=== PATIENT | male | born 1945 | race Caucasian/White ===

== ENCOUNTER → 2017-07-04 11:48 | Outpatient (CLI) | payer MEDICARE, BC, SELFPAY ==
[2017-07-04 13:06] LABS: Prostate Specific Ag Screen 4.4 ng/mL (0.0-4.0)
== END ==
PROVIDERS: Visit Provider Urology
DX: Z12.5 Encounter for screening for malignant neoplasm of prostate (principal); R97.20 Elevated prostate specific antigen [PSA]
CPT/HCPCS: 36415; G0103

== ENCOUNTER → 2017-10-17 09:55 | Outpatient (CLI) | payer MEDICARE, BC, SELFPAY | PROVIDERS: Family Provider Internal Medicine Adolescent Medicine; PCP Internal Medicine Adolescent Medicine; Visit Provider Physician Assistant | DX: Z01.818 Encounter for other preprocedural examination (principal); E11.9 Type 2 diabetes mellitus without complications; E03.9 Hypothyroidism, unspecified | CPT/HCPCS: 36415; 80048; 80061; 80076; 83036; 85025 ==

== ENCOUNTER → 2017-10-17 10:11 | Outpatient (CLI) | payer MEDICARE, BC, SELFPAY ==
--- NOTE | 2017-10-17 10:13 | NM_ITS ---
History and Indications: Diabetes, hyperlipidemia, tobacco use, shortness of breath and fatigue. Procedure: Patient received a 0.4 mg of Lexiscan, resting heart rate was 74 bpm resting blood pressure 142/54, with Lexiscan maximum heart rate achieved was 93 beats per which is less than 85% of the maximum predicted heart rate and a blood pressure was 101/42. With Lexiscan patient complained of shortness of breath and lightheadedness Electrocardiogram: Resting electrocardiogram sinus rhythm, nonspecific ST-T changes, with Lexiscan there is less than 1.[address] segment depression from the baseline EKG. The EKG portion of the Lexiscan Myoview is nondiagnostic. Cardiac stress and resting SPECT images: Cardiac stress and rest SPECT images were obtained using technetium 99 Myoview 31.3 mCi at stress and 10.9 mCi at rest. Gated SPECT further analysis of segmental wall motion and calculation of the ejection fraction also done. Cardiac stress and rest SPECT images show uniform myocardial without any segmental perfusion abnormality, computer derived ejection fraction is 57% with no obvious regional wall motion abnormality, right ventricle is normal size and contractility. Conclusion: 1. The EKG portion of the Lexiscan Myoview is nondiagnostic. 2. No obvious scintigraphic evidence of reversible ischemia seen. Computer derived ejection fraction is 57% with no obvious regional wall motion abnormality, right ventricle is normal size and contractility. 3. Normal Lexiscan Myoview study.
[2017-10-17 10:33] LABS: Basophils # 0.1 K/mm3 (0-0.2); Eosinophils # 0.3 K/mm3 (0.0-0.4); Eosinophils % 3.4 % (0.1-12.0); Lymphocytes # 2.1 K/mm3 (0.7-4.5); Lymphocytes % 27.4 K/mm3 (10-50); Mean Corpuscular HGB Conc 29.4 g/dL (31.8-35.4); Mean Corpuscular Hemoglobin 22.8 pg (27.0-31.2); Mean Corpuscular Volume 77.7 fl (80-94); Mean Platelet Volume 8.4 fl (7.4-10.4); Monocytes # 0.4 K/mm3 (0.1-1.0); Monocytes % 4.8 % (1.7-9.3); Neutrophils # 4.8 K/mm3 (1.8-7.8); Neutrophils % 63.4 % (37.0-80.0); Platelet Count 362 K/mm3 (142-424); Red Cell Distribution Width 17.3 % (11.5-17.5); White Blood Count 7.6 K/mm3 (4.8-10.8)
[2017-10-17 11:02] LABS: Hematocrit 32.8 % (42.0-52.0); Hemoglobin 9.7 g/dL (14.1-18.0); Red Blood Count 4.22 M/mm3 (4.60-6.20)
[2017-10-17 11:09] LABS: Alanine Aminotransferase 85 U/L (12-78); Albumin Level 3.5 gm/dL (3.4-5.0); Alkaline Phosphatase 66 U/L (46-116); Anion Gap 15.8 mEq/L (5-15); Aspartate Amino Transferase 54 U/L (15-37); Bilirubin,Direct 0.1 mg/dL (0.0-0.2); Bilirubin,Indirect 0.2 mg/dL (0.0-0.9); Bilirubin,Total 0.3 mg/dL (0.2-1.0); Blood Urea Nitrogen 36 mg/dL (7-18); Calcium 9.6 mg/dL (8.5-10.1); Carbon Dioxide 29 mmol/L (21.0-32.0); Chloride 101 mmol/L (98-107); Chol/HDL Ratio 3.5 (1-3.5); Cholesterol 153 mg/dL (140-200); Creatinine,Serum 2.18 mg/dL (0.70-1.30); Estimated Glomerular Filt Rate 30 ml/min (>60); GFR (African American) 36 ML/MIN (>60); Glucose 166 mg/dL (74-106); HDL Cholesterol 44 mg/dL (27-67); LDL Cholesterol 59 mg/dL (0-130); Potassium 3.8 mmoL/L (3.5-5.1); Sodium 142 mmol/L (136-145); Total Protein,Serum 7.2 gm/dL (6.4-8.2); Triglycerides 250 mg/dL (30-200); VLDL Cholesterol 50 mg/dL (0-40)
[2017-10-17 12:13] LABS: Hemoglobin A1C 8.2 % (0.0-7.0)
--- NOTE | 2017-10-17 13:15 | HMH.ITSHM ---
simvastatin telmisart furosemide metformin levothyroxin advair asa
== END ==
PROVIDERS: Physician Assistant; Family Provider Internal Medicine Adolescent Medicine; PCP Internal Medicine Adolescent Medicine; Visit Provider Internal Medicine
DX: Z01.818 Encounter for other preprocedural examination (principal); Z95.5 Presence of coronary angioplasty implant and graft; E11.9 Type 2 diabetes mellitus without complications; E03.9 Hypothyroidism, unspecified; E78.5 Hyperlipidemia, unspecified; I25.10 Atherosclerotic heart disease of native coronary artery without angina pectoris; I11.9 Hypertensive heart disease without heart failure
CPT/HCPCS: 36415; 78452; 80048; 80061; 80076; 83036; 85025; 93017; A9502; J2785

== ENCOUNTER → 2017-10-18 08:39 | Outpatient (CLI) | payer MEDICARE, BC, SELFPAY ==
[2017-10-18 10:03] LABS: Occult Blood,Stool Negative (Negative)
== END ==
PROVIDERS: Physician Assistant; Visit Provider Internal Medicine
DX: I25.10 Atherosclerotic heart disease of native coronary artery without angina pectoris (principal); Z95.5 Presence of coronary angioplasty implant and graft
CPT/HCPCS: 82272; G0328

== ENCOUNTER → 2017-10-21 11:22 | Outpatient (CLI) | payer MEDICARE, BC, SELFPAY ==
[2017-10-21 11:52] LABS: Basophils # 0.1 K/mm3 (0-0.2); Basophils % 0.9 % (0.1-2.0); Eosinophils # 0.3 K/mm3 (0.0-0.4); Eosinophils % 3.1 % (0.1-12.0); Hematocrit 31.5 % (42.0-52.0); Hemoglobin 9.3 g/dL (14.1-18.0); Lymphocytes # 2.1 K/mm3 (0.7-4.5); Lymphocytes % 25.9 K/mm3 (10-50); Mean Corpuscular HGB Conc 29.6 g/dL (31.8-35.4); Mean Corpuscular Hemoglobin 23.1 pg (27.0-31.2); Mean Platelet Volume 8.6 fl (7.4-10.4); Monocytes # 0.3 K/mm3 (0.1-1.0); Monocytes % 3.7 % (1.7-9.3); Neutrophils # 5.3 K/mm3 (1.8-7.8); Neutrophils % 66.3 % (37.0-80.0); Platelet Count 338 K/mm3 (142-424); Red Blood Count 4.04 M/mm3 (4.60-6.20); Red Cell Distribution Width 17.4 % (11.5-17.5); White Blood Count 7.9 K/mm3 (4.8-10.8)
[2017-10-21 12:06] LABS: Alanine Aminotransferase 68 U/L (12-78); Albumin Level 3.3 gm/dL (3.4-5.0); Alkaline Phosphatase 64 U/L (46-116); Anion Gap 12.7 mEq/L (5-15); Aspartate Amino Transferase 41 U/L (15-37); Bilirubin,Total 0.2 mg/dL (0.2-1.0); Blood Urea Nitrogen 26 mg/dL (7-18); Calcium 9.6 mg/dL (8.5-10.1); Carbon Dioxide 30 mmol/L (21.0-32.0); Chloride 103 mmol/L (98-107); Creatinine,Serum 1.74 mg/dL (0.70-1.30); Estimated Glomerular Filt Rate 39 ml/min (>60); GFR (African American) 47 ML/MIN (>60); Glucose 223 mg/dL (74-106); Potassium 3.7 mmoL/L (3.5-5.1); Sodium 142 mmol/L (136-145); Total Protein,Serum 7.3 gm/dL (6.4-8.2)
[2017-10-21 12:23] LABS: Bilirubin,Direct < 0.1 mg/dL (0.0-0.2); Bilirubin,Indirect 0.1 mg/dL (0.0-0.9)
== END ==
PROVIDERS: Family Provider Internal Medicine Adolescent Medicine; PCP Internal Medicine Adolescent Medicine; Visit Provider Physician Assistant
DX: D64.9 Anemia, unspecified (principal); N18.9 Chronic kidney disease, unspecified; R94.5 Abnormal results of liver function studies; I25.10 Atherosclerotic heart disease of native coronary artery without angina pectoris
CPT/HCPCS: 36415; 80048; 80076; 85025

== ENCOUNTER → 2017-12-21 09:02 | Outpatient (CLI) | payer MEDICARE, BC, SELFPAY ==
[2017-12-21 09:57] LABS: Basophils # 0.1 K/mm3 (0-0.2); Basophils % 0.8 % (0.1-2.0); Eosinophils # 0.1 K/mm3 (0.0-0.4); Eosinophils % 1.7 % (0.1-12.0); Hematocrit 31.8 % (42.0-52.0); Hemoglobin 9.8 g/dL (14.1-18.0); Lymphocytes % 24.5 K/mm3 (10-50); Mean Corpuscular HGB Conc 30.9 g/dL (31.8-35.4); Mean Corpuscular Hemoglobin 24.1 pg (27.0-31.2); Mean Corpuscular Volume 77.8 fl (80-94); Mean Platelet Volume 7.8 fl (7.4-10.4); Monocytes # 0.4 K/mm3 (0.1-1.0); Monocytes % 4.3 % (1.7-9.3); Neutrophils # 5.7 K/mm3 (1.8-7.8); Neutrophils % 68.6 % (37.0-80.0); Platelet Count 354 K/mm3 (142-424); Red Blood Count 4.09 M/mm3 (4.60-6.20); Red Cell Distribution Width 17.8 % (11.5-17.5); White Blood Count 8.3 K/mm3 (4.8-10.8)
[2017-12-21 09:58] LABS: Hemoglobin A1C 7.7 % (0.0-7.0)
[2017-12-21 10:33] LABS: Alanine Aminotransferase 66 U/L (12-78); Albumin Level 3.5 gm/dL (3.4-5.0); Albumin/Globulin Ratio 0.9 (1.1-1.8); Alkaline Phosphatase 73 U/L (46-116); Anion Gap 12.9 mEq/L (5-15); Aspartate Amino Transferase 30 U/L (15-37); Bilirubin,Total 0.2 mg/dL (0.2-1.0); Blood Urea Nitrogen 20 mg/dL (7-18); Calcium 9.5 mg/dL (8.5-10.1); Carbon Dioxide 31 mmol/L (21.0-32.0); Chloride 103 mmol/L (98-107); Cholesterol 173 mg/dL (140-200); Creatinine,Serum 1.56 mg/dL (0.70-1.30); Estimated Glomerular Filt Rate 44 ml/min (>60); GFR (African American) 54 ML/MIN (>60); Globulin 3.7 gm/dl (1.3-3.2); Glucose 133 mg/dL (74-106); HDL Cholesterol 57 mg/dL (27-67); LDL Cholesterol 77 mg/dL (0-130); Potassium 3.9 mmoL/L (3.5-5.1); Sodium 143 mmol/L (136-145); Thyroid Stimulating Hormone 2.37 uIU/ml (0.358-3.740); Total Protein,Serum 7.2 gm/dL (6.4-8.2); Triglycerides 195 mg/dL (30-200); VLDL Cholesterol 39 mg/dL (0-40)
[2017-12-24 08:28] LABS: Vitamin B12 470 pg/mL (232-1245)
== END ==
PROVIDERS: Visit Provider Internal Medicine Adolescent Medicine
DX: E11.9 Type 2 diabetes mellitus without complications (principal); E78.5 Hyperlipidemia, unspecified; E11.42 Type 2 diabetes mellitus with diabetic polyneuropathy; I25.10 Atherosclerotic heart disease of native coronary artery without angina pectoris
CPT/HCPCS: 36415; 80053; 80061; 82607; 83036; 84443; 85025

== ENCOUNTER → 2018-02-21 07:00 | Outpatient (CLI) | payer MEDICARE, BC, SELFPAY ==
[2018-02-24 16:02] LABS: Occult Blood,Stool Negative (Negative)
== END ==
PROVIDERS: PCP Internal Medicine Adolescent Medicine; Visit Provider Internal Medicine Gastroenterology
DX: D50.0 Iron deficiency anemia secondary to blood loss (chronic) (principal)
CPT/HCPCS: 82272; G0328

== ENCOUNTER → 2018-02-23 07:00 | Outpatient (CLI) | payer MEDICARE, BC, SELFPAY ==
[2018-02-24 16:01] LABS: Occult Blood,Stool Negative (Negative)
== END ==
PROVIDERS: PCP Internal Medicine Adolescent Medicine; Visit Provider Internal Medicine Gastroenterology
DX: D50.0 Iron deficiency anemia secondary to blood loss (chronic) (principal)
CPT/HCPCS: 82272; G0328

== ENCOUNTER → 2018-02-24 15:25 | Outpatient (CLI) | payer MEDICARE, BC, SELFPAY ==
[2018-02-24 16:01] LABS: Occult Blood,Stool Negative (Negative)
== END ==
PROVIDERS: PCP Internal Medicine Adolescent Medicine; Visit Provider Internal Medicine Gastroenterology
DX: D50.0 Iron deficiency anemia secondary to blood loss (chronic) (principal)
CPT/HCPCS: 82272; G0328

== ENCOUNTER → 2018-02-27 14:08 | Outpatient (CLI) | payer MEDICARE, BC, SELFPAY ==
[2018-02-27 15:18] LABS: Basophils # 0.1 K/mm3 (0-0.2); Basophils % 0.6 % (0.1-2.0); Eosinophils # 0.3 K/mm3 (0.0-0.4); Hematocrit 30.1 % (42.0-52.0); Hemoglobin 9.3 g/dL (14.1-18.0); Lymphocytes % 19.7 K/mm3 (10-50); Mean Corpuscular HGB Conc 30.8 g/dL (31.8-35.4); Mean Corpuscular Hemoglobin 24.4 pg (27.0-31.2); Mean Corpuscular Volume 79.3 fl (80-94); Mean Platelet Volume 7.9 fl (7.4-10.4); Monocytes # 0.4 K/mm3 (0.1-1.0); Monocytes % 3.9 % (1.7-9.3); Neutrophils # 7.3 K/mm3 (1.8-7.8); Platelet Count 339 K/mm3 (142-424); Red Cell Distribution Width 19.7 % (11.5-17.5)
[2018-02-27 16:36] LABS: Ferritin 17 ng/mL (8-388)
[2018-03-01 07:23] LABS: Iron 58 ug/dL (38-169); UIBC 333 ug/dL (111-343)
[2018-03-02 09:27] LABS: Iron Saturation 15 % (15-55)
== END ==
PROVIDERS: PCP Internal Medicine Adolescent Medicine; Visit Provider Internal Medicine Medical Oncology
DX: D64.9 Anemia, unspecified (principal); Z79.899 Other long term (current) drug therapy
CPT/HCPCS: 36415; 82728; 83540; 83550; 85025

== ENCOUNTER → 2018-03-24 06:43 | Outpatient (CLI) | payer MEDICARE, BC, SELFPAY ==
--- NOTE | 2018-03-24 07:02 | CT_ITS ---
CT lung screening EXAM: CT LUNG LOW DOSE WO CONTRAST HISTORY: 55 pack-year smoking history asymptomatic for lung cancer ITS.REASON: SMOKER ORDERING PHYSICIAN: Huong Royal MD PATIENT AGE: 73 years COMPARISON: 10/07/2015 TECHNIQUE: The exam was performed on a GE Light Speed [address] scanner using 2.90 mGy CTDI. A low dose helical CT CHEST was performed on a multi-detector scanner. All CT scans at the facility use one or more dose reduction, viz: automated exposure control, ma/kV adjustment per patient size (including targeted exams where dose is matched to indication, i.e. head), or iterative reconstruction technique. The LDCT was performed in a facility that meets the criteria for the screening program. Data regarding this exam was submitted to ACR which is an approved registry. The order for this exam indicates that it came as a result of a lung cancer screening counseling shard decision-making visit that included all the elements required of such a visit including smoking cessation. The radiologist interpreting this exam meets the [facility] criteria for the LDCT lung cancer screening program. The exam is reported using the Lung-RADS classification scale and reported to the ACR registry. NOTE: This study was performed for the specific purposes of lung cancer screening and is not an alternative to diagnostic chest CT. RADIATION DOSE: CTDI vol(CT dose Index-volume) = 2.90mG DLP (Dose Length Product) = 113.33 mGcm FINDINGS: Centrilobular emphysema. COPD with hyperinflation and attenuation of the peripheral pulmonary vessels. Osteal thickening. Old granulomatous disease. Fibrotic changes are present in the left lung base. No suspicious pulmonary nodule. No effusions or infiltrates. No central obstructing lesion. Coronary artery calcifications are present and there is mild pericardial thickening. IMPRESSION: 1. Lung RADS Category: 2, benign 2. Other findings: Centrilobular emphysema, COPD, coronary artery disease RECOMMENDATIONS: Twelve-month LDCT follow-up
== END ==
PROVIDERS: PCP Internal Medicine Adolescent Medicine; Visit Provider Internal Medicine Medical Oncology
DX: Z12.2 Encounter for screening for malignant neoplasm of respiratory organs (principal); Z87.891 Personal history of nicotine dependence

== ENCOUNTER → 2018-04-24 13:12 | Outpatient (CLI) | payer MEDICARE, BC, SELFPAY ==
[2018-04-24 13:46] LABS: Basophils # 0.1 K/mm3 (0-0.2); Eosinophils # 0.4 K/mm3 (0.0-0.4); Eosinophils % 3.9 % (0.1-12.0); Hematocrit 41.8 % (42.0-52.0); Hemoglobin 13.3 g/dL (14.1-18.0); Lymphocytes # 2.1 K/mm3 (0.7-4.5); Lymphocytes % 22.6 % (10-50); Mean Corpuscular HGB Conc 31.9 g/dL (31.8-35.4); Mean Corpuscular Hemoglobin 28.9 pg (27.0-31.2); Mean Corpuscular Volume 90.6 fl (80-94); Mean Platelet Volume 8.1 fl (7.4-10.4); Monocytes # 0.5 K/mm3 (0.1-1.0); Monocytes % 4.8 % (1.7-9.3); Neutrophils # 6.3 K/mm3 (1.8-7.8); Neutrophils % 67.7 % (37.0-80.0); Platelet Count 270 K/mm3 (142-424); Red Blood Count 4.61 M/mm3 (4.60-6.20); Red Cell Distribution Width 20.4 % (11.5-17.5); White Blood Count 9.3 K/mm3 (4.8-10.8)
[2018-04-24 15:06] LABS: Ferritin 22 ng/mL (8-388)
[2018-04-25 07:18] LABS: Iron 45 ug/dL (38-169); UIBC 335 ug/dL (111-343)
[2018-04-25 16:16] LABS: Iron Saturation 12 % (15-55)
== END ==
PROVIDERS: PCP Internal Medicine Adolescent Medicine; Visit Provider Internal Medicine Medical Oncology
DX: D64.9 Anemia, unspecified (principal)
CPT/HCPCS: 36415; 82728; 83540; 83550; 85025

== ENCOUNTER → 2018-05-07 09:03 | Outpatient (CLI) | payer MEDICARE, BC, SELFPAY ==
[2018-05-07 09:52] LABS: Hemoglobin A1C 6.7 % (0.0-7.0)
[2018-05-07 10:51] LABS: Alanine Aminotransferase 69 U/L (12-78); Albumin Level 3.3 gm/dL (3.4-5.0); Albumin/Globulin Ratio 0.9 (1.1-1.8); Alkaline Phosphatase 68 U/L (46-116); Anion Gap 13.5 mEq/L (5-15); Aspartate Amino Transferase 40 U/L (15-37); Bilirubin,Total 0.3 mg/dL (0.2-1.0); Blood Urea Nitrogen 16 mg/dL (7-18); Calcium 9.2 mg/dL (8.5-10.1); Carbon Dioxide 31 mmol/L (21.0-32.0); Chloride 101 mmol/L (98-107); Chol/HDL Ratio 3.7 (1-3.5); Cholesterol 180 mg/dL (140-200); Creatinine,Serum 1.55 mg/dL (0.70-1.30); Estimated Glomerular Filt Rate 44 ml/min (>60); GFR (African American) 54 ML/MIN (>60); Globulin 3.7 gm/dl (1.3-3.2); Glucose 128 mg/dL (74-106); HDL Cholesterol 49 mg/dL (27-67); LDL Cholesterol 85 mg/dL (0-130); Potassium 3.5 mmoL/L (3.5-5.1); Sodium 142 mmol/L (136-145); Triglycerides 232 mg/dL (30-200); VLDL Cholesterol 46 mg/dL (0-40)
--- NOTE | 2018-05-07 11:01 | XR_ITS ---
XR chest 2V HISTORY: Right anterior chest pain, shortness of air, smoker, heart disease ITS.REASON: chest pain ORDERING PHYSICIAN: Denae Velarde PATIENT AGE: 73 years COMPARISON: 02/10/2016 FINDINGS: The cardiomediastinal silhouette and pulmonary vascularity are within normal limits. The lungs are clear without infiltrates, suspicious nodules, or pleural effusions. Chronic changes left lower lobe. Degenerative changes thoracic spine. COPD No acute bony abnormalities. IMPRESSION: COPD with chronic change, no change with no acute finding
== END ==
PROVIDERS: PCP Internal Medicine Adolescent Medicine; Visit Provider Urology
DX: I25.10 Atherosclerotic heart disease of native coronary artery without angina pectoris (principal); R06.02 Shortness of breath; R07.9 Chest pain, unspecified; E11.9 Type 2 diabetes mellitus without complications; E78.5 Hyperlipidemia, unspecified
CPT/HCPCS: 36415; 71046; 80053; 80061; 83036

== ENCOUNTER → 2018-05-13 09:51 | Outpatient (POV) | payer MEDICARE, BC, SELFPAY ==
[2018-05-13 10:07] VITALS: BP 137/58; PULSE 82; RESP 18; O2SAT 98
--- NOTE | 2018-05-13 10:25 | HMH.PMCON ---
Assessment and Plan (1) Degenerative disc disease Current visit: Yes Status: Chronic Category: Medical (2) Facet arthropathy Current visit: Yes Status: Chronic Category: Medical Code(s): M47.819 - Spondylosis without myelopathy or radiculopathy, site unspecified - Assessment and plan all Dx Assessment and Plan for all problems:: We will set the patient up for an MRI we will also set him up for an L3-L4 L4-L5 L5-S1 bilateral lumbar facet joint injections/medial branch block. If this is successful I do believe he would benefit from a RFA in the future. This note was dictated using voice recognition software and may contain errors or omissions HPI - Data of Consult Consult date: 05/13/18 Requesting Physician: Cristine Wallace APRN Primary Care Provider: Akil Borges MD Family Provider: Akil Borges MD - Consult Narrative Reason for consult: Back pain History of present illness: Mr. Plascencia is a 73 year old male who presents today for consultation in regards to his low back pain. He rates his pain today a 5 out of 10. He states is in his lower back. Patient states rotational movement makes it worse. Patient was seen by Dr. Hill and had an RFA but a year ago he states he had very good relief almost a year. Patient states that he had care transferred to Dr. Sarmiento however he received epidural injections with not much relief. Patient's tried and failed physical therapy. He is continuing a home stretching program. He is on Plavix however he does have permission to come off her injections. He had significant relief with them. Patient does have an MRI from 2004 showing facet disease. Patient has taken anti-inflammatories along with gabapentin. CC: Cristine Wallace APRN [facility] History I have reviewed the patient's past medical history: Yes Medical History: Reports:: Atrial Fibrillation, Chronic Obstructive Pulmonary Disease (COPD), Coronary Artery Disease, Diabetes Mellitus Type 2, Hyperlipidemia, Hypertension, Lung Disease Denies:: Cancer, Diabetes Mellitus Type 1, Internal Pacemaker, MRSA, Seizures Have you ever received a pneumonia vaccine?: Yes Other Medical History: Reports: Hypothyroidism Other Surgeries: Yes: Cardiac Catheterization, Coronary Stent (2014), Hernia Repair, Other. No: Pacemaker Amputation: No Fractures: No - *Social History Smoking Status: Current every day smoker Tobacco Type: cigarettes # Packs/Day (cigarettes): 1 #Yrs smoked (if former smoker): 50 Alcohol Intake: never Alcohol Intake Frequency:: other Substance Use Type: denies use Occupational Status: retired Housing: house Travel in the last 8 weeks: None - Psychiatric History Expresses thoughts of harming self/others: None Suicide Plan Description: No Plan *Family Hx:: No significant family history Review of Systems - Review of Systems ROS General: no recent weight change, no fever, no sleep disturbances Respiratory: no cough, no shortness of air, no recurring pulmonary infections Cardiovascular/Peripheral Vascular: No chest pain, No palpitations, no edema, no shortness of breath. Gastrointestinal: no incontinence, normal bowel movements reported Genitourinary: no incontinence Musculoskeletal: Back pain Psychiatric: normal mood/ affect Neurological: [denies weakness in extremities], [denies balance issues] Meds Home Medications Medication Instructions Recorded Confirmed Type aspirin 81 mg tablet,delayed 81 mg PO ONCE 07/09/17 05/07/18 History release clopidogrel 75 mg tablet 75 mg PO DAILY tab 07/09/17 05/07/18 History metformin 1,000 mg tablet 1,000 mg PO BID 07/09/17 05/07/18 History douprexaiukl-Jn-dljz-minerals 18 1 tab PO DAILY tab 07/09/17 05/07/18 History mg-0.4 mg tablet simvastatin 80 mg tablet 80 mg PO DAILY tab 07/09/17 05/07/18 History telmisartan 80 1 tab PO DAILY tab 07/09/17 05/07/18 History mg-hydrochlorothiazide 25 mg tablet levothyroxine 50 mcg table
--- NOTE | 2018-05-13 10:29 | P.CONS_ITS ---
Assessment and Plan (1) Degenerative disc disease Current visit: Yes Status: Chronic Category: Medical (2) Facet arthropathy Current visit: Yes Status: Chronic Category: Medical Code(s): M47.819 - Spondylosis without myelopathy or radiculopathy, site unspecified - Assessment and plan all Dx Assessment and Plan for all problems:: We will set the patient up for an MRI we will also set him up for an L3-L4 L4-L5 L5-S1 bilateral lumbar facet joint injections/medial branch block. If this is successful I do believe he would benefit from a RFA in the future. This note was dictated using voice recognition software and may contain errors or omissions HPI - Data of Consult Consult date: 05/13/18 Requesting Physician: Cristine Wallace APRN Primary Care Provider: Akil Borges MD Family Provider: Akil Borges MD - Consult Narrative Reason for consult: Back pain History of present illness: Mr. Plascencia is a 73 year old male who presents today for consultation in regards to his low back pain. He rates his pain today a 5 out of 10. He states is in his lower back. Patient states rotational movement makes it worse. Patient was seen by Dr. Hill and had an RFA but a year ago he states he had very good relief almost a year. Patient states that he had care transferred to Dr. Sarmiento however he received epidural injections with not much relief. Patient's tried and failed physical therapy. He is continuing a home stretching program. He is on Plavix however he does have permission to come off her injections. He had significant relief with them. Patient does have an MRI from 2004 showing facet disease. Patient has taken anti-inflammatories along with gabapentin. CC: Cristine Wallace APRN [facility] History I have reviewed the patient's past medical history: Yes Medical History: Reports:: Atrial Fibrillation, Chronic Obstructive Pulmonary Disease (COPD), Coronary Artery Disease, Diabetes Mellitus Type 2, Hyperlipidemia, Hypertension, Lung Disease Denies:: Cancer, Diabetes Mellitus Type 1, Internal Pacemaker, MRSA, Seizures Have you ever received a pneumonia vaccine?: Yes Other Medical History: Reports: Hypothyroidism Other Surgeries: Yes: Cardiac Catheterization, Coronary Stent (2014), Hernia Repair, Other. No: Pacemaker Amputation: No Fractures: No - *Social History Smoking Status: Current every day smoker Tobacco Type: cigarettes # Packs/Day (cigarettes): 1 #Yrs smoked (if former smoker): 50 Alcohol Intake: never Alcohol Intake Frequency:: other Substance Use Type: denies use Occupational Status: retired Housing: house Travel in the last 8 weeks: None - Psychiatric History Expresses thoughts of harming self/others: None Suicide Plan Description: No Plan *Family Hx:: No significant family history Review of Systems - Review of Systems ROS General: no recent weight change, no fever, no sleep disturbances Respiratory: no cough, no shortness of air, no recurring pulmonary infections Cardiovascular/Peripheral Vascular: No chest pain, No palpitations, no edema, no shortness of breath. Gastrointestinal: no incontinence, normal bowel movements reported Genitourinary: no incontinence Musculoskeletal: Back pain Psychiatric: normal mood/ affect Neurological: [denies weakness in extremities], [denies balance issues] Meds Home Medications Medication Instructions Recorded Confirmed Type aspirin 81 mg tablet,delayed 81 mg PO ONCE 07/09
== END ==
PROVIDERS: PCP Internal Medicine Adolescent Medicine; Visit Provider Clinical Nurse Specialist Family Health
DX: M47.819 Spondylosis without myelopathy or radiculopathy, site unspecified (principal)
CPT/HCPCS: 99202

== ENCOUNTER → 2018-05-15 09:12 | Outpatient (CLI) | payer MEDICARE, BC, SELFPAY ==
--- NOTE | 2018-05-15 09:15 | MR_ITS ---
MR lumbar spine wo con, MR 3-d myelogram/MRCP HISTORY: LBP worse on RT side. States he's had a tumor in back xyrs. Pain in groin when walking. ITS.REASON: WORSENING BACK PAIN ORDERING PHYSICIAN: Cristine Wallace PATIENT AGE: 73 years Comparison: None TECHNIQUE: Standard multiplanar multiecho sequences are performed without contrast. 3-D MIP and myelographic images are also rendered and reviewed FINDINGS: There is normal alignment. The spinal cord ends at the L1 level. L1-L2 and L2-L3 have an unremarkable appearance. L3-L4: Mild facet and ligamentum hypertrophic change with mild bilateral Ramal narrowing slightly greater on the left. L4-L5: Mild facet ligamentum hypertrophy. There is moderate bilateral foraminal narrowing from the facet hypertrophic change and mild bilateral lateral recess narrowing. There is an oval central intradural lesion at the L5 region of the thecal sac. This measures 14 mm longitudinal 11 mm AP and 12 mm transverse. 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 This lesion has mixed-signal intensity is isointense on T1 with central hyperintensity on T2 and hypointensity peripherally. This lesion splays the nerve roots laterally. L5-S1: Bulging disc with facet and ligamentum hypertrophy with moderate bilateral foraminal narrowing. No extruded herniated disc. IMPRESSION: 1. Mild multilevel lumbar spondylosis. Please see above for detailed description at each level. There are bulging disc along with facet and ligamentum hypertrophy with bilateral foraminal narrowing. 2. 14 x 12 x 11 mm intradural lesion within the spinal canal at L5 area as detailed above. Could represent an ependymoma/myxopapillary ependymoma. Suggest pre- and post enhanced imaging to further evaluate if clinically warranted. Spinal schwannoma or paraganglioma, is included in the differential diagnosis. If old films are available then recommend submitting for comparison
== END ==
PROVIDERS: PCP Internal Medicine Adolescent Medicine; Visit Provider Clinical Nurse Specialist Family Health
DX: M54.5 Low back pain (principal)
CPT/HCPCS: 72148; 76376

== ENCOUNTER → 2018-06-30 14:15 | Outpatient (CLI) | payer MEDICARE, BC, SELFPAY ==
[2018-06-30 15:37] LABS: Prostate Specific Ag, Diagnost 4.83 ng/mL (0.0-4.0)
== END ==
PROVIDERS: Visit Provider Urology
DX: Z12.5 Encounter for screening for malignant neoplasm of prostate (principal); R97.20 Elevated prostate specific antigen [PSA]
CPT/HCPCS: 36415; 84153

== ENCOUNTER → 2018-07-18 14:19 | Outpatient (CLI) | payer MEDICARE, BC, SELFPAY ==
--- NOTE | 2018-07-18 14:22 | US_ITS ---
US kidney retroperitoneal comp HISTORY: ITS.REASON: renal insuffciency ORDERING PHYSICIAN: Anthony Travis MD PATIENT AGE: 73 years Comparison: 02/13/2013 FINDINGS: The right kidney is 11 x 5 x 7 cm. No hydronephrosis. There is mild lobular contour of the kidney. The left kidney is 12 x 5 x 6 cm. The cortex has a somewhat lobular contour suggesting some underlying scarring. No hydronephrosis aspirate or other significant anomalies. Unremarkable echogenicity IMPRESSION: Cortical lobularity of both kidneys suggesting underlying scarring. No hydronephrosis or other significant anomalies
== END ==
PROVIDERS: PCP Internal Medicine Adolescent Medicine; Visit Provider Urology
DX: N28.9 Disorder of kidney and ureter, unspecified (principal)
CPT/HCPCS: 76770

== ENCOUNTER → 2018-08-05 08:00 | Outpatient (CLI) | payer MEDICARE, BC, SELFPAY ==
[2018-08-05 09:11] LABS: Basophils # 0.1 K/mm3 (0-0.2); Basophils % 0.8 % (0.1-2.0); Eosinophils # 0.4 K/mm3 (0.0-0.4); Eosinophils % 4.4 % (0.1-12.0); Hematocrit 39.8 % (42.0-52.0); Hemoglobin 13.3 g/dL (14.1-18.0); Lymphocytes # 2.8 K/mm3 (0.7-4.5); Mean Corpuscular HGB Conc 33.5 g/dL (31.8-35.4); Mean Corpuscular Hemoglobin 31.1 pg (27.0-31.2); Mean Corpuscular Volume 92.9 fl (80-94); Mean Platelet Volume 8.6 fl (7.4-10.4); Monocytes # 0.4 K/mm3 (0.1-1.0); Monocytes % 4.2 % (1.7-9.3); Neutrophils # 5.1 K/mm3 (1.8-7.8); Neutrophils % 58.6 % (37.0-80.0); Platelet Count 292 K/mm3 (142-424); Red Blood Count 4.28 M/mm3 (4.60-6.20); Red Cell Distribution Width 16.1 % (11.5-17.5); White Blood Count 8.8 K/mm3 (4.8-10.8)
[2018-08-05 10:16] LABS: Hemoglobin A1C 6.8 % (0.0-7.0)
[2018-08-05 10:23] LABS: Alanine Aminotransferase 71 U/L (12-78); Albumin Level 3.4 gm/dL (3.4-5.0); Albumin/Globulin Ratio 0.9 (1.1-1.8); Alkaline Phosphatase 64 U/L (46-116); Anion Gap 17.4 mEq/L (5-15); Aspartate Amino Transferase 36 U/L (15-37); Bilirubin,Total 0.3 mg/dL (0.2-1.0); Blood Urea Nitrogen 20 mg/dL (7-18); Calcium 9.8 mg/dL (8.5-10.1); Carbon Dioxide 28 mmol/L (21.0-32.0); Chloride 101 mmol/L (98-107); Cholesterol 170 mg/dL (140-200); Creatinine,Serum 1.58 mg/dL (0.70-1.30); Estimated Glomerular Filt Rate 43 ml/min (>60); GFR (African American) 53 ML/MIN (>60); Globulin 3.6 gm/dl (1.3-3.2); Glucose 140 mg/dL (74-106); HDL Cholesterol 43 mg/dL (27-67); LDL Cholesterol 69 mg/dL (0-130); Potassium 3.4 mmoL/L (3.5-5.1); Sodium 143 mmol/L (136-145); Triglycerides 292 mg/dL (30-200); VLDL Cholesterol 58 mg/dL (0-40)
== END ==
PROVIDERS: Visit Provider Internal Medicine Adolescent Medicine
DX: E11.9 Type 2 diabetes mellitus without complications (principal); Z79.4 Long term (current) use of insulin; E78.5 Hyperlipidemia, unspecified; I25.10 Atherosclerotic heart disease of native coronary artery without angina pectoris; M54.5 Low back pain; F17.210 Nicotine dependence, cigarettes, uncomplicated
CPT/HCPCS: 36415; 80053; 80061; 83036; 85025

== ENCOUNTER → 2018-08-11 18:22 | Outpatient (CLI) | payer MEDICARE, BC, SELFPAY ==
[2018-08-11 18:41] LABS: Basophils # 0.1 K/mm3 (0-0.2); Basophils % 0.9 % (0.1-2.0); Eosinophils # 0.4 K/mm3 (0.0-0.4); Eosinophils % 3.7 % (0.1-12.0); Hematocrit 40.3 % (42.0-52.0); Hemoglobin 14.2 g/dL (14.1-18.0); Lymphocytes # 2.4 K/mm3 (0.7-4.5); Lymphocytes % 25.5 % (10-50); Mean Corpuscular HGB Conc 35.3 g/dL (31.8-35.4); Mean Corpuscular Volume 90.5 fl (80-94); Mean Platelet Volume 8.1 fl (7.4-10.4); Monocytes # 0.4 K/mm3 (0.1-1.0); Monocytes % 3.8 % (1.7-9.3); Neutrophils # 6.2 K/mm3 (1.8-7.8); Platelet Count 303 K/mm3 (142-424); Red Blood Count 4.45 M/mm3 (4.60-6.20); White Blood Count 9.4 K/mm3 (4.8-10.8)
[2018-08-11 20:28] LABS: Alanine Aminotransferase 70 U/L (12-78); Albumin Level 3.7 gm/dL (3.4-5.0); Alkaline Phosphatase 60 U/L (46-116); Anion Gap 13.3 mEq/L (5-15); Aspartate Amino Transferase 34 U/L (15-37); Bilirubin,Total 0.3 mg/dL (0.2-1.0); Blood Urea Nitrogen 21 mg/dL (7-18); Calcium 9.5 mg/dL (8.5-10.1); Carbon Dioxide 32 mmol/L (21.0-32.0); Chloride 101 mmol/L (98-107); Creatinine,Serum 1.57 mg/dL (0.70-1.30); Estimated Glomerular Filt Rate 44 ml/min (>60); Ferritin 26 ng/mL (8-388); GFR (African American) 53 ML/MIN (>60); Globulin 3.7 gm/dl (1.3-3.2); Glucose 183 mg/dL (74-106); Potassium 3.3 mmoL/L (3.5-5.1); Sodium 143 mmol/L (136-145); Total Protein,Serum 7.4 gm/dL (6.4-8.2)
[2018-08-13 08:32] LABS: Iron 69 ug/dL (38-169); UIBC 288 ug/dL (111-343)
[2018-08-13 14:28] LABS: Iron Saturation 19 % (15-55)
== END ==
PROVIDERS: Visit Provider Internal Medicine Medical Oncology
DX: D64.9 Anemia, unspecified (principal)
CPT/HCPCS: 36415; 80053; 82728; 83540; 83550; 85025

== ENCOUNTER → 2018-09-12 09:56 | Outpatient (CLI) | payer MEDICARE, BC, SELFPAY ==
--- NOTE | 2018-09-12 09:59 | CA_ITS ---
PROCEDURE: 2-D M-mode and color Doppler study INDICATIONS FOR THE TEST: Chest pain COPDX Heart Murmur Tobacco SmokingX Palpitations Fatigue Syncope Edema HypertensionXDiabetes MellitusX Rheumatic Fever SOBXDOE Obesity HyperlipidemiaX Family History HD Additional History CAD,AF TDS OBESITY PATIENT INFORMATION HEIGHT: 68 WEIGHT:235 GENDER: Male B/P:130/58 2-D/M-MODE INTERPRETATION: 2-D MEASUREMENTS OBSERVED VALUES IN CMS Right Ventricular Dimension (RVDd) 1.6 Interventricular Septum (Thickness)(IVsd) 1.2 Left Ventricular Internal Dimensions(LVIDd) 4.3 Left Ventricular Posterior Wall (Thickness)(LVPWd) 1.1 Aortic Root 3.0 Aortic Cusp Separation 1.8 Left Atrial Dimensions (LAD) 3.3 2D 1. Left atrium is mildly enlarged, left ventricle is normal size, mild concentric left ventricular hypertrophy, visually estimated ejection fraction 55% with no regional wall motion abnormality. 2. The right atrium and right ventricle are normal size and contractility. 3. The aortic valve is minimally thickened and fibrosed. 4. The mitral and tricuspid valvular grossly normal. 5. The pulmonic valve is poorly visualized. 6. No significant pericardial effusion noted. DOPPLER INTERROGATION: Doppler interrogation of the aortic, mitral and tricuspid valvular presence of mild mitral and tricuspid regurgitation, tricuspid regurgitation jet velocity is inadequate for calculation of the right ventricular systolic pressure, grade 1 diastolic dysfunction seen with tissue Doppler evidence of raised left atrial pressure. CONCLUSION: 1. Mildly enlarged left atrium, normal left ventricular size, mild concentric left ventricular hypertrophy, visually estimated ejection fraction 55% with no regional wall motion abnormality, grade 1 diastolic dysfunction seen with tissue Doppler evidence of raised left atrial pressure. 2. Mild mitral and tricuspid regurgitation 3. No significant pericardial effusion noted.
== END ==
PROVIDERS: PCP Internal Medicine Adolescent Medicine; Visit Provider Nurse Practitioner Family
DX: I25.10 Atherosclerotic heart disease of native coronary artery without angina pectoris (principal); R06.02 Shortness of breath
CPT/HCPCS: 93306

== ENCOUNTER → 2018-12-09 12:23 | Outpatient (CLI) | payer MEDICARE, BC, SELFPAY ==
--- NOTE | 2018-12-09 12:27 | XR_ITS ---
XR shoulder RT min 2V HISTORY: Right shoulder pain ITS.REASON: right shoulder pain ORDERING PHYSICIAN: Alberto Eddy MD PATIENT AGE: 73 years Comparison: None FINDINGS: There are mild osteoarthritic changes of the glenohumeral joint and acromioclavicular joint. No fracture or dislocation. No significant bony subacromial stenosis. No lytic or blastic change. IMPRESSION: Mild osteoarthritis
== END ==
PROVIDERS: PCP Internal Medicine Adolescent Medicine; Visit Provider Orthopaedic Surgery
DX: M25.511 Pain in right shoulder (principal)
CPT/HCPCS: 73030

== ENCOUNTER → 2018-12-11 14:01 | Outpatient (CLI) | payer MEDICARE, BC, SELFPAY ==
--- NOTE | 2018-12-11 14:02 | MR_ITS ---
MR shoulder RT wo con COMPARISON: 12/09/2018 HISTORY: Right shoulder pain with limited range of motion ORDERING PHYSICIAN: Alberto Eddy MD PATIENT AGE: 73 years TECHNIQUE: Multiplanar multiecho sequences are performed without contrast. FINDINGS: There are osteoarthritic changes of the acromioclavicular joint with bony hypertrophy. There is mild downsloping of the acromion. There is thickening with increased T2 signal within the supraspinatus tendon consistent with tendinopathy/tendinosis. There is some minimal irregularity of the undersurface of the supraspinatus tendon posteriorly and distally which could be related to minimal fraying of the tendon. A full-thickness tear is not identified. There is mild tendinopathy/tendinosis of the infraspinatus tendon. The subscapularis also shows some thickening distally. Teres minor tendon has an unremarkable appearance. No obvious labral tear. There are mild osteoarthritic changes of the glenohumeral joint. The bicipital tendon is in place. No fracture or dislocation. IMPRESSION: 1. Tendinopathy/tendinosis of the supraspinatus, infraspinatus, and subscapularis tendons. 2. Minimal irregularity along the undersurface of the supraspinatus tendon posteriorly suggesting minimal fraying of the tendon. A full thickness or complete tear however is not apparent. 3. Mild osteoarthritic changes of the acromioclavicular joint and glenohumeral joint with mild subacromial stenosis
== END ==
PROVIDERS: PCP Internal Medicine Adolescent Medicine; Visit Provider Orthopaedic Surgery
DX: M25.511 Pain in right shoulder (principal)
CPT/HCPCS: 73221

== ENCOUNTER → 2019-02-02 06:59 | Outpatient (CLI) | payer MEDICARE, BC, SELFPAY ==
[2019-02-02 07:24] LABS: Basophils # 0.1 K/mm3 (0-0.2); Basophils % 1.2 % (0.1-2.0); Eosinophils # 0.5 K/mm3 (0.0-0.4); Eosinophils % 5.7 % (0.1-12.0); Hematocrit 42.3 % (42.0-52.0); Hemoglobin 13.1 g/dL (14.1-18.0); Lymphocytes # 2.6 K/mm3 (0.7-4.5); Lymphocytes % 32.3 % (10-50); Mean Corpuscular HGB Conc 31.1 g/dL (31.8-35.4); Mean Corpuscular Hemoglobin 29.7 pg (27.0-31.2); Mean Corpuscular Volume 95.5 fl (80-94); Mean Platelet Volume 8.2 fl (7.4-10.4); Monocytes # 0.5 K/mm3 (0.1-1.0); Monocytes % 5.8 % (1.7-9.3); Neutrophils # 4.4 K/mm3 (1.8-7.8); Platelet Count 311 K/mm3 (142-424); Red Blood Count 4.43 M/mm3 (4.60-6.20); Red Cell Distribution Width 15.9 % (11.5-17.5)
[2019-02-02 09:04] LABS: Alanine Aminotransferase 51 U/L (12-78); Albumin Level 3.5 gm/dL (3.4-5.0); Albumin/Globulin Ratio 0.9 (1.1-1.8); Alkaline Phosphatase 68 U/L (46-116); Anion Gap 9.5 mEq/L (5-15); Aspartate Amino Transferase 30 U/L (15-37); Bilirubin,Total 0.3 mg/dL (0.2-1.0); Blood Urea Nitrogen 18 mg/dL (7-18); Calcium 9.2 mg/dL (8.5-10.1); Carbon Dioxide 32 mmol/L (21.0-32.0); Chloride 101 mmol/L (98-107); Chol/HDL Ratio 3.8 (1-3.5); Cholesterol 157 mg/dL (140-200); Creatinine,Serum 1.53 mg/dL (0.70-1.30); Estimated Glomerular Filt Rate 45 ml/min (>60); GFR (African American) 55 ML/MIN (>60); Globulin 3.7 gm/dl (1.3-3.2); Glucose 130 mg/dL (74-106); HDL Cholesterol 41 mg/dL (27-67); LDL Cholesterol 64 mg/dL (0-130); Potassium 3.5 mmoL/L (3.5-5.1); Sodium 139 mmol/L (136-145); Total Protein,Serum 7.2 gm/dL (6.4-8.2); Triglycerides 260 mg/dL (30-200); VLDL Cholesterol 52 mg/dL (0-40)
[2019-02-02 09:50] LABS: Hemoglobin A1C 6.8 % (0.0-7.0)
== END ==
PROVIDERS: Visit Provider Internal Medicine Adolescent Medicine
DX: I25.10 Atherosclerotic heart disease of native coronary artery without angina pectoris (principal); E11.9 Type 2 diabetes mellitus without complications; Z79.4 Long term (current) use of insulin
CPT/HCPCS: 36415; 80053; 80061; 83036; 85025

== ENCOUNTER → 2019-02-05 06:56 | Outpatient (CLI) | payer MEDICARE, BC, SELFPAY ==
--- NOTE | 2019-02-05 | CA_ITS ---
APPROVED REPORT Exam: Pharmacologic Technologist: fady bal, Ht: 5 ft 7 in Wt: 233 lbs BSA: 2.16 m2 HR: 64 bpm BP: 151/64 mmHg Rhythm: NSR CANNOT R/O OLD SEPTAL AL NS ST-T ABNORMALITIES INFERIORLY Indications: SOB Medical History Medical History: Hyperlipidemia, HTN, Diabetic ??? Insulin, SOB Medications: Levothyroxine,,,,, Asa,,,,, Metformin,,,,, Gabapentin,,,,, HCTZ,,,,, Lasix,,,,, ADVAIR,,,,, Plavix,,,,, Micardis,,,,, HumLIN,,,,, Simvasatin,,,,, Misoprolol,,,,, Allergies: NKA Cardiac Risk Factors: HTN, Hyperlipidemia, Diabetes (insulin), SOB Stress Test Details Test: LEXISCAN HR Resting HR: 74 bpm Max Heart Rate (APMHR): 149 bpm Max HR Achieved: 91 bpm Target HR (85% APMHR): 126 bpm % of APMHR: 61 Recovery HR: 84 bpm BP Resting BP: 151.0/64.0 mmHg Max BP: 165.0/48.0 mmHg Recovery BP: 155.0/57.0 mmHg ECG Resting ECG: NSR CANNOT R/O OLD SEPTAL AL, NS ST-T ABNORMALITIES INFERIORLY Medications Administered Aminophylline (100.0 mg at ) Clinical Exercise duration: 04:01 min Highest Stage Achieved: Stress ECG Conclusion DURING INFUSION OF LEXISCAN PATIEN HAD SOA,NAUSEA,MALAISE,DIZZY AND WAS LIGHTHEADED. NO CHEST PAIN. NO ARRHYTHMIAS/ECTOPY. NS ST-T CHANGES LATERALLY. EXAGGERATION OF BASELINE ST-T ABNORMALITIES INFERIORLY. UNREMARKABLE LEXISCAN STRESS. MYOVIEW IMAGES REPORTED SEPARATELY. Electronically signed by : Flavio Lubin, 02/05/2019 12:15:58
--- NOTE | 2019-02-05 06:57 | NM_ITS ---
APPROVED REPORT Exam: Nuclear Stress Test Indication: SHORT OF BREATH Patient Location: Outpatient Stress Tech: Linda SimmonsAllie OR Tech:WENDY Carlos RT(R)(N) Ht: 5 ft 7 in Wt: 233 lbs HR: 64 bpm BP: 151/64 mmHg BSA: 2.16 m2 BMI: 36.4 History: SHORT OF BREATH Procedure: Patient received a 0.4 mg of intravenous Lexiscan, resting heart rate 64 bpm, resting blood pressure 151/64 mmHg, with Lexiscan maximum heart rate achived was 91 bpm which is Less than 85 % of the maximum predicted heart rate and blood pressure was 142/51 mmHg. With Lexiscan, patient denied any complaint of chest pain. Electrocardiogram Resting electro cardiogram showed sinus rhythm, nonspecific ST-T changes, with Lexiscan there is less than 1.[address] segment depression noted from the baseline EKG. The EKG portion of the Lexiscan Myoview is nondiagnostic. Cardiac Stress and Resting SPECT Images: Cardiac Stress and Resting SPECT images were obtained using technetium 99m Myoview 31.8 mCi stress and 10.17 mCi at rest. Gated SPECT with analysis of segmental wall motion and calculation of the ejection fraction also done. Cardiac stress and resting SPECT images show decreased tracer activity in the anterolateral wall which improves on the resting images suggestive of reversible ischemia, computer derived ejection fraction is over 65% with no regional wall motion abnormality, right ventricle is normal size and contractility. Conclusion: 1. The EKG portion of the Lexiscan Myoview is nondiagnostic. 2. Scintigraphic evidence of mild reversible ischemia involving the anterolateral wall, computer derived ejection fraction is over 65% with no regional wall motion abnormality, right ventricle is normal size and contractility. 3. Abnormal Lexiscan Myoview study. Electronically signed by : Flavio Lubin, 02/05/2019 15:24:11
--- NOTE | 2019-02-05 10:29 | HMH.ITSHM ---
Current Home Medications as stated by this patient Farhan Plascencia or care support representative. [] simvastatin micardis fursemide metformin plavix asa
[2019-02-05 10:34] LABS: Basophils # 0.1 K/mm3 (0-0.2); Eosinophils # 0.4 K/mm3 (0.0-0.4); Eosinophils % 4.1 % (0.1-12.0); Hematocrit 43.5 % (42.0-52.0); Hemoglobin 14.3 g/dL (14.1-18.0); Lymphocytes # 2.5 K/mm3 (0.7-4.5); Lymphocytes % 27.9 % (10-50); Mean Corpuscular HGB Conc 32.8 g/dL (31.8-35.4); Mean Corpuscular Hemoglobin 31.5 pg (27.0-31.2); Mean Corpuscular Volume 96.2 fl (80-94); Mean Platelet Volume 8.2 fl (7.4-10.4); Monocytes # 0.3 K/mm3 (0.1-1.0); Monocytes % 3.6 % (1.7-9.3); Neutrophils # 5.6 K/mm3 (1.8-7.8); Neutrophils % 63.4 % (37.0-80.0); Platelet Count 286 K/mm3 (142-424); Red Blood Count 4.53 M/mm3 (4.60-6.20); White Blood Count 8.9 K/mm3 (4.8-10.8)
[2019-02-05 12:20] LABS: Free T4 (Free Thyroxine) 0.91 ng/dl (0.76-1.46); Thyroid Stimulating Hormone 3.03 uIU/ml (0.358-3.740)
[2019-02-05 12:23] LABS: Alanine Aminotransferase 57 U/L (12-78); Albumin Level 3.5 gm/dL (3.4-5.0); Albumin/Globulin Ratio 0.9 (1.1-1.8); Alkaline Phosphatase 69 U/L (46-116); Anion Gap 14.7 mEq/L (5-15); Aspartate Amino Transferase 32 U/L (15-37); Bilirubin,Total 0.3 mg/dL (0.2-1.0); Blood Urea Nitrogen 20 mg/dL (7-18); Calcium 9.5 mg/dL (8.5-10.1); Carbon Dioxide 30 mmol/L (21.0-32.0); Chloride 100 mmol/L (98-107); Creatinine,Serum 1.41 mg/dL (0.70-1.30); Estimated Glomerular Filt Rate 50 ml/min (>60); Ferritin 38 ng/mL (8-388); GFR (African American) 60 ML/MIN (>60); Glucose 171 mg/dL (74-106); Potassium 3.7 mmoL/L (3.5-5.1); Sodium 141 mmol/L (136-145); Total Protein,Serum 7.5 gm/dL (6.4-8.2)
[2019-02-06 09:15] LABS: Iron 61 ug/dL (38-169); UIBC 318 ug/dL (111-343)
[2019-02-06 17:16] LABS: Iron Saturation 16 % (15-55)
== END ==
PROVIDERS: Internal Medicine Medical Oncology; PCP Internal Medicine Adolescent Medicine; Visit Provider Urology
DX: R06.02 Shortness of breath; E78.5 Hyperlipidemia, unspecified; I11.9 Hypertensive heart disease without heart failure; I20.8 Other forms of angina pectoris; R61 Generalized hyperhidrosis; Z95.5 Presence of coronary angioplasty implant and graft
CPT/HCPCS: 36415; 78452; 80053; 82728; 83540; 83550; 84439; 84443; 85025; 93017; A9502; J2785

== ENCOUNTER → 2019-03-09 09:49 | Outpatient (CLI) | payer MEDICARE, BC, SELFPAY ==
[2019-03-09 10:27] LABS: Basophils # 0.1 K/mm3 (0-0.2); Basophils % 1.3 % (0.1-2.0); Eosinophils # 0.4 K/mm3 (0.0-0.4); Eosinophils % 4.6 % (0.1-12.0); Hematocrit 45.8 % (42.0-52.0); Hemoglobin 14.5 g/dL (14.1-18.0); Lymphocytes # 2.1 K/mm3 (0.7-4.5); Lymphocytes % 25.8 % (10-50); Mean Corpuscular HGB Conc 31.8 g/dL (31.8-35.4); Mean Corpuscular Volume 97.6 fl (80-94); Mean Platelet Volume 9.6 fl (7.4-10.4); Monocytes # 0.3 K/mm3 (0.1-1.0); Monocytes % 3.7 % (1.7-9.3); Neutrophils # 5.4 K/mm3 (1.8-7.8); Neutrophils % 64.7 % (37.0-80.0); Platelet Count 282 K/mm3 (142-424); Red Blood Count 4.69 M/mm3 (4.60-6.20); Red Cell Distribution Width 14.8 % (11.5-17.5); White Blood Count 8.3 K/mm3 (4.8-10.8)
[2019-03-09 11:33] LABS: Anion Gap 14.5 mEq/L (5-15); Blood Urea Nitrogen 22 mg/dL (7-18); Calcium 9.4 mg/dL (8.5-10.1); Carbon Dioxide 28 mmol/L (21.0-32.0); Chloride 104 mmol/L (98-107); Estimated Glomerular Filt Rate 40 ml/min (>60); GFR (African American) 48 ML/MIN (>60); Glucose 158 mg/dL (74-106); Potassium 3.5 mmoL/L (3.5-5.1); Sodium 143 mmol/L (136-145)
== END ==
PROVIDERS: Visit Provider Internal Medicine
DX: I11.9 Hypertensive heart disease without heart failure (principal); N18.9 Chronic kidney disease, unspecified; R06.02 Shortness of breath
CPT/HCPCS: 36415; 80048; 85025

== ENCOUNTER → 2019-05-30 10:45 | Outpatient (CLI) | payer MEDICARE, BC, SELFPAY ==
[2019-05-30 11:29] LABS: Basophils # 0.1 K/mm3 (0-0.2); Basophils % 0.9 % (0.1-2.0); Eosinophils # 0.3 K/mm3 (0.0-0.4); Eosinophils % 3.7 % (0.1-12.0); Hematocrit 41.6 % (42.0-52.0); Hemoglobin 13.7 g/dL (14.1-18.0); Lymphocytes # 2.3 K/mm3 (0.7-4.5); Lymphocytes % 27.1 % (10-50); Mean Corpuscular Hemoglobin 30.8 pg (27.0-31.2); Mean Corpuscular Volume 93.4 fl (80-94); Mean Platelet Volume 8.2 fl (7.4-10.4); Monocytes # 0.3 K/mm3 (0.1-1.0); Monocytes % 4.1 % (1.7-9.3); Neutrophils # 5.4 K/mm3 (1.8-7.8); Neutrophils % 64.2 % (37.0-80.0); Platelet Count 272 K/mm3 (142-424); Red Blood Count 4.45 M/mm3 (4.60-6.20); Red Cell Distribution Width 14.7 % (11.5-17.5); White Blood Count 8.3 K/mm3 (4.8-10.8)
[2019-05-30 13:28] LABS: Alanine Aminotransferase 42 U/L (12-78); Albumin Level 3.4 gm/dL (3.4-5.0); Albumin/Globulin Ratio 1.1 (1.1-1.8); Alkaline Phosphatase 56 U/L (46-116); Anion Gap 13.4 mEq/L (5-15); Aspartate Amino Transferase 24 U/L (15-37); Bilirubin,Total 0.4 mg/dL (0.2-1.0); Blood Urea Nitrogen 23 mg/dL (7-18); Calcium 9.2 mg/dL (8.5-10.1); Carbon Dioxide 29 mmol/L (21.0-32.0); Chloride 105 mmol/L (98-107); Chol/HDL Ratio 3.9 (1-3.5); Cholesterol 169 mg/dL (140-200); Creatinine,Serum 1.49 mg/dL (0.70-1.30); Estimated Glomerular Filt Rate 46 ml/min (>60); GFR (African American) 56 ML/MIN (>60); Globulin 3.1 gm/dl (1.3-3.2); Glucose 100 mg/dL (74-106); HDL Cholesterol 43 mg/dL (27-67); LDL Cholesterol 83 mg/dL (0-130); Potassium 3.4 mmoL/L (3.5-5.1); Sodium 144 mmol/L (136-145); Total Protein,Serum 6.5 gm/dL (6.4-8.2); Triglycerides 213 mg/dL (30-200); VLDL Cholesterol 43 mg/dL (0-40)
[2019-05-30 14:23] LABS: Hemoglobin A1C 6.4 % (0.0-7.0)
== END ==
PROVIDERS: Visit Provider Internal Medicine Adolescent Medicine
DX: E11.9 Type 2 diabetes mellitus without complications (principal); I25.10 Atherosclerotic heart disease of native coronary artery without angina pectoris; Z79.4 Long term (current) use of insulin; Z79.84 Long term (current) use of oral hypoglycemic drugs
CPT/HCPCS: 36415; 80053; 80061; 83036; 85025

== ENCOUNTER → 2019-07-13 06:33 | Outpatient (CLI) | payer MEDICARE, BC, SELFPAY ==
--- NOTE | 2019-07-13 06:34 | NM_ITS ---
APPROVED REPORT Exam: Nuclear Stress Test Indication: Chest pain, SOB, CAD, DM, High cholesterol, Tobacco use Patient Location: Outpatient Stress Tech: Angelita Rucker [place] Tech:Rose Mary Valencia, ARRT, RT (R)(N) Ht: 5 ft 7 in Wt: 236 lbs HR: 60 bpm BP: 119/87 mmHg BSA: 2.17 m2 BMI: 36.9 History: Chest pain, SOB, CAD, DM, High cholesterol, Tobacco use Procedure: Patient received a 0.4 mg of intravenous Lexiscan, resting heart rate 60 bpm, resting blood pressure 119/87 mmHg, with Lexiscan maximum heart rate achived was 82 bpm which is % of the maximum predicted heart rate and blood pressure was 145/53 mmHg. With Lexiscan, patient denied any complaint of chest pain. Cardiac Stress and Resting SPECT Images: Cardiac Stress and Resting SPECT images were obtained using technetium 99m Myoview 31.5 mCi stress and 10.48 mCi at rest. EF 63 % No fixed or reversible defects Conclusion: Normal EF with no evidence of ischemia or infarction Electronically signed by : Lance Sanchez MD 07/13/2019 17:30:43
--- NOTE | 2019-07-13 06:34 | CA_ITS ---
APPROVED REPORT Exam: Pharmacologic Technologist: Angelita Rucker, Ht: 5 ft 8 in Wt: 236 lbs BSA: 2.19 m2 Indications: Chest Pain Medical History Medical History: HTN, Hyperlipidemia, Diabetes Cardiac Risk Factors: Smoking, Diabetes (insulin), HTN, Hyperlipidemia Stress Test Details Test: LEXISCAN Reason for pharmacologic stress test: physical limitation. HR Resting HR: 63 bpm Max Heart Rate (APMHR): 148 bpm Max HR Achieved: 87 bpm Target HR (85% APMHR): 125 bpm % of APMHR: 58 Recovery HR: 78 bpm BP Max BP: 145/53 mmHg ECG Clinical Reason for Termination: Completed Protocol Exercise duration: 04:02 min Highest Stage Achieved: Stress ECG Conclusion No symptoms or arrhythmias noted / some Pac's , Pvc's in recovery 4.5mm ST Segment changes / non diagnostic Test Summary REST 09:32 . . 63 . . . . Stage 1 01:00 . . 77 . . . . Stage 2 01:00 . . 83 . 143/ 47 . . Stage 3 01:00 . . 83 . 145/ 53 . . Stage 4 01:00 . . 80 . 139/ 52 . . Stage 4 01:02 . . 81 . 139/ 52 . Stop exercise at 04:02 RECOVERY 01:00 . . 79 . . . . RECOVERY 02:00 . . 79 . . . . RECOVERY 03:00 . . 76 . 141/ 51 . . RECOVERY 04:00 . . 76 . 141/ 51 . . RECOVERY 04:06 . . 75 . 141/ 51 . . Electronically signed by : Alex Adams, 07/16/2019 12:05:52
--- NOTE | 2019-07-13 07:25 | HMH.ITSHM ---
Current Home Medications as stated by this patient Farhan Plascencia or quality assurance representative. []VITAMIN B TELMISARTAN SIMVASTATIN MULTIVITAMIN METFORMIN LEVOTHYROXINE ISOSORBIDE INSULIN GABAPENTIN FUROSEMIDE FLUTICASONE CLOPIDOGREL BISOPROLOL ASA AMLODIPINE
== END ==
PROVIDERS: PCP Internal Medicine Adolescent Medicine; Visit Provider Nurse Practitioner Family
DX: R06.02 Shortness of breath; I20.9 Angina pectoris, unspecified
CPT/HCPCS: 78452; 93017; A9502; J2785

== ENCOUNTER → 2019-07-21 12:11 | Outpatient (CLI) | payer MEDICARE, BC, SELFPAY ==
[2019-07-21 13:48] LABS: Prostate Specific Ag, Diagnost 3.88 ng/ml (0.0-4.0)
== END ==
PROVIDERS: Visit Provider Urology
DX: R97.20 Elevated prostate specific antigen [PSA] (principal)
CPT/HCPCS: 36415; 84153

== ENCOUNTER → 2019-08-03 14:12 | Outpatient (CLI) | payer MEDICARE, BC, SELFPAY ==
[2019-08-03 14:37] LABS: Basophils # 0.1 K/mm3 (0-0.2); Basophils % 0.6 % (0.1-2.0); Eosinophils # 0.3 K/mm3 (0.0-0.4); Eosinophils % 3.5 % (0.1-12.0); Hematocrit 43.7 % (42.0-52.0); Hemoglobin 14.3 g/dL (14.1-18.0); Lymphocytes # 2.2 K/mm3 (0.7-4.5); Lymphocytes % 22.6 % (10-50); Mean Corpuscular HGB Conc 32.6 g/dL (31.8-35.4); Mean Corpuscular Hemoglobin 30.9 pg (27.0-31.2); Mean Corpuscular Volume 94.7 fl (80-94); Mean Platelet Volume 8.3 fl (7.4-10.4); Monocytes # 0.4 K/mm3 (0.1-1.0); Monocytes % 3.9 % (1.7-9.3); Neutrophils # 6.8 K/mm3 (1.8-7.8); Neutrophils % 69.3 % (37.0-80.0); Platelet Count 283 K/mm3 (142-424); Red Blood Count 4.62 M/mm3 (4.60-6.20); Red Cell Distribution Width 14.7 % (11.5-17.5); White Blood Count 9.8 K/mm3 (4.8-10.8)
[2019-08-03 19:47] LABS: Chloride 98 mmol/L (98-107)
[2019-08-03 19:48] LABS: Sodium 137 mmol/L (136-145)
[2019-08-03 19:50] LABS: Blood Urea Nitrogen 18 mg/dl (9-20); Estimated Glomerular Filt Rate 54 ml/min (>60); GFR (African American) 66 ML/MIN (>60)
[2019-08-03 19:51] LABS: Calcium 9.8 mg/dl (8.4-10.2); Carbon Dioxide 30 mmol/L (22.0-30.0); Glucose 121 mg/dl (74-100)
== END ==
PROVIDERS: Visit Provider Urology
DX: E03.9 Hypothyroidism, unspecified (principal); E11.8 Type 2 diabetes mellitus with unspecified complications; E78.2 Mixed hyperlipidemia; G47.33 Obstructive sleep apnea (adult) (pediatric); I11.9 Hypertensive heart disease without heart failure; I25.10 Atherosclerotic heart disease of native coronary artery without angina pectoris; J44.9 Chronic obstructive pulmonary disease, unspecified; N18.9 Chronic kidney disease, unspecified; R06.02 Shortness of breath; Z95.5 Presence of coronary angioplasty implant and graft; E78.5 Hyperlipidemia, unspecified; Z79.4 Long term (current) use of insulin
CPT/HCPCS: 36415; 80048; 85025

== ENCOUNTER → 2019-09-03 09:39 | Outpatient (CLI) | payer MEDICARE, BC, SELFPAY ==
[2019-09-03 10:02] LABS: Basophils # 0.1 K/mm3 (0-0.2); Basophils % 1.8 % (0.1-2.0); Eosinophils # 0.3 K/mm3 (0.0-0.4); Eosinophils % 4.2 % (0.1-12.0); Hematocrit 43.1 % (42.0-52.0); Hemoglobin 14.3 g/dL (14.1-18.0); Lymphocytes # 2.4 K/mm3 (0.7-4.5); Lymphocytes % 30.7 % (10-50); Mean Corpuscular HGB Conc 33.2 g/dL (31.8-35.4); Mean Corpuscular Hemoglobin 31.3 pg (27.0-31.2); Mean Corpuscular Volume 94.2 fl (80-94); Monocytes # 0.4 K/mm3 (0.1-1.0); Monocytes % 4.6 % (1.7-9.3); Neutrophils # 4.5 K/mm3 (1.8-7.8); Neutrophils % 58.7 % (37.0-80.0); Platelet Count 253 K/mm3 (142-424); Red Blood Count 4.58 M/mm3 (4.60-6.20); Red Cell Distribution Width 14.8 % (11.5-17.5); White Blood Count 7.7 K/mm3 (4.8-10.8)
[2019-09-03 11:08] LABS: Alanine Aminotransferase 87 U/L (12-78); Albumin Level 3.9 g/dl (3.5-5.0); Albumin/Globulin Ratio 1.3 (1.1-1.8); Alkaline Phosphatase 59 U/L (38-126); Anion Gap 10.6 mEq/L (5-15); Aspartate Amino Transferase 61 U/L (17-59); Bilirubin,Total 0.3 mg/dl (0.2-1.3); Blood Urea Nitrogen 18 mg/dl (9-20); Calcium 9.9 mg/dl (8.4-10.2); Carbon Dioxide 29 mmol/L (22.0-30.0); Chloride 101 mmol/L (98-107); Chol/HDL Ratio 4.8 (1-3.5); Cholesterol 235 mg/dl (140-200); Estimated Glomerular Filt Rate 60 ml/min (>60); GFR (African American) 72 ML/MIN (>60); Globulin 2.9 g/dL (1.3-3.2); Glucose 117 mg/dl (74-100); HDL Cholesterol 49 mg/dl (40-60); Potassium 3.6 mmoL/L (3.5-5.1); Sodium 137 mmol/L (136-145); Total Protein,Serum 6.8 g/dl (6.3-8.2); Triglycerides 324 mg/dl (30-150); VLDL Cholesterol 65 mg/dL (0-40)
[2019-09-03 11:19] LABS: Direct LDL Cholesterol 148.45 mg/dL (100-129)
[2019-09-03 12:23] LABS: Hemoglobin A1C 6.7 % (4.0-6.0)
== END ==
PROVIDERS: Visit Provider Internal Medicine Adolescent Medicine
DX: I25.10 Atherosclerotic heart disease of native coronary artery without angina pectoris (principal); E11.9 Type 2 diabetes mellitus without complications; Z79.4 Long term (current) use of insulin
CPT/HCPCS: 36415; 80053; 80061; 83036; 85025

== ENCOUNTER → 2020-05-25 15:46 | Outpatient (CLI) | payer MEDICARE, BC, SELFPAY ==
[2020-05-25 16:54] LABS: Hemoglobin A1C 6.4 % (4.0-6.0)
[2020-05-25 17:07] LABS: Chloride 102 mmol/L (98-107); Potassium 3.8 mmoL/L (3.5-5.1); Sodium 139 mmol/L (136-145)
[2020-05-25 17:10] LABS: Alanine Aminotransferase 29 U/L (12-78); Albumin Level 4.2 g/dl (3.5-5.0); Albumin/Globulin Ratio 1.3 (1.1-1.8); Alkaline Phosphatase 68 U/L (38-126); Anion Gap 7.8 mEq/L (5-15); Aspartate Amino Transferase 33 U/L (17-59); Bilirubin,Total 0.5 mg/dl (0.2-1.3); Blood Urea Nitrogen 19 mg/dl (9-20); Calcium 10.5 mg/dl (8.4-10.2); Carbon Dioxide 33 mmol/L (22.0-30.0); Estimated Glomerular Filt Rate 54 ml/min (>60); GFR (African American) 65 ML/MIN (>60); Globulin 3.2 g/dL (1.3-3.2); Glucose 60 mg/dl (74-100); Total Protein,Serum 7.4 g/dl (6.3-8.2)
== END ==
PROVIDERS: Visit Provider Internal Medicine Adolescent Medicine
DX: E11.9 Type 2 diabetes mellitus without complications (principal); Z79.4 Long term (current) use of insulin
CPT/HCPCS: 36415; 80053; 83036

== ENCOUNTER 2020-06-05 15:24 | Emergency (ER) | payer MEDICARE, BC, SELFPAY ==
[2020-06-05 15:26] VITALS: BP 130/46; PULSE 72; RESP 18; TEMP 37; O2SAT 98; BMI 36.0
--- NOTE | 2020-06-05 15:40 | ECG_ITS ---
APPROVED REPORT Exam: Resting ECG HR:71 bpm ECG Measurements Heart Rate 71 AXES LA 150 P 78 QRSd 74 QRS 45 QT 390 T 69 QTc 423 Conclusion Normal sinus rhythm Normal ECG Electronically signed by : Akil Borges, 06/06/2020 05:54:52
[2020-06-05 15:43] LABS: Microscopic, Urine URINE MICROSCOPIC (MICROSCOPIC)
[2020-06-05 15:45] LABS: Appearance,Urine CLEAR (Clear); Blood, Urine Negative (Negative); Color,Urine YELLOW (Yellow); Glucose,Urine (UA) Negative (Negative); Ketones,Urine TRACE (Negative); Leukocyte Esterase,Urine Negative (Negative); Nitrate,Urine Negative (Negative); Protein,Urine 2+ (Negative); Specific Gravity, Urine >= 1.030 (1.005-1.030)
[2020-06-05 15:48] LABS: Bilirubin,Urine Negative (Negative)
--- NOTE | 2020-06-05 15:54 | HMH.EDGENADL ---
ED Disposition Clinical Impression: Left upper quadrant pain Disposition: Home, Self-Care Condition on Discharge: Good Instructions: DI for Acute Abdominal Pain Additional Instructions: Eat small frequent meals. Reglan as needed. Additional instructions for ABDOMINAL PAIN: See your physician as soon as possible for further evaluation. Return immediately if worsening abdominal pain, vomiting, shortness of breath, fever, vomiting of blood or abdominal distention. Prescriptions: Metoclopramide HCl [Reglan 5mg Tablet] 5 mg PO TIDP PRN #10 tab PRN Reason: Abdominal Distention Transmission Status: Pending to [id number] Referrals: Akil Borges MD [Primary Care Provider] - - Critical Care Critical Care Time: No Attestation: On 06/05/20, the high probability of a clinically significant, sudden or life threatening deterioration of the following system(s) required my full and direct attention, intervention and personal management. The time I documented below is in addition to time spent performing reported procedures but includes the following listed in this critical care notation. Medical Decision Making - [place] Inquiry Pt receiving controlled substance: No Vital Signs: 06/05/20 15:26 06/05/20 16:24 06/05/20 16:30 Temperature 98.6 F Temperature Source Oral Pulse Rate [Radial] 72 70 68 Respiratory Rate 18 18 18 Blood Pressure [Right Arm] 130/46 L 107/42 L 116/33 L Blood Pressure Mean [Right Arm] 74 63 60 Blood Pressure Source [Right Arm] Automatic Cuff Blood Pressure Position [Right Arm] Sitting Supine 02 Sat by Pulse Oximetry 98 100 94 L Oxygen Delivery Method Room Air Room Air 06/05/20 18:30 Temperature Temperature Source Pulse Rate [Radial] 77 Respiratory Rate 20 Blood Pressure [Right Arm] 125/53 L Blood Pressure Mean [Right Arm] 77 Blood Pressure Source [Right Arm] Automatic Cuff Blood Pressure Position [Right Arm] Sitting 02 Sat by Pulse Oximetry 92 L Oxygen Delivery Method Room Air - Lab Data Lab Results 06/05/20 15:30: Urine Color Yellow, Urine Appearance Clear, Urine pH 6.0, Ur Specific [place] >= 1.030, Urine Protein 2+, Urine Glucose (UA) Negative, Urine Ketones Trace, Urine Blood Negative, Urine Nitrate Negative, Urine Bilirubin Negative, Urine Urobilinogen 1.0, Ur Leukocyte Esterase Negative, Urine RBC None, Urine WBC 3-5, Ur Squamous Epith Cells 10-20, Amorphous Sediment 2+, Urine Bacteria None, Coarse Granular Casts 3-5 06/05/20 15:50: WBC 11.7 H, RBC 4.84, Hgb 15.5, Hct 45.8, MCV 94.7 H, MCH 31.9 H, MCHC 33.7, RDW 15.2, Plt Count 247, MPV 8.8, Neut % (Auto) 77.4, Lymph % (Auto) 16.5, [place] % (Auto) 4.0, Eos % (Auto) 1.5, Baso % (Auto) 0.6, Neut # (Auto) 9.1 H, Lymph # (Auto) 1.9, [place] # (Auto) 0.5, Eos # (Auto) 0.2, Baso # (Auto) 0.1 06/05/20 15:50: Sodium 141, Potassium 4.1, Chloride 98, Carbon Dioxide 35 H, Anion Gap 12.1, BUN 26 H, Creatinine 1.70 H, Estimated Creat Clear 57, Estimated GFR 40 L, Est GFR ( Amer) 48 L, Glucose 140 H, Calcium 10.0, Total Bilirubin 0.4, AST 32, ALT 30, Alkaline Phosphatase 64, Troponin I < 0.01, Total Protein 7.6, Albumin 4.2, Globulin 3.4 H, Albumin/Globulin Ratio 1.2, Amylase 77, Lipase 220 Result diagrams: 06/05/20 15:50 06/05/20 15:50 Orders (Tests/Meds): ORDERS Category Date Time Status Troponin I Q3H Lab 06/05/20 18:45 Ordered Troponin I Q3H Lab 06/05/20 21:45 Ordered - ECG Data Tracing #1 EKG interpreted by Neeraj Ross MD: Rhythm: sinus Rate: 71 Rosenberg: normal Ectopy: none Conduction: normal ST Segment Changes: none T Wave Changes: none Q Waves: none No evidence of acute ischemia or injury Normal electrocardiogram - Reevaluation(s) Time: 18:41 Reevaluation #1: Pain-free. Discussed results. Discussed possible gastroparesis. Advised to eat small frequent meals. I will prescribe Reglan to be used as needed. General Adult HPI - General Stated complaint: abdo
[2020-06-05 15:57] LABS: Amorphous Sediment,Urine 2+ /lpf
[2020-06-05 16:11] LABS: Basophils # 0.1 K/mm3 (0-0.2); Basophils % 0.6 % (0.1-2.0); Eosinophils # 0.2 K/mm3 (0.0-0.4); Eosinophils % 1.5 % (0.1-12.0); Hematocrit 45.8 % (42.0-52.0); Hemoglobin 15.5 g/dL (14.1-18.0); Lymphocytes # 1.9 K/mm3 (0.7-4.5); Lymphocytes % 16.5 % (10-50); Mean Corpuscular HGB Conc 33.7 g/dL (31.8-35.4); Mean Corpuscular Hemoglobin 31.9 pg (27.0-31.2); Mean Corpuscular Volume 94.7 fl (80-94); Mean Platelet Volume 8.8 fl (7.4-10.4); Monocytes # 0.5 K/mm3 (0.1-1.0); Neutrophils # 9.1 K/mm3 (1.8-7.8); Neutrophils % 77.4 % (37.0-80.0); Platelet Count 247 K/mm3 (142-424); Red Blood Count 4.84 M/mm3 (4.60-6.20); Red Cell Distribution Width 15.2 % (11.5-17.5); White Blood Count 11.7 K/mm3 (4.8-10.8)
[2020-06-05 16:16] LABS: Chloride 98 mmol/L (98-107); Potassium 4.1 mmoL/L (3.5-5.1); Sodium 141 mmol/L (136-145)
[2020-06-05 16:18] LABS: Amylase 77 U/L (30-110)
[2020-06-05 16:19] LABS: Alanine Aminotransferase 30 U/L (12-78); Albumin Level 4.2 g/dl (3.5-5.0); Albumin/Globulin Ratio 1.2 (1.1-1.8); Alkaline Phosphatase 64 U/L (38-126); Anion Gap 12.1 mEq/L (5-15); Aspartate Amino Transferase 32 U/L (17-59); Bilirubin,Total 0.4 mg/dl (0.2-1.3); Blood Urea Nitrogen 26 mg/dl (9-20); Carbon Dioxide 35 mmol/L (22.0-30.0); Creatinine Clearance Estimated 57 mL/min (50-200); Estimated Glomerular Filt Rate 40 ml/min (>60); GFR (African American) 48 ML/MIN (>60); Globulin 3.4 g/dL (1.3-3.2); Glucose 140 mg/dl (74-100); Lipase 220 U/L (23-300); Total Protein,Serum 7.6 g/dl (6.3-8.2)
[2020-06-05 16:24] VITALS: BP 107/42; PULSE 70; RESP 18; O2SAT 100
[2020-06-05 16:30] VITALS: BP 116/33; PULSE 68; RESP 18; O2SAT 94
[2020-06-05 16:32] LABS: Troponin I < 0.01 ng/ml (0.00-0.034)
--- NOTE | 2020-06-05 16:46 | CT_ITS ---
Procedure: CT ABDOMEN PELVIS WO CON Referring Doctor: Nereaj Ross Patient Age:75Y CLINICAL INDICATION: PAIN Mild hyperexpansion mild chronic changes at lung bases but no active disease.. Heart of upper normal size. Scant pericardial effusion. COMPARISON: CT ABDPELW/O CT ABD PELVIS W/O CONTRAST from 08/25/[address] CHEST W/O CONTRAST from 10/07/2015 TECHNIQUE: Axial images obtained with sagittal and coronal reformats. All CT scans at the facility use one or more dose reduction, viz: automated exposure control, ma/kV adjustment per patient size (including targeted exams where dose is matched to indication, i.e. head), or iterative reconstruction technique. FINDINGS: Lower thorax: No acute finding ABDOMEN: Liver: No masses or biliary ductal dilatation evident on this noncontrast study. Mild fatty changes liver. Gallbladder: Very small contracted gallbladder but no radiopaque stones. May reflect recent meal the. Common duct appears normal.. I would note that there is a tiny mm calcification in the duodenum just adjacent to the region of the ampulla. However there is no biliary nor pancreatic ductal dilatation and thus I believe this is a insignificant observation LSO should be findings a pancreatitis of by laboratory/clinically Pancreas: Unremarkable. Stable but no masses or peripancreatic inflammatory changes. Spleen: unremarkable Adrenal. Right adrenal no significant findings but there may be slight fatty changes of the lateral limb of right adrenal but this is unchanged barely appreciable Left adrenal mass measures similar size up to 3.4 cm length x 2 cm transverse.. It measures fat density and compatible with a benign nonfunctioning adenoma. No significant change since 2015 and scant if any a a a increased since 2013 2013 the; no significant change and can be followed ----- tract ---- Kidneys/ureters: unremarkable mild stranding about the kidneys seen previously and only slightly more today. Likely reflecting a chronic with renal disease associated features. PELVIS: The prostate is enlarged measuring up to 5.8 cm with some stippled calcifications. This enlarged prostate indents the base the bladder. Borderline mild bladder wall thickening wall thickening may reflect some mild hypertrophy versus lack of distension. Also noted small 7.5 mm focal small fat density along the anterior right aspect the bladder. Curious feature. Axial image 98. This was not seen previously. Appears reflect some type tiny lipoma or possibly, or small fat containing cyst of some etiology Above observations warrant correlation with urinalysis and possibly urology follow-up . ------GI tract -------- Stomach-fairly distended food filled stomach questionably reflect gastroparesis with history of diabetes. Correlation required. But also the may have patient may have just eating a large meal noting the the contracted gallbladder. Correlation required. Small bowel. The a small the proximal small bowel upper normal caliber upper normal wall thickness left upper quadrant. However I see no inflammatory changes. The mid and distal small bowel unremarkable. Large bowel. Diffuse colonic diverticulosis with most extensive diverticulosis is sigmoid colon. No evidence of acute or active diverticulitis. Particular attention is directed to the left colon splenic flexure transverse colon. These areas show no inflammatory changes or colonic wall thickening. Other is actually minimal stool throughout the colon . Appendix-is well visualized and normal slightly retrocecal position Peritoneum: No abnormal fluid collections. No obvious inflammatory changes. No free air. . Tiny fat containing umbilic
[2020-06-05 18:30] VITALS: BP 125/53; PULSE 77; RESP 20; O2SAT 92
[2020-06-05 19:01] VITALS: BP 135/74; PULSE 74; RESP 16; TEMP 36.6; O2SAT 98
== END 2020-06-05 19:03 | disposition home or self-care (01) ==
PROVIDERS: Emergency Provider Emergency Medicine; PCP Internal Medicine Adolescent Medicine
DX: R10.12 Left upper quadrant pain (principal); I48.20 Chronic atrial fibrillation, unspecified; J44.9 Chronic obstructive pulmonary disease, unspecified; I25.10 Atherosclerotic heart disease of native coronary artery without angina pectoris; E11.65 Type 2 diabetes mellitus with hyperglycemia; I10 Essential (primary) hypertension; E78.5 Hyperlipidemia, unspecified; E03.9 Hypothyroidism, unspecified; Z87.891 Personal history of nicotine dependence; Z79.899 Other long term (current) drug therapy
CPT/HCPCS: 74176; 80053; 81001; 82150; 83690; 84484; 85025; 93005; 99283

== ENCOUNTER → 2020-09-30 06:03 | Outpatient (CLI) | payer MEDICARE, BC, SELFPAY ==
--- NOTE | 2020-09-30 06:13 | NM_ITS ---
APPROVED REPORT Exam: Nuclear Stress Test Indication: CAD, HTN, DM, HYPERLIPIDEMIA, TOB USE, SOB, FATIGUE Patient Location: Outpatient Stress Tech: Linda Kelley [place] Tech:WENDY Carlos RT(R)(N) Ht: 5 ft 7 in Wt: 230 lbs HR: 58 bpm BP: 118/46 mmHg BSA: 2.15 m2 BMI: 36.0 History: CAD, HTN, DM, HYPERLIPIDEMIA, TOB USE, SOB, FATIGUE Procedure: Patient received a 0.4 mg of intravenous Lexiscan, resting heart rate 58 bpm, resting blood pressure 118/46 mmHg, with Lexiscan maximum heart rate achived was 85 bpm which is Less than 85 % of the maximum predicted heart rate and blood pressure was 130/53 mmHg. With Lexiscan, patient denied any complaint of chest pain. Electrocardiogram Resting electrocardiogram showed sinus rhythm, with Lexiscan there is less than 1.[address] segment depression noted from the baseline EKG. The EKG portion of the Lexiscan is nondiagnostic. Cardiac Stress and Resting SPECT Images: Cardiac Stress and Resting SPECT images were obtained using technetium 99m Myoview 29.3 mCi stress and 10.52 mCi at rest. Gated SPECT for analysis of segmental wall motion and calculation of the ejection fraction also done. Prone images were also obtained. Cardiac stress and resting SPECT images show uniform myocardial activity without segmental perfusion abnormality, computer derived ejection fraction is 49% with no regional wall motion abnormality, there is marked transient ischemic dilatation of the left ventricle seen, raising the concerns for presence of balanced ischemia and multivessel coronary artery disease. Right ventricle is mildly enlarged with normal contractility. Conclusion: 1. The EKG portion of the Lexiscan is nondiagnostic. 2. No scintigraphic evidence of reversible ischemia seen, however there is marked transient ischemic dilatation of the left ventricle seen, raising the concerns for presence of balanced ischemia and multivessel coronary artery disease. Computer derived ejection fraction is 49% with no regional wall motion abnormality. 3. Abnormal Lexiscan Myoview study. Electronically signed by : Flavio Lubin, 09/30/2020 13:27:25
--- NOTE | 2020-09-30 06:19 | CA_ITS ---
APPROVED REPORT Exam: Pharmacologic Technologist: fady bal, Ht: 5 ft 7 in Wt: 230 lbs BSA: 2.15 m2 HR: 56 bpm BP: 118/46 mmHg Indications: SOA Medical History Medications: Asa,,,,, Gabapentin,,,,, HCTZ,,,,, Lasix,,,,, SyMBICORT,,,,, INSULIN,,,,, Plavix,,,,, Bisprolol,,,,, Telmisartan,,,,, Vitamin B,,,,, Umeclidinium,,,,, AmlodiNPINE,,,,, Allergies: NKA Cardiac Risk Factors: HTN,, Hyperlipidemia, Diabetes (insulin), Smoking Stress Test Details Test: LEXISCAN HR Resting HR: 58 bpm Max Heart Rate (APMHR): 147.926676 bpm Max HR Achieved: 85 bpm Target HR (85% APMHR): 124.415694 bpm % of APMHR: 57.82 Recovery HR: 79 bpm BP Resting BP: 118/46 mmHg Max BP: 130/53 mmHg Recovery BP: 126.0/48.0 mmHg ECG Resting ECG: NSR Medications Administered Albuterol ( mg at ) Clinical Reason for Termination: Completed Protocol Exercise duration: 04:00 min Highest Stage Achieved: Exercise capacity: 1.0 METs Stress ECG Conclusion Mild SS chest pain/ abdominal pain. No arrhythmia or ectopy. Less than 1.5mm ST Segment changes. Non-diagnostic. Test Summary REST 13:57 . . 58 . 118/ 46 . . Stage 1 01:00 . . 69 . . . . Stage 2 01:00 . . 80 . 110/ 57 . . Stage 3 01:00 . . 78 . . . . Stage 4 01:00 . . 81 . 113/ 47 . Stop exercise at 04:00 RECOVERY 01:00 . . 78 . 126/ 48 . . RECOVERY 02:00 . . 79 . 126/ 48 . . RECOVERY 03:00 . . 75 . 128/ 51 . . RECOVERY 04:00 . . 77 . 128/ 51 . . RECOVERY 04:24 . . 75 . 130/ 53 . . Electronically signed by : Flavio Lubin, 09/30/2020 13:14:12
--- NOTE | 2020-09-30 07:52 | CA_ITS ---
APPROVED REPORT EXAM: Comprehensive 2D, Doppler, and color-flow Echocardiogram Color Drum Worker: Tonya Nevarez RVT Ht: 5 ft 7 in Wt: 227lbs BSA: 2.13 BP: 123/53 mmHg Indications: soa,cad,a-fib,obesity,smoker,dm.htn tds-body habitus 2D Dimensions LVOT 2.01 cm (M/F) 1.5-2.5 LA Volume 75.20 mL LA Volume Index 35.30 mL/m2 (M/F) 16-34 M-Mode Dimensions RVDd 2.50 cm (0.9-2.6) LA Diam 4.63 cm (1.9-4.0) LVDd 3.99 cm (3.5-5.7) Ao Diam 2.66 cm (2.0-3.7) LVDs 2.33 cm (3.5-5.7) IVSd 1.40 cm (0.6-1.1) PWd 0.98 cm (0.6-1.1) EF (Teich) 73.10% FS 41.60% EDV (Teich) 69.60 mL TAPSE 1.72 (<1.7) ESV (Teich) 18.70 mL LV Diastology E Decel Time 203.00 (160-240 msec) E/A Ratio 1.3 MED E' 5.50 (< 7 cm/sec) E'/MED E' Ratio 19.31 (>14) LAT E' 5.80 (<10 cm/sec) E/LAT E' Ratio 18.31 (>14) Aortic Valve AO Peak GR. 5.60 mmHg Mitral Valve MV E Max Leonard. 106.00 (40-130 cm/s) MV A Velocity 84.00 (40-130 cm/s) E/A Ratio 1.26 MV Decel. Time 203.00 (160-240 ms) MV PHT 60.00 ms Pulmonary Valve PV Peak Velocity 82.00 (50-150 cm/s) Tricuspid Valve TR P. Velocity 97.00 cm/s RAP Estimate 10.00 mmHg RVSP 13.80 mmHg Left Ventricle Left atrium is mildly enlarged, left ventricle is normal size, mild concentric left ventricular hypertrophy, visually estimated ejection fraction 55% with no regional wall motion abnormality, grade 2 diastolic dysfunction seen with tissue Doppler evidence of raise left atrial pressure. Right Ventricle Right atrium and right ventricle are qualitatively mildly enlarged with normal contractility. Aortic Valve Aortic valve is minimally thickened and fibrosed, there is no aortic stenosis or aortic insufficiency. Mitral Valve Mitral valve is grossly normal, there is trace mitral regurgitation. Tricuspid Valve Tricuspid grossly normal, there is trace tricuspid regurgitation, tricuspid regurgitation jet velocity is inadequate for calculation of the right ventricular systolic pressure. Pulmonic Valve Pulmonic valve is poorly visualized. Great Vessels Aortic root is normal size. Pericardium No significant pericardial effusion noted. Conclusion 1. Biatrial enlargement, normal left ventricular size, mild concentric left ventricular hypertrophy, visually estimated ejection fraction 55% with no regional wall motion abnormality, grade 2 diastolic dysfunction seen with tissue Doppler evidence of raise left atrial pressure. 2. Mildly enlarged right ventricle with normal contractility. 3. Trace mitral and tricuspid regurgitation. 4. No significant pericardial effusion noted. Electronically signed by : Flavio Lubin, 09/30/2020 14:30:29
== END ==
PROVIDERS: PCP Internal Medicine Adolescent Medicine; Visit Provider Physician Assistant
DX: E11.9 Type 2 diabetes mellitus without complications (principal); E78.5 Hyperlipidemia, unspecified; G47.33 Obstructive sleep apnea (adult) (pediatric); I11.9 Hypertensive heart disease without heart failure; I25.10 Atherosclerotic heart disease of native coronary artery without angina pectoris; N18.9 Chronic kidney disease, unspecified; R06.02 Shortness of breath; R53.83 Other fatigue; Z95.5 Presence of coronary angioplasty implant and graft
CPT/HCPCS: 78452; 93017; 93306; A9502; J2785

== ENCOUNTER → 2020-09-30 09:58 | Outpatient (CLI) | payer MEDICARE, BC, SELFPAY ==
[2020-09-30 10:35] LABS: Basophils # 0.1 K/mm3 (0-0.2); Basophils % 0.9 % (0.1-2.0); Eosinophils # 0.2 K/mm3 (0.0-0.4); Eosinophils % 2.1 % (0.1-12.0); Hematocrit 44.8 % (42.0-52.0); Hemoglobin 14.9 g/dL (14.1-18.0); Lymphocytes # 2.5 K/mm3 (0.7-4.5); Mean Corpuscular HGB Conc 33.3 g/dL (31.8-35.4); Mean Corpuscular Hemoglobin 31.4 pg (27.0-31.2); Mean Corpuscular Volume 94.2 fl (80-94); Mean Platelet Volume 8.5 fl (7.4-10.4); Monocytes # 0.4 K/mm3 (0.1-1.0); Monocytes % 4.5 % (1.7-9.3); Neutrophils # 6.1 K/mm3 (1.8-7.8); Neutrophils % 65.4 % (37.0-80.0); Platelet Count 238 K/mm3 (142-424); Red Blood Count 4.76 M/mm3 (4.60-6.20); Red Cell Distribution Width 14.9 % (11.5-17.5); White Blood Count 9.3 K/mm3 (4.8-10.8)
[2020-09-30 11:09] LABS: Alanine Aminotransferase 26 U/L (12-78); Albumin Level 4.5 g/dl (3.5-5.0); Alkaline Phosphatase 68 U/L (38-126); Anion Gap 12.2 mEq/L (5-15); Aspartate Amino Transferase 32 U/L (17-59); Bilirubin,Direct 0.4 mg/dl (0.0-0.4); Bilirubin,Indirect 0.3 mg/dL (0.0-0.9); Bilirubin,Total 0.7 mg/dl (0.2-1.3); Bilirubin,Unconjugated 0.3 mg/dL (0.0-1.1); Blood Urea Nitrogen 33 mg/dl (9-20); Carbon Dioxide 30 mmol/L (22.0-30.0); Chloride 101 mmol/L (98-107); Chol/HDL Ratio 3.5 (1-3.5); Cholesterol 148 mg/dl (140-200); Estimated Glomerular Filt Rate 40 ml/min (>60); GFR (African American) 48 ML/MIN (>60); Glucose 119 mg/dl (74-100); HDL Cholesterol 42 mg/dl (40-60); Potassium 4.2 mmoL/L (3.5-5.1); Sodium 139 mmol/L (136-145); Total Protein,Serum 7.4 g/dl (6.3-8.2); Triglycerides 313 mg/dl (30-150); VLDL Cholesterol 63 mg/dL (0-40)
[2020-09-30 11:20] LABS: Direct LDL Cholesterol 54.98 mg/dL (100-129)
== END ==
PROVIDERS: Visit Provider Physician Assistant
DX: R06.02 Shortness of breath; I11.9 Hypertensive heart disease without heart failure; R10.12 Left upper quadrant pain; E11.9 Type 2 diabetes mellitus without complications; E78.5 Hyperlipidemia, unspecified; G47.33 Obstructive sleep apnea (adult) (pediatric); R53.83 Other fatigue; Z95.5 Presence of coronary angioplasty implant and graft; Z79.4 Long term (current) use of insulin
CPT/HCPCS: 36415; 78452; 80048; 80061; 80076; 85025; 93017; 93306; A9502; J2785

== ENCOUNTER → 2020-10-07 15:46 | Outpatient (CLI) | payer MEDICARE, BC, SELFPAY ==
[2020-10-07 16:41] LABS: Basophils # 0.1 K/mm3 (0-0.2); Basophils % 0.8 % (0.1-2.0); Eosinophils # 0.3 K/mm3 (0.0-0.4); Eosinophils % 2.5 % (0.1-12.0); Hematocrit 40.6 % (42.0-52.0); Hemoglobin 13.7 g/dL (14.1-18.0); Lymphocytes # 3.2 K/mm3 (0.7-4.5); Lymphocytes % 31.4 % (10-50); Mean Corpuscular HGB Conc 33.8 g/dL (31.8-35.4); Mean Corpuscular Hemoglobin 31.5 pg (27.0-31.2); Mean Corpuscular Volume 93.2 fl (80-94); Mean Platelet Volume 8.7 fl (7.4-10.4); Monocytes # 0.4 K/mm3 (0.1-1.0); Monocytes % 4.2 % (1.7-9.3); Neutrophils # 6.2 K/mm3 (1.8-7.8); Neutrophils % 61.1 % (37.0-80.0); Platelet Count 254 K/mm3 (142-424); Red Blood Count 4.36 M/mm3 (4.60-6.20); Red Cell Distribution Width 14.7 % (11.5-17.5); White Blood Count 10.1 K/mm3 (4.8-10.8)
[2020-10-07 17:25] LABS: Chloride 101 mmol/L (98-107); Sodium 140 mmol/L (136-145)
[2020-10-07 17:28] LABS: Blood Urea Nitrogen 33 mg/dl (9-20); Estimated Glomerular Filt Rate 46 ml/min (>60); GFR (African American) 56 ML/MIN (>60)
[2020-10-07 17:29] LABS: Calcium 9.5 mg/dl (8.4-10.2); Carbon Dioxide 27 mmol/L (22.0-30.0); Glucose 75 mg/dl (74-100)
== END ==
PROVIDERS: Visit Provider Physician Assistant
DX: Z01.812 Encounter for preprocedural laboratory examination (principal); Z11.52 Encounter for screening for COVID-19; I20.8 Other forms of angina pectoris
CPT/HCPCS: 36415; 80048; 85025; U0003

== ENCOUNTER 2020-10-10 09:00 | Day surgery (SDC) | payer MEDICARE, BC, SELFPAY ==
[2020-10-10] VITALS (12 sets, daily range): BP systolic 95–129; BP diastolic 35–64; PULSE 54–66; RESP 16; TEMP 36.9; O2SAT 88–96; BMI 35.4
--- NOTE | 2020-10-10 07:14 | IR_ITS ---
APPROVED REPORT Patient Location: Outpatient PROCEDURES Left heart catheterization Left ventriculogram Selective coronary angiogram Drug-eluting stent deployment to the distal dominant right coronary/posterior descending artery INDICATION Coronary disease, Angina pectoris, Informed consent was obtained prior to the procedure. COMPLICATIONS NONE Estimated Blood Loss: LESS THAN 10 ML TECHNIQUE One percent lidocaine used to anesthetize the right anterior aspect of the wrist. The right radial artery was accessed via the Seldinger technique. A 6 Hungarian sheath was placed in the right radial artery. 2.5 mg of verapamil, 800 mcg of nitroglycerin, 1mg Lidocaine and 5000 U Heparin were given through the arterial sheath. The trap catheter was also used to perform left heart catheterization, left ventriculogram and selective coronary angiogram. At the end the diagnostic angiogram therapeutic heparin was administered giving a therapeutic ACT. And I Yesica right guide catheter was placed in the right coronary artery and a choice PT extra-support wire was placed distally. A 2.5 x 12 mm resolute Norris stent was deployed at 16 aniya reducing the severe stenosis to 0%. At the end of the procedure the apparatus was removed the sheath was removed good hemostasis which using TR banding patient was transferred to the postop already in stable addition ANGIOGRAPHIC RESULTS The left main artery Normal The left anterior descending artery Has a stent in the ostial proximal segment which is widely patent free of in-stent restenosis with excellent distal transitioning. Distal to the stent there is a separate 30% eccentric stenosis with a mid vessel 40 to 50% stenosis at the junction of a small to moderate-sized second diagonal artery The circumflex artery Nondominant and gives rise into large first obtuse marginal arteries. First obtuse marginal artery has an ostial proximal 30 to 40% stenosis. The second obtuse marginal artery has mid vessel 10% stenosis The right coronary artery Large dominant vessel has proximal 30% followed by additional 30 to 40% proximal and mid vessel stenoses. The posterior descending artery has a proximal 10 to 20% stenosis followed by an eccentric 70% stenosis. The FRANCOIS ventriculogram reveals Normal 65% The left ventricular end-diastolic pressure 10 mmHg IMPRESSION Coronary disease as described above Severe disease in large posterior descending artery Successful stenting of large posterior descending artery severe disease reduced to 0% with 1 drug-eluting stent Normal ejection fraction Normal left ventricular end-diastolic pressure PLAN 1. Dual antiplatelet therapy 2. Cardiac rehabilitation 3. Avoidance of tobacco products 4. LDL less than 55 5. Aggressive risk factor modification Electronically signed by : Alex Adams, 10/10/2020 13:15:00
[2020-10-10 15:13] LABS: CATHL Activated Clotting Time 297 SEC (74-125)
--- NOTE | 2020-10-10 15:45 | HMH.PHACLD ---
Farhan Plascencia has received discharge medication counseling on the following medications: PATIENT IS CURRENTLY TAKING BISOPROLOL 5 MG DAILY, ASPIRIN DR 81 MG DAILY, CLOPIDOGREL 75 MG DAILY, TELMISARTAN-HCTZ 80 MG/25 MG DAILY, AND ROSUVASTATIN 20 MG HS.
== END 2020-10-10 15:35 | disposition home or self-care (01) ==
LOC: CATHLAB 09:03
PROVIDERS: PCP Internal Medicine Adolescent Medicine; Visit Provider Internal Medicine
DX: E11.22 Type 2 diabetes mellitus with diabetic chronic kidney disease (principal); E78.5 Hyperlipidemia, unspecified; G47.30 Sleep apnea, unspecified; G47.34 Idiopathic sleep related nonobstructive alveolar hypoventilation; I13.0 Hypertensive heart and chronic kidney disease with heart failure and stage 1 through stage 4 chronic kidney disease, or unspecified chronic kidney disease; I25.118 Atherosclerotic heart disease of native coronary artery with other forms of angina pectoris; J44.9 Chronic obstructive pulmonary disease, unspecified; N18.9 Chronic kidney disease, unspecified; R94.39 Abnormal result of other cardiovascular function study; Z68.35 Body mass index [BMI] 35.0-35.9, adult; Z95.5 Presence of coronary angioplasty implant and graft; Z79.4 Long term (current) use of insulin; Z79.899 Other long term (current) drug therapy; E03.9 Hypothyroidism, unspecified; I48.91 Unspecified atrial fibrillation
CPT/HCPCS: 85347; 92928; 93458; 99152; C1725; C1769; C1876; C9600; J1644; Q9967

== ENCOUNTER 2020-10-17 13:46 | Outpatient (RCR) | payer MEDICARE, BC, SELFPAY | END 2020-11-11 13:09 | disposition home or self-care (01) | LOC: PT 13:46 | PROVIDERS: Visit Provider Internal Medicine | DX: Z95.5 Presence of coronary angioplasty implant and graft (principal); I25.10 Atherosclerotic heart disease of native coronary artery without angina pectoris | CPT/HCPCS: 93798 ==

== ENCOUNTER → 2020-10-17 14:54 | Outpatient (CLI) | payer MEDICARE, BC, SELFPAY ==
[2020-10-17 15:25] LABS: Basophils # 0.1 K/mm3 (0-0.2); Basophils % 0.8 % (0.1-2.0); Eosinophils # 0.2 K/mm3 (0.0-0.4); Eosinophils % 2.3 % (0.1-12.0); Hematocrit 40.6 % (42.0-52.0); Hemoglobin 14.2 g/dL (14.1-18.0); Lymphocytes # 2.1 K/mm3 (0.7-4.5); Lymphocytes % 23.6 % (10-50); Mean Corpuscular Volume 91.4 fl (80-94); Mean Platelet Volume 8.5 fl (7.4-10.4); Monocytes # 0.4 K/mm3 (0.1-1.0); Monocytes % 4.7 % (1.7-9.3); Neutrophils % 68.5 % (37.0-80.0); Platelet Count 264 K/mm3 (142-424); Red Blood Count 4.45 M/mm3 (4.60-6.20); Red Cell Distribution Width 14.8 % (11.5-17.5); White Blood Count 8.7 K/mm3 (4.8-10.8)
[2020-10-17 16:02] LABS: Chloride 100 mmol/L (98-107); Potassium 3.8 mmoL/L (3.5-5.1); Sodium 136 mmol/L (136-145)
[2020-10-17 16:05] LABS: Blood Urea Nitrogen 24 mg/dl (9-20); Estimated Glomerular Filt Rate 46 ml/min (>60); GFR (African American) 56 ML/MIN (>60)
[2020-10-17 16:06] LABS: Anion Gap 11.8 mEq/L (5-15); Calcium 9.4 mg/dl (8.4-10.2); Carbon Dioxide 28 mmol/L (22.0-30.0); Glucose 203 mg/dl (74-100)
== END ==
PROVIDERS: Visit Provider Internal Medicine
DX: Z01.812 Encounter for preprocedural laboratory examination (principal); I25.10 Atherosclerotic heart disease of native coronary artery without angina pectoris
CPT/HCPCS: 36415; 80048; 85025

== ENCOUNTER → 2020-11-08 14:20 | Outpatient (CLI) | payer MEDICARE, BC, SELFPAY ==
--- NOTE | 2020-11-08 14:20 | CA_ITS ---
APPROVED REPORT Pipeline Welder: JULIANN Laterality: Bilateral Study Quality: Good Indications: dizziness Risk Factors Hypertension: Hyperlipidemia Diabetes Smoking Doppler Spectral Velocity Analysis ECA (R) 211.60/12.00 cm/s ECA (L) 271.60/21.20 cm/s dICA (R) 80.80/18.70 cm/s dICA (L) 92.00/23.90 cm/s Rosario (R) 111.70/19.30 cm/s Rosario (L) 135.80/21.80 cm/s pICA (R) 108.80/18.80 cm/s pICA (L) 186.60/22.30 cm/s dCCA (R) 70.00/10.90 cm/s dCCA (L) 111.40/24.80 cm/s pCCA (R) 76.30/12.00 cm/s pCCA (L) 122.50/25.70 cm/s Vert (R) 60.40/10.30 cm/s Vert (L) 59.90/12.70 cm/s ICA/CCA 1.60 ICA/CCA 1.68 Findings Study suggests 20-49% stenosis of the right internal carotid artery. Study suggests 50-69% stenosis of the left internal carotid artery. Study demonstrates antegrade flow of the bilateral vertebral arteries. Conclusion Study suggests 20-49% stenosis of the right internal carotid artery. Study suggests 50-69% stenosis of the left internal carotid artery. Study demonstrates antegrade flow of the bilateral vertebral arteries. Electronically signed by : Lance Sanchez MD 11/08/2020 15:54:00
--- NOTE | 2020-11-08 15:02 | CT_ITS ---
PROCEDURE: CT HEAD/BRAIN WO CON CLINICAL INDICATION: dizziness/headache COMPARISON: No exams were available for comparison TECHNIQUE: Axial images obtained. All CT scans at the facility use one or more dose reduction, viz: automated exposure control, ma/kV adjustment per patient size (including targeted exams where dose is matched to indication, i.e. head), or iterative reconstruction technique. FINDINGS: No midline shift, mass effect, intracranial hemorrhage, hydrocephalus, or extra-axial fluid collection is evident. Mild atrophy with mild prominence of the subdural space in the frontal region on both sides the calvarium has an unremarkable appearance. No mastoid effusion. Small retention cyst in the left sphenoid sinus with mild mucosal thickening of the ethmoid sinuses. IMPRESSION: No acute intracranial finding Dictated by: Lance Sanchez MD 11/08/2020 16:16 Lance Sanchez MD in [place] 11/08/2020 16:16
== END ==
PROVIDERS: PCP Internal Medicine Adolescent Medicine; Visit Provider Urology
DX: E78.2 Mixed hyperlipidemia (principal); I11.9 Hypertensive heart disease without heart failure; I25.10 Atherosclerotic heart disease of native coronary artery without angina pectoris; R42 Dizziness and giddiness; R51.9 Headache, unspecified; Z95.5 Presence of coronary angioplasty implant and graft
CPT/HCPCS: 70450; 93880

== ENCOUNTER → 2020-11-21 14:28 | Outpatient (CLI) | payer MEDICARE, BC, SELFPAY ==
[2020-11-21 16:03] LABS: Anion Gap 16.6 mEq/L (5-15); Blood Urea Nitrogen 23 mg/dl (9-20); Calcium 9.5 mg/dl (8.4-10.2); Carbon Dioxide 28 mmol/L (22.0-30.0); Chloride 99 mmol/L (98-107); Estimated Glomerular Filt Rate 43 ml/min (>60); GFR (African American) 52 ML/MIN (>60); Glucose 75 mg/dl (74-100); Potassium 3.6 mmoL/L (3.5-5.1); Sodium 140 mmol/L (136-145)
== END ==
PROVIDERS: Physician Assistant; Visit Provider Urology
DX: E11.8 Type 2 diabetes mellitus with unspecified complications (principal); E78.2 Mixed hyperlipidemia; I11.9 Hypertensive heart disease without heart failure; I25.10 Atherosclerotic heart disease of native coronary artery without angina pectoris; Z79.899 Other long term (current) drug therapy; Z79.4 Long term (current) use of insulin
CPT/HCPCS: 36415; 80048

== ENCOUNTER → 2020-11-22 10:33 | Outpatient (CLI) | payer MEDICARE, BC, SELFPAY ==
--- NOTE | 2020-11-22 10:33 | CT_ITS ---
PROCEDURE: CT ANGIO NECK CLINICAL INDICATION: aura/dizziness COMPARISON: No exams were available for comparison TECHNIQUE: CT angiography of the neck with multiplanar and 3D MIP reformations. Dose modulation, automated exposure control, and/or iterative reconstruction were used for dose reduction. All measurements of carotid stenosis are performed according to NASCET criteria. Contrast: 100ml Isouve 370. FINDINGS: AORTIC ARCH: Arch Anatomy: There is a normal branching anatomy of the aortic arch. Carotid Arteries: Carotid: There is scattered atherosclerotic plaque and calcification at the bilateral carotid bifurcations, worse on the left. There is approximately 70-80 percent stenosis noted in the proximal left internal carotid artery there is approximately 50-69 percent stenosis of the right carotid bifurcation. Vertebral Arteries: Both vertebral arteries are patent and unremarkable throughout their cervical portions, without any significant stenosis or other abnormality Lungs: Centrilobular emphysematous changes are noted bilaterally in the visualized lung apices. Thyroid: The visualized thyroid gland is unremarkable. Bones: Mild multilevel degenerative changes are present in the cervical spine. IMPRESSION: Approximately 70-80 percent stenosis in the proximal left internal carotid artery and 50-69 percent stenosis at the right carotid bifurcation. Dictated by: Paty Eddy 11/22/2020 12:16 Paty Eddy in [place] 11/22/2020 12:16
== END ==
PROVIDERS: PCP Internal Medicine Adolescent Medicine; Visit Provider Urology
DX: E78.2 Mixed hyperlipidemia (principal); I11.9 Hypertensive heart disease without heart failure; I25.10 Atherosclerotic heart disease of native coronary artery without angina pectoris; N18.9 Chronic kidney disease, unspecified; R06.02 Shortness of breath; R42 Dizziness and giddiness; Z95.5 Presence of coronary angioplasty implant and graft; I65.23 Occlusion and stenosis of bilateral carotid arteries
CPT/HCPCS: 70498; Q9967

== ENCOUNTER → 2020-11-23 20:02 | Outpatient (CLI) | payer MEDICARE, BC, SELFPAY | PROVIDERS: PCP Internal Medicine Adolescent Medicine; Visit Provider Specialist | DX: G47.33 Obstructive sleep apnea (adult) (pediatric) (principal); G47.61 Periodic limb movement disorder | CPT/HCPCS: 95811 ==

== ENCOUNTER → 2020-12-12 10:11 | Outpatient (CLI) | payer MEDICARE, BC, SELFPAY ==
--- NOTE | 2020-12-12 | US_ITS ---
PROCEDURE: US SOFT TISSUE HEAD AND NECK CLINICAL INDICATION: Left neck mass COMPARISON: CT CT ANGIO NECK from 11/22/2020 US US FNA OTHER from 12/12/2020 FINDINGS: Limited evaluation of the left aspect of the neck performed. Enlarged nodes are present in the left lateral neck region inferior to the parotid gland and external to the sternocleidomastoid muscle.. The rigo cluster measures 4 x 1.5 cm. IMPRESSION: Left neck adenopathy. Dictated by: Lance Sanchez MD 12/12/2020 12:21 Lance Sanchez MD in [place] 12/12/2020 12:21
--- NOTE | 2020-12-12 10:16 | US_ITS ---
PROCEDURE: US FNA OTHER CLINICAL INDICATION: LT NECK MASS COMPARISON: CT CT ANGIO NECK from 11/22/2020 TECHNIQUE: Following obtaining informed consent, using aseptic technique and local anesthesia with buffered lidocaine, fine-needle aspiration was performed of the largest of the left neck nodules/lymph nodes. Four passes were made 2 of which were put in RPMI and 2 in CytoLyt.. Specimen was given to cytology. The patient tolerated the procedure well without evidence of immediate complications and left the ultrasound suite in stable condition. FINDINGS: CYTOLOGY: Nonviable degenerating debris. Findings are atypical. Biopsy is suggested by the pathologist. Core biopsy could be performed with sonographic guidance if clinically warranted with pathologist present to confirm tissue. IMPRESSION: Uneventful ultrasound-guided FNA of the left neck showing nonviable degenerating debris/atypical. Biopsy suggested by the pathologist. Core biopsy could be performed with sonographic guidance with pathologist present to confirm tissue if clinically warranted. Open surgical biopsy would also be a consideration. Dictated by: Lance Sanchez MD 12/20/2020 12:10 Lance Sanchez MD in [place] 12/20/2020 12:10
== END ==
PROVIDERS: PCP Internal Medicine Adolescent Medicine; Visit Provider Internal Medicine Adolescent Medicine
DX: R22.1 Localized swelling, mass and lump, neck (principal)
CPT/HCPCS: 10005; 76536; 88173

== ENCOUNTER → 2020-12-14 09:45 | Outpatient (CLI) | payer MEDICARE, BC, SELFPAY | PROVIDERS: Visit Provider Obstetrics & Gynecology Gynecology | DX: Z01.812 Encounter for preprocedural laboratory examination (principal); Z11.52 Encounter for screening for COVID-19 | CPT/HCPCS: U0003 ==

== ENCOUNTER → 2021-01-10 09:59 | Outpatient (CLI) | payer MEDICARE, BC, SELFPAY ==
--- NOTE | 2021-01-10 10:07 | US_ITS ---
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 Pathologist was present for the exam to confirm tissue. Following obtaining informed consent, using aseptic technique and local anesthesia with buffered lidocaine, 18 gauge core biopsy performed with pathologist present which confirmed tissue. Three passes were made and given to histology and 1 pass made for RPMI. . Specimen was given to pathologist. The patient tolerated the procedure well without evidence of immediate complications and left the ultrasound suite in stable condition. FINDINGS: Pathology: Minute fragment of benign lympho epithelial tissue. No evidence of malignancy. Please see the pathologist report for recommendations. IMPRESSION: Uneventful ultrasound-guided core biopsy of the left neck mass. Negative for malignancy. Please see pathologist report for recommendations. Dictated by: Lance Sanchez MD 01/19/2021 07:45 Lance Sanchez MD in [place] 01/19/2021 07:45
== END ==
PROVIDERS: PCP Internal Medicine Adolescent Medicine; Visit Provider Otolaryngology
DX: D37.030 Neoplasm of uncertain behavior of the parotid salivary glands (principal)
CPT/HCPCS: 10005

== ENCOUNTER → 2021-03-09 13:59 | Outpatient (CLI) | payer MEDICARE, BC, SELFPAY | PROVIDERS: PCP Internal Medicine Adolescent Medicine; Visit Provider Nurse Practitioner | DX: Z20.822 Contact with and (suspected) exposure to COVID-19 (principal) | CPT/HCPCS: C9803; U0003; U0005 ==

== ENCOUNTER → 2021-04-30 11:27 | Outpatient (CLI) | payer MEDICARE, BC, SELFPAY | PROVIDERS: PCP Internal Medicine Adolescent Medicine; Visit Provider Nurse Practitioner Family | DX: U07.1 COVID-19 (principal) | CPT/HCPCS: C9803; U0003; U0005 ==

== ENCOUNTER 2021-05-07 22:36 | Inpatient (IN) | payer MEDICARE, BC, SELFPAY ==
[2021-05-07 22:37] VITALS: BP 112/48; PULSE 73; RESP 18; TEMP 36.6; O2SAT 95; BMI 35.2
[2021-05-08] VITALS (7 sets, daily range): BP systolic 107–188; BP diastolic 56–86; PULSE 71–83; RESP 15–20; TEMP 36.7–37; O2SAT 90–98
--- NOTE | 2021-05-08 00:23 | PC.NURSE ---
Pt moved to room 4 at this time
--- NOTE | 2021-05-08 01:01 | XR_ITS ---
PROCEDURE INFORMATION: Exam: XR Chest Exam date and time: 05/08/2021 1:01 AM Age: 76 years old Clinical indication: Cough and shortness of breath and other: Covid; Additional info: Covid + TECHNIQUE: Imaging protocol: XR of the chest. Views: 1 view. Total images: 1 COMPARISON: CR CXR2V XR chest 2V 05/07/2018 11:14 AM FINDINGS: Lungs: Low lung volumes. Pulmonary vasculature grossly normal. Multifocal bilateral alveolar opacities in the basilar distributions and right mid lung consistent with multifocal pneumonia. Pleural spaces: No pleural effusion. No pneumothorax. Heart/Mediastinum: Heart size normal. No tracheal/mediastinal shift. Bones/joints: No acute osseous abnormalities are identified. Osteopenia. IMPRESSION: Multifocal bilateral alveolar opacities consistent with multifocal pneumonia.
[2021-05-08 01:06] LABS: Basophils # 0.2 K/mm3 (0-0.2); Basophils % 2.3 % (0.1-2.0); Eosinophils # 0.2 K/mm3 (0.0-0.4); Eosinophils % 2.2 % (0.1-12.0); Hematocrit 42.4 % (42.0-52.0); Lymphocytes # 1.2 K/mm3 (0.7-4.5); Lymphocytes % 15.8 % (10-50); Mean Corpuscular HGB Conc 32.9 g/dL (31.8-35.4); Mean Corpuscular Hemoglobin 30.8 pg (27.0-31.2); Mean Corpuscular Volume 93.6 fl (80-94); Mean Platelet Volume 8.8 fl (7.4-10.4); Monocytes # 0.4 K/mm3 (0.1-1.0); Monocytes % 4.5 % (1.7-9.3); Neutrophils # 5.8 K/mm3 (1.8-7.8); Neutrophils % 75.2 % (37.0-80.0); Platelet Count 328 K/mm3 (142-424); Red Blood Count 4.53 M/mm3 (4.60-6.20); Red Cell Distribution Width 15.7 % (11.5-17.5); White Blood Count 7.8 K/mm3 (4.8-10.8)
[2021-05-08 01:10] LABS: Chloride 101 mmol/L (98-107); Sodium 141 mmol/L (136-145)
[2021-05-08 01:11] LABS: Potassium 3.7 mmoL/L (3.5-5.1)
[2021-05-08 01:13] LABS: Alanine Aminotransferase 26 U/L (12-78); Albumin Level 3.9 g/dl (3.5-5.0); Alkaline Phosphatase 89 U/L (38-126); Anion Gap 14.7 mEq/L (5-15); Aspartate Amino Transferase 50 U/L (17-59); Bilirubin,Total 0.6 mg/dl (0.2-1.3); Blood Urea Nitrogen 58 mg/dl (9-20); Carbon Dioxide 29 mmol/L (22.0-30.0); Creatinine Clearance Estimated 39 mL/min (50-200); Estimated Glomerular Filt Rate 27 ml/min (>60); GFR (African American) 32 ML/MIN (>60); Globulin 3.8 g/dL (1.3-3.2); Total Protein,Serum 7.7 g/dl (6.3-8.2)
[2021-05-08 01:14] LABS: Calcium 9.6 mg/dl (8.4-10.2); Glucose 89 mg/dl (74-100)
--- NOTE | 2021-05-08 01:40 | HMH.EDGENADL ---
ED Disposition Clinical Impression: Acute kidney injury superimposed on CKD Disposition: Admitted As Inpatient Condition on Discharge: Fair Referrals: Akil Borges MD [Primary Care Provider] - - Critical Care Critical Care Time: No Attestation: On 05/07/21, the high probability of a clinically significant, sudden or life threatening deterioration of the following system(s) required my full and direct attention, intervention and personal management. The time I documented below is in addition to time spent performing reported procedures but includes the following listed in this critical care notation. Medical Decision Making - Shaw Inquiry Pt receiving controlled substance: No Vital Signs: 05/07/21 22:37 Temperature 97.8 F Temperature Source Oral Pulse Rate [Right Radial] 73 Respiratory Rate 18 Blood Pressure [Right Arm] 112/48 L Blood Pressure Mean [Right Arm] 69 Blood Pressure Source [Right Arm] Automatic Cuff Blood Pressure Position [Right Arm] Supine 02 Sat by Pulse Oximetry 95 Oxygen Delivery Method Room Air - Lab Data Lab Results 05/08/21 01:00: WBC 7.8, RBC 4.53 L, Hgb 14.0 L, Hct 42.4, MCV 93.6, MCH 30.8, MCHC 32.9, RDW 15.7, Plt Count 328, MPV 8.8, Neut % (Auto) 75.2, Lymph % (Auto) 15.8, [place] % (Auto) 4.5, Eos % (Auto) 2.2, Baso % (Auto) 2.3 H, Neut # (Auto) 5.8, Lymph # (Auto) 1.2, [place] # (Auto) 0.4, Eos # (Auto) 0.2, Baso # (Auto) 0.2 05/08/21 01:00: Sodium 141, Potassium 3.7, Chloride 101, Carbon Dioxide 29, Anion Gap 14.7, BUN 58 H, Creatinine 2.40 H, Estimated Creat Clear 39, Estimated GFR 27 L, Est GFR ( Amer) 32 L, Glucose 89, Calcium 9.6, Total Bilirubin 0.6, AST 50, ALT 26, Alkaline Phosphatase 89, Total Protein 7.7, Albumin 3.9, Globulin 3.8 H, Albumin/Globulin Ratio 1.0 L Result diagrams: 05/08/21 01:00 05/08/21 01:00 Orders (Tests/Meds): ED MEDICATIONS Generic Name Dose Route Start Last Admin Trade Name Troyq PRN Reason Stop Dose Admin Lactated Ringer's 1,000 mls @ 999 mls/hr 05/08/21 01:15 05/08/21 01:02 Lactated Ringer's 1000 Ml Bag IV 05/08/21 02:15 999 mls/hr .Q1H1M BETHANIE Administration Ceftriaxone Sodium 2 gm/ 100 mls @ 200 mls/hr 05/08/21 02:45 Sodium Chloride IV 05/22/21 02:44 Q24H BETHANIE Azithromycin 500 mg/ Sodium 250 mls @ 250 mls/hr 05/08/21 02:45 Chloride IV 05/22/21 02:44 Q24H BETHANIE Medical Decision Narrative: DDx includes but not limited to viral vs bacterial pneumonia, uri, copd exacerbation. hds, on room air, nad. gcs 15 with nonfocal neuro exam. afebrile. labs reveal juan carlos on ckd. cxr shows evidence of multifocal pneumonia. will treat for cap with rocephin and azithromycin. remains hds, on room air, nad on reassessment. plan for admission to hospital for continued abx and monitoring of juan carlos. General Adult HPI - General Chief complaint: Upper Respiratory Infection Stated complaint: Covid+ congestion,cough Time Seen by Provider: 05/08/21 01:20 Mode of Arrival: Ambulatory Limitations: No Limitations Description of Symptoms (Recalled from ER Triage Doc. by RN): Pt COVID + 04/30 arrives POV with for COVID symptoms. He reports weakness, non-productive cough, diarrhea, and fatigue. Pt denies SOA or chest pain. - History of Present Illness HPI narrative: 76-year-old male with history of CAD post PCI, CKD, hypertension, hyperlipidemia, COPD, [place], obesity, presents for evaluation of weakness. Patient states he has had generalized weakness that has been progressive since testing positive for COVID-19 Kierra eve. His symptoms total started 2 days prior to that which include diarrhea, intermittent shortness of breath, generalized weakness, malaise, anorexia, nausea without vomiting, cough. States his has a positive for COVID-19 on the same day as has similar symptoms. - Related Data Home Medications Medication Instructions Recorded Confirmed aspirin 81 mg tablet,delayed 81 mg PO ONCE 07/09/17 05/08/21 rel
[2021-05-08 03:47] LABS: Influenza A, PCR Not Detected (NotDetected); Influenza B, PCR Not Detected (NotDetected)
[2021-05-08 03:48] LABS: Coronavirus 19, PCR Detected (NotDetected)
--- NOTE | 2021-05-08 04:00 | PC.NURSE ---
2LNC applied at this time.
--- NOTE | 2021-05-08 05:53 | PC.NURSE ---
blood collected and sent to lab
[2021-05-08 06:18] LABS: Basophils # 0.1 K/mm3 (0-0.2); Basophils % 0.8 % (0.1-2.0); Eosinophils # 0.2 K/mm3 (0.0-0.4); Eosinophils % 2.4 % (0.1-12.0); Hematocrit 35.5 % (42.0-52.0); Lymphocytes # 1.5 K/mm3 (0.7-4.5); Lymphocytes % 22.8 % (10-50); Mean Corpuscular HGB Conc 33.2 g/dL (31.8-35.4); Mean Corpuscular Volume 93.5 fl (80-94); Mean Platelet Volume 8.6 fl (7.4-10.4); Monocytes # 0.3 K/mm3 (0.1-1.0); Monocytes % 4.3 % (1.7-9.3); Neutrophils # 4.6 K/mm3 (1.8-7.8); Neutrophils % 69.7 % (37.0-80.0); Platelet Count 328 K/mm3 (142-424); Red Cell Distribution Width 15.7 % (11.5-17.5); White Blood Count 6.7 K/mm3 (4.8-10.8)
[2021-05-08 06:39] LABS: Anion Gap 10.4 mEq/L (5-15); Blood Urea Nitrogen 55 mg/dl (9-20); Calcium 9.1 mg/dl (8.4-10.2); Carbon Dioxide 31 mmol/L (22.0-30.0); Chloride 101 mmol/L (98-107); Creatinine Clearance Estimated 45 mL/min (50-200); Estimated Glomerular Filt Rate 31 ml/min (>60); GFR (African American) 38 ML/MIN (>60); Glucose 106 mg/dl (74-100); Potassium 3.4 mmoL/L (3.5-5.1); Sodium 139 mmol/L (136-145)
[2021-05-08 06:58] LABS: Hemoglobin 11.8 g/dL (14.1-18.0)
--- NOTE | 2021-05-08 07:15 | PC.NURSE ---
Patient laying in bed. Repositioned patient in bed. Also placed patient's nasal cannula back on.
[2021-05-08 10:47] LABS: POC Glucose,Bedside 114 (70-110)
--- NOTE | 2021-05-08 12:47 | HMH.HP ---
*Admission Date: 05/08/21 *Chief complaint: COVID-19/community-acquired pneumonia *History of present illness: 76-year-old white male with multiple comorbidities including obesity, diabetes, coronary disease and who is an ongoing smoker, who was diagnosed with COVID-19 with a positive test on Kierra peterson of last week. He has been feeling fair, but over the past couple of days began to have increasing problems with shortness of air, nausea/vomiting, inability to keep fluids down and came to the emergency department. In the emergency department had a viral appearing infiltrates on chest x-ray as well as a lobar infiltrate, slightly elevated white count, significant acute on chronic kidney injury, and is admitted for further evaluation. His O2 requirement in the emergency department is new at 2 L. [facility] History I have reviewed the patient's past medical history: Yes Medical History: Reports:: Atrial Fibrillation, Congestive Heart Failure, Chronic Obstructive Pulmonary Disease (COPD), Coronary Artery Disease, Diabetes Mellitus Type 2, Hyperlipidemia, Hypertension, Lung Disease, Renal Disease Denies:: Cancer, Diabetes Mellitus Type 1, Internal Pacemaker, MRSA, Seizures *Have you ever received a pneumonia vaccine?: Yes *Have you received a flu vaccine this season?: No Other Medical History: Reports: Anemia, Hypothyroidism, Thyroid Disease Other Surgeries: Yes: Cardiac Catheterization, Colonoscopy, Coronary Stent, Hernia Repair, Other. No: Pacemaker Amputation: No Fractures: No - *Social History Last grade of school completed: High school graduate Smoking Status: Current every day smoker Tobacco Type: cigarettes # Packs/Day (cigarettes): 50 #Yrs smoked (if former smoker): 50 Alcohol Intake: never Alcohol Intake Frequency:: other Substance Use Type: denies use *Occupational Status:: retired Housing: house Household Members: spouse *Travel in the last 8 weeks: None Family Hx:: No significant family history Review of Systems - Review of Systems Review of systems:: pertinent systems reviewed and negative unless documented below Meds Home Medications Medication Instructions Recorded Confirmed Type aspirin 81 mg tablet,delayed 81 mg PO ONCE 07/09/17 05/08/21 History release clopidogrel 75 mg tablet 75 mg PO DAILY tab 07/09/17 05/08/21 History metformin 1,000 mg tablet 1,000 mg PO BID 07/09/17 05/08/21 History yomlswfldxdx-Qx-ajkn-minerals 18 1 tab PO DAILY tab 07/09/17 05/08/21 History mg-0.4 mg tablet levothyroxine 50 mcg tablet 50 mcg PO DAILY tab 10/14/17 05/08/21 History vitamin B complex 1 tab PO DAILY tab 10/14/17 05/08/21 History Insulin Degludec [Tresiba 40 units SQ HS 01/29/18 05/08/21 History Flextouch U-100] fluticasone 250 mcg-salmeterol 50 1 inh INHALATION Q12H 02/27/18 05/08/21 History mcg/dose blistr powdr for inhalation umeclidinium 62.5 mcg/actuation 1 inh INHALATION DAILY 02/27/18 05/08/21 History blister powder for inhalation insulin NPH-regular 70-30 U-100 20 unit SQ BID ml 04/14/18 05/08/21 History insulin 100 unit/mL subcutaneous pen ferrous gluconate 324 mg (36 mg 324 mg PO DAILY tab 09/08/18 05/08/21 History iron) tablet gabapentin 100 mg capsule 100 mg PO BID cap 09/26/20 05/08/21 History telmisartan 80 0.5 tab PO DAILY tab 10/26/20 05/08/21 History mg-hydrochlorothiazide 25 mg tablet rosuvastatin 10 mg tablet 10 mg PO HS tab 11/15/20 05/08/21 History furosemide 20 mg tablet 20 mg PO DAILY tab 12/13/20 05/08/21 History Bisoprolol Fumarate [Bisoprolol 0.5 tab PO DAILY 05/08/21 05/08/21 History 5mg Tablet] Allergies Allergy/AdvReac Type Severity Reaction Status Date / Time No Known Allergies Allergy Verified 12/14/20 08:40 Exam Vital signs and Labs for Last 24 Hours: Temp Pulse Resp BP Pulse Ox 98.3 F 77 18 188/86 H 93 L 05/08/21 10:42 05/08/21 10:42 05/08/21 10:42 05/08/21 10:42 05/08/21 10:57 Laboratory Results - last 24 hr
[2021-05-08 17:54] LABS: POC Glucose,Bedside 252 (70-110)
[2021-05-08 22:26] LABS: POC Glucose,Bedside 153 (70-110)
[2021-05-09] VITALS: BP 149/74; PULSE 73; RESP 16; TEMP 36.9; O2SAT 95
[2021-05-09 04:00] VITALS: BP 155/75; PULSE 72; RESP 16; TEMP 36.7; O2SAT 98
[2021-05-09 05:33] LABS: POC Glucose,Bedside 148 (70-110)
[2021-05-09 05:58] VITALS: BMI 35.2
[2021-05-09 06:29] LABS: Basophils % 0.3 % (0.1-2.0); Eosinophils % 0.1 % (0.1-12.0); Hematocrit 34.9 % (42.0-52.0); Hemoglobin 11.5 g/dL (14.1-18.0); Lymphocytes # 0.7 K/mm3 (0.7-4.5); Lymphocytes % 11.3 % (10-50); Mean Corpuscular Hemoglobin 30.7 pg (27.0-31.2); Mean Corpuscular Volume 93.1 fl (80-94); Mean Platelet Volume 8.8 fl (7.4-10.4); Monocytes # 0.2 K/mm3 (0.1-1.0); Monocytes % 3.6 % (1.7-9.3); Neutrophils # 5.4 K/mm3 (1.8-7.8); Neutrophils % 84.7 % (37.0-80.0); Platelet Count 344 K/mm3 (142-424); Red Blood Count 3.75 M/mm3 (4.60-6.20); Red Cell Distribution Width 15.6 % (11.5-17.5); White Blood Count 6.4 K/mm3 (4.8-10.8)
--- NOTE | 2021-05-09 06:43 | HMH.ACPN2 ---
Internal Medicine - PN: Subj *Date: 05/09/21 *Time: 06:43 Exam Vital signs and Labs for Last 24 Hours: Temp Pulse Resp BP Pulse Ox 98.1 F 72 16 155/75 H 98 05/09/21 04:00 05/09/21 04:00 05/09/21 04:00 05/09/21 04:00 05/09/21 04:00 Laboratory Results - last 24 hr 05/08/21 05:31: WBC 6.7, RBC 3.80 L, Hgb 11.8 L D, Hct 35.5 L, MCV 93.5, MCH 31.0, MCHC 33.2, RDW 15.7, Plt Count 328, MPV 8.6, Neut % (Auto) 69.7, Lymph % (Auto) 22.8, [place] % (Auto) 4.3, Eos % (Auto) 2.4, Baso % (Auto) 0.8, Neut # (Auto) 4.6, Lymph # (Auto) 1.5, [place] # (Auto) 0.3, Eos # (Auto) 0.2, Baso # (Auto) 0.1 05/08/21 05:31: Sodium 139, Potassium 3.4 L, Chloride 101, Carbon Dioxide 31 H, Anion Gap 10.4, BUN 55 H, Creatinine 2.10 H, Estimated Creat Clear 45, Estimated GFR 31 L, Est GFR ( Amer) 38 L, Glucose 106 H, Calcium 9.1 05/08/21 10:37: POC Glucose 114 H 05/08/21 17:10: POC Glucose 252 H 05/08/21 22:05: POC Glucose 153 H 05/09/21 05:23: POC Glucose 148 H I & O for Last 24 hours: Intake & Output 05/06/21 05/07/21 05/08/21 05/09/21 23:59 23:59 23:59 23:59 Intake Total 240 / 540 300 / 300 Output Total 200 / 200 Balance 40 / 340 300 / 300 Weight 102.058 kg 102 kg Assessment and Plan (1) Pneumonia due to COVID-19 virus Status: Acute Category: Medical Code(s): U07.1 - COVID-19; J12.82 - Pneumonia due to coronavirus disease 2019 (2) Community acquired pneumonia Status: Acute Category: Medical Code(s): J18.9 - Pneumonia, unspecified organism (3) Acute kidney injury superimposed on CKD Status: Acute Category: Medical Code(s): N17.9 - Acute kidney failure, unspecified; N18.9 - Chronic kidney disease, unspecified (4) Coronary arteriosclerosis Status: Chronic Category: Medical Code(s): I25.10 - Atherosclerotic heart disease of [place] coronary artery without angina pectoris (5) Diabetes mellitus Status: Chronic Category: Medical Code(s): E11.9 - Type 2 diabetes mellitus without complications
[2021-05-09 07:05] LABS: Alanine Aminotransferase 21 U/L (12-78); Albumin Level 3.4 g/dl (3.5-5.0); Alkaline Phosphatase 72 U/L (38-126); Anion Gap 11.4 mEq/L (5-15); Aspartate Amino Transferase 35 U/L (17-59); Bilirubin,Total 0.3 mg/dl (0.2-1.3); Blood Urea Nitrogen 36 mg/dl (9-20); Calcium 9.1 mg/dl (8.4-10.2); Carbon Dioxide 27 mmol/L (22.0-30.0); Chloride 106 mmol/L (98-107); Creatinine Clearance Estimated 72 mL/min (50-200); Estimated Glomerular Filt Rate 54 ml/min (>60); GFR (African American) 65 ML/MIN (>60); Globulin 3.5 g/dL (1.3-3.2); Glucose 137 mg/dl (74-100); Potassium 3.4 mmoL/L (3.5-5.1); Sodium 141 mmol/L (136-145); Total Protein,Serum 6.9 g/dl (6.3-8.2)
[2021-05-09 08:00] VITALS: BP 137/56; PULSE 67; RESP 18; TEMP 36.7; O2SAT 97
--- NOTE | 2021-05-09 10:04 | HMH.DCSUM ---
General - General Admission date:: 05/08/21 Discharge date: 05/09/21 HPI HPI: 76-year-old white male with multiple comorbidities including obesity, diabetes, coronary disease and who is an ongoing smoker, who was diagnosed with COVID-19 with a positive test on Kierra peterson of last week. He has been feeling fair, but over the past couple of days began to have increasing problems with shortness of air, nausea/vomiting, inability to keep fluids down and came to the emergency department. In the emergency department had a viral appearing infiltrates on chest x-ray as well as a lobar infiltrate, slightly elevated white count, significant acute on chronic kidney injury, and is admitted for further evaluation. His O2 requirement in the emergency department is new at 2 L. Hospital Course Hospital Course: 76-year-old male with multiple comorbidities on oxygen at home overnight with his CPAP. Positive for Covid along with his . Admitted for worsening hypoxemic respiratory failure, GUI, breakthrough Covid infection. Initiated on antibiotics for community-acquired pneumonia, steroids, supplemental oxygen. Will complete antibiotic course with transition oral antibiotics including Omnicef and oral steroids for a few days. Continue supplemental oxygen at home, already has this at home. Continue inhalers and chronic medications. On day of discharge, patient's GUI has resolved with fluid resuscitation. Stable on 1 to 2 L of oxygen without any distress. Tolerating p.o. intake and able to ambulate independently around the room though fatigues easily. We will be discharging home with his today so they can look after each other. Medically stable for discharge home, examined on day of discharge. Objective Vital signs: Temp Pulse Resp BP Pulse Ox 98.0 F 67 18 137/56 L 97 05/09/21 08:00 05/09/21 08:00 05/09/21 08:00 05/09/21 08:00 05/09/21 08:00 Narrative: Patient is alert, comfortable on 1-2 L nasal cannula. No respiratory distress noted - Constitutional no acute distress - *Routine HEENT Exam Head: Present: normocephalic Eye: Present: EOMI, PERRL ENT: Present: mucous membranes moist - *Routine Neck Exam Present: supple. Absent: lymphadenopathy - *Routine Respiratory Exam Present: rhonchi, distant breath sounds, faint RLL crackles. - *Routine Cardiovascular Exam Present: RRR - *Routine Abdominal Exam Present: soft, normoactive bowel sounds. Absent: tenderness - *Routine Extremities Exam Absent: cyanosis, clubbing, edema - *Routine Skin Exam Present: warm. Absent: rash - *Routine Neurological Exam Present: alert, oriented X3 Results Labs on day of discharge: Labs from last 24 hours 05/09/21 05/09/21 05/09/21 05:47 05:47 05:23 WBC 6.4 RBC 3.75 L Hgb 11.5 L Hct 34.9 L MCV 93.1 MCH 30.7 MCHC 33.0 RDW 15.6 Plt Count 344 MPV 8.8 Neut % (Auto) 84.7 H Lymph % (Auto) 11.3 [place] % (Auto) 3.6 Eos % (Auto) 0.1 Baso % (Auto) 0.3 Neut # (Auto) 5.4 Lymph # (Auto) 0.7 [place] # (Auto) 0.2 Eos # (Auto) 0.0 Baso # (Auto) 0.0 Sodium 141 Potassium 3.4 L Chloride 106 Carbon Dioxide 27 Anion Gap 11.4 BUN 36 H D Creatinine 1.30 H D Estimated Creat Clear 72 Estimated GFR 54 L Est GFR ( Amer) 65 D Glucose 137 H POC Glucose 148 H Calcium 9.1 Total Bilirubin 0.3 AST 35 D ALT 21 Alkaline Phosphatase 72 Total Protein 6.9 Albumin 3.4 L D Globulin 3.5 H Albumin/Globulin Ratio 1.0 L 05/08/21 05/08/21 05/08/21 22:05 17:10 10:37 WBC RBC Hgb Hct MCV MCH MCHC RDW Plt Count MPV Neut % (Auto) Lymph % (Auto) [place] % (Auto) Eos % (Auto) Baso % (Auto) Neut # (Auto) Lymph # (Auto) [place] # (Auto) Eos # (Auto) Baso # (Auto) Sodium Potassium Chloride Carbon Dioxide
[2021-05-09 11:52] VITALS: BP 152/64; PULSE 60; RESP 23; TEMP 36.5; O2SAT 100
[2021-05-09 12:28] LABS: POC Glucose,Bedside 106 (70-110)
== END 2021-05-09 15:13 | disposition home or self-care (01) | DRG 177 ==
LOC: ER 05-08 03:17 → 2ND 05-08 14:51
PROVIDERS: Admitting Provider Family Medicine; Emergency Provider Student in an Organized Health Care Education/Training Program; PCP Internal Medicine Adolescent Medicine; Visit Provider Internal Medicine Adolescent Medicine
DX: J12.82 Pneumonia due to coronavirus disease 2019; U07.1 COVID-19; J96.91 Respiratory failure, unspecified with hypoxia; N17.9 Acute kidney failure, unspecified; J44.0 Chronic obstructive pulmonary disease with (acute) lower respiratory infection; I13.0 Hypertensive heart and chronic kidney disease with heart failure and stage 1 through stage 4 chronic kidney disease, or unspecified chronic kidney disease; I48.91 Unspecified atrial fibrillation; I25.10 Atherosclerotic heart disease of native coronary artery without angina pectoris; E11.22 Type 2 diabetes mellitus with diabetic chronic kidney disease; N18.9 Chronic kidney disease, unspecified; G47.33 Obstructive sleep apnea (adult) (pediatric); E66.9 Obesity, unspecified; Z68.35 Body mass index [BMI] 35.0-35.9, adult; F17.210 Nicotine dependence, cigarettes, uncomplicated; E03.9 Hypothyroidism, unspecified; Z95.5 Presence of coronary angioplasty implant and graft; Z99.81 Dependence on supplemental oxygen; Z79.4 Long term (current) use of insulin; I50.9 Heart failure, unspecified
CPT/HCPCS: 36415; 71045; 80048; 80053; 82962; 85025; 96365; 96367; 96375; 99284; C9803; J0456; J0696; U0003; U0005

== ENCOUNTER → 2021-06-22 07:39 | Outpatient (CLI) | payer MEDICARE, BC, SELFPAY ==
--- NOTE | 2021-06-22 07:42 | CT_ITS ---
FINAL REPORT TECHNIQUE: Axial images were obtained from the lung apex to the mid abdomen by computed tomography. Low-dose protocol was utilized. CLINICAL HISTORY: H/O NICOTINE DEPENDENCE smoker now 1/2 ppd x 50 years copd COMPARISON: 03/24/2018 FINDINGS: CHEST CT LOW DOSE CTDI vol (mGy): 2.90 DLP (mGy-cm): 103.94 There is no axillary adenopathy. There are several borderline sized mediastinal nodes which are stable, favor reactive. The heart is normal in size. There is no pericardial or pleural effusion. Note is made of mild emphysema. There is moderate, new predominantly peripheral interstitial fibrosis/scarring. There is a 5 mm nodule in the left lower lobe which is new. This is well-seen on image #44. There is a calcified granuloma in the lingula. Limited images of the upper abdomen are unremarkable. IMPRESSION: New, predominantly peripheral interstitial fibrosis/scarring. New left lower lobe nodule measures 5 mm. Lung RADS category 3S. Recommend 6 month follow-up low-dose chest CT. Reviewed, Interpreted and Dictated by Donal Fine III, MD Transcribed by Aracelis Mras Authenticated by Donal Fine III, MD on 06/22/2021 09:18:38 AM [facility]
--- NOTE | 2021-06-22 07:43 | US_ITS ---
FINAL REPORT CLINICAL HISTORY: H/O NICOTINE DEPENDENCE FINDINGS: Limited sonographic images of the abdominal aorta were obtained. The abdominal aorta measures up to 2 cm which is within normal limits. The iliacs measure 0.9 and 0.7 cm, within normal limits. No aneurysm is identified. IMPRESSION: No evidence of aneurysm. Reviewed, Interpreted and Dictated by Donal Fine III, MD Transcribed by Aracelis Mars Authenticated by Donal Fine III, MD on 06/22/2021 09:44:25 AM [facility]
== END ==
PROVIDERS: PCP Internal Medicine Adolescent Medicine; Visit Provider Internal Medicine Adolescent Medicine
DX: Z87.891 Personal history of nicotine dependence (principal); Z12.2 Encounter for screening for malignant neoplasm of respiratory organs; Z13.6 Encounter for screening for cardiovascular disorders
CPT/HCPCS: 71271; 76705

== ENCOUNTER 2021-08-06 14:30 | Emergency (ER) | payer MEDICARE, BC, SELFPAY ==
[2021-08-06 14:35] VITALS: BP 147/58; PULSE 74; RESP 22; TEMP 36.9; O2SAT 94; BMI 35.2
[2021-08-06 14:39] VITALS: BP 147/58; PULSE 74; RESP 22; TEMP 36.9; O2SAT 94
--- NOTE | 2021-08-06 14:43 | HMH.EDUTC ---
[facility] [place] Disposition Clinical Impression: Maxillary sinusitis, acute Qualifiers: Recurrence: non-recurrent Qualified Code(s): J01.00 - Acute maxillary sinusitis, unspecified Disposition: Home, Self-Care Condition on Discharge: Good Instructions: DI for Sinusitis Additional Instructions: Start antibiotic patient to take as ordered for a full length of time even if you feel better. Sinus infections do not get better overnight. It may take 2-3 days to notice much improvement so be sure to use conservative measures as discussed for symptoms. Flonase 1 spray each nostril daily to help with nasal congestion, sinus and ear pressure/information Increase fluids Humidifier/vaporizer as needed Tylenol and ibuprofen as needed for fever or pain. If symptoms do not improve or get worse return or be seen in the ER Follow-up with primary care this week watch glucose close while on steroids Prescriptions: cephALEXin [Cephalexin 500mg Tab] 500 mg PO BID 7 Days #14 tab Transmission Status: Pending to [id number] Fluticasone Propionate [Flonase 50mcg nasal spray 16gm] 1 spr NS DAILY 14 Days #9.9 ml Transmission Status: Pending to [id number] predniSONE [Prednisone 20mg Tab] 20 mg PO BID #10 tab Transmission Status: Pending to [id number] Referrals: Akil Borges MD [Primary Care Provider] - Time of Disposition: 14:47 Medical Decision Making - Shaw Inquiry Pt receiving controlled substance: No Vital Signs: 08/06/21 14:35 08/06/21 14:39 Temperature 98.4 F 98.4 F Temperature Source Oral Pulse Rate 74 Pulse Rate [Right Brachial] 74 Respiratory Rate 22 22 Blood Pressure 147/58 H Blood Pressure [Right Arm] 147/58 H Blood Pressure Mean [Right Arm] 87 Blood Pressure Source [Right Arm] Automatic Cuff Blood Pressure Position [Right Arm] Sitting 02 Sat by Pulse Oximetry 94 L Oxygen Delivery Method Room Air [facility] HPI - General Chief complaint: Urgent Treatment Center Stated complaint: cough, runny nose, congestion Time Seen by Provider: 08/06/21 14:43 Mode of Arrival: Ambulatory Source of Information: Patient Limitations: No Limitations Description of Symptoms (Recalled from Triage Doc. by RN): PATIENT C/O CHEST CONGESTION, WEAKNESS, COUGH, AND SINUS PRESSURE SINCE LAST SATURDAY HEENT Symptoms (Recalled from RN notes): Yes Resp Symptoms (Recalled from RN notes): Yes Skin Symptoms (Recalled from RN notes): No MS Symptoms (Recalled from RN notes): No Functional Status (Recalled from RN notes): WNL - History of Present Illness Provider Complaint: 76 yr old male presents for sinus pressure,sinus pain, dark brown nasal congestion,cough and weakness for over one week - Related Data Home Medications Medication Instructions Recorded Confirmed aspirin 81 mg tablet,delayed 81 mg PO ONCE 07/09/17 05/08/21 release clopidogrel 75 mg tablet 75 mg PO DAILY tab 07/09/17 05/08/21 metformin 1,000 mg tablet 1,000 mg PO BID 07/09/17 05/08/21 lhjqhulzarlu-Kl-vpby-minerals 18 1 tab PO DAILY tab 07/09/17 05/08/21 mg-0.4 mg tablet levothyroxine 50 mcg tablet 50 mcg PO DAILY tab 10/14/17 05/08/21 vitamin B complex 1 tab PO DAILY tab 10/14/17 05/08/21 Insulin Degludec [Tresiba 40 units SQ HS 01/29/18 05/08/21 Flextouch U-100] fluticasone 250 mcg-salmeterol 50 1 inh INHALATION Q12H 02/27/18 05/08/21 mcg/dose blistr powdr for inhalation umeclidinium 62.5 mcg/actuation 1 inh INHALATION DAILY 02/27/18 05/08/21 blister powder for inhalation insulin NPH-regular 70-30 U-100 20 unit SQ BID ml 04/14/18 05/08/21 insulin 100 unit/mL subcutaneous pen ferrous gluconate 324 mg (36 mg 324 mg PO DAILY tab 09/08/18 05/08/21 iron) tablet gabapentin 100 mg capsule 100 mg PO BID cap 09/26/20 05/08/21 telmisartan 80 0.5 tab PO DAILY tab 10/26/20 05/08/21 mg-hydrochlorothiazide 25 mg tablet rosuvastatin 10 mg tablet 10 mg PO HS tab 11/15/20 05/08/21 furosemide 20 mg tablet 20 mg PO
== END 2021-08-06 14:52 | disposition home or self-care (01) ==
PROVIDERS: Emergency Provider Nurse Practitioner Family; PCP Internal Medicine Adolescent Medicine
DX: J01.00 Acute maxillary sinusitis, unspecified (principal); D64.9 Anemia, unspecified; I11.0 Hypertensive heart disease with heart failure; I50.9 Heart failure, unspecified; N28.9 Disorder of kidney and ureter, unspecified; I48.91 Unspecified atrial fibrillation; I25.10 Atherosclerotic heart disease of native coronary artery without angina pectoris; E78.5 Hyperlipidemia, unspecified; E03.9 Hypothyroidism, unspecified; E11.9 Type 2 diabetes mellitus without complications; J98.4 Other disorders of lung; J44.9 Chronic obstructive pulmonary disease, unspecified; F17.210 Nicotine dependence, cigarettes, uncomplicated; Z79.02 Long term (current) use of antithrombotics/antiplatelets; Z79.51 Long term (current) use of inhaled steroids; Z79.52 Long term (current) use of systemic steroids; Z79.4 Long term (current) use of insulin; Z79.82 Long term (current) use of aspirin; Z79.84 Long term (current) use of oral hypoglycemic drugs; Z79.899 Other long term (current) drug therapy
CPT/HCPCS: 99213; G0463

== ENCOUNTER → 2022-02-15 06:44 | Outpatient (CLI) | payer MEDICARE, BC, SELFPAY ==
--- NOTE | 2022-02-15 06:52 | CT_ITS ---
FINAL REPORT TECHNIQUE: Axial images through the abdomen and pelvis were performed without contrast. This study was performed with techniques to keep radiation doses as low as reasonably achievable, (ALARA). Individualized dose reduction techniques using automated exposure control or adjustment of mA and/or kV according to the patient's size were employed. CLINICAL HISTORY: HEMATURIA COMPARISON: 06/05/2020 FINDINGS: Abdomen: The lung bases are clear. The liver parenchyma is mildly fatty infiltrated. The gallbladder is present. The spleen, pancreas, right adrenal and kidneys are unremarkable. There is asymmetric enlargement of the left adrenal gland. Left adrenal nodule measuring 3.6 x 2.0 cm with a mean attenuation value of 7 and field units favors an adenoma and is stable. There is perinephric stranding of the kidneys bilaterally. Pelvis: There is a stable, small fat attenuation nodule in the anterior right aspect of the urinary bladder. The appendix is normal. The prostate is lobular and contains calcifications. IMPRESSION: Stable asymmetric enlargement of the left adrenal gland favoring an adenoma. Lobular prostate containing calcification. Correlation with PSA and physical exam is recommended. Stable small fat attenuation nodule in the right anterior urinary bladder of uncertain significance. Cystoscopy may be of value. Reviewed, Interpreted and Dictated by Donavan Christie MD Transcribed by Pavel Salazar Authenticated and [facility]
== END ==
PROVIDERS: PCP Internal Medicine Adolescent Medicine; Visit Provider Internal Medicine Adolescent Medicine
DX: R31.0 Gross hematuria (principal)
CPT/HCPCS: 74176

== ENCOUNTER 2022-04-14 15:17 | Emergency (ER) | payer MEDICARE, BC, SELFPAY ==
[2022-04-14 15:18] VITALS: BP 115/50; PULSE 96; RESP 18; TEMP 36.9; O2SAT 95; BMI 34.4
[2022-04-14 15:30] VITALS: BP 120/53; PULSE 91; RESP 20; O2SAT 95
[2022-04-14 15:46] LABS: Coronavirus 19, PCR Not Detected (NotDetected); Influenza B, PCR Not Detected (NotDetected)
--- NOTE | 2022-04-14 15:49 | HMH.EDGENADL ---
Discharge Plan Disposition Patient Disposition: Home, Self-Care Condition: Good Prescriptions Prescriptions: New oseltamivir [Tamiflu] 75 mg capsule 75 mg PO BID Qty: 10 0RF No Action levothyroxine [Synthroid] 50 mcg tablet 50 mcg PO DAILY vitamin B complex [B Complex-Vitamin B12] tablet 1 tab PO DAILY furosemide 20 mg tablet 20 mg PO DAILY [id number]-Yi-mpho-minerals [Maximum Daily Multivitamin] 18-0.4 mg tablet 1 tab PO DAILY aspirin [Adult Low Dose Aspirin] 81 mg tablet,delayed release (DR/EC) 81 mg PO ONCE metformin 1,000 mg tablet 1,000 mg PO BID clopidogrel 75 mg tablet 75 mg PO DAILY insulin NPH and regular human 100 unit/mL (70-30) insulin pen 20 unit SQ BID telmisartan-hydrochlorothiazid 80-25 mg tablet 0.5 tab PO DAILY gabapentin 100 mg capsule 100 mg PO BID Rx Instructions: AM Advair Diskus 250-50 mcg/dose blister with device 1 inh INHALATION Q12H Incruse Ellipta 62.5 mcg/actuation blister with device 1 inh INHALATION DAILY ferrous gluconate 324 mg (36 mg iron) tablet 324 mg (36 mg iron) tablet 324 mg PO DAILY rosuvastatin 10 mg tablet 10 mg PO HS bisoprolol fumarate 5 MG tablet 2.5 mg PO DAILY ascorbic acid (vitamin C) 500 MG tablet 500 mg PO QID 0RF ergocalciferol (vitamin D2) 50,000 UNIT capsule 50,000 unit PO WEEKLY 28 Days Qty: 4 0RF zinc sulfate 220 MG capsule 220 mg PO DAILY 0RF cefdinir 300 MG capsule 300 mg PO BID 6 Days Qty: 12 0RF dexamethasone 6 MG tablet 6 mg PO DAILY 3 Days Qty: 3 0RF insulin degludec 100 insulin pen 40 units SQ HS prednisone 20 MG tablet 20 mg PO BID Qty: 10 0RF cephalexin 500 MG tablet 500 mg PO BID 7 Days Qty: 14 0RF fluticasone propionate 120 SPR/BOT bottle 1 spr NS DAILY 14 Days Qty: 9.9 0RF Referrals Follow up/Referrals: Akil Borges MD [Primary Care Provider] - See instructions Activity Restrictions/Add. Instructions Additional Instructions/Restrictions: Tamiflu as prescribed. ADDITIONAL INSTRUCTIONS FOR INFLUENZA (FLU): Rest, drink plenty of fluids. Tylenol or Ibuprofen for fever and/or aches and pains. Monitor your symptoms. IF YOU HAVE AN EMERGENCY WARNING SIGN (INCLUDING TROUBLE BREATHING), SEEK EMERGENCY MEDICAL CARE IMMEDIATELY. Influenza Isolation: People with influenza should isolate for 5 days starting at the onset of symptoms. Then if they are asymptomatic (no symptoms) or their symptoms are resolving (without fever for 24 hours), you may end isolation. What to do: Stay in a separate room from other household members, if possible. Use a separate bathroom, if possible. Avoid contact with other members of the household and pets. Don?t share personal household items, like cups, towels, and utensils. Wear a mask when around other people if able. Clinical Impressions Clinical Impression: Influenza A Instructions Patient Instructions: DI for Influenza -- Adult Discharge ED Provider: Neeraj Ross General Adult HPI General Chief complaint: Fever Stated complaint: Fever, cough Time Seen by Provider: 04/14/22 15:40 Mode of Arrival: Ambulatory Source of Information: Patient and Spouse Limitations: No Limitations Description of Symptoms (Recalled from ER Triage Doc. by RN): c/o fever, aching, cough and weakness for 2 days. Pt states he thinks he has the flu History of Present Illness HPI narrative: Patient states that he has been sick since , 2 days ago. He has a scratchy throat, productive cough, fever of 101 degrees, generalized achiness and weakness. Feels like he has to hold onto things when he gets up and walks around because he is so weak. He thinks he might have the flu. No definite known exposures, but says he went to a . He has not had a flu vaccine this year, but has been vaccinated against COVID and has also had COVID. Related D
--- NOTE | 2022-04-14 15:51 | XR_ITS ---
PROCEDURE INFORMATION: Exam: XR Chest Exam date and time: 04/14/2022 3:51 PM Age: 77 years old Clinical indication: Cough; Additional info: Cough, fever TECHNIQUE: Imaging protocol: Radiologic exam of the chest. Views: 2 views. COMPARISON: CR XR CHEST PORTABLE 05/08/2021 1:14 AM FINDINGS: Lungs: No evidence of pneumonia or interstitial edema. Hazy airspace opacity in left lower lobe favored to represent atelectasis Pleural spaces: Unremarkable. No pleural effusion. No pneumothorax. Heart/Mediastinum: Unremarkable. No cardiomegaly. Bones/joints: Unremarkable. IMPRESSION: 1. No evidence of pneumonia or interstitial edema. 2. Hazy airspace opacity in left lower lobe favored to represent atelectasis
--- NOTE | 2022-04-14 17:12 | PC.NURSE ---
u/s IV attempted with no success. notified
[2022-04-14 17:19] LABS: Influenza A, PCR Detected (NotDetected)
[2022-04-14 18:12] VITALS: BP 127/46; PULSE 94; O2SAT 93
[2022-04-14 18:29] VITALS: BP 127/50; PULSE 93; RESP 18; TEMP 36.9; O2SAT 95
== END 2022-04-14 18:31 | disposition home or self-care (01) ==
PROVIDERS: Emergency Provider Emergency Medicine; PCP Internal Medicine Adolescent Medicine
DX: J10.1 Influenza due to other identified influenza virus with other respiratory manifestations (principal)
CPT/HCPCS: 71046; 99283; C9803; U0003; U0005

== ENCOUNTER 2022-05-03 16:42 | Emergency (ER) | payer MEDICARE, BC, SELFPAY ==
[2022-05-03 16:55] VITALS: BP 141/74; PULSE 86; RESP 21; TEMP 36.6; O2SAT 96; BMI 32.4
--- NOTE | 2022-05-03 16:59 | XR_ITS ---
PROCEDURE INFORMATION: Exam: XR Chest Exam date and time: 05/03/2022 5:07 PM Age: 77 years old Clinical indication: Cough; Additional info: Chest congestion, cough TECHNIQUE: Imaging protocol: Radiologic exam of the chest. Views: 2 views. COMPARISON: CR XR CHEST 2V 04/14/2022 3:51 PM FINDINGS: Lungs: Unremarkable. No consolidation. Pleural spaces: Unremarkable. No pleural effusion. No pneumothorax. Heart/Mediastinum: Unremarkable. No cardiomegaly. Bones/joints: Unremarkable. IMPRESSION: No acute findings.
[2022-05-03 17:12] LABS: UTC Influenza A Antigen Negative (Negative); UTC Influenza B Antigen Negative (Negative)
--- NOTE | 2022-05-03 17:14 | EXP.UTC ---
Discharge Plan Disposition Patient Disposition: Home, Self-Care Condition: Good Prescriptions Prescriptions: New doxycycline hyclate 100 mg tablet 100 mg PO BID Qty: 20 0RF benzonatate 100 mg capsule 100 mg PO TID PRN (Reason: cough) Qty: 15 0RF No Action levothyroxine [Synthroid] 50 mcg tablet 50 mcg PO DAILY vitamin B complex [B Complex-Vitamin B12] tablet 1 tab PO DAILY furosemide 20 mg tablet 20 mg PO DAILY ubtkoymtnaco-Gh-szee-minerals [Maximum Daily Multivitamin] 18-0.4 mg tablet 1 tab PO DAILY aspirin [Adult Low Dose Aspirin] 81 mg tablet,delayed release (DR/EC) 81 mg PO ONCE metformin 1,000 mg tablet 1,000 mg PO BID clopidogrel 75 mg tablet 75 mg PO DAILY insulin NPH and regular human 100 unit/mL (70-30) insulin pen 20 unit SQ BID telmisartan-hydrochlorothiazid 80-25 mg tablet 0.5 tab PO DAILY gabapentin 100 mg capsule 100 mg PO BID Rx Instructions: AM Advair Diskus 250-50 mcg/dose blister with device 1 inh INHALATION Q12H Incruse Ellipta 62.5 mcg/actuation blister with device 1 inh INHALATION DAILY ferrous gluconate 324 mg (36 mg iron) tablet 324 mg (36 mg iron) tablet 324 mg PO DAILY rosuvastatin 10 mg tablet 10 mg PO HS bisoprolol fumarate 5 MG tablet 2.5 mg PO DAILY ascorbic acid (vitamin C) 500 MG tablet 500 mg PO QID 0RF ergocalciferol (vitamin D2) 50,000 UNIT capsule 50,000 unit PO WEEKLY 28 Days Qty: 4 0RF zinc sulfate 220 MG capsule 220 mg PO DAILY 0RF cefdinir 300 MG capsule 300 mg PO BID 6 Days Qty: 12 0RF dexamethasone 6 MG tablet 6 mg PO DAILY 3 Days Qty: 3 0RF insulin degludec 100 insulin pen 40 units SQ HS prednisone 20 MG tablet 20 mg PO BID Qty: 10 0RF cephalexin 500 MG tablet 500 mg PO BID 7 Days Qty: 14 0RF fluticasone propionate 120 SPR/BOT bottle 1 spr NS DAILY 14 Days Qty: 9.9 0RF oseltamivir [Tamiflu] 75 mg capsule 75 mg PO BID Qty: 10 0RF Referrals Follow up/Referrals: Akil Borges MD [Primary Care Provider] - See instructions Activity Restrictions/Add. Instructions Additional Instructions/Restrictions: Take your oral iron preparations at least 2 hours before, or 4 hours after, the dose of the oral Doxycycline Start antibiotic today. Be sure to complete entire prescription even if feeling better Monitor temp. Tylenol every 4 hours as needed and / or ibuprofen every 6 hours as needed ( As long as your primary care physician has told you that it ok to take both. For fever/aches/pains ER if no less than 101 despite Tylenol or Motrin Humidifier/vaporizer or hot steamy shower *Tessalon Perles will not cause drowsiness but use at bedtime to help stop cough so that you may get some rest. Follow up IMMEDIATELY for new or worsening of symptoms OR no noticeable improvement over the next 48-72 hours. 911 immediately for any life threatening symptoms such as chest pain or difficulty breathing Clinical Impressions Clinical Impression: Sinusitis, Bronchitis Instructions Patient Instructions: DI for Sinusitis, Sinusitis, Acute Bronchitis Discharge ED Provider: Angelita Cottrell [facility] General Stated complaint: HEAD AND CHEST CONGESTION Mode of Arrival: Ambulatory Source of Information: Patient Limitations: No Limitations Time Seen by Provider: 05/03/22 17:14 Description of Symptoms (Recalled from Triage Doc. by RN): PATIENT C/O FATIGUE, COUGH, CHEST CONGESTION AND FEVER X 2 DAYS HEENT Symptoms (Recalled from RN notes): No Resp Symptoms (Recalled from RN notes): Yes Skin Symptoms (Recalled from RN notes): No MS Symptoms (Recalled from RN notes): No Functional Status (Recalled from RN notes): WNL History of Present Illness Provider Complaint: Patient states that he has been having sinus pain and pressure with drainage in the back of his throat with co
[2022-05-03 18:06] VITALS: BP 141/74; PULSE 86; RESP 21; TEMP 36.6; O2SAT 96
[2022-05-03 18:44] LABS: Adenovirus,PCR Not Detected (NotDetected); Bordetella Pertussis Not Detected (NotDetected); Chlamydophila Pneumoniae, PCR Not Detected (NotDetected); Coronavirus 19, PCR Not Detected (NotDetected); Coronavirus 229E Not Detected (NotDetected); Coronavirus OC43 Not Detected (NotDetected); Coronovirus HKU1,PCR Not Detected (NotDetected); Human Metapneumovirus Not Detected (NotDetected); Influenza A, PCR Not Detected (NotDetected); Influenza AH1, 2009 Not Detected (NotDetected); Influenza AH1, PCR Not Detected (NotDetected); Influenza AH3,PCR Not Detected (NotDetected); Influenza B, PCR Not Detected (NotDetected); Mycoplasma Pneumoniae, PCR Not Detected (NotDetected); Parainfluenza 1, PCR Not Detected (NotDetected); Parainfluenza 2, PCR Not Detected (NotDetected); Parainfluenza 3, PCR Not Detected (NotDetected); Parainfluenza 4, PCR Not Detected (NotDetected); Respiratory Syncytial Virus Not Detected (NotDetected); Rhinovirus/Enterovirus Not Detected (NotDetected)
[2022-05-04 00:17] LABS: Coronavirus NL63 Detected (NotDetected)
== END 2022-05-03 18:29 | disposition home or self-care (01) ==
PROVIDERS: Emergency Provider Nurse Practitioner; PCP Internal Medicine Adolescent Medicine
DX: J40 Bronchitis, not specified as acute or chronic (principal); J32.9 Chronic sinusitis, unspecified
CPT/HCPCS: 71046; 87581; 87632; 87798; 87804; 99212; C9803; G0463; U0003; U0005

== ENCOUNTER → 2022-06-15 15:04 | Outpatient (CLI) | payer MEDICARE, BC, SELFPAY ==
[2022-06-15 17:07] LABS: Blood Urea Nitrogen 18 mg/dl (9-20); Estimated Glomerular Filt Rate 59 ml/min (>60); GFR (African American) 71 ML/MIN (>60)
== END ==
PROVIDERS: PCP Internal Medicine Adolescent Medicine; Visit Provider Internal Medicine Adolescent Medicine
DX: Z01.812 Encounter for preprocedural laboratory examination (principal)
CPT/HCPCS: 36415; 82565; 84520

== ENCOUNTER → 2022-06-18 13:52 | Outpatient (CLI) | payer MEDICARE, BC, SELFPAY ==
--- NOTE | 2022-06-18 13:56 | CT_ITS ---
FINAL REPORT TECHNIQUE: Thin section axial CT images with coronal and sagittal reformats were performed through neck after the administration of IV contrast. This study was performed with techniques to keep radiation doses as low as reasonably achievable, (ALARA). CLINICAL HISTORY: MASS OF R SIDE OF NECK, PAINFUL TO TOUCH COMPARISON: 11/22/2020 FINDINGS: The nasopharynx, oropharynx and epiglottis appear normal. There is abnormal soft tissue in the pre epiglottic space, slightly eccentric to the right, but unchanged from prior exam. Larynx is unremarkable. Thyroid is without acute abnormality. There is an enhancing mass in the right deep portion of the right parotid gland measuring 2 cm. This was seen on prior exam but has increased in size. 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 There is no lymphadenopathy. There is mucoperiosteal thickening of the maxillary sinuses and left sphenoid sinus. Multilevel degenerative disease is seen of the cervical spine. IMPRESSION: Soft tissue nodule in the preepiglottic space, unchanged from prior exam. Consider direct visualization. Increase in size of hyperenhancing right parotid mass which could represent neoplasm. Reviewed, Interpreted and Dictated by Candy Cabrera MD Transcribed by Kathy Davila Authenticated and [facility]
== END ==
PROVIDERS: PCP Internal Medicine Adolescent Medicine; Visit Provider Internal Medicine Adolescent Medicine
DX: R22.1 Localized swelling, mass and lump, neck (principal)
CPT/HCPCS: 70491; Q9967

== ENCOUNTER 2022-09-17 12:36 | Emergency (ER) | payer MEDICARE, BC, SELFPAY ==
[2022-09-17] VITALS (7 sets, daily range): BP systolic 137–154; BP diastolic 53–76; PULSE 67–74; RESP 12–19; TEMP 36.8–36.9; O2SAT 94–97; BMI 34.2
--- NOTE | 2022-09-17 12:38 | ECG_ITS ---
APPROVED REPORT Exam: Resting ECG HR:73 bpm ECG Measurements Heart Rate 73 AXES OH 140 P 70 QRSd 108 QRS 16 QT 409 T 67 QTc 436 Conclusion SINUS RHYTHM NONSPECIFIC T-WAVE ABNORMALITY BORDERLINE ECG UNCONFIRMED REPORT Electronically signed by : Akil Borges MD 09/17/2022 21:13:18
--- NOTE | 2022-09-17 12:48 | XR_ITS ---
FINAL REPORT CLINICAL HISTORY: chest pain COMPARISON: 05/03/2022 FINDINGS: 2 views of the chest were obtained . The heart is normal in size. The mediastinum is within normal limits. There is mild bibasilar atelectasis or scarring. Lungs are otherwise clear. There is no pneumothorax. Osseous structures demonstrate moderate degenerative changes of the thoracic spine. IMPRESSION: Mild bibasilar atelectasis or scarring. Reviewed, Interpreted and Dictated by Donal Fine III, MD Transcribed by Kathy Davila Authenticated and [facility]
--- NOTE | 2022-09-17 12:49 | HMH.EDGENADL ---
Discharge Plan Disposition Patient Disposition: Home, Self-Care Prescriptions Prescriptions: No Action fluticasone propion-salmeterol [Advair Diskus] 250-50 mcg/dose blister with device 1 inh INHALATION BID Label Comments: INHALE 1 PUFF BY MOUTH TWICE DAILY clopidogrel 75 mg tablet 75 mg PO DAILY Label Comments: TAKE 1 TABLET BY MOUTH ONCE DAILY allopurinol 100 mg tablet 100 mg PO DAILY Label Comments: TAKE DIRECTED ONCE DAILY levothyroxine 50 mcg tablet 50 mcg PO AM Label Comments: TAKE 1 TABLET BY MOUTH ONCE DAILY metformin 1,000 mg tablet 1,000 mg PO BID Label Comments: TAKE 1 TABLET BY MOUTH TWICE DAILY aspirin 81 mg Tablet 81 mg PO DAILY furosemide 20 mg tablet 20 mg PO DAILY Label Comments: TAKE 1 TABLET BY MOUTH ONCE DAILY finasteride 5 mg tablet 5 mg PO DAILY Label Comments: TAKE 1 TABLET BY MOUTH ONCE DAILY rosuvastatin 10 mg tablet 10 mg PO DAILY Label Comments: TAKE 1 TABLET BY MOUTH ONCE DAILY pregabalin 100 mg capsule 100 mg PO BID Label Comments: TAKE 1 CAPSULE BY MOUTH TWICE DAILY ferrous gluconate 324 mg (37.5 mg iron) tablet 324 mg PO DAILY Label Comments: TAKE 1 TABLET BY MOUTH ONCE DAILY insulin degludec [Tresiba FlexTouch U-100] 100 unit/mL (3 mL) insulin pen 40 unit SQ DAILY Label Comments: INJECT 40 UNITS SUBCUTANEOUSLY ONCE DAILY Incruse Ellipta 62.5 mcg/actuation blister with device 1 inh INHALATION DAILY Label Comments: INHALE 1 PUFF BY MOUTH ONCE DAILY Referrals Follow up/Referrals: Alex Adams MD [Staff Physician] - See instructions (next available appointment, follow up ED chest pain visit ) Akil Borges MD [Primary Care Provider] - See instructions Activity Restrictions/Add. Instructions Additional Instructions/Restrictions: Your chronic abnormalities in your LFTs and your creatinine are at baseline or better. Please make sure you follow-up with your primary care doctor regarding those 2 things. There is no evidence of acute coronary syndrome or acute myocardial injury today in the emergency department. Please follow-up at the next available appointment with Dr. Adams return to the emergency department with any recurrence or worsening of her symptoms. Clinical Impressions Clinical Impression: Chest pain, CKD (chronic kidney disease), Abnormal LFTs Discharge ED Provider: Jung Allan General Adult [facility] General Chief complaint: Chest Pain Stated complaint: chest pain Time Seen by Provider: 09/17/22 12:49 Mode of Arrival: Ambulatory Source of Information: Patient and Spouse Limitations: No Limitations Description of Symptoms (Recalled from ER Triage Doc. by RN): 77 M presents with spouse at bedside who provides most of the history for today. States that her has been dragging for a few weeks now. He has complained of mid-sternal and epigastric pain. Patient describes this has pressure and sharp at times. Patient has history of stents in the past by Dr. Adams. History of Present Illness HPI narrative: Patient is a 77-year-old male with a history of coronary disease with multiple stents followed by Dr. Adams presenting today with chest pain has been intermittent for the last 2 days. States the episodes only lasted a matter of moments nonexertional in nature not associate with dyspnea diaphoresis or radiation. Of note his states that he has been dragging and lethargic over the last few weeks. Patient currently denies any chest pain shortness of breath or any symptoms at the moment. He did take an 81 mg aspirin this morning. Related Data Home Medications Medication Instructions Recorded Confirmed allopurinol 100 mg tablet 100 mg PO DAILY Gout 09/17/22 09/17/22 aspirin 81 mg tablet 81 mg PO DAILY Heart health 09/17/22 09/17/22 clopidogrel 75 mg tablet 75 mg PO DAILY Blood thinner 09/03
[2022-09-17 13:04] LABS: Alanine Aminotransferase 86 U/L (12-78); Albumin Level 3.9 g/dl (3.5-5.0); Albumin/Globulin Ratio 1.3 (1.1-1.8); Alkaline Phosphatase 80 U/L (38-126); Anion Gap 13.8 mEq/L (5-15); Aspartate Amino Transferase 77 U/L (17-59); Bilirubin,Total 0.4 mg/dl (0.2-1.3); Blood Urea Nitrogen 18 mg/dl (9-20); Calcium 9.4 mg/dl (8.4-10.2); Carbon Dioxide 32 mmol/L (22.0-30.0); Chloride 97 mmol/L (98-107); Creatinine Clearance Estimated 66 mL/min (50-200); Estimated Glomerular Filt Rate 49 ml/min (>60); GFR (African American) 60 ML/MIN (>60); Globulin 3.1 g/dL (1.3-3.2); Glucose 183 mg/dl (74-100); Potassium 3.8 mmoL/L (3.5-5.1); Sodium 139 mmol/L (136-145)
[2022-09-17 13:10] LABS: Basophils # 0.1 K/mm3 (0-0.2); Basophils % 0.9 % (0.1-2.0); Eosinophils # 0.3 K/mm3 (0.0-0.4); Hematocrit 43.5 % (42.0-52.0); Lymphocytes # 2.1 K/mm3 (0.7-4.5); Lymphocytes % 27.4 % (10-50); Mean Corpuscular HGB Conc 32.2 g/dL (31.8-35.4); Mean Corpuscular Hemoglobin 30.9 pg (27.0-31.2); Mean Platelet Volume 9.1 fl (7.4-10.4); Monocytes # 0.4 K/mm3 (0.1-1.0); Monocytes % 5.3 % (1.7-9.3); Neutrophils # 4.8 K/mm3 (1.8-7.8); Neutrophils % 62.4 % (37.0-80.0); Platelet Count 218 K/mm3 (142-424); Red Blood Count 4.53 M/mm3 (4.60-6.20); Red Cell Distribution Width 15.1 % (11.5-17.5); White Blood Count 7.7 K/mm3 (4.8-10.8)
[2022-09-17 13:19] LABS: D-Dimer 0.82 ug/mL (0.0-0.5)
[2022-09-17 13:25] LABS: NT Pro Brain Natriuretic Pep. 66.3 pg/mL (0-450)
[2022-09-17 13:29] LABS: Troponin I < 0.01 ng/ml (0.00-0.034)
--- NOTE | 2022-09-17 15:45 | PC.NURSE ---
green top sent to lab for 2nd troponin
[2022-09-17 16:20] LABS: Troponin I < 0.01 ng/ml (0.00-0.034)
== END 2022-09-17 16:47 | disposition home or self-care (01) ==
PROVIDERS: Emergency Provider Student in an Organized Health Care Education/Training Program; PCP Internal Medicine Adolescent Medicine
DX: R07.9 Chest pain, unspecified (principal); N18.9 Chronic kidney disease, unspecified; I25.10 Atherosclerotic heart disease of native coronary artery without angina pectoris; F17.210 Nicotine dependence, cigarettes, uncomplicated
CPT/HCPCS: 71046; 80053; 83880; 84484; 85025; 85378; 93005; 99285

== ENCOUNTER → 2022-10-08 13:59 | Outpatient (CLI) | payer MEDICARE, BC, SELFPAY ==
--- NOTE | 2022-10-08 | CA_ITS ---
FINAL REPORT TECHNIQUE: Akins scale, color and spectral doppler images of the bilateral carotid arteries were obtained. CLINICAL HISTORY: .[place] HTN FINDINGS: Peak systolic velocity in the right internal carotid artery is 175 cm/sec. The internal carotid to common carotid artery ratio is 2.4. These findings are compatible with a 50-69% stenosis of the right carotid artery. The right vertebral artery is normal in direction. Peak systolic velocity in the left internal carotid artery is 139 cm/sec. The internal carotid to common carotid artery ratio is 1.9. These findings are compatible with a 50-69% stenosis of the left carotid artery. The left vertebral artery is normal in direction. IMPRESSION: Findings compatible with 50-69% stenosis of the carotid arteries bilaterally. Antegrade flow in the vertebral arteries bilaterally. Reviewed, Interpreted and Dictated by Candy Cabrera MD Transcribed by Mariza Jaimes Authenticated and [facility]
--- NOTE | 2022-10-08 14:03 | MR_ITS ---
FINAL REPORT TECHNIQUE: Multiplanar and multisequence imaging of the brain was obtained without contrast. CLINICAL HISTORY: DIZZINESS AND VISION CHANGES. lightheadedness COMPARISON: 11/08/2020 FINDINGS: There is no mass effect or midline shift. There are a few, nonspecific foci of periventricular and subcortical white matter changes. The ventricles are symmetric without hydrocephalus. The cerebellum and brainstem have an unremarkable appearance. There are no areas of restricted diffusion on diffusion weighted images to suggest acute infarct. There is a mucous retention cyst or polyp in the left sphenoid sinus. Mild mucoperiosteal thickening is seen of the remaining paranasal sinuses. Small amount of fluid is seen in the left mastoid air cells. IMPRESSION: No acute intracranial abnormality. Nonspecific T2 abnormality within the periventricular and subcortical white matter favored to represent chronic small vessel ischemic change. Sinus disease as above. Reviewed, Interpreted and Dictated by Candy Cabrera MD Transcribed by Kathy Davila Authenticated and [facility]
== END ==
PROVIDERS: PCP Internal Medicine Adolescent Medicine; Visit Provider Internal Medicine Adolescent Medicine
DX: R42 Dizziness and giddiness (principal); H53.9 Unspecified visual disturbance
CPT/HCPCS: 70551; 93880

== ENCOUNTER → 2022-10-22 06:26 | Outpatient (CLI) | payer MEDICARE, BC, SELFPAY ==
--- NOTE | 2022-10-22 07:35 | NM_ITS ---
APPROVED REPORT Exam: Nuclear Stress Test Indication: CAD, 3 STENTS, OBESITY, HTN, D.M., HYPERLIPIDEMIA, TOB USE, C.P., SOB, SYNCOPE, FATIGUE Patient Location: Outpatient Stress Tech: [facility] Tech:Rekha Cueva, ARRT RT (R)(N)(M) Ht: 5 ft 7 in Wt: 225 lbs HR: 63 bpm BP: 153/58 mmHg BSA: 2.13 m2 TID: 1.36 BMI: 35.2 History: CAD, 3 STENTS, OBESITY, HTN, D.M., HYPERLIPIDEMIA, TOB USE, C.P., SOB, SYNCOPE, FATIGUE Procedure: Patient received 0.4 mg of intravenous Lexiscan, resting heart rate 63 bpm, resting blood pressure 153/58 mmHg, with Lexiscan maximum heart rate achieved was 91 bpm which is % of the maximum predicted heart rate and blood pressure was 161/78 mmHg. PT DID C/O C.P. WITH LEXISCAN Cardiac Stress and Resting SPECT Images: Cardiac Stress and Resting SPECT images were obtained using technetium 99m Myoview 31.4 mCi stress and 10.11 mCi at rest. Resting and stress imaging in supine position demonstrate a medium-sized, mild, tapered fixed perfusion defect in the basal to mid inferior LV wall. This is no longer visualized with prone stress imaging. Findings are suggestive of diaphragmatic attenuation. There is increased transient ischemic dilatation ratio (TID 1.36) suggestive of possible balanced ischemia or multivessel disease. Gated imaging demonstrated normal global and regional LV systolic function. LVEF is calculated at 53%. Conclusion: Diaphragmatic attenuation is present. No definite evidence of prior infarct or reversible ischemia. There is increased transient ischemic dilatation ratio (TID 1.36) suggestive of possible balanced ischemia or multivessel disease. Gated imaging demonstrated normal global and regional LV systolic function. LVEF is calculated at 53%. Electronically signed by : Gretchen Li, 10/22/2022 19:45:38
--- NOTE | 2022-10-22 09:22 | CA_ITS ---
APPROVED REPORT Exam: Pharmacologic Technologist: Anai Montano, Ht: 5 ft 7 in Wt: 226 lbs BSA: 2.13 m2 HR: 63 bpm BP: 153/58 mmHg Rhythm: NSR Medical History Medications: Levothyroxine,,,,, Aspirin,,,,, Metformin,,,,, Vitamin B12,,,,, Allopurinol,,,,, ADVAIR,,,,, CloPIdogrel,,,,, Finasteride,,,,, Pregabalin,,,,, RoSUVASTATIN,,,,, INCrUSE Ellipta,,,,, Furosemide,,,,, Stress Test Details Test: LEXISCAN Reason for pharmacologic stress test: physical limitation. HR Resting HR: 72 bpm Max Heart Rate (APMHR): 145 bpm Max HR Achieved: 113 bpm Target HR (85% APMHR): 123 bpm % of APMHR: 78 Recovery HR: 79 bpm BP Resting BP: 153/58 mmHg Max BP: 178/56 mmHg Recovery BP: 167.0/61.0 mmHg ECG Resting ECG: NSR, PACs, non-specific T-wave changes in inferolateral leads, < 1mm ST depression in lateral leads Stress ECG: No change Arrhythmia: PVCs Recovery ECG: No change Recovery Arrhythmia: PVCs Clinical Exercise duration: 04:00 min Highest Stage Achieved: Exercise capacity: 1.0 METs Stress ECG Conclusion Symptoms: Dyspnes, Chest pain, nausea Arrhythmias/Ectopy: PAC and PVC ST-T Changes: less than 1mm ST depression Conclusion: non-diagnostic due to baseline ST abnormalities. Test Summary REST . . . . . . . Resting REST 03:10 . . 72 . 153/ 58 . . Stage 1 . . . . . . . Myoview Injected Stage 1 01:00 . . 81 . . . . Stage 2 01:00 . . 83 . . . . Stage 3 01:00 . . 90 . 137/ 52 . . Stage 4 01:00 . . 89 . . . Stop exercise at 04:00 RECOVERY 01:00 . . 109 . 161/ 78 . . RECOVERY 02:00 . . 92 . 161/ 78 . . RECOVERY 03:00 . . 85 . 147/ 76 . . RECOVERY 04:00 . . 82 . 171/ 66 . . RECOVERY 05:00 . . 79 . 171/ 66 . . RECOVERY 06:00 . . 75 . 178/ 56 . . RECOVERY 07:00 . . 77 . 167/ 61 . . RECOVERY 07:17 . . 78 . 167/ 61 . . Electronically signed by : Gretchen Li, 10/22/2022 19:41:24
== END ==
PROVIDERS: PCP Internal Medicine Adolescent Medicine; Visit Provider Nurse Practitioner
DX: E78.2 Mixed hyperlipidemia (principal); I11.9 Hypertensive heart disease without heart failure; I25.10 Atherosclerotic heart disease of native coronary artery without angina pectoris; N18.9 Chronic kidney disease, unspecified; R06.02 Shortness of breath; R07.9 Chest pain, unspecified; R42 Dizziness and giddiness; R94.39 Abnormal result of other cardiovascular function study; Z95.5 Presence of coronary angioplasty implant and graft
CPT/HCPCS: 78452; 93017; 93306; A9502; J2785

== ENCOUNTER 2022-11-19 07:51 | Day surgery (SDC) | payer MEDICARE, BC, SELFPAY ==
[2022-11-19] VITALS (12 sets, daily range): BP systolic 91–172; BP diastolic 52–77; PULSE 58–80; RESP 18–20; TEMP 36.1; O2SAT 92–96; BMI 35.5
--- NOTE | 2022-11-19 07:09 | IR_ITS ---
APPROVED REPORT Patient Location: Outpatient PROCEDURES Left heart catheterization Left ventriculogram Selective coronary angiogram INDICATION Abnormal Myoview, Angina pectoris, Known multivessel coronary disease Informed consent was obtained prior to the procedure. COMPLICATIONS None Estimated Blood Loss: Less than 10 mls TECHNIQUE One percent lidocaine used to anesthetize the right anterior aspect of the wrist. The right radial artery was accessed via the Seldinger technique. A 6 [place] sheath was placed in the right radial artery. 150 mg magnesium sulfate, 800 mcg of nitroglycerin, 1mg Lidocaine and 5000 U Heparin were given through the arterial sheath. The papa catheter was also used to perform left heart catheterization, left ventriculogram and selective coronary angiogram. At the end of the procedure the sheath was removed good hemostasis was achieved using Traclet band, patient was transferred to the postop holding area in stable condition. ANGIOGRAPHIC RESULTS The left main artery Normal The left anterior descending artery Has a proximal 10% stenosis immediately proximal to the a proximal stent which is widely patent with minimal in-stent restenosis. Distal to the stent is a 30 to 40% mid LAD stenosis followed by an additional mid vessel 50% LAD stenosis which involves a moderate-sized second diagonal artery. The stenoses remain unchanged from previous angiography The circumflex artery Nondominant yet still large and has proximal 20 to 30% stenoses in the first obtuse marginal artery and a 20% stenosis in the second obtuse marginal The right coronary artery Is a dominant vessel and has proximal 30% stenoses distal 30% stenoses. A large posterior descending artery has a stent in the proximal segment which is widely patent with a 30 to 40% stenosis distal to the stent at the transition site The FRANCOIS ventriculogram reveals Preserved at 55 to 60% The left ventricular end-diastolic pressure 15 mmHg IMPRESSION Adequate coronary artery revascularization as described above Moderate coronary artery disease in the LAD which is unchanged from previous angiography Preserved ejection fraction Borderline LVEDP PLAN 1. Continue medical management 2. Risk factor modification Electronically signed by : Alex Adams MD 11/19/2022 10:19:59
[2022-11-19 08:25] LABS: Basophils # 0.1 K/mm3 (0-0.2); Basophils % 0.8 % (0.1-2.0); Eosinophils # 0.4 K/mm3 (0.0-0.4); Eosinophils % 4.2 % (0.1-12.0); Hematocrit 43.3 % (42.0-52.0); Hemoglobin 14.4 g/dL (14.1-18.0); Lymphocytes # 2.3 K/mm3 (0.7-4.5); Lymphocytes % 27.1 % (10-50); Mean Corpuscular HGB Conc 33.2 g/dL (31.8-35.4); Mean Corpuscular Volume 93.4 fl (80-94); Mean Platelet Volume 9.5 fl (7.4-10.4); Monocytes # 0.4 K/mm3 (0.1-1.0); Neutrophils # 5.4 K/mm3 (1.8-7.8); Platelet Count 223 K/mm3 (142-424); Red Blood Count 4.63 M/mm3 (4.60-6.20); Red Cell Distribution Width 14.7 % (11.5-17.5); White Blood Count 8.6 K/mm3 (4.8-10.8)
[2022-11-19 08:31] LABS: Anion Gap 9.6 mEq/L (5-15); Blood Urea Nitrogen 23 mg/dl (9-20); Calcium 9.6 mg/dl (8.4-10.2); Carbon Dioxide 33 mmol/L (22.0-30.0); Chloride 102 mmol/L (98-107); Creatinine Clearance Estimated 58 mL/min (50-200); Estimated Glomerular Filt Rate 42 ml/min (>60); GFR (African American) 51 ML/MIN (>60); Glucose 184 mg/dl (74-100); Potassium 3.6 mmoL/L (3.5-5.1); Sodium 141 mmol/L (136-145)
[2022-11-19 08:36] LABS: INR 0.94 (0.9-1.1); Prothrombin Time 10.2 seconds (10.1-12.5)
--- NOTE | 2022-11-19 11:22 | SUR.PHASEII ---
sitting up in bed eating meal tray.
== END 2022-11-19 13:21 | disposition home or self-care (01) ==
PROVIDERS: PCP Internal Medicine Adolescent Medicine; Visit Provider Internal Medicine
DX: E11.22 Type 2 diabetes mellitus with diabetic chronic kidney disease (principal); E78.5 Hyperlipidemia, unspecified; G47.33 Obstructive sleep apnea (adult) (pediatric); I12.9 Hypertensive chronic kidney disease with stage 1 through stage 4 chronic kidney disease, or unspecified chronic kidney disease; I25.118 Atherosclerotic heart disease of native coronary artery with other forms of angina pectoris; I65.23 Occlusion and stenosis of bilateral carotid arteries; N18.9 Chronic kidney disease, unspecified; R06.02 Shortness of breath; R07.9 Chest pain, unspecified; R42 Dizziness and giddiness; R94.30 Abnormal result of cardiovascular function study, unspecified; Z95.5 Presence of coronary angioplasty implant and graft; F17.210 Nicotine dependence, cigarettes, uncomplicated; Z79.4 Long term (current) use of insulin; Z79.01 Long term (current) use of anticoagulants
CPT/HCPCS: 80048; 85025; 85610; 93458; 99152; C1725; C1769; J1644; Q9967

== ENCOUNTER → 2022-12-10 11:10 | Outpatient (CLI) | payer MEDICARE, BC, SELFPAY ==
[2022-12-10 12:23] LABS: Anion Gap 11.8 mEq/L (5-15); Blood Urea Nitrogen 20 mg/dl (9-20); Calcium 9.2 mg/dl (8.4-10.2); Carbon Dioxide 28 mmol/L (22.0-30.0); Chloride 105 mmol/L (98-107); Estimated Glomerular Filt Rate 54 ml/min (>60); GFR (African American) 65 ML/MIN (>60); Glucose 225 mg/dl (74-100); Potassium 3.8 mmoL/L (3.5-5.1); Sodium 141 mmol/L (136-145)
== END ==
PROVIDERS: PCP Internal Medicine Adolescent Medicine; Visit Provider Nurse Practitioner Family
DX: E11.9 Type 2 diabetes mellitus without complications (principal); E78.5 Hyperlipidemia, unspecified; G47.33 Obstructive sleep apnea (adult) (pediatric); I11.9 Hypertensive heart disease without heart failure; I25.10 Atherosclerotic heart disease of native coronary artery without angina pectoris; N18.9 Chronic kidney disease, unspecified; R06.02 Shortness of breath; Z95.5 Presence of coronary angioplasty implant and graft
CPT/HCPCS: 36415; 80048

== ENCOUNTER 2023-04-19 14:38 | Emergency (ER) | payer MEDICARE, BC, SELFPAY ==
[2023-04-19 15:45] VITALS: BP 138/76; PULSE 81; RESP 18; TEMP 36.7; O2SAT 96; BMI 34.3
--- NOTE | 2023-04-19 15:58 | EXP.UTC ---
Discharge Plan Disposition Patient Disposition: Home, Self-Care Condition: Good Prescriptions Prescriptions: New doxycycline hyclate 100 mg capsule 100 mg PO BID 7 Days Qty: 14 0RF benzonatate 100 mg capsule 100 mg PO TID PRN (Reason: cough) Qty: 15 0RF No Action cyanocobalamin (vitamin B-12) 1,000 mcg tablet 1,000 mcg PO DAILY insulin asp prt-insulin aspart 100 unit/mL (70-30) solution 1 sliding scale dose SQ USEASDIRECTD telmisartan 80 mg tablet 80 mg PO DAILY Qty: 30 3RF furosemide [Lasix] 40 mg tablet 40 mg PO DAILY Qty: 30 11RF fluticasone propion-salmeterol [Advair Diskus] 250-50 mcg/dose blister with device 1 inh INHALATION BID Patient Comments: INHALE 1 PUFF BY MOUTH TWICE DAILY clopidogrel 75 mg tablet 75 mg PO DAILY Patient Comments: TAKE 1 TABLET BY MOUTH ONCE DAILY allopurinol 100 mg tablet 100 mg PO DAILY Patient Comments: TAKE DIRECTED ONCE DAILY levothyroxine 50 mcg tablet 50 mcg PO AM Patient Comments: TAKE 1 TABLET BY MOUTH ONCE DAILY metformin 1,000 mg tablet 1,000 mg PO BID Hold Instructions: Resume on 11/22/22. Patient Comments: TAKE 1 TABLET BY MOUTH TWICE DAILY aspirin 81 mg Tablet 81 mg PO DAILY finasteride 5 mg tablet 5 mg PO DAILY Patient Comments: TAKE 1 TABLET BY MOUTH ONCE DAILY rosuvastatin 10 mg tablet 10 mg PO DAILY Patient Comments: TAKE 1 TABLET BY MOUTH ONCE DAILY pregabalin 100 mg capsule 100 mg PO BID Patient Comments: TAKE 1 CAPSULE BY MOUTH TWICE DAILY ferrous gluconate 324 mg (37.5 mg iron) tablet 324 mg PO DAILY Patient Comments: TAKE 1 TABLET BY MOUTH ONCE DAILY insulin degludec [Tresiba FlexTouch U-100] 100 unit/mL (3 mL) insulin pen 40 unit SQ DAILY Patient Comments: INJECT 40 UNITS SUBCUTANEOUSLY ONCE DAILY Incruse Ellipta 62.5 mcg/actuation blister with device 1 inh INHALATION DAILY Patient Comments: INHALE 1 PUFF BY MOUTH ONCE DAILY metoprolol succinate [Toprol XL] 25 mg tablet extended release 24 hr 25 mg PO DAILY Referrals Follow up/Referrals: Akil Borges MD [Primary Care Provider] - See instructions Activity Restrictions/Add. Instructions Additional Instructions/Restrictions: *Monitor Temp, Over the counter Motrin or Tylenol as directed/as needed Tylenol every 4 hours and Motrin every 6 hours (as long as your family doctor has told you that you can take it) for fever or pain. and straight to ER if unable to lower temp less than 101.0 after medication given *Warm salt water gargles may help to soothe the throat *Throat Lozenges? *Warm fluids like tea with honey may help to soothe the throat? *Sleep elevated *Humidifier/Vaporizer Take medication as prescribed Follow up IMMEDIATELY for new or worsening symptoms or no Noticeable improvement over the next 48-72 hours. 911 for difficulty breathing or swallowing Clinical Impressions Clinical Impression: Sinusitis Qualifiers: Sinusitis location: unspecified location Chronicity: unspecified Qualified Code(s): J32.9 - Chronic sinusitis, unspecified Instructions Patient Instructions: Sinusitis, DI for Sinusitis Discharge ED Provider: Angelita Cottrell [facility] [place] General Stated complaint: RUNNY NOSE, SORE THROAT, COUGH Mode of Arrival: Ambulatory Source of Information: Patient Limitations: No Limitations Time Seen by Provider: 04/19/23 16:00 Description of Symptoms (Recalled from Triage Doc. by RN): sinus pressure, cough, and fatigue HEENT Symptoms (Recalled from RN notes): Yes Resp Symptoms (Recalled from RN notes): No Skin Symptoms (Recalled from RN notes): No MS Symptoms (Recalled from RN notes): No Functional Status (Recalled from RN notes): n/a History of Present Illness Provider Complaint: Patient states that he has been having sinus pain and pressure behind his
[2023-04-19 16:31] VITALS: BP 138/76; PULSE 81; RESP 18; TEMP 36.7; O2SAT 96
== END 2023-04-19 16:31 | disposition home or self-care (01) ==
PROVIDERS: Emergency Provider Nurse Practitioner; PCP Internal Medicine Adolescent Medicine
DX: J01.90 Acute sinusitis, unspecified (principal); R05.9 Cough, unspecified; R07.0 Pain in throat; R09.81 Nasal congestion; R09.82 Postnasal drip; R53.83 Other fatigue; F17.210 Nicotine dependence, cigarettes, uncomplicated; J44.9 Chronic obstructive pulmonary disease, unspecified; E11.9 Type 2 diabetes mellitus without complications; Z79.4 Long term (current) use of insulin; Z79.84 Long term (current) use of oral hypoglycemic drugs
CPT/HCPCS: 99212; 99214; G0463

== ENCOUNTER → 2023-04-23 08:07 | Outpatient (CLI) | payer MEDICARE, BC, SELFPAY ==
[2023-04-23 09:06] LABS: Total Protein,Serum 6.9 g/dl (6.3-8.2)
[2023-04-24 13:09] LABS: Albumin 3.5 g/dL (2.9-4.4); Alpha-1-Globulin 0.2 g/dL (0.0-0.4); Alpha-2-Globulin 0.9 g/dL (0.4-1.0); Gamma Globulin 1.2 g/dL (0.4-1.8)
[2023-04-24 17:08] LABS: Albumin, U 52.1 % (.); Alpha-1-Globulin, U 4.3 % (.); Alpha-2-Globulin, U 7.4 % (.); Beta Globulin, U 25.6 % (.); Gamma Globulin, U 10.6 % (.); M-Spike, % Comment: % (Not Observed); Protein,Total,Urine 31.6 mg/dL (Not Estab.)
[2023-04-25 07:20] LABS: Immunoglobulin A, Qn 307 mg/dL (61-437); Immunoglobulin G, Qn 1126 mg/dL (603-1613); Immunoglobulin M, Qn 58 mg/dL (15-143)
[2023-04-30 09:20] LABS: Free Lambda Lt Chains 31.2; PDF SCANNED IMAGE
[2023-04-30 15:30] LABS: PDF: SCANNED IMAGE
== END ==
LOC: LAB 08:08
PROVIDERS: PCP Internal Medicine Adolescent Medicine; Visit Provider Physician Assistant
DX: E11.9 Type 2 diabetes mellitus without complications (principal); E78.5 Hyperlipidemia, unspecified; I11.9 Hypertensive heart disease without heart failure; N18.9 Chronic kidney disease, unspecified; R06.02 Shortness of breath; R07.9 Chest pain, unspecified; Z79.4 Long term (current) use of insulin; Z79.84 Long term (current) use of oral hypoglycemic drugs; Z72.0 Tobacco use
CPT/HCPCS: 36415; 82784; 83883; 84155; 84156; 84165; 84166; 86334; 86335

== ENCOUNTER → 2023-04-25 13:36 | Outpatient (CLI) | payer MEDICARE, BC, SELFPAY ==
[2023-05-01 13:09] LABS: Albumin, U 59.8 % (.); Alpha-1-Globulin, U 3.1 % (.); Alpha-2-Globulin, U 6.7 % (.); Beta Globulin, U 15.7 % (.); Gamma Globulin, U 14.7 % (.); M-Spike, % Not Observed % (Not Observed); Prot,24hr calculated 650 mg/24 hr (30-150); Protein,Total,Urine 28.9 mg/dL (Not Estab.)
[2023-05-05 08:25] LABS: PDF: SCANNED IMAGE
== END ==
PROVIDERS: PCP Internal Medicine Adolescent Medicine; Visit Provider Physician Assistant
DX: E11.9 Type 2 diabetes mellitus without complications (principal); E78.5 Hyperlipidemia, unspecified; I11.9 Hypertensive heart disease without heart failure; N18.9 Chronic kidney disease, unspecified; R06.02 Shortness of breath; R07.9 Chest pain, unspecified; Z79.4 Long term (current) use of insulin; Z79.84 Long term (current) use of oral hypoglycemic drugs; Z72.0 Tobacco use; I12.9 Hypertensive chronic kidney disease with stage 1 through stage 4 chronic kidney disease, or unspecified chronic kidney disease
CPT/HCPCS: 84156; 84166

== ENCOUNTER 2023-05-21 12:09 | Outpatient (CLI) | payer MEDICARE, BC, SELFPAY ==
[2023-05-21 12:37] LABS: Blood Urea Nitrogen 19 mg/dl (9-20); Estimated Glomerular Filt Rate 46 ml/min (>60); GFR (African American) 55 ML/MIN (>60)
--- NOTE | 2023-05-21 13:06 | MR_ITS ---
APPROVED REPORT Grey Goods Examiner: CLINICAL INDICATION Diastolic dysfunction, CHF symptoms. Evaluate for infiltrative disease. TECHNIQUE Image Acquisition: Cardiac magnetic resonance (CMR) was performed on Siemens Espree MRI 1.5T scanner. Software platform sequences were performed using the Siemens [employer] MR B19 platform. A set of three-plane, low-resolution, large [id number] localizers were initially acquired. Then axial, coronal, sagittal TrueFISP, as well as axial HASTE images, were obtained. These were followed by gated TrueFISP breathold cinematic sequences obtained in the short axis with 8 mm slices and 2 mm gaps, 2-chamber (vertical long axis), 3-chamber, 4-chamber (horizontal long axis). Functional parameters were calculated by offline analysis on an independent workstation ([employer], sarvaMAIL). Contrast: The patient declined administration of gadolinium. FINDINGS MORPHOLOGY AND FUNCTION Left ventricle: The left ventricle cavity is small. The indexed left ventricular end-diastolic volume (LVEDVi) is 40 ml/m2 (reference range 57-105 ml/m2 in males, 56-96 ml/m2 in females). Normal left ventricular systolic function is present. There is concentric increase in left ventricular wall thickness, up to 14.5 mm. There are no regional wall motion abnormalities noted. LVEF is calculated at 55.6% (reference range 57-77%). Right ventricle: The right ventricle is normal in size. The indexed right ventricular end-diastolic volume (RVEDVi) is 61 ml/m2 (reference range 61-121 ml/m2 in males, 48-112 ml/m2 in females). Normal right ventricular systolic function is present. RVEF is calculated at 63.1% (reference range 52-72% in males, 51-71% in females). Atria: The left atrium is normal in size. The maximum indexed left atrial volume is 31 ml/m2 (reference range 26-52 ml/m2 in males, 27-53 ml/m2 in females). The right atrium cavity is small. The maximum indexed right atrial volume is 12 ml/m2 (reference range 18-90 ml/m2). Aorta: The diameter of the aortic annulus is normal, measuring 26 mm (coronal view reference range 21-30 mm in males, 19-27 mm in females). The diameter of the aortic sinus is normal, measuring 30 mm (coronal view reference range 25-42 mm in males, 24-36 mm in females). The diameter of the sinotubular junction is normal, measuring 27 mm (coronal view reference range 18-32 mm in males, 18-28 mm in females). The diameters of the ascending and descending thoracic aorta are normal. Main pulmonary artery: The main pulmonary artery diameter is normal. Pericardium: The pericardial thickness is normal. The pericardial thickness measures 1.3 cm (normal < 4.0 cm). There is no pericardial effusion. VALVES The valvular morphologies in the visualized sequences appear normal. There is no significant valvular stenosis or regurgitation of the mitral, aortic, tricuspid, or pulmonic valve noted visually. Systolic anterior motion of the mitral valve is not visualized. 2D phase contrast evaluation is not performed in this study. Ratio of pulmonary to systemic flow, Qp:Qs ratio cannot be calculated. TISSUE CHARACTERIZATION Resting Perfusion: Normal myocardial blood flow at rest. No evidence of resting hypoperfusion. Myocardial Fibrosis and/or edema: Gadolinium is not administered in this study. Data on late gadolinium enhancement (LGE) is not available. OTHER No other significant findings are noted. However, this exam is focused on the cardiac structure and function. IMPRESSION Small LV cavity size with normal LV systolic function. LVEDVi= 40 ml/m2 and LVEF= 55.6%. Concentric increase in left ventricular wall thickness, up to 14.5 mm. Normal RV size with normal RV systolic function. RVEDVi= 61 ml/m2 and RVEF= 63.1%. No atrial enlargement. Gadolinium is not administered in this study. Data on late gadolinium enhancement (LGE) is not available. Perfusion analysis demonstrates normal blood flow at rest with no evidence of resting hypoperfusion. Overall, this is an incomplete CMR analysis due to absence of gadolinium enhancement and absence of 2D phase contrast. There is normal biventricular systolic function. Concentric increase in LV wall thickness is also noted, up to 14.5 mm. Findings do not rule out infiltrative disease, but further evaluation is alternative modalities is recommended. COMPARISON None CRITICAL RESULT None COMMUNICATION Per this written report The findings of this cardiac MR were reviewed, reported, and signed by German Li MD (Die Cutting Machine Operator). Conclusion Electronically signed by : Gretchen Li MD 06/04/2023 10:31:59
[2023-05-21] MEDS: SODIUM CHLORIDE 0.9% 10ML SYR (RAD ONLY) 10 ML IV (14:20)
[2023-05-21] MEDS: SODIUM CHLORIDE 0.9% 50ML BAG 25 ML IV (14:20)
[2023-05-21] MEDS: GADOTERIDOL INJ 17ML SYRINGE 22 ML IV (14:20)
== END 2023-05-21 23:59 ==
PROVIDERS: PCP Internal Medicine Adolescent Medicine; Visit Provider Physician Assistant
DX: R06.02 Shortness of breath; R07.9 Chest pain, unspecified; I11.9 Hypertensive heart disease without heart failure; N18.9 Chronic kidney disease, unspecified; E78.5 Hyperlipidemia, unspecified; E11.9 Type 2 diabetes mellitus without complications; Z79.4 Long term (current) use of insulin
CPT/HCPCS: 36415; 75561; 82565; 84520; A9576

== ENCOUNTER 2023-06-07 08:06 | Outpatient (CLI) | payer MEDICARE, BC, SELFPAY ==
--- NOTE | 2023-06-07 08:07 | NM_ITS ---
APPROVED REPORT Physiology Teacher: Procedure: 99mTc-PYP Cardiac Amyloidosis Imaging Clinical Indication: Heart failure, increased LV wall thickness Protocol: The patient received 24.0 mCi 99mTc-PYP intravenously. Planar and SPECT imaging was performed approximately 3 hours post injection. Planar images included anterior, left lateral and DENNISE-45 projections. Findings: Visual interpretation: Planar and SPECT images were reviewed The overall quality of the study was good. Semi quantitative SPECT findings showed a grade 0. Impression: 1. Overall, the quality of the study was good. 2. Semi quantitative SPECT findings showed grade 0. 3. Overall interpretation of the findings is not suggestive of ATTR amyloidosis. This study and report were reviewed and signed by German Li MD (hand nailer). Conclusion Electronically signed by : Gretchen Li MD 06/16/2023 00:19:39
[2023-06-07] MEDS: PYROPHOSPHATE CARDIAC (PYP);1 DOSE VIAL IV (11:12)
[2023-06-07] MEDS: SODIUM CHLORIDE 0.9% 10ML SYR (RAD ONLY) 10 ML IV (11:12)
== END 2023-06-07 23:59 ==
LOC: RAD 08:07
PROVIDERS: PCP Internal Medicine Adolescent Medicine; Visit Provider Physician Assistant
DX: R06.02 Shortness of breath; R07.9 Chest pain, unspecified; E11.9 Type 2 diabetes mellitus without complications; E78.5 Hyperlipidemia, unspecified; I11.9 Hypertensive heart disease without heart failure; N18.9 Chronic kidney disease, unspecified; Z79.84 Long term (current) use of oral hypoglycemic drugs; Z79.899 Other long term (current) drug therapy
CPT/HCPCS: 78803

== ENCOUNTER 2024-03-09 13:56 | Outpatient (CLI) | payer MEDICARE, BC, SELFPAY ==
--- NOTE | 2024-03-09 13:56 | CT_ITS ---
FINAL REPORT TECHNIQUE: Thin section axial images were obtained from the lung apices to the upper abdomen by computed tomography. Reformatted images were obtained and reviewed. This study was performed with techniques to keep radiation doses al low as reasonably achievable (ALARA). Individualized dose reduction techniques using automated exposure control or adjustment of mA and/or kV according to the patient's size were employed. CLINICAL HISTORY: 1 ppd x 30 years COMPARISON: 06/22/2021 FINDINGS: CHEST CT LOW DOSE CTDI vol (mGy): 2.90 DLP (mGy-cm): 113.85 There is no axillary adenopathy. Small mediastinal nodes are present. The heart is normal in size. There is no pericardial or pleural effusion. There is mild emphysema and mild pulmonary scarring. Lung window images demonstrate the previously seen left lower lobe nodule has improved. There is a calcified granuloma in the lingula. Previously seeing scarring/atelectasis has partially improved. Limited images of the upper abdomen demonstrate a left adrenal nodule consistent with an adenoma. IMPRESSION: Lung-RADS category 1. Recommend 12 month follow up low dose chest CT. Reviewed, Interpreted and Dictated by Donal Fine III, MD Transcribed by Jacinda Maravilla Authenticated and [facility]
[2024-03-09 15:20] VITALS: PULSE 79; PULSE 83
[2024-03-09] MEDS: ALBUTEROL 0.083% 2.5 MG/3 ML NEB IH (15:20)
== END 2024-03-09 23:59 | disposition home or self-care (01) ==
LOC: RAD 13:56
PROVIDERS: PCP Internal Medicine Adolescent Medicine; Visit Provider Internal Medicine Pulmonary Disease
DX: F17.210 Nicotine dependence, cigarettes, uncomplicated (principal); R06.09 Other forms of dyspnea
CPT/HCPCS: 71271; 94060; 94618; 94640; 94726; 94729; J7613

== ENCOUNTER 2024-07-24 09:20 | Outpatient (CLI) | payer MEDICARE, BC, SELFPAY ==
--- NOTE | 2024-07-24 09:26 | CT_ITS ---
FINAL REPORT CLINICAL HISTORY: SCREENING CURRENT SMOKER 1/2 PACK PER DAY X 60 YEARS COPD DLP:105.51 COMPARISON: 03/09/2024 FINDINGS: CT CHEST LOW DOSE SCREENING HISTORY: Screening exam for lung cancer. 79-year-old male, current smoker, 81-oigh-vqnm history. DOSE: CTDI vol: 2.90 mGy, DLP: 105.51 mGy*cm TECHNIQUE: Axial CT without IV contrast administration using low dose protocol. This study was performed with techniques to keep radiation doses as low as reasonably achievable, (ALARA). Individualized dose reduction techniques using automated exposure control or adjustment of mA and/or kV according to the patient's size were employed. No acute lung disease is present. No pulmonary lesions are seen suspicious for neoplasm. Underlying changes of emphysema are present. No pleural or pericardial effusion is seen. No adenopathy or mass lesion is present. IMPRESSION: No evidence of lung cancer LUNG RADS CATEGORY 1 RECOMMENDATION: 12 month LDCT follow up Reviewed, Interpreted and Dictated by Jami Dean MD Transcribed by Mariza Jaimes Authenticated and [facility]
== END 2024-07-24 23:59 | disposition home or self-care (01) ==
PROVIDERS: PCP Internal Medicine Adolescent Medicine; Referring Provider Internal Medicine Pulmonary Disease; Visit Provider Internal Medicine Adolescent Medicine
DX: Z87.891 Personal history of nicotine dependence (principal)
CPT/HCPCS: 71271

== ENCOUNTER 2025-04-02 14:49 | Outpatient (CLI) | payer MEDICARE, BC, SELFPAY ==
--- OUTSIDE RECORDS SUMMARY | 2024-06-17 07:15 | XMS_ITS ---
Author Organization [facility] Address [address] [place] [address] Care Team Providers Care Full Stack Java Developer Name Role Phone Akil Borges Primary Care Provider REASON FOR VISIT 3 Month F/U Encounters Encounter Location Date Provider Diagnosis [facility] [address] [place], [place] [address] 06/17/2024 Akil Borges Plan Of Treatment Next Appt Details Provider Name:Akil Borges, 04/05/2025 02:30:00 PM, [address], [place], [place], [address], Progress Notes * Farhan PLASCENCIADOB: 7 (80 yo M)Acc No.[id number]:06/17/2024 Progress Notes Patient: Arnulfo WONG Farhan Feng Provider: Albino Borges MD :1945 A ge:79 Y S ex:Male Date:06/17/2024 Address:[id number] Subjective: * Chief Complaints: * 1 . 3 Month F/U. * Medical History: Objective: * Vitals: Assessment: Plan: * Treatment: * * Electronic signature of Cornell Borges MD FAAP on 04/02/2025 at 02:51 PM EST Sign off status: Pending * Provider: Albino Borges MD Date: 0 06/17/2024 Generated for Ovidio douglas/Jhon/Asha on: 1 06/02/2024 02:51 PM EST
--- OUTSIDE RECORDS SUMMARY | 2024-08-08 16:30 | XMS_ITS ---
Author Organization [facility] Address [address] [place] [address] Care Team Providers Care Mass Communications Professor Name Role Phone JonyAkil Primary Care Provider [phone] Migration, Provider Unavailable [facility] Conversion Encounter Medications Medication SIG (Take, Route, Frequency, Duration) Notes Start Date End Date Status Losartan Potassium 25 MG 1 tab(s) orally once a day; Duration: 90 days Active Breo Ellipta 50 MCG-25 MCG/INH. 1 INH INHALED ONCE A DAY; Duration: 30 DAYS *Please review and pick correct strength-formulat ion from [facility] options. If intended option is not shown, [...] review and pick correct strength-formulat ion from [employer] options. If intended option is not shown, [...] Active Encounters Encounter Location Date Provider Diagnosis [facility] [address] [place] [address] 08/08/2024 Provider Migration Plan Of Treatment Medication Medication Name Sig Start Date Stop Date Notes Tresiba FlexTouch 100 UNIT/ML INJECT 45 UNITS SUBCUTANEOUSLY ONCE DAILY FOR 30 DAYS; Duration: 90 days Clopidogrel Bisulfate 75 MG 1 tab(s) ora lly once a day; Duration: 90 days Next Appt Details Provider Name:Akil Borges, 04/05/2025 02:30:00 PM, [address], [address], [place], [address], Progress Notes * Farhan PLASCENCIA JungDOB: [birth year] (80 yo M)Acc No.[id number]:08/08/2024 Patient: Farhan FONTAINE Provider: Rafat katz Migration :1945 A ge:79 Y S ex:Male Date:08/08/2024 Address:[address] [place], [place], [id number] Pcp:Akil Borges Subjective: * Chief Complaints: * [...] *Please review and pick correct strength-formulation from [employer] options. If intended option is not shown, [...] *Please review and pick correct strength-formulation from [employer] options. If intended option is not shown, [...] Electronic signature of Antonette carlin Migration on 04/02/2025 at 02:51 PM EST Sign off status: Pending * Provider: Rafat katz Migration Date: 0 08/08/2024 Generated for Ovidio douglas/Jhon/Asha on: 06/02/2024 02:51 PM EST
--- OUTSIDE RECORDS SUMMARY | 2025-03-08 09:00 | XMS_ITS ---
Author Organization [facility] Address [address] [place] [address] Care Team Providers Care Material Mover Name Role Phone Akil Borges Primary Care Provider Allergies No Known Allergies REASON FOR VISIT Bad congestion, sinuses, cough, no fever. Symptoms started Saturday Medications Medication SIG (Take, Route, Frequency, Duration) Notes Start Date End Date Status Levothyroxine Sodium 50 MCG 1 tab(s) orally once a day; Duration: 90 days Active Pregabalin 100 MG Take 1 capsule by mouth twice daily; Duration: 90 01/05/2025 Active ACCU-CHECK GUIDE TEST STRIPS USE TO CHECK BLOOD SUGAR DX:E11.9 TWICE DAILY; Duration: 100 days DX: E11.9 Active DULoxetine HCl 30 MG Take 1 capsule by mouth twice daily; Duration: 90 Active Allopurinol 100 MG Take 1 tablet by mouth once daily; Duration: 90 Active metFORMIN HCl 1000 MG 1 tab(s) orally 2 times a day; Duration: 90 days Active Rosuvastatin Calcium 10 MG Take 1 tablet by mouth once daily; Duration: 90 Active Incruse Ellipta 62.5 MCG/ACT INHALE 1 PUFF BY MOUTH ONCE DAILY; Duration: 90 days Active Furosemide 20 MG 1 tab(s) orally once daily as needed for swelling; Duration: 30 days Active Clopidogrel Bisulfate 75 MG 1 tab(s) orally once a day; Duration: 90 days Active OXYGEN 2.3 LITERS 2 L at night *Please review for potential replacement for e-prescription and drug interaction check* Active Multivitamin - 1 tab(s) orally once a day Active NOVOFINE PLUS PEN NEEDLE 32G 4MM USE ONCE DAILY WITH TRESIBA; Duration: 90 DAYS *Please review for potential replacement for e-prescription and drug interaction check* 08/14/2017 Active Losartan Potassium 25 MG 1 tab(s) orally once a day; Duration: 90 days Active ONE TOUCH VEREO TEST STRIPS N/A 1 TEST STRIP FINGERSTICK TWICE A DAY DX: E11.9 *Please review for potential replacement for e-prescription and drug interaction check* 10/02/2023 Active Zithromax Z-Raj 250 MG 2 tablets on the first day, then 1 tablet daily for 4 days orally once a day; Duration: 5 days 03/08/2025 Active CPAP MACHINE WITH ADULT SETUP *Please review for potential replacement for e-prescription and drug interaction check* Active ASPIR-LOW 81 MG 1 TAB(S) ORALLY ONCE A DAY *Please review for potential replacement for e-prescription and drug interaction check* Active Breztri Aerosphere 160-9-4.8 MCG/ACT 2 puffs Inhalation Twice a day 03/08/2025 Active Promethazine-DM 6.25-15 MG/5ML 5 mL orally every 6 hours; Duration: 10 days 03/08/2025 Active B-12 1000 MCG 1 tab(s) orally once a day Active Finasteride 5 MG 1 tab(s) orally once a day Active Tadalafil 10 MG 1 tab(s) orally once a day Active Farxiga 10 MG 1 tablet Orally Once a day Active Tresiba 100 UNIT/ML as directed Subcutaneous Active Advair Diskus 250-50 MCG/ACT 1 puff Inhalation Twice a day Active Problems Problem Type SNOMED Code ICD Code Onset Dates Problem Status W/U Status Risk Notes Problem Acute exacerbation of chronic obstructive airways disease (657001365) COPD exacerbation (J44.1) Active confirmed Vital Signs Temperature 97.5 degrees Fahrenheit 03/08/20 25 Blood pressure systolic 178 mm Hg 03/08/20 25 Blood pressure diastolic 60 mm Hg 025 Heart Rate 96 /min 03/08/2025 Height 67.5 in 03/08/2025 Weight 231.4 lbs 03/08/2025 BMI 35.7 kg/m2 03/08/2025 Encounters Encounter Location Date Provider Diagnosis [facility] [address] [facility] [address] [place] [address] 03/08/2025 Akil Borges COPD exacerbation J44.1 ; Chronic bronchitis with COPD (chronic obstructive pulmonary disease) J44.9 and Peripheral edema R60.0 Assessments Encounter Date Diagnosis (ICD Code) Assessment Notes Treatment Notes Treatment Clinical Notes Section Notes 03/08/2025 COPD exacerbation (ICD-10 - J44.1) Discussed the etiology and expected course of COPD exacerbation. Discussed the rationale for antibiotic and . Discussed supportive care for URI. Discussed the signs and symptoms of worsening infection that may indicate need for evaluation in clinic vs ED. Patient voices understanding and is agreeable to the plan of care above. 03/08/2025 Chronic bronchitis with COPD (chronic obstructive pulmonary disease) (ICD-10 - J44.9) Patient reports Trelegy is very expensive, will trial Breztri and follow-up in 1 month to see if this is better 03/08/2025 Peripheral edema (ICD-10 - R60.0) Patient not compliant with compressive garments, poor positioning, lots of salt and smoking. Discussed positions, using compression stockings in the morning. Follow-up in 1 month Plan Of Treatment Medication Medication Name Sig Start Date Stop Date Notes Zithromax Z-Raj 250 MG 2 tablets on the first day, then 1 tablet daily for 4 days orally once a day; Duration: 5 days 03/08/2025 Breztri Aerosphere 160-9-4.8 MCG/ACT 2 puffs Inhalation Twice a day 03/08/2025 Promethazine-DM 6.25-15 MG/5ML 5 mL orally every 6 hours; Duration: 10 days 03/08/2025 Treatment Notes Assessment Notes COPD exacerbation Discussed the etiolo gy and expected course of COPD exacerbation. Discussed the rationale for antibiotic and . Discussed supportive care for URI. Discussed the signs and symptoms of worsening infection that may indicate need for evaluation in clinic vs ED. Patient voices understanding and is agreeable to the plan of care above. Chronic bronchitis with COPD (chronic obstructive pulmonary disease) Patient reports Trelegy is very expensiv e, will trial Breztri and follow-up in 1 month to see if this is better Peripheral edema Patient not compliant with compressive garments, poor positioning, lots of salt and smoking. Discussed positions, using compression stockings in the morning. Follow-up in 1 month Next Appt Details Follow Up: 4 Weeks, Reason: Provider Name:Akilisabel Borges, 04/05/2025 02:30:00 PM, [address], [address], [place], [address], Progress Notes * Farhan PLASCENCIADOB: [birth year] (80 yo M)Acc No.[id number]:03/08/2025 Progress Notes Patient: Farhan FONTAINE Provider: Albino Borges MD :1945 A ge:80 Y S ex:Male Date:03/08/2025 Address:[id number] Subjective: * Chief Complaints: * 1 . Bad congestion, sinuses, cough, no fever. Symptoms started Saturday. * HPI: g en: Patient presents to clinic for sick visit He reports a 3 day history o f persistent productive cough and post-nasal drainage. He denies any fever, rhinorrhea, SOB, chest pain or ear pain. He has not taken any medications for this, and cannot recall anything that worsens symptoms. He also reports his maintenance inhaler not being covered by insurance but does have another 30 day supply left. He endorses being adherent to regimen, only requiring one puff a day. Mr. Plascencia also mentioned continued high readings on his at home glucose test, with readings often above 200 when he checks at 9pm. He continues with his 70/30 insulin regimen once a day and still does not utilize prandial insulin. * Medical History: H ypertension, Diabetes, COPD, Prostate infections, Hypercholestrolemia, Diverticulitis, [facility], cardiac stent x1 in 2014 - LAD stent 02/21, Skin cancer lesions- removed, colonoscopy 2012 with hyperplastic polyp - repeated February 2018 with grade 1 hemorrhoids and no source of bleeding, EGD February 2018 with chronic duodenitis, normal low-dose CT scan in 07/28, Covid 24 May 2021, recovered uneventfully, Negative AAA screening June 2021. * Medications: T aking Advair Diskus 250-50 MCG/ACT Aerosol Powder Breath Activated 1 puff Inhalation Twice a day , Taking Tresiba 100 UNIT/ML Solution as directed Subcutaneous , Taking Farxiga 10 MG Tablet 1 tablet Orally Once a day , Taking Tadalafil 10 MG Tablet 1 tab(s) orally once a day , Taking Finasteride 5 MG Tablet 1 tab(s) orally once a day , Taking B-12 1000 MCG Tablet 1 tab(s) orally once a day , Taking ASPIR-LOW 81 MG ENTERIC COATED TABLET 1 TAB(S) ORALLY ONCE A DAY , Notes to Pharmacist: *Please review for potential replacement for e-prescription and drug interaction check*, Taking CPAP MACHINE [...] for e-prescription and drug interaction check*, Taking ONE TOUCH VEREO TEST STRIPS N/A N/A 1 TEST STRIP FINGERSTICK TWICE A DAY , Notes to Pharmacist: DX: E11.9 *Please review for potential replacement for e-prescription and drug interaction check*, Taking Losartan Potassium 25 MG Tablet 1 tab(s) orally once a day , Taking Clopidogrel Bisulfate 75 MG Tablet 1 tab(s) orally once a day , Taking Furosemide 20 MG Tablet 1 tab(s) orally once daily as needed for swelling , Taking Incruse Ellipta 62.5 MCG/ACT Aerosol Powder Breath Activated INHALE 1 PUFF BY MOUTH ONCE DAILY , Taking Rosuvastatin Calcium 10 MG Tablet Take 1 tablet by mouth once daily , Taking metFORMIN HCl 1000 MG Tablet 1 tab(s) orally 2 times a day , Taking DULoxetine HCl 30 MG Capsule Delayed Release Particles Take 1 capsule by mouth twice daily , Taking ACCU-CHECK GUIDE TEST STRIPS USE TO CHECK BLOOD SUGAR DX:E11.9 TWICE DAILY , Notes to Pharmacist: DX: E11.9, Taking Pregabalin 100 MG Capsule Take 1 capsule by mouth twice daily , Taking Levothyroxine Sodium 50 MCG Tablet 1 tab(s) orally once a day , Taking Allopurinol 100 MG Tablet Take 1 tablet by mouth once daily , Medication List reviewed and reconciled with the patient * Allergies: N .K.D.A. Objective: * Vitals: N urse: KJ, Pain: 0, Temp: 97.5, RR: 20, HR: 96, BP: 178/60, Ht: 67.5, Wt: 231.4, BMI:35.7. * Examination: G eneral Examination: General P leasant and Cooperative, NAD on RA,. Heart: R egular Rate and Rhythm, no murmur, rubs or gallops. Lungs: P ositive for fine crackles on right-side and end-expiratory wheezing.. Assessment: * Assessment: 1. C OPD exacerbation - J44.1 (Primary) 2 . C hronic bronchitis with COPD (chronic obstructive pulmonary disease) - J44.9 3 . P eripheral edema - R60.0? Plan: * Treatment: 2. C hronic bronchitis with COPD (chronic obstructive pulmonary disease) Start Breztri Aerosphere Aerosol, 160-9-4.8 MCG/ACT, 2 puffs, Inhalation, Twice a day. Notes: Patient reports Trelegy is very expensive, will trial Breztri and follow-up in 1 month to see if this is better 3. P eripheral edema Notes: Patient not compliant with compressive garments, poor positioning, lots of salt and smoking. Discussed positions, using compression stockings in the morning. Follow-up in 1 month * Procedure Codes: G 2211 Complex e/m visit add on * Follow Up: 4 Weeks * * Sign off status: Completed true * Provider: Albino Borges MD Date: 05/08/2024 Generated for Ovidio douglas/Jhon/eTransmitting on: 06/02/2024 02:52 PM EST History and Physical Notes * HPI (History of Present Illness) Category Sub-Category Detail Notes Category Not es gen Patient presents to clinic for sick visit He reports a 3 day history of persistent productive cough and post-nasal drainage. He denies any fever, rhinorrhea, SOB, chest pain or ear pain. He has not taken any medications for this, and cannot recall anything that worsens symptoms. He also reports his maintenance inhaler not being covered by insurance but does have another 30 day supply left. He endorses being adherent to regimen, only requiring one puff a day. Mr. Plascencia also mentioned continued high readings on his at home glucose test, with readings often above 200 when he checks at 9pm. He continues with his 70/30 insulin regimen once a day and still does not utilize prandial insulin. Examination Category Sub-Category Detail Notes Category Not es General Examination Heart: Regular Rate and Rhythm, no murmur, rubs or gallops Lungs: Positive for fine cr ackles on right-side and end-expiratory wheezing. General Pleasant and Coopera tive, NAD on RA,
--- OUTSIDE RECORDS SUMMARY | 2025-04-02 14:52 | XMS_ITS | Encounter Summary ---
Author Organization Healthcare Address [address] [place] [address] Care Team Providers Care Gutter Mouth Cutter Name Role Phone Akil Borges MD Primary Care Provider + [phone] Alex Adams MD Unavailable [phone] Phan Avitia MD Unavailable Encounter Details Date Type Department Care Team (Late st Contact Info) Description 11/08/2020 Orders Only External Location [address] [place] [address] Provider, External Social History Tobacco Use Types Packs/Day Years Used Date Smoking Tobacco: Every Day Sex and Gender Information Value Date Recorded Sex Assigned at Male 03/15/2021 3:14 PM EST Legal Sex Male 8:43 PM EDT Gender Identity Male 03/15/2021 3:14 PM EST Sexual Orientation Not on file documented as of this encounter Plan of Treatment Not on file documented as of this encounter Procedures Procedure Name Priority Date/Time Associated Diagnosis Comments CT HEAD WO IV CONTRAST 11/08/2020 3:20 PM EDT documented in this encounter Results * CT Head wo IV Contrast (11/08/2020 3:20 PM EDT) Anatomical Region Laterality Modality Head Computed Tomogra phy 11/08/2020 3:20 PM EDT us External Provider IMG CT PROCEDURES Final Result documented in this encounter Visit Diagnoses Not on filedocumented in this encounter Care Teams Gutter Mouth Cutter Relationship Specialty Start Date End Date Akil Borges MD [address] [place] [address] PCP - General 09/16/20 Alex Adams MD [address] [place], [place] [id number] Referring Physician 12/05/20 Phan Avitia MD [address] [facility] [address] [place] [address] Surgeon Otolaryngology 06/22/22 documented as of this encounter
--- OUTSIDE RECORDS SUMMARY | 2025-04-02 14:52 | XMS_ITS | Encounter Summary ---
Author Organization [facility] Address [address] [place] [address] Care Team Providers Care Commercial Loan Assistant Name Role Phone Akil Borges MD Primary Care Provider + [phone] Alex Adams MD Unavailable [phone] Phan Avitia MD Unavailable Encounter Details Date Type Department Care Team (Late st Contact Info) Description 06/05/2020 Orders Only External Location [address] [place] [address] Neeraj Ross MD [address] [place] [address] Social History Tobacco Use Types Packs/Day Years Used Date Smoking Tobacco: Never Assessed Sex and Gender Information Value Date Recorded Sex Assigned at Male 03/15/2021 3:14 PM EST Legal Sex Male 8:43 PM EDT Gender Identity Male 03/15/2021 3:14 PM EST Sexual Orientation Not on file documented as of this encounter Plan of Treatment Not on file documented as of this encounter Procedures Procedure Name Priority Date/Time Associated Diagnosis Comments CT ABDOMEN PELVIS WO IV CONTRAST 06/05/2020 5:06 PM EST documented in this encounter Results * CT Abdomen Pelvis wo IV Contrast (06/05/2020 5:06 PM EST) Anatomical Region Laterality Modality Abdomen, Pelvis Computed Tomogra phy 06/05/2020 5:06 PM EST us Neeraj Ross MD IMG CT PROCEDURES Final Resu lt documented in this encounter Visit Diagnoses Not on filedocumented in this encounter Care Teams Commercial Loan Assistant Relationship Specialty Start Date End Date Akil Borges MD [address] [facility] [address] [facility] [address] [place] [address] PCP - General 09/16/20 Alex Adams MD [address] [place] [address] Referring Physician 12/05/20 Phan Avitia MD [address] [facility] [address] [place] [address] Surgeon Otolaryngology 06/22/22 documented as of this encounter
--- OUTSIDE RECORDS SUMMARY | 2025-04-02 14:52 | XMS_ITS | Patient Health Record ---
Author Organization [facility] Address [address] [place] [address] Care Team Providers Care Qc Lab Technician Name Role Phone Akil Borges Primary Care Provider Carlene Mccarthy Unavailable [phone] Migration, Provider Unavailable Unavailable Allergies No Known Allergies Results Component Value Reference Range Notes LIPID PANEL, STANDARD (7600) Reviewed date:07/09/2024 01:49:22 PM Interpretation: Performing Lab:[facility], [facility] [address] [facility], [facility] HospitalFthmXA[address] Abimael Golden Notes/Report: NON-FASTING; NON-FASTING; NON-FASTING; NON-FASTING CHOLESTEROL, TOTAL 167 <200 mg/dL HDL CHOLESTEROL 51 > OR = 40 mg/dL TRIGLYCERIDES 325 <150 mg/dL If a non-fasting specimen was collected, consider repeat triglyceride testing on a fasting specimen if clinically indicated. Jose C et al. J. of Clin. Lipidol. 2015;9:129-169. LDL-CHOLESTEROL 77 Reference range: <100 Desirable range <100 mg/dL for primary prevention; <70 mg/dL for patients with CHD or diabetic patients with > or = 2 CHD risk factors. LDL-C is now calculated using the Charbel-Annie calculation, which is a validated novel method providing better accuracy than the Friedewald equation in the estimation of LDL-C. Charbel DORANTES et al. HERBER. 2013;310(19): 4057-4717 (http://education.AGILE customer insight.ERPLY/faq/WNM523) CHOL/HDLC RATIO 3.3 <5.0 (calc) NON HDL CHOLESTEROL 116 <130 mg/dL (calc) For patients with diabetes plus 1 major ASCVD risk factor, treating to a non-HDL-C goal of <100 mg/dL (LDL-C of <70 mg/dL) is considered a therapeutic option. BASIC METABOLIC PANEL (96901 ) Reviewed date:07/09/2024 01:49:22 PM Interpretation: Performing Lab:MAO [address] [employer]te[employer]eli, MadmagzLepnWR[address] Abimael Golden Notes/Report: NON-FASTING; NON-FASTING; NON-FASTING; NON-FASTING GLUCOSE 128 65-99 mg/dL Fasting reference interval For someone without known diabetes, a glucose value >125 mg/dL indicates that they may have diabetes and this should be confirmed with a follow-up test. UREA NITROGEN (BUN) 13 7-25 mg/dL CREATININE 1.21 0.70-1.28 mg/dL EGFR 62 > OR = 60 mL/min/1.73m2 BUN/CREATININE RATIO SEE NOTE: 6-22 (calc) Not Reported: BUN and Creatinine are within reference range. SODIUM 139 135-146 mmol/L POTASSIUM 4.0 3.5-5.3 mmol/L CHLORIDE 103 98-110 mmol/L CARBON DIOXIDE 26 20-32 mmol/L CALCIUM 9.2 8.6-10.3 mg/dL CREATINE KINASE, TOTAL (374) Reviewed date:07/09/2024 01:49:22 PM Interpretation: Performing Lab:[facility]O [address] [employer], MadmagzSmkeBD[address] Abimael Golden Notes/Report: NON-FASTING; NON-FASTING; NON-FASTING; NON-FASTING CREATINE KINASE, TOTAL 135 19-278 U/L HEMOGLOBIN A1c (496) Reviewed date:07/09/2024 01:49:22 PM Interpretation: Performing Lab:MAO [address] [employer] [employer] [facility] [facility], MadmagzOxseAF[address] Abimael Golden Notes/Report: NON-FASTING; NON-FASTING; NON-FASTING; NON-FASTING HEMOGLOBIN A1c 8.3 <5.7 % of total Hgb For someone without known diabetes, a hemoglobin A1c value of 6.5% or greater indicates that they may have diabetes and this should be confirmed with a follow-up test. For someone with known diabetes, a value <7% indicates that their diabetes is well controlled and a value greater than or equal to 7% indicates suboptimal control. A1c targets should be individualized based on duration of diabetes, age, comorbid conditions, and other considerations. Currently, no consensus exists regarding use of hemoglobin A1c for diagnosis of diabetes for children. CT Scan : Chest, Lung Cancer Screening Reviewed date:07/30/2024 09:30:38 PM Interpretation: Performing Lab: Notes/Report: Medications Medication SIG (Take, Route, Frequency, Duration) Notes Start Date End Date Status Levothyroxine Sodium 50 MCG 1 tab(s) orally once a day; Duration: 90 days Active Zithromax Z-Raj 250 MG 2 tablets [...] for e-prescription and drug interaction check* Active B-12 1000 MCG 1 tab(s) orally once a day Active Finasteride 5 MG 1 tab(s) orally once a day Active Tadalafil 10 MG 1 tab(s) orally once a day Active Farxiga 10 MG 1 tablet Orally Once a day Active Tresiba 100 UNIT/ML as directed Subcutaneous Active Allopurinol 100 MG Take 1 tablet by mouth once daily; Duration: 90 Active Advair Diskus 250-50 MCG/ACT 1 puff Inhalation Twice a day Active Pregabalin 100 MG Take 1 capsule by mouth twice daily; Duration: 90 01/05/2025 Active ACCU-CHECK GUIDE TEST STRIPS USE TO CHECK BLOOD SUGAR DX:E11.9 TWICE DAILY; Duration: 100 days DX: E11.9 Active Breztri Aerosphere 160-9-4.8 MCG/ACT 2 puffs Inhalation Twice a day 03/08/2025 Active Promethazine-DM 6.25-15 MG/5ML 5 mL orally every 6 hours; Duration: 10 days 03/08/2025 Active DULoxetine HCl 30 MG Take 1 capsule by mouth twice daily; Duration: 90 Active metFORMIN HCl 1000 [...] once a day; Duration: 90 days Active Losartan Potassium 25 MG 1 tab(s) orally once a day; Duration: 90 days Active ONE TOUCH VEREO TEST STRIPS N/A 1 TEST STRIP FINGERSTICK TWICE A DAY DX: E11.9 *Please review for potential replacement for e-prescription and drug interaction check* 10/02/2023 Active OXYGEN 2.3 LITERS 2 L at night *Please review for potential replacement for e-prescription and drug interaction check* Active Multivitamin - 1 tab(s) orally once a day Active NOVOFINE PLUS PEN NEEDLE 32G 4MM USE ONCE DAILY WITH TRESIBA; Duration: 90 DAYS *Please review for potential replacement for e-prescription and drug interaction check* 08/14/2017 Active Immunizations Vaccine Route Administration Date Status Comme nts Fluvirin--Influenza vaccine 3+ year IM Intramuscular 02/17/2010 Administered Fluzone High Dose IM Intramuscular 02/28/2018 Administered Fluzone High Dose IM Intramuscular 01/30/2019 Administered Fluzone High Dose IM Intramuscular 04/05/2020 Administered Fluzone High Dose IM Intramuscular 06/05/2021 Administered Fluzone High Dose IM Intramuscular 03/13/2023 Administered Fluzone High Dose IM Intramuscular 02/17/2024 Administered Hep A Adult 2 Dose IM Intramuscular 05/26/2018 Administere d Influenza (Fluzone)--Medicare only IM Intramuscular 01/20/2016 Administered Influenza (Fluzone)--Medicare only IM Intramuscular 01/11/2017 Administered Pneumovax 23 IM Intramuscular 11/02/2015 Administered Prevnar PCV-13 (Pneumococcal conjugate 13) Unknown 10/29/2015 Administered Prevnar PCV-13 (Pneumococcal conjugate 13) Unknown 01/20/2016 Administered [employer] Social History Tobacco Use: Social History Observation Description Date Details (start date - stop date) Current Smoker NA - NA Smoking: Question Answer Notes Are you a: current smoker How often do you smoke cigarettes? every day How many cigarettes a day do you smoke? 11-20 Problems Problem Type SNOMED Code ICD Code Onset Dates Problem Status W/U Status Risk Notes Problem Peripheral circulato ry disorder associated with diabetes mellitus (062606509) Type 2 diabetes mellitus with other circulatory complications (E11.59) Active confirmed Problem Obstructive sleep apnea syndrome (disorder) (92736623) Obstructive sleep apnea (adult) (pediatric) (G47.33) Active confirmed Problem Atherosclerotic hear t disease of [place] coronary artery without angina pectoris (664255425355889) Atherosclerotic heart disease of [place] coronary artery without angina pectoris (I25.10) Active confirmed Problem Chronic kidney disea se (536969201) Chronic kidney disease, unspecified (N18.9) Active confirmed Problem Nicotine dependence (51866052) Personal history of nicotine dependence (Z87.891) Active confirmed Problem Obesity (241021912) Obesity (E66.9) Active conf irmed Problem Hyperlipidemia (88119081) Hyperlipidemia (E78.5) Active confirmed Problem Morbid obesity (678556389) Morbid obesity (E66.01) Active confirmed Problem Essential hypertensi on (42081807) Hypertension, essential (I10) Active confirmed Problem Acute exacerbation o f chronic obstructive airways disease (692938181) COPD exacerbation (J44.1) Active confirmed Problem Obesity (763314159) Obesity, unspecified (E66.9) Active confirmed Problem Dizziness (048119168) Dizziness (R42) Active co nfirmed Problem Obesity (208553802) Obesity (BMI 30-39.9) (E66.9) Active confirmed Problem Requires vaccination (282927466) Immunization(s) administered (Z23) Active confirmed Problem Memory loss (72007565) Memory loss (R41.3) Activ e confirmed Problem COPD - Chronic obstructive pulmonary disease (63633379) Chronic obstructive pulmonary disease, unspecified COPD type (J44.9) Active confirmed Problem Polyneuropathy due t o type 2 diabetes mellitus (274577372) Diabetic polyneuropathy associated with type 2 diabetes mellitus (E11.42) Active confirmed Problem Ataxia (89479932) Ataxia (R27.0) Active confirm ed Problem Atrial fibrillation (81013874) Atrial fibrillation, unspecified (I48.91) Active confirmed Problem Obstructive sleep apnea syndrome (33708907) ADELAIDA (obstructive sleep apnea) (G47.33) Active confirmed Problem Anemia (972787707) Anemia, unspe cified type (D64.9) Active confirmed Problem Atherosclerosis of both carotid arteries (557776279347477) Atherosclerosis of both carotid arteries (I65.23) Active confirmed Problem Type II diabetes mellitus without complication (518613319) Type 2 diabetes mellitus without complication, without long-term current use of insulin (E11.9) Active confirmed Problem Visual disturbance (29524839) Vision changes (H53.9) Active confirmed Problem Polyneuropathy due t o type 2 diabetes mellitus (293901590) Type 2 diabetes mellitus with peripheral neuropathy (E11.42) Active confirmed Problem Chronic obstructive pulmonary disease (79543304) 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) Active confirmed Problem hypercholesterolemia (disorder) (83751588) Hypercholesteremia (E78.00) Active confirmed Problem Chronic renal failur e syndrome (33148456) Chronic kidney disease, unspecified CKD stage (N18.9) Active confirmed Problem Neurologic disorder associated with type II diabetes mellitus (249366269) Other diabetic neurological complication associated with type 2 diabetes mellitus (E11.49) Active confirmed Problem Localized, primary osteoarthritis of the ankle and/or foot (659006577) Arthritis of foot (M19.079) Active confirmed Problem Chronic obstructive pulmonary disease with acute lower respiratory infection (552001103) Chronic obstructive pulmonary disease with (acute) lower respiratory infection (J44.0) Active confirmed Vital Signs Heart Rate 96 /min 03/08/2025 Temperature 97.5 degrees Fahrenheit 03/08/2025 Blood pressure diastolic 60 mm Hg 03/08/2025 Height 67.5 in 03/08/2025 Blood pressure systolic 178 mm Hg 03/08/2025 Weight 231.4 lbs 03/08/2025 BMI 35.7 kg/m2 03/08/2025 Encounters Encounter Location Date Provider Diagnosis [facility] [address] [place], [place] [address] 08/08/2024 Provider Migration [facility] [address] [facility] [address] [place], [place] [address] 04/13/2024 Akli Borges Acute bronchitis, unspecified organism J20.9 [facility] [address] [facility] [address] [place], [place] [address] 07/08/2024 Akil Borges Muscle pain M79.10 ; Hyperlipidemia E78.5 ; Type 2 diabetes mellitus with peripheral neuropathy E11.42 ; Anemia, unspecified type D64.9 ; Benign paroxysmal positional vertigo of left ear H81.12 ; Personal history of nicotine dependence Z87.891 and Healthcare maintenance Z00.00 [facility] [address] [facility] [address] [place] [address] 09/04/2024 Carlene Mccarthy Lower extremity roxana a R60.0 and Type 2 diabetes mellitus with peripheral neuropathy E11.42 [facility] [address] [facility] [address] [place], [place] [address] 10/07/2024 Akilisabel Borges Type 2 diabetes mellitus with peripheral neuropathy E11.42 ; Peripheral edema R60.9 and Benign paroxysmal positional vertigo of left ear H81.12 [facility] [address] [place] [address] 03/08/2025 Akil Kaltee COPD exacerbation J44.1 ; Chronic bronchitis with COPD (chronic obstructive pulmonary disease) J44.9 and Peripheral edema R60.0 [facility] [address] [facility] [address] [place], [place] [address] 04/13/2024 Akil Kalson [facility] [address] [facility] [address] [place], [place] [address] 07/08/2024 Akilisabel Borges Personal history of nicotine dependence Z87.891 and Benign paroxysmal positional vertigo of left ear H81.12 [facility] [address] [facility] [address] [place] [address] 07/08/2024 Akil Besson [facility] [address] [address] 10/20/2024 Akil Besson [facility] [address] [facility] [address] [place], [place] [address] 12/08/2024 Akil Besson [facility] [address] [address] 03/05/2025 Akilisabel Borges Assessments Encounter Date Diagnosis (ICD Code) Assessment Notes Treatment Notes Treatment Clinical Notes Section Notes 07/08/2024 Hyperlipidemia (ICD-10 - E78.5) Will check lipids today. Continue rosuvastatin 10 mg. 04/13/2024 Acute bronchitis, unspecified organism (ICD-10 - J20.9) Patient presents with 8 days of cough, congestion, sinus pressure and sore throat. He has been taking OTC cold medicine and cough syrup with minimal relief. On exam, noted to have bilateral wheezing and smoker's rhonchi. Started him on doxycycline to help with his symptoms. Told him to call back if he does not feel better by the middle/end of the week. 09/04/2024 Lower extremity edema (ICD-10 - R60.0) Encouraged him to take Lasix every day for 5 days and also to start wearing a compression sock on the left lower extremity every day from the time he gets up at least until lunchtime. Return precautions reviewed. He will keep his follow-up in [address] Borges. 09/04/2024 Type 2 diabetes mellitus with peripheral neuropathy (ICD-10 - E11.42) His eating and insulin administration are very inconsistent. Discussed that 70/30 insulin was designed to be taken with a meal and I encouraged him to do that every day with the same meal at least once a day. Follow-up in 4 weeks for his regular follow-up and review at that time. 10/07/2024 Peripheral edema (ICD-10 - R60.9) Swelling decreases overnight with elevation Recommended compression stockings 10/07/2024 Type 2 diabetes mellitus with peripheral neuropathy (ICD-10 - E11.42) Insulin dosing with meals 03/08/2025 COPD exacerbation (ICD-10 - J44.1) Discussed [...] month to see if this is better 07/08/2024 Muscle pain (ICD-10 - M79.10) several day history of calf pain bilaterally, is on a statin but has been stable on it for years. No erythema or palpable cord. Will send CPK. 07/08/2024 Personal history of nicotine dependence (ICD-10 - Z87.891) 07/08/2024 Benign paroxysmal positional vertigo of left ear (ICD-10 - H81.12) 03/08/2025 Peripheral edema (ICD-10 - R60.0) Patient not compliant with compressive garments, poor positioning, lots of salt and smoking. Discussed positions, using compression stockings in the morning. Follow-up in 1 month 10/07/2024 Benign paroxysmal positional vertigo of left ear (ICD-10 - H81.12) Recommend follow-up with PT for Pierre maneuver 07/08/2024 Type 2 diabetes mellitus with peripheral neuropathy (ICD-10 - E11.42) Continue current regimen. Counseled on diet and exercise. Ordered lipids, BMP, A1c. 07/08/2024 Anemia, unspecified type (ICD-10 - D64.9) Will check labs today. 07/08/2024 Benign paroxysmal positional vertigo of left ear (ICD-10 - H81.12) Positive juan hallpike in clinic. Will send to PT for Pierre maneuver. 07/08/2024 Personal history of nicotine dependence (ICD-10 - Z87.891) Patient has a greater than 65-tmod-vubj history of smoking, discussed smoking cessation once again, patient in precontemplative stage, spent greater than 5 minutes discussing smoking cessation along with his need for low-dose CT 07/08/2024 Healthcare maintenance (ICD-10 - Z00.00) UTD on vaccines. Will send CT lung cancer screen today. [employer] forms completed in office. Living will in place. Still smoking. See notes above. No alcohol use, depression screening negative, 3/ word recall Plan Of Treatment Pending Test Test Name Order Date X-Lipid Profile 07/31/2007 Ultrasound : Carotids 09/26/2022 N-CMP 07/31/2007 MRI : Head, Without Contrast 09/26/2022 CT Scan : Chest, With & Without Contrast 07/10/2011 C-CBC 05/25/2009 C-CMP 05/25/2009 C-LIPID PANEL 05/25/2009 C-PSA 05/25/2009 Pulmonary Function Test- Complete 2013 GFR 06/12/2022 M-Complete Blood Count Auto Diff 019 M-Comprehensive Metabolic Panel 07/31/19 19 M-Hemoglobin A1C 07/30/2018 M-Lipid Panel 07/30/2018 CT Scan : Chest, Lung Cancer Screening 0 05/29/2019 BUN 06/12/2022 Creatinine 06/12/2022 Ultrasound: cyst aspiration 12/09/2020 Physical Therapy : Vertigo 07/08/2024 COMPREHENSIVE METABOLIC PANEL (09163) CBC (INCLUDES DIFF/PLT) (6399) Future Test Test Name Order Date H-BUN 06/29/2013 H-CREATININE SERUM 06/29/2013 H-LIPID PANEL 04/16/2014 Next Appt Details Provider Name:Akil Borges, 04/05/2025 02:30:00 PM, [address], [place], [address], Insurance Providers Payer Name Payer Address Payer Phone Subscriber Number Group Number Insured Name Patient Relationship to Insured Coverage Start Date Coverage End Date [place] [address] [place] [phone] [id number] Farhan Plascencia Self - patient is the insured [facility] [address] [place] [address] [phone] [id number] Farhan Plascencia Self - patient is the insured [address] [facility] [address] [place] [address] [phone] ACL Farhan Plascencia Self - patient is the insured Medications Administered Medication Instructions Date of Administration Dosage Notes Ceftriaxone 500 11/12/2012 500 mg Kenalog 11/12/2012 1 Kenalog 05/21/2013 1 Medical (General) History Medical History History ICD Code hypertension diabetes COPD prostate infections hypercholestrolemia diverticulitis [facility] x1 in 2014 - LAD stent skin cancer lesions- removed colonoscopy 2012 with hyperp lastic polyp - repeated February 2018 with grade 1 hemorrhoids and no source of bleeding EGD February 2018 with chronic duodenitis normal low-dose CT scan in 07/28 Covid 24 May 2021, recovered unevent fully Negative AAA screening June 2021 Surgical History Surgery Date(Month/Year) hernia repair x2 heart stent x1 skin cancers removed 2016 Cardiac stent x 1 02/2019 Lymph node biopsy 11/2020 Hospitalization History Reason Date(Month/Year) Covid 05/2021 heart 08/2014
--- OUTSIDE RECORDS SUMMARY | 2025-04-02 14:52 | XMS_ITS | Encounter Summary ---
Author Organization Healthcare Address [address] [place] [address] Care Team Providers Care Business Development Consultant Name Role Phone Akil Borges MD Primary Care Provider + [phone] Alex Adams MD Unavailable [phone] Phan Avitia MD Unavailable Encounter Details Date Type Department Care Team (Late st Contact Info) Description 06/22/2021 Orders Only External Location [address] [place] [address] Akil Borges MD [address] [place] [address] Social History Tobacco Use Types Packs/Day Years Used Date Smoking Tobacco: Every Day Cigarettes 1 50 Smokeless Tobacco: Never Alcohol Use Standard Drinks/Week Comments Not Currently 0 (1 standard drink = 0.6 oz pur e alcohol) Sex and Gender Information Value Date Recorded Sex Assigned at Male 03/15/2021 3:14 PM EST Legal Sex Male 8:43 PM EDT Gender Identity Male 03/15/2021 3:14 PM EST Sexual Orientation Not on file Occupation Industry Job Start Date Job End Date retired Not on file Not on file Not on file documented as of this encounter Plan of Treatment Not on file documented as of this encounter Procedures Procedure Name Priority Date/Time Associated Diagnosis Comments CT THORACIC OUTSIDE IMAGES 06/22/2021 8:14 AM EST documented in this encounter Results * CT THORACIC OUTSIDE IMAGES (06/22/2021 8:14 AM EST) Anatomical Region Laterality Modality Computed Tomogra phy 06/22/2021 8:14 AM EST Akil Borges MD IMG CT PROCEDURES Final Resu lt documented in this encounter Visit Diagnoses Not on filedocumented in this encounter Additional Health Concerns Assessment Noted Time A fall risk assessment has been complete d for the patient 02/20/2021 4:43 PM EDT documented as of this encounter Care Teams Business Development Consultant Relationship Specialty Start Date End Date Akil Borges MD [address] [facility] [address] [place] [address] PCP - General 09/16/20 Alex Adams MD [address] [place] [address] Referring Physician 12/05/20 Phan Avitia MD [address] [facility] [address] [place] [address] Surgeon Otolaryngology 06/22/22 documented as of this encounter
--- OUTSIDE RECORDS SUMMARY | 2025-04-02 14:52 | XMS_ITS | Encounter Summary ---
Author Organization [facility] Address [address] [place] [address] Care Team Providers Care Beater Out Leveling Machine Name Role Phone Akil Borges MD Primary Care Provider + [phone] Alex Adams MD Unavailable [phone] Phan Avitia MD Unavailable Encounter Details Date Type Department Care Team (Late st Contact Info) Description 05/07/2018 Orders Only External Location [address] [place] [address] Provider, External Social History Tobacco Use Types [...] Procedure Name Priority Date/Time Associated Diagnosis Comments XR THORACIC OUTSIDE IMAGES 05/07/2018 11:14 AM EST documented in this encounter Results * XR THORACIC OUTSIDE IMAGES (05/07/2018 11:14 AM EST) Anatomical Region Laterality Modality Radiographic Joellen ging 05/07/2018 11:1 4 AM EST us External Provider IMG XR PROCEDURES Final Result documented in this encounter Visit Diagnoses Not on filedocumented in this encounter Care Teams Beater Out Leveling Machine Relationship Specialty Start Date End Date Akil Borges MD [address] [place] [address] PCP - General 09/16/20 Alex Adams MD [facility] [address] [id number] Referring Physician 12/05/20 Phan Avitia MD [id number] [place] [address] Surgeon Otolaryngology 06/22/22 documented as of this encounter
--- OUTSIDE RECORDS SUMMARY | 2025-04-02 14:52 | XMS_ITS | Encounter Summary ---
Author Organization Healthcare Address [address] [place] [address] Care Team Providers Care Golf Coach Name Role Phone Akil Borges MD Primary Care Provider + [phone] Alex Adams MD Unavailable [phone] Phan Avitia MD Unavailable Encounter Details Date Type Department Care Team (Late st Contact Info) Description 05/08/2021 Orders Only External Location [address] [place] [address] Provider, External Social History Tobacco Use Types [...] Associated Diagnosis Comments XR THORACIC OUTSIDE IMAGES 05/08/2021 1:14 AM EST documented in this encounter Results * XR THORACIC OUTSIDE IMAGES (05/08/2021 1:14 AM EST) Anatomical Region Laterality Modality Radiographic Joellen ging 05/08/2021 1:14 AM EST us External Provider IMG XR PROCEDURES Final Result documented in this encounter Visit Diagnoses Not on filedocumented in this encounter Additional Health Concerns Assessment Noted Time A fall risk assessment has been complete d for the patient 02/20/2021 4:43 PM EDT documented as of this encounter Care Teams Golf Coach Relationship Specialty Start Date End Date Akil Borges MD [address] [place] [address] PCP - General 09/16/20 Alex Adams MD [address] [place] [address] Referring Physician 12/05/20 Phan Avitia MD [address] [facility] [address] [place] [address] Surgeon Otolaryngology 06/22/22 documented as of this encounter
--- OUTSIDE RECORDS SUMMARY | 2025-04-02 14:52 | XMS_ITS | Encounter Summary ---
Author Organization Healthcare Address [address] [place] [address] Care Team Providers Care Shower Doors And Panels Fabricator Name Role Phone Akil Borges MD Primary Care Provider + [phone] Alex Adams MD Unavailable [phone] Phan Avitia MD Unavailable Encounter Details Date Type Department Care Team (Late st Contact Info) Description 12/12/2020 Orders Only External Location [address] [place] [address] Akil Borges MD [address] [place] [address] Social History Tobacco Use Types [...] file Not on file Not on file COVID-19 Exposure Response Date Recorded In the last month, have you been in contact with someone who was confirmed or suspected to have Coronavirus / COVID-19? No / Unsure 12/01/2020 1:13 PM EDT documented as of this encounter Plan of Treatment Not on file documented as of this encounter Procedures Procedure Name Priority Date/Time Associated Diagnosis Comments US OUTSIDE IMAGES 12/12/2020 10:25 AM EDT documented in this encounter Results * US OUTSIDE IMAGES (12/12/2020 10:25 AM EDT) Anatomical Region Laterality Modality Ultrasound 12/12/2020 10:2 5 AM EDT us Akil Borges MD IMG US PROCEDURES Final Resu lt documented in this encounter Visit Diagnoses Not on filedocumented in this encounter Care Teams Shower Doors And Panels Fabricator Relationship Specialty Start Date End Date Akil Borges MD [address] [place] [address] PCP - General 09/16/20 Alex Adams MD [address] [place] [address] Referring Physician 12/05/20 Phan Avitia MD [address] [place] [address] Surgeon Otolaryngology 06/22/22 documented as of this encounter
--- OUTSIDE RECORDS SUMMARY | 2025-04-02 14:52 | XMS_ITS | Clinical Summary ---
Author Organization [facility] Address [address] [place] [address] Care Team Providers Care Mortgage Loan Processing Clerk Name Role Phone Akil Borges MD Primary Care Provider + [phone] Alex Adams MD Unavailable [phone] Phan Avitia MD Unavailable Allergies No known active allergies Medications Multiple Vitamin (MULTIVITAMINS PO) 1 tablet 1 (one) time each day. 4 Active clopidogrel (Plavix) 75 MG tablet TAKE 1 TABLET BY MOUTH ONCE DAILY FOR 90 DAYS 1 Active ferrous gluconate (Fergon) 324 (37.5 Fe) MG tablet TAKE 1 TABLET BY MOUTH ONCE DAILY FOR 90 DAYS 1 Active Advair Diskus 250-50 MCG/DOSE diskus inhaler INHALE 1 PUFF BY MOUTH ONCE DAILY FOR 90 DAYS 1 Active furosemide (Lasix) 20 MG tablet 1 tablet 1 (one) time each day. 1 Active gabapentin (Neurontin) 100 MG capsule Take 100 mg by mouth 2 (two) times a day. 1 Active Tresiba FlexTouch 100 UNIT/ML injection 40 Units every night. 1 Active metFORMIN (Glucophage) 1000 MG tablet 1 tablet 2 (two) times a day. 1 Active rosuvastatin (Crestor) 10 MG tablet Take 10 mg by mouth 1 (one) time each day. 1 Active telmisartan-hyd roCHLOROthiazid e (MIcarDIS HCT) 80-25 MG tablet Take 0.5 tablets by mouth 1 (one) time each day. 1 Active Incruse Ellipta 62.5 MCG/INH inhalation INHALE 1 PUFF BY MOUTH EVERY 24 HOURS 1 Active aspirin 81 MG chewable tablet Chew 81 mg 1 (one) time each day. Active cyanocobalamin (Vitamin B-12) 1000 MCG tablet Take 1,000 mcg by mouth 1 (one) time each day. Active insulin NPH-insulin regular (NovoLIN) (70-30) 100 UNIT/ML injection Inject under the skin 2 (two) times a day before meals. Sliding scale only if FSBS > 100, per pt. Active levothyroxine (Synthroid, Levoxyl) 50 MCG tablet Take 50 mcg by mouth 1 (one) time each day before breakfast. Active amLODIPine (Norvasc) 10 MG tablet Take 1 tablet (10 mg total) by mouth 1 (one) time each day. 90 tablet 3 1 Active Additional Information Patient not taking.Reported on 07/12/2022 HYDROcodone-roxana taminophen ([place]) 5-325 MG tablet Take 1 tablet by mouth every 4 (four) hours if needed for severe pain. 15 tablet 1 Active Additional Information Patient not taking.Reported on 07/12/2022 ibuprofen 600 MG tablet Take 1 tablet (600 mg total) by mouth every 6 (six) hours if needed for mild pain. 30 tablet 1 Active Additional Information Patient not taking.Reported on 07/12/2022 allopurinol (Zyloprim) 100 MG tablet TAKE DIRECTED ONCE DAILY 3 Active Ferrous Fumarate 324 (106 Fe) MG tablet ferrous fumarate 324 mg (106 mg iron) tablet Take by oral route. Active finasteride (Proscar) 5 MG tablet Take 5 mg by mouth 1 (one) time each day. 3 Active pregabalin (Lyrica) 100 MG capsule Take 100 mg by mouth 1 (one) time each day. 3 Active cephalexin (Keflex) 500 MG capsule Take 1 capsule (500 mg total) by mouth 3 (three) times a day. 21 capsule 3 Active Active Problems Problem Noted Date Diagnosed Date Tobacco use disorder 07/12/2022 Warthin's tumor 03/20/2021 Diabetes mellitus, type 2 03/10/2021 Chronic obstructive pulmonary disease 03/10/2021 Antiplatelet or antithrombotic long-term use 09/2020 Good tolerance for activity 03/10/2021 Parotid mass 01/30/2021 Stenosis of left carotid artery 12/06/2020 Overview (12/06/2020): Added automatically from request for surgery [id number] Mass of left side of neck 12/01/2020 On home oxygen therapy 12/01/2020 Obesity (BMI 30-39.9) 12/01/2020 Bilateral carotid artery disease 11/29/2020 Hypothyroidism 11/29/2020 Hypertension 11/29/2020 High cholesterol 11/29/2020 Coronary artery disease 11/29/2020 Chronic renal insufficiency 11/29/2020 Diastolic dysfunction 08/16/2013 Sleep apnea, obstructive 08/16/2013 Type 2 diabetes mellitus, uncontrolled 4 GERD (gastroesophageal reflux disease) 4 Polycythemia vera 08/14/2013 Immunizations Immunization Administration Dates Next Due Hep A, Adult 05/26/2018 Influenza, high-dose, quadrivalent 04/05/2020,,02/28/2018 Influenza, injectable, quadrivalent 01/11/2017 Influenza, seasonal, injectable 03/18/2013 Moderna COVID-19 Vaccine (Re d Cap) 12+ years 07/13/2020,06/15/2020 Pneumococcal Conjugate PCV 13 10/29/2015 Pneumococcal Polysaccharide PPV23 03/18/2013 TD (adult), 2 Lf tetanus tox oid, preservative free, adsorbed 07/08/1996 Family History Medical History Relation Name Comments Colon cancer Father No Known Problems Mother Anesthesia problems Neg Hx Malig Hyperthermia Neg Hx Relation Name Status Comments Father Mother Social History Tobacco Use Types Packs/Day Years Used Date Smoking Tobacco: Every Day Cigarettes 1 50 Passive Smoke Exposure: Never Smokeless Tobacco: Never Tobacco Cessation:Ready to Q uit: No; Counseling Given: No Alcohol Use Standard Drinks/Week Comments Not Currently 0 (1 standard drink = 0.6 oz pur e alcohol) PHQ-2 Answer Date Recorded Patient Health Questionnaire-2 Score 0 07/12/2022 PHQ-2A Answer Date Recorded Patient Health Questionnaire-2 Score 0 07/12/2022 Sex and Gender Information Value Date Recorded Sex Assigned at Male 03/15/2021 3:14 PM EST Legal Sex Male 8:43 PM EDT Gender Identity Male 03/15/2021 3:14 PM EST Sexual Orientation Not on file Occupation Industry Job Start Date Job End Date retired Not on file Not on file Not on file Last Filed Vital Signs Vital Sign Reading Time Taken Comments Blood Pressure 126/73 08/14/2022 9:58 AM EDT Pulse 83 08/14/2022 9:58 AM EDT Temperature 36.7 C (98.1 F) 08/14/2022 9:58 AM EDT Respiratory Rate 18 08/14/2022 9:58 AM EDT Oxygen Saturation 95% 08/14/2022 9:58 AM EDT Inhaled Oxygen Concentration - - Weight 104 kg (228 lb 2.8 oz) 08/14/2022 9:58 AM EDT Height 172.7 cm (5' 8 ) 08/06/2022 1:39 PM EDT Body Mass Index 34.69 08/06/2022 1:39 PM EDT Plan of Treatment Health Maintenance Due Date Last Done Comments [facility]-Diabetes: Hemoglobin A1C 1945 [facility]-Hepatitis C Screening 1945 [facility]Medicare Annual Wellness (AWV) 1945 [facility]-Infant/Child/Adol SDOH Screenings 1947 [facility]-Obesity Intervention 1953 Diabetes: Dental Exam 1957 [facility]- SDOH Screenings 1965 [facility]-Adult SDOH Screenings 1965 [facility]-Zoster Vaccines (1 of 2) 1966 [facility]-DTaP,Tdap,and Td Vaccines (1 - Tdap) 07/09/1996 07/08/1996 [id number] Vaccine (3 - Moderna risk series) 08/10/2020 07/13/2020, 06/15/2020 [facility]-RSV Vaccine: 60+ Years or (1 - 1-dose 75+ series) 2022 [facility]-Depression Screening 07/13/2023 07/12/2022, 02/03 [facility]-Influenza Vaccine (#1) 01/04/202504/05, 01/30/2019, 02/28/2018, Additional history exists [facility]-Pneumococcal Vaccine: 50+ Years Completed 10/29/2015, 03/18/2013 [facility]-Lung Cancer Screening Discontinued 03/24/2018 [facility]-Hepatitis A Vaccines Aged Out 05/26/2018 No longer eligible based on patient's age to complete this topic HPV Vaccines Aged Out No longer eligi ble based on patient's age to complete this topic [facility]-HIB Vaccines Aged Out No longer e ligible based on patient's age to complete this topic [facility]-IPV Vaccines Aged Out No longer e ligible based on patient's age to complete this topic [facility]-Rotavirus Vaccines Aged Out No lo nger eligible based on patient's age to complete this topic Procedures Procedure Name Priority Date/Time Associated Diagnosis Comments CT CHEST WO IV CONTRAST Routine 03/24/2018 12:00 AM EST Examination from Last 3 Months or Most Recently Relevant to Health Maintenance Results * CT Chest wo IV Contrast (03/24/2018 12:00 AM EST) Narrative IMAGING - 06/28/2022 6:14 AM EST This study was performed at an outside facility and has been loaded into the PACS system for reference only. This order has been auto-finalized and does not contain a result. us Imaging Upload Radiant IMG CT PROCEDURES Final R esult IMAGING from Last 3 Months or Most Recently Relevant to Health Maintenance Insurance MEDICARE ANTHEM Care Teams Mortgage Loan Processing Clerk Relationship Specialty Start Date End Date Akil Borges MD [address] [facility] [address] [facility] [address] [place] [id number] PCP - General 09/16/20 Alex Adams MD [address] [facility] [address] [place] [address] Referring Physician 12/05/20 Phan Avitia MD [address] [place] [address] Surgeon Otolaryngology 06/22/22
--- OUTSIDE RECORDS SUMMARY | 2025-04-02 14:52 | XMS_ITS | Encounter Summary ---
Author Organization Healthcare Address [address] [place] [address] Care Team Providers Care Counterintelligence/Humint Specialist Name Role Phone Akil Borges MD Primary Care Provider + [phone] Alex Adams MD Unavailable [phone] Phan Avitia MD Unavailable Encounter Details Date Type Department Care Team (Late st Contact Info) Description 02/15/2022 Orders Only External Location [address] [place] [address] Akil Borges MD [address] [place] [address] Social History Tobacco Use Types [...] Comments CT ABDOMEN PELVIS WO IV CONTRAST 02/15/2022 7:01 AM EDT documented in this encounter Results * CT Abdomen Pelvis wo IV Contrast (02/15/2022 7:01 AM EDT) Anatomical Region Laterality Modality Abdomen, Pelvis Computed Tomogra phy 02/15/2022 7:01 AM EDT Akil Borges MD IMG CT PROCEDURES Final Resu lt documented in this encounter Visit Diagnoses Not on filedocumented in this encounter Additional Health Concerns Assessment Noted Time A fall risk assessment has been complete d for the patient 02/20/2021 4:43 PM EDT documented as of this encounter Care Teams Counterintelligence/Humint Specialist Relationship Specialty Start Date End Date Akil Borges MD [address] [place] [address] PCP - General 09/16/20 Alex Adams MD [address] [place] [address] Referring Physician 12/05/20 Phan Avitia MD [address] [place] [address] Surgeon Otolaryngology 06/22/22 documented as of this encounter
--- OUTSIDE RECORDS SUMMARY | 2025-04-02 14:52 | XMS_ITS | Encounter Summary ---
Author Organization Healthcare Address [address] [place] [address] Care Team Providers Care Oil Program Compliance Specialist Name Role Phone Akil Borges MD Primary Care Provider + [phone] Alex Adams MD Unavailable [phone] Phan Avitia MD Unavailable Encounter Details Date Type Department Care Team (Late st Contact Info) Description 12/12/2020 Orders Only External Location [address] [place] [address] Akil Borges MD [address] [place] [address] Social History Tobacco Use Types [...] Associated Diagnosis Comments US OUTSIDE IMAGES 12/12/2020 10:36 AM EDT documented in this encounter Results * US OUTSIDE IMAGES (12/12/2020 10:36 AM EDT) Anatomical Region Laterality Modality Ultrasound 12/12/2020 10:3 6 AM EDT us Akil Borges MD IMG US PROCEDURES Final Resu lt documented in this encounter Visit Diagnoses Not on filedocumented in this encounter Care Teams Oil Program Compliance Specialist Relationship Specialty Start Date End Date Akil Borges MD [address] [place] [address] PCP - General 09/16/20 Alex Adams MD [address] [place] [address] Referring Physician 12/05/20 Phan Avitia MD [address] [place] [address] Surgeon Otolaryngology 06/22/22 documented as of this encounter
--- OUTSIDE RECORDS SUMMARY | 2025-04-02 14:52 | XMS_ITS | Encounter Summary ---
Author Organization Healthcare Address [address] [place] [address] Care Team Providers Care Civil Project Engineer Name Role Phone Akil Borges MD Primary Care Provider + [phone] Alex Adams MD Unavailable [phone] Phan Avitia MD Unavailable Encounter Details Date Type Department Care Team (Late st Contact Info) Description 11/22/2020 Orders Only External Location [address] [place] [address] Provider, External Social History Tobacco Use Types [...] Name Priority Date/Time Associated Diagnosis Comments CT ANGIO NECK 11/22/2020 11:03 AM EDT documented in this encounter Results * CT Angio Neck (11/22/2020 11:03 AM EDT) Anatomical Region Laterality Modality Carotid Artery Computed Tomogra phy 11/22/2020 11:0 3 AM EDT us External Provider IMG CT PROCEDURES Final Result documented in this encounter Visit Diagnoses Not on filedocumented in this encounter Care Teams Civil Project Engineer Relationship Specialty Start Date End Date Akil Borges MD [address] [place] [address] PCP - General 09/16/20 Alex Adams MD [address] [place], [place] [id number] Referring Physician 12/05/20 Phan Avitia MD [address] [facility] [address] [place] [address] Surgeon Otolaryngology 06/22/22 documented as of this encounter
--- OUTSIDE RECORDS SUMMARY | 2025-04-02 14:52 | XMS_ITS | Encounter Summary ---
Author Organization Healthcare Address [address] [place] [address] Care Team Providers Care Pet Care Worker Name Role Phone Akil Borges MD Primary Care Provider + [phone] Alex Adams MD Unavailable [phone] Phan Avitia MD Unavailable Encounter Details Date Type Department Care Team (Late st Contact Info) Description 04/14/2022 Orders Only External Location [address] [place] [address] Neeraj Ross MD [address] [place] [address] Social History Tobacco Use Types Packs/Day Years [...] Associated Diagnosis Comments XR THORACIC OUTSIDE IMAGES 04/14/2022 3:51 PM EST documented in this encounter Results * XR THORACIC OUTSIDE IMAGES (04/14/2022 3:51 PM EST) Anatomical Region Laterality Modality Radiographic Joellen ging 04/14/2022 3:51 PM EST us Neeraj Ross MD IMG XR PROCEDURES Final Resu lt documented in this encounter Visit Diagnoses Not on filedocumented in this encounter Additional Health Concerns Assessment Noted Time A fall risk assessment has been complete d for the patient 02/20/2021 4:43 PM EDT documented as of this encounter Care Teams Pet Care Worker Relationship Specialty Start Date End Date Akil Borges MD [address] [facility] [address] [facility] [address] [place] [address] PCP - General 09/16/20 Alex Adams MD [address] [facility] [address] [place] [address] Referring Physician 12/05/20 Phan Avitia MD [address] [facility] [address] [place] [address] Surgeon Otolaryngology 06/22/22 documented as of this encounter
--- OUTSIDE RECORDS SUMMARY | 2025-04-02 14:52 | XMS_ITS | Encounter Summary ---
Author Organization Healthcare Address [address] [place] [address] Care Team Providers Care Program Review Director Name Role Phone Akil Borges MD Primary Care Provider + [phone] Alex Adams MD Unavailable [phone] Phan Avitia MD Unavailable Encounter Details Date Type Department Care Team (Late st Contact Info) Description 03/24/2018 Orders Only External Location [address] [place] [address] Huong Royal MD [address] [place] [address] Social History Tobacco Use Types Packs/Day Years [...] Associated Diagnosis Comments CT THORACIC OUTSIDE IMAGES 03/24/2018 7:03 AM EST documented in this encounter Results * CT THORACIC OUTSIDE IMAGES (03/24/2018 7:03 AM EST) Anatomical Region Laterality Modality Computed Tomogra phy 03/24/2018 7:03 AM EST us Huong Royal MD IMG CT PROCEDURES Final Result documented in this encounter Visit Diagnoses Not on filedocumented in this encounter Care Teams Program Review Director Relationship Specialty Start Date End Date Akil Borges MD [address] [place] [address] PCP - General 09/16/20 Alex Adams MD [address] [place] [address] Referring Physician 12/05/20 Phan Avitia MD [address] [facility] [address] [place] [address] Surgeon Otolaryngology 06/22/22 documented as of this encounter
--- OUTSIDE RECORDS SUMMARY | 2025-04-02 14:52 | XMS_ITS | Data Portability ---
Author Organization [facility] VIRGIL Small KIMBERLY CLOSED Address [address] [place] [address] Care Team Providers Care Information Technology Project Manager Name Role Phone XAVIER JAMISON Primary Care Provider [phone] Assessment Encounter Date Assessment Date Assessment LastModified by Organization Details LastModified Time 03/21/2022 03/21/2022 PREOPERATIVE DIAGNOSIS: Hematuria. POSTOPERATIVE DIAGNOSIS: Hematuria likely secondary to BPH. PROCEDURE: Cystoscopy, biopsy of prostatic urethra with fulguration. SURGEON: Anthony Sue MD ANESTHESIA: General. DRAINS: None. SPECIMEN: Cold cup biopsy, prostatic urethra. INDICATIONS: Patient with long history of BPH and chronically elevated PSA. He has had biopsies in the past. Recently experienced gross painless hematuria on several occasions. He is on anticoagulation therapy for cardiac disease. He presents today for cystoscopy. He has had a CT scan that appears more which was unremarkable. OPERATIVE NOTE: After satisfactory sedation, he was carefully placed in the lithotomy position. Genitalia were prepped and draped in normal fashion. A 20-Botswanan cystoscopy sheath was introduced under direct vision. with 30-degree lens. His urethra was normal. Prostate showed some adenomatous growth with some edema and irritation on the right side. The bladder was mildly trabeculated throughout. There was no evidence of bladder tumors, but this area at the prostatic urethra was biopsied with cold cup biopsy forceps. This area was cauterized and hemostasis achieved. He also had a very prominent area of vasculature on the left side of the bladder neck and prostatic urethra. It is very likely the prostatic hypertrophy is the source of the bleeding due to its vascularity and anticoagulation therapy. Bladder was drained, cystoscope removed. Xylocaine jelly was instilled in the urethra. He will follow up with me in 3 weeks, and we will contact him with his pathology. He is placed on finasteride 5 mg daily. [email or web address] Not available 03/21/2022 12:55:46 Plan of Treatment Reminders Order Date Submit Date Provider Last Modified By Organization Details Last Modified Time Details Appointments None recorded. Lab urinalysis panel, auto [address] [facility], [address], [address], [place], [address], 5 15:57:41 urinalysis panel, auto 2024 025 [address] [facility], [address], [address], [address], 5 09:28:38 PSA, total, serum or plasma [address] [facility], [address] [place] [address], [address], 5 09:28:38 testosteron e, total, serum [address] [facility], [address] [place] [address], [address], 5 09:28:38 urinalysis panel, auto 2021 022 [address] [facility], [address], [address], [address], 09:52:01 BMP, serum or plasma [address] [facility], [address] [place] [address], [address], 10:02:53 CBC w/ auto diff 2021 022 [email or web address] [facility], [address] [place], [address], 10:02:53 PSA, serum or plasma 2021 022 [email or web address] [facility], [address] [place], [address], 10:02:53 urinalysis, dipstick, auto 2019 020 [facility], [address], [address], [place], [address], 0 16:21:41 Referral None recorded. Procedures None recorded. Surgeries None recorded. Imaging None recorded. Medication Orders clotrimazol e-betametha sone 1 %-0.05 % topical cream 2024 025 [facility], [address], [address], 5 15:57:45 tadalafil 5 mg tablet 2024 025 [facility], [address], [address], 5 17:13:42 Patient TargetsNo targets recorded. Patient Instructions Encounter Date Encounter Id Patient Instructions Last Modified By Organization Details Last Modified Time 07/24/2019 [id number] prostate biopsy: about this test [email or web address] Not available 07/24/2019 15:06:27 learning about healthy weight [email or web address] Not available 07/24/2019 15:06:27 [place] [employer] [email or web address] Not available 07/24/2019 15:06:27 Quitting Tobacco : Care Instructions [email or web address] Not available 07/24/2019 15:06:27 benign prostatic hyperplasia: care instructions [email or web address] Not available 07/24/2019 15:06:27 Reason for Referral None Reported. Results Created Date Observation Date Name Description Value Unit Range Abnormal Flag Note LastModifiedBy Organization Detail LastModifiedTime 07/24/19 20 07/24/2019 urina lysis , dipst ick, auto Unknown Analyte Yellow Not Available [facility] [address], [place], [address], 07/24/2019 14:21:44 07/24/19 20 07/24/2019 urina lysis , dipst ick, auto Unknown Analyte Clear Not Available [facility] [address], [place], [address], 07/24/2019 14:21:44 07/24/19 20 07/24/2019 urina lysis , dipst ick, auto Unknown Analyte 1.010 Not Available [facility] [address], [place], [address], 07/24/2019 14:21:44 07/24/19 20 07/24/2019 urina lysis , dipst ick, auto Unknown Analyte 1.003 - 1.035 Not Available [facility] [address], [place], [address], 07/24/2019 14:21:44 07/24/19 20 07/24/2019 urina lysis , dipst ick, auto Unknown Analyte 5.0 Not Available [facility] [address], [place], [address], 07/24/2019 14:21:44 07/24/19 20 07/24/2019 urina lysis , dipst ick, auto Unknown Analyte 5.0 - 8.0 Not Available [facility] [address], [place], [address], 07/24/2019 14:21:44 07/24/19 20 07/24/2019 urina lysis , dipst ick, auto Unknown Analyte Negati ve Not Available [facility] [address], [place], [address], 07/24/2019 14:21:44 07/24/19 20 07/24/2019 urina lysis , dipst ick, auto Unknown Analyte Negati ve Not Available [facility] [address], [place], [address], 07/24/2019 14:21:44 07/24/19 20 07/24/2019 urina lysis , dipst ick, auto Unknown Analyte Negati ve Not Available [facility] [address], [place], [address], 07/24/2019 14:21:44 07/24/19 20 07/24/2019 urina lysis , dipst ick, auto Unknown Analyte Negati ve Not Available [facility] [address], [place], [address], 07/24/2019 14:21:44 07/24/19 20 07/24/2019 urina lysis , dipst ick, auto Unknown Analyte Negtiv e Not Available [facility] [address], [place], [address], 07/24/2019 14:21:44 07/24/19 20 07/24/2019 urina lysis , dipst ick, auto Unknown Analyte Negati ve - Trace Not Available [facility] [address], [place], [address], 07/24/2019 14:21:44 07/24/19 20 07/24/2019 urina lysis , dipst ick, auto Unknown Analyte Normal Not Available [facility] [address], [place], [address], 07/24/2019 14:21:44 07/24/19 20 07/24/2019 urina lysis , dipst ick, auto Unknown Analyte Normal Not Available [facility] [address], [place], [address], 07/24/2019 14:21:44 07/24/19 20 07/24/2019 urina lysis , dipst ick, auto Unknown Analyte Negati ve Not Available [facility] [address], [place], [address], 07/24/2019 14:21:44 07/24/19 20 07/24/2019 urina lysis , dipst ick, auto Unknown Analyte Negati ve Not Available [facility] [address], [place], [address], 07/24/2019 14:21:44 07/24/19 20 07/24/2019 urina lysis , dipst ick, auto Unknown Analyte Normal Not Available [facility] [address], [place], [address], 07/24/2019 14:21:44 07/24/19 20 07/24/2019 urina lysis , dipst ick, auto Unknown Analyte Normal - 1mg/dl Not Available [facility] [address], [place], [address], 07/24/2019 14:21:44 07/24/19 20 07/24/2019 urina lysis , dipst ick, auto Unknown Analyte Negati ve Not Available [facility] [address], [place], [address], 07/24/2019 14:21:44 07/24/19 20 07/24/2019 urina lysis , dipst ick, auto Unknown Analyte Negati ve Not Available [facility] [address], [place], [address], 07/24/2019 14:21:44 07/24/19 20 07/24/2019 urina lysis , dipst ick, auto Unknown Analyte Negati ve Not Available [facility] [address], [place], [address], 07/24/2019 14:21:44 07/24/19 20 07/24/2019 urina lysis , dipst ick, auto Unknown Analyte Negati ve Not Available [facility] [address], [place], [address], 07/24/2019 14:21:44 07/24/19 20 07/24/2019 urina lysis , dipst ick, auto Unknown Analyte Clean Catch Not Available [facility] [address], [place], [address], 07/24/2019 14:21:44 07/24/19 20 07/24/2019 urina lysis , dipst ick, auto Unknown Analyte Automa wagner Not Available [facility] [address], [place], [address], 07/24/2019 14:21:44 02/27/20 22 02/26/2022 COMPL ETE BLOOD COUNT white blood cells 8.5 K/uL 3.8-10 .8 normal Not Available [facility] [address] [place] [address], [address], 02/26/2022 19:46:17 02/27/20 22 02/26/2022 COMPL ETE BLOOD COUNT red blood cells 4.32 M/uL 4.20-5 .80 normal Not Available [facility] [address] [place] [address], [address], 02/26/2022 19:46:17 02/27/20 22 02/26/2022 COMPL ETE BLOOD COUNT hemoglobin 13.9 g/dL 14.0-1 8.0 low Not Available [facility] [address] [place] [address], [address], 02/26/2022 19:46:17 02/27/20 22 02/26/2022 COMPL ETE BLOOD COUNT hematocrit 39.9 % 40.0-5 2.0 low Not Available [facility] [address] [place] [address], [address], 02/26/2022 19:46:17 02/27/20 22 02/26/2022 COMPL ETE BLOOD COUNT MCV 92 fL 80-100 normal Not Available [facility] [address] [place] [address], [address], 02/26/2022 19:46:17 02/27/20 22 02/26/2022 COMPL ETE BLOOD COUNT MCH 32 pg 26-35 normal Not Available [facility] [address] [place] [address], [address], 02/26/2022 19:46:17 02/27/20 22 02/26/2022 COMPL ETE BLOOD COUNT MCHC 35 g/dL 32-36 normal Not Available [facility] [address] [place] [address], [address], 02/26/2022 19:46:17 02/27/20 22 02/26/2022 COMPL ETE BLOOD COUNT RDW 14.3 % 11.0-1 5.0 normal Not Available [facility] [address] [place] [address], [address], 02/26/2022 19:46:17 02/27/20 22 02/26/2022 COMPL ETE BLOOD COUNT MPV 9.7 fL 6.2-10 .5 normal Not Available [facility] [address] [place] [address], [address], 02/26/2022 19:46:17 02/27/20 22 02/26/2022 COMPL ETE BLOOD COUNT platelet count 242 K/uL 130-40 0 normal Not Available [facility] [address] [place] [address], [address], 02/26/2022 19:46:17 02/27/20 22 02/26/2022 COMPL ETE BLOOD COUNT neutrophil,a bsolute 5.1 K/uL 1.6-8. 4 normal Not Available [facility] [address] [place] [address], [address], 02/26/2022 19:46:17 02/27/20 22 02/26/2022 COMPL ETE BLOOD COUNT lymphocyte,a bsolute 2.4 K/uL 0.4-5. 1 normal Not Available [facility] [address] [place] [address], [address], 02/26/2022 19:46:17 02/27/20 22 02/26/2022 COMPL ETE BLOOD COUNT monocyte,abs olute 0.6 K/uL 0.0-1. 2 normal Not Available [facility] [address] [place] [address], [address], 02/26/2022 19:46:17 02/27/20 22 02/26/2022 COMPL ETE BLOOD COUNT eosinophil,a bsolute 0.3 K/uL 0.0-0. 8 normal Not Available [facility] [address] [place] [address], [address], 02/26/2022 19:46:17 02/27/20 22 02/26/2022 COMPL ETE BLOOD COUNT basophil,abs olute 0.1 K/uL 0.0-0. 3 normal Not Available [facility] [address] [place] [address], [address], 02/26/2022 19:46:17 02/27/20 22 02/26/2022 COMPL ETE BLOOD COUNT % neutrophils 60.1 % 42.0-7 8.0 normal Not Available [facility] [address] [place] [address], [address], 02/26/2022 19:46:17 02/27/20 22 02/26/2022 COMPL ETE BLOOD COUNT % lymphocytes 28.1 % 11.0-4 7.0 normal Not Available [facility] [address] [place] [address], [address], 02/26/2022 19:46:17 02/27/20 22 02/26/2022 COMPL ETE BLOOD COUNT % monocytes 6.8 % 0.0-11 .0 normal Not Available [facility] [address] [place] [address], [address], 02/26/2022 19:46:17 02/27/20 22 02/26/2022 COMPL ETE BLOOD COUNT % eosinophils 4.1 % 0.0-7. 0 normal Not Available [facility] [address] [place] [address], [address], 02/26/2022 19:46:17 02/27/20 22 02/26/2022 COMPL ETE BLOOD COUNT % basophils 0.9 % 0.0-3. 0 normal Not Available [facility] [address] [place] [address], [address], 02/26/2022 19:46:17 02/27/20 22 02/26/2022 COMPL ETE BLOOD COUNT nucleated red cells 0.1 % 0.0-0. 9 normal Not Available [facility] [address] [place] [address], [address], 02/26/2022 19:46:17 02/27/20 22 02/26/2022 COMPL ETE BLOOD COUNT nucleated RBCs, absolute 0.01 K/uL not estab. normal Not Available [facility] [address] [place] [address], [address], 02/26/2022 19:46:17 02/27/20 22 02/26/2022 BASIC METAB OLIC PANEL glucose 129 mg/dL 74-100 high Not Available [facility] [address] [place] [address], [address], 02/26/2022 19:49:58 02/27/20 22 02/26/2022 BASIC METAB OLIC PANEL blood urea nitrogen 17 mg/dL 6-20 normal Not Available [facility] [address] [place] [address], [address], 02/26/2022 19:49:58 02/27/20 22 02/26/2022 BASIC METAB OLIC PANEL creatinine 1.23 mg/dL 0.70-1 .28 normal Not Available [facility] [address] [place] [address], [address], 02/26/2022 19:49:58 02/27/20 22 02/26/2022 BASIC METAB OLIC PANEL BUN/creatini ne ratio 14 (calc ) 10-20 normal Not Available [facility] [address] [place] [address], [address], 02/26/2022 19:49:58 02/27/20 22 02/26/2022 BASIC METAB OLIC PANEL sodium 140 mmol/ L 136-14 5 normal Not Available [facility] [address] [place] [address], [address], 02/26/2022 19:49:58 02/27/20 22 02/26/2022 BASIC METAB OLIC PANEL potassium 3.3 mmol/ L 3.4-5. 0 low Not Available [facility] [address] [place] [address], [address], 02/26/2022 19:49:58 02/27/20 22 02/26/2022 BASIC METAB OLIC PANEL chloride 100 mmol/ L 98-107 normal Not Available [facility] [address] [place] [address], [address], 02/26/2022 19:49:58 02/27/20 22 02/26/2022 BASIC METAB OLIC PANEL carbon dioxide 29 mmol/ L 22-31 normal Not Available [facility] [address] [place] [address], [address], 02/26/2022 19:49:58 02/27/20 22 02/26/2022 BASIC METAB OLIC PANEL anion gap 11 (calc ) 7-25 normal Not Available [facility] [address] [place] [address], [address], 02/26/2022 19:49:58 02/27/20 22 02/26/2022 BASIC METAB OLIC PANEL calcium 9.5 mg/dL 8.6-10 .2 normal Not Available [facility] [address] [place] [address], [address], 02/26/2022 19:49:58 02/27/20 22 02/26/2022 BASIC METAB OLIC PANEL GFR 61 >= 60 normal NOT E New calcu latio n for GFR (CKD- EPI 2020) is formu lated witho ut race adjus tment facto rs at the recom menda tion of the [employer] Nephr ology . This calcu latio n has not been valid ated in pregn ant women . For pedia tric patie nts refer to https ://grady lopez.erika marinelli/pr ofess ional s/KDO QI/gf r_cal culat orPed Not Available [facility] [address] [place], [address], 02/26/2022 19:49:58 02/27/20 22 02/26/2022 PROST ATE SPECI FIC AG prostate specific Ag 4.510 NG/mL 0.000- 4.400 high Test metho d is based on WHO-s tanda rdize d calib ratio n using the Hamida Mustapha E801 danilo zer. PSA resul ts by diffe rent test proce dures canno t be direc tly holli red with one anoth er. . Not Available [facility] [address] [place], [address], 02/26/2022 19:55:12 02/27/20 22 02/26/2022 urina lysis panel , auto Unknown Analyte Clean Catch Not Available [facility] [address] [place] [address], [address], 02/26/2022 16:59:19 02/27/20 22 02/26/2022 urina lysis panel , auto Unknown Analyte Yellow Not Available [facility] [address], [address], 02/26/2022 16:59:19 02/27/20 22 02/26/2022 urina lysis panel , auto Unknown Analyte Clear Not Available [facility] [address] [place] [address], [address], 02/26/2022 16:59:19 02/27/20 22 02/26/2022 urina lysis panel , auto Unknown Analyte 1.015 Not Available [facility] [address] [place] [address], [address], 02/26/2022 16:59:19 02/27/20 22 02/26/2022 urina lysis panel , auto Unknown Analyte 1.003- 1.035 Not Available [facility] [address] [place] [address] Rd [address], [place], [address], 02/26/2022 16:59:19 02/27/20 22 02/26/2022 urina lysis panel , auto Unknown Analyte 5.0 Not Available [facility] [address] [place] [address] Rd [address], [place], [address], 02/26/2022 16:59:19 02/27/2002/26/2022 urina lysis panel , auto Unknown Analyte 5.0-8. 0 Not Available [facility] [address], [place], [address], 02/26/2022 16:59:19 02/27/20 22 02/26/2022 urina lysis panel , auto Unknown Analyte Negati ve Not Available [facility] [address], [place], [address], 02/26/2022 16:59:19 02/27/20 22 02/26/2022 urina lysis panel , auto Unknown Analyte Negati ve Not Available [facility] [address] [place] [address] Rd [address], [place], [address], 02/26/2022 16:59:19 02/27/20 22 02/26/2022 urina lysis panel , auto Unknown Analyte Negati ve Not Available [facility] [address], [address], 02/26/2022 16:59:19 02/27/20 22 02/26/2022 urina lysis panel , auto Unknown Analyte Negati ve Not Available [facility] [address], [place], [address], 02/26/2022 16:59:19 02/27/20 22 02/26/2022 urina lysis panel , auto Unknown Analyte 30 mg/dl (+) Not Available [facility] [address], [place], [address], 02/26/2022 16:59:19 02/27/20 22 02/26/2022 urina lysis panel , auto Unknown Analyte Negati ve Not Available [facility] [address], [place], [address], 02/26/2022 16:59:19 02/27/20 22 02/26/2022 urina lysis panel , auto Unknown Analyte Normal Not Available [facility] [address], [place], [address], 02/26/2022 16:59:19 02/27/20 22 02/26/2022 urina lysis panel , auto Unknown Analyte Normal Not Available [facility] [address], [place], [address], 02/26/2022 16:59:19 02/27/20 22 02/26/2022 urina lysis panel , auto Unknown Analyte Negati ve Not Available [facility] [address], [place], [address], 02/26/2022 16:59:19 02/27/20 22 02/26/2022 urina lysis panel , auto Unknown Analyte Negati ve Not Available [facility] [address], [place], [address], 02/26/2022 16:59:19 02/27/20 22 02/26/2022 urina lysis panel , auto Unknown Analyte Normal Not Available [facility] [address], [place], [address], 02/26/2022 16:59:19 02/27/20 22 02/26/2022 urina lysis panel , auto Unknown Analyte Normal 1 mg/dl Not Available [facility] [address], [place], [address], 02/26/2022 16:59:19 02/27/20 22 02/26/2022 urina lysis panel , auto Unknown Analyte Negati ve Not Available [facility] [address], [place], [address], 02/26/2022 16:59:19 02/27/20 22 02/26/2022 urina lysis panel , auto Unknown Analyte Negati ve Not Available [facility] [address], [place], [address], 02/26/2022 16:59:19 02/27/20 22 02/26/2022 urina lysis panel , auto Unknown Analyte 250 Naheed/ul Not Available [facility] [address], [place], [address], 02/26/2022 16:59:19 02/27/20 22 02/26/2022 urina lysis panel , auto Unknown Analyte Negati ve Not Available [facility] [facility] [address], [place], [address], 02/26/2022 16:59:19 03/21/20 22 03/21/2022 SURGI ANASTASIA surgical SEE BELOW Depar tment of Patho logy Surgi anastasia Patho logy Repor t NAME: SONJA CHIU PATH. 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 Entir kofi submi tted in one casse tte. SWATHI 03/21 02:03 PM Micro scopi c Descr iptio n: Micro scopi c exami natio n perfo rmed on routi ne in deepe r secti ons. Intra depar tment al consu ltati on obtai raghu with agree ment. BRIANNA ALEXIS MD Danni d Out Date: 03/22 14:46 Page 1 of 1 Not Available [facility] [address] [place] [address], [address], 03/22/2022 14:47:32 07/01/19 25 07/01/2024 TESTO STERO NE, TOTAL testosterone , total 307 NG/dL 193-74 0 normal Refer ence range is for age 50 years and over. Not Available [facility] [address] [place] [address], [address], 07/01/2024 19:12:19 07/01/19 25 07/01/2024 PROST ATE SPECI FIC AG prostate specific Ag 4.130 NG/mL 0.000- 4.400 normal This test was perfo rmed using Hamida e801 Elect hamida milum inesc ent metho d. The test metho d is based on WHO-s tanda rdize d calib ratio n. Value s obtai raghu from diffe rent assay metho ds or manuf actur ers may not be holli rable . Not Available [facility] [address] [facility], [place], [address], 07/01/2024 19:12:21 07/01/19 25 07/01/2024 urina lysis panel , auto Unknown Analyte Clean Catch Not Available [facility] [address] [place] [address], [address], 07/01/2024 16:08:47 07/01/19 25 07/01/2024 urina lysis panel , auto Unknown Analyte Yellow Not Available [facility] [address], [address], 07/01/2024 16:08:47 07/01/19 25 07/01/2024 urina lysis panel , auto Unknown Analyte Clear Not Available [facility] [address], [address], 07/01/2024 16:08:47 07/01/19 25 07/01/2024 urina lysis panel , auto Unknown Analyte 1.015 Not Available [facility] [address], [address], 07/01/2024 16:08:47 07/01/19 25 07/01/2024 urina lysis panel , auto Unknown Analyte 1.003 - 1.030 Not Available [facility] [address], [place], [address], 07/01/2024 16:08:47 07/01/19 25 07/01/2024 urina lysis panel , auto Unknown Analyte 5.0 Not Available [facility] [address], [place], [address], 07/01/2024 16:08:47 07/01/1907/01/2024 urina lysis panel , auto Unknown Analyte 5.0 - 8.0 Not Available [facility] [address], [place], [address], 07/01/2024 16:08:47 07/01/19 25 07/01/2024 urina lysis panel , auto Unknown Analyte Negati ve Not Available [facility] [address], [place], [address], 07/01/2024 16:08:47 07/01/19 25 07/01/2024 urina lysis panel , auto Unknown Analyte Negati ve Not Available [facility] [address], [place], [address], 07/01/2024 16:08:47 07/01/19 25 07/01/2024 urina lysis panel , auto Unknown Analyte Negati ve Not Available [facility] [address], [place], [address], 07/01/2024 16:08:47 07/01/19 25 07/01/2024 urina lysis panel , auto Unknown Analyte Negati ve Not Available [facility] [address], [place], [address], 07/01/2024 16:08:47 07/01/19 25 07/01/2024 urina lysis panel , auto Unknown Analyte 500 mg/dL Not Available [facility] [address], [place], [address], 07/01/2024 16:08:47 07/01/1907/01/2024 urina lysis panel , auto Unknown Analyte Negati ve Not Available [facility] [address], [place], [address], 07/01/2024 16:08:47 07/01/19 25 07/01/2024 urina lysis panel , auto Unknown Analyte Normal Not Available [facility] [address], [place], [address], 07/01/2024 16:08:47 07/01/19 25 07/01/2024 urina lysis panel , auto Unknown Analyte Normal Not Available [facility] [address], [place], [address], 07/01/2024 16:08:47 07/01/19 25 07/01/2024 urina lysis panel , auto Unknown Analyte Negati ve Not Available [facility] [address], [address], 07/01/2024 16:08:47 07/01/19 25 07/01/2024 urina lysis panel , auto Unknown Analyte Negati ve Not Available [facility] [address], [place], [address], 07/01/2024 16:08:47 07/01/19 25 07/01/2024 urina lysis panel , auto Unknown Analyte Normal Not Available [facility] [address], [place], [address], 07/01/2024 16:08:47 07/01/19 25 07/01/2024 urina lysis panel , auto Unknown Analyte Normal Not Available [facility] [address], [place], [address], 07/01/2024 16:08:47 07/01/19 25 07/01/2024 urina lysis panel , auto Unknown Analyte Negati ve Not Available [facility] [address], [place], [address], 07/01/2024 16:08:47 07/01/19 25 07/01/2024 urina lysis panel , auto Unknown Analyte Negati ve Not Available [facility] [address], [place], [address], 07/01/2024 16:08:47 07/01/19 25 07/01/2024 urina lysis panel , auto Unknown Analyte Negati ve Not Available [facility] [address], [place], [address], 07/01/2024 16:08:47 07/01/19 25 07/01/2024 urina lysis panel , auto Unknown Analyte Negati ve Not Available [facility] [address], [place], [address], 07/01/2024 16:08:47 09/10/19 25 09/09/2024 urina lysis panel , auto Unknown Analyte Clean Catch Not Available [facility] [address], [place], [address], 09/09/2024 15:10:48 09/10/19 25 09/09/2024 urina lysis panel , auto Unknown Analyte Yellow Not Available [facility] [address], [place], [address], 09/09/2024 15:10:48 09/10/19 25 09/09/2024 urina lysis panel , auto Unknown Analyte Clear Not Available [facility] [address], [address], 09/09/2024 15:10:48 09/10/19 25 09/09/2024 urina lysis panel , auto Unknown Analyte 1.015 Not Available [facility] [address], [address], 09/09/2024 15:10:48 09/10/19 25 09/09/2024 urina lysis panel , auto Unknown Analyte 1.003 - 1.030 Not Available [facility] [address], [address], 09/09/2024 15:10:48 09/10/19 25 09/09/2024 urina lysis panel , auto Unknown Analyte 6.0 Not Available [facility] [address], [place], [address], 09/09/2024 15:10:48 09/10/19 25 09/09/2024 urina lysis panel , auto Unknown Analyte 5.0 - 8.0 Not Available [facility] [address], [place], [address], 09/09/2024 15:10:48 09/10/19 25 09/09/2024 urina lysis panel , auto Unknown Analyte Negati ve Not Available [facility] [address], [place], [address], 09/09/2024 15:10:48 09/10/19 25 09/09/2024 urina lysis panel , auto Unknown Analyte Negati ve Not Available [facility] [address], [place], [address], 09/09/2024 15:10:48 09/10/19 25 09/09/2024 urina lysis panel , auto Unknown Analyte Negati ve Not Available [facility] [address], [place], [address], 09/09/2024 15:10:48 09/10/19 25 09/09/2024 urina lysis panel , auto Unknown Analyte Negati ve Not Available [facility] [address], [place], [address], 09/09/2024 15:10:48 09/10/19 25 09/09/2024 urina lysis panel , auto Unknown Analyte 500 mg/dL Not Available [facility] [address], [place], [address], 09/09/2024 15:10:48 09/10/19 25 09/09/2024 urina lysis panel , auto Unknown Analyte Negati ve Not Available [facility] [address], [place], [address], 09/09/2024 15:10:48 09/10/19 25 09/09/2024 urina lysis panel , auto Unknown Analyte 100 mg/dL Not Available [facility] [address], [place], [address], 09/09/2024 15:10:48 09/10/19 25 09/09/2024 urina lysis panel , auto Unknown Analyte Normal Not Available [facility] [address], [place], [address], 09/09/2024 15:10:48 09/10/19 25 09/09/2024 urina lysis panel , auto Unknown Analyte Negati ve Not Available [facility] [address], [place], [address], 09/09/2024 15:10:48 09/10/19 25 09/09/2024 urina lysis panel , auto Unknown Analyte Negati ve Not Available [facility] [address], [place], [address], 09/09/2024 15:10:48 09/10/19 25 09/09/2024 urina lysis panel , auto Unknown Analyte Normal Not Available [facility] [address], [place], [address], 09/09/2024 15:10:48 09/10/19 25 09/09/2024 urina lysis panel , auto Unknown Analyte Normal Not Available [facility] [address] [place] [address] [address], [place], [address], 09/09/2024 15:10:48 09/10/19 25 09/09/2024 urina lysis panel , auto Unknown Analyte Negati ve Not Available [facility] [address] [place] [address], [address], 09/09/2024 15:10:48 09/10/19 25 09/09/2024 urina lysis panel , auto Unknown Analyte Negati ve Not Available [facility] [address] [place] [address], [address], 09/09/2024 15:10:48 09/10/19 25 09/09/2024 urina lysis panel , auto Unknown Analyte Negati ve Not Available [facility] [address], [address], 09/09/2024 15:10:48 09/10/19 25 09/09/2024 urina lysis panel , auto Unknown Analyte Negati ve Not Available [facility] [address] [place] [address], [address], 09/09/2024 15:10:48 Result Notes None recorded. Problems Name Problem SNOMED Code Status Onset Date Resolution Date Notes Provider Name and Address Organization Details Recorded Time Spinal meningioma 875021344 Active 019 MADELIN CROWLEY PA-C [address] [place], [address] 9 15:31:40 Problem Notes None recorded. Medical Equipment None Reported. Allergies Allergen ID Allergen Name Allergen Category Reaction Reaction Severity Criticality Documentation Date Start Date Code Code System Note Provider Name and Address Organization Details Recorded Time 588432 Brilinta medicatio n Not available Not available Not available 03/29/20162014 27486 36 RxNorm Comme nt: Creat ed By: Cece Carrillo any;C reate d Date: 2014 11:14 :09 AM; Not Available [facility] 11:[facility]15 Medications Name Sig Start Date Stop Date Status Note LastModified by Organization Details LastModified Time eq chlortabs 4mg tab TAKE 1 TABLET BY MOUTH EVERY 6 HOURS FOR 5 DAYS 02/26 completed Not Available Not Available Not Available furosemid e 40 mg tablet TAKE 1 TABLET BY MOUTH ONCE DAILY active Not Available Not Available No t Available doxycycli ne hyclate 100 mg capsule TAKE 1 CAPSULE BY MOUTH TWICE DAILY FOR 7 DAYS 07/01 completed Not Available Not Available Not Available clindamyc in HCl 300 mg capsule 02/26 completed Not Available Not Available Not Available azithromy emily 250 mg tablet 07/23 completed Not Available Not Available Not Available hydrocodo ne 5 mg-acetam inophen 325 mg tablet 02/26 completed Not Available Not Available Not Available prednison e 20 mg tablet TAKE 1 TABLET BY MOUTH TWICE DAILY 02/26 completed Not Available Not Available Not Available isosorbid e mononitra te ER 30 mg tablet,ex tended release 24 hr 07/01 completed Not Available Not Available Not Available dexametha sone 6 mg tablet TAKE 1 TABLET BY MOUTH ONCE DAILY FOR 3 DAYS 02/26 completed Not Available Not Available Not Available Humulin 70/30 Insulin Pen 100 unit/mL subcutane ous pen 02/26 completed Medicati on Descript ion: insulin isophane (NPH)-in sulin regular; refills: 0 Not Available Not Available Not Available Lantus U-100 Insulin 100 unit/mL subcutane ous solution 07/23 completed Medicati on Descript ion: insulin glargine ; refills: 0 Not Available Not Available Not Available clopidogr el 75 mg tablet TAKE 1 TABLET BY MOUTH ONCE DAILY active Not Available Not Available No t Available amlodipin e 5 mg tablet 07/01 completed Not Available Not Available Not Available simvastat in 80 mg tablet 07/01 completed Not Available Not Available Not Available allopurin ol 100 mg tablet TAKE 1 TABLET BY MOUTH ONCE DAILY active Not Available Not Available No t Available bisoprolo l fumarate 5 mg tablet 02/26 completed Not Available Not Available Not Available metoclopr amide 5 mg tablet 07/01 completed Not Available Not Available Not Available levothyro xine 50 mcg tablet TAKE 1 TABLET BY MOUTH ONCE DAILY active Not Available Not Available No t Available hydrocodo ne 7.5 mg-acetam inophen 325 mg tablet 02/26 completed Not Available Not Available Not Available cephalexi n 500 mg capsule TAKE 1 CAPSULE BY MOUTH TWICE DAILY FOR 7 DAYS 07/01 completed Not Available Not Available Not Available erythromy emily 5 mg/gram (0.5 %) eye ointment APPLY A THIN 1/4 INCH STRIP TWICE A DAY IN EYE 3 DAYS BEFORE BUT NOT DAY OF SURGERY active Not Available Not Available No t Available oseltamiv ir 75 mg capsule TAKE 1 CAPSULE BY MOUTH TWICE DAILY FOR 5 DAYS 07/01 completed Not Available Not Available Not Available metformin 1,000 mg tablet TAKE 1 TABLET BY MOUTH TWICE DAILY active Not Available Not Available No t Available triamcino lone acetonide 0.1 % topical ointment 07/23 completed Not Available Not Available Not Available clotrimaz ole-betam ethasone 1 %-0.05 % topical cream APPLY CREAM TOPICALL Y TWICE DAILY TO THE AFFECTED AND SURROUND ING AREAS IN THE MORNING AND IN THE EVENING FOR 14 DAYS 2024 active Not Available Not Available Not Avai lable misoprost ol 200 mcg tablet 07/01 completed Not Available Not Available Not Available losartan 25 mg tablet TAKE 1 TABLET BY MOUTH ONCE DAILY active Not Available Not Available No t Available ibuprofen 400 mg tablet 07/23 completed Not Available Not Available Not Available Advair Diskus 250 mcg-50 mcg/dose powder for inhalatio n Inhale 1 puff twice a day by inhalati on route. active Not Available Not Available No t Available oxybutyni n chloride ER 5 mg tablet,ex tended release 24 hr 07/23 completed Medicati on Descript ion: oxybutyn in; Route:or al; refills: 0 Not Available Not Available Not Available gabapenti n 300 mg capsule TAKE 1 CAPSULE BY MOUTH TWICE DAILY 02/26 completed Not Available Not Available Not Available aspirin 81 mg tablet active Medicati on Descript ion: aspirin; Route:or al; refills: 0 Not Available Not Available Not Available mupirocin 2 % topical ointment 07/23 completed Not Available Not Available Not Available furosemid e 20 mg tablet TAKE 1 TABLET BY MOUTH ONCE DAILY FOR 90 DAYS 07/01 completed Not Available Not Available Not Available gabapenti n 100 mg capsule TAKE 1 CAPSULE BY MOUTH TWICE DAILY 02/26 completed Not Available Not Available Not Available ergocalci ferol (vitamin D2) 1,250 mcg (50,000 unit) capsule TAKE 1 CAPSULE BY MOUTH ONCE A WEEK 02/26 completed Not Available Not Available Not Available ibuprofen 600 mg tablet 02/26 completed Not Available Not Available Not Available celecoxib 100 mg capsule 07/01 completed Not Available Not Available Not Available cefdinir 300 mg capsule TAKE 1 CAPSULE BY MOUTH TWICE DAILY FOR 6 DAYS 02/26 completed Not Available Not Available Not Available fluticaso ne propionat e 50 mcg/actua tion nasal spray,david pension USE 1 SPRAY(S) IN EACH NOSTRIL ONCE DAILY FOR 14 DAYS 02/26 completed Not Available Not Available Not Available finasteri de 5 mg tablet Take 1 tablet by mouth once daily 2024 active Not Available Not Available Not Avai lable rosuvasta tin 10 mg tablet TAKE 1 TABLET BY MOUTH ONCE DAILY active Not Available Not Available No t Available rosuvasta tin 40 mg tablet 07/01 completed Not Available Not Available Not Available tadalafil 5 mg tablet TAKE 1 TABLET BY MOUTH ONCE DAILY active Not Available Not Available No t Available ferrous fumarate 324 mg (106 mg iron) tablet Take by oral route. 07/01 completed Not Available Not Available Not Available telmisart an 80 mg-hydroc hlorothia zide 25 mg tablet TAKE 1/2 (ONE-JONA F) TABLET BY MOUTH ONCE DAILY 07/01 completed Not Available Not Available Not Available duloxetin e 30 mg capsule,d elayed release TAKE 1 CAPSULE BY MOUTH TWICE DAILY active Not Available Not Available No t Available pregabali n 100 mg capsule TAKE 1 CAPSULE BY MOUTH TWICE DAILY active Not Available Not Available No t Available etodolac 07/23 completed Medicati on Descript ion: etodolac ; Route:or al; refills: 0 Not Available Not Available Not Available metoclopr amide HCl 07/23 completed Medicati on Descript ion: metoclop ramide; refills: 0 Not Available Not Available Not Available furosemid e 07/23 completed Medicati on Descript ion: furosemi de; refills: 0 Not Available Not Available Not Available Plavix 07/23 completed Medicati on Descript ion: clopidog rel; Route:or al; refills: 0 Not Available Not Available Not Available simvastat in 07/23 completed Medicati on Descript ion: simvasta tin; Route:or al; refills: 0 Not Available Not Available Not Available spironola ctone 07/23 completed Medicati on Descript ion: spironol actone; refills: 0 Not Available Not Available Not Available Nitrostat 07/23 completed Medicati on Descript ion: nitrogly cerin; refills: 0 Not Available Not Available Not Available Glucophag e 07/23 completed Medicati on Descript ion: metformi n; Route:or al; refills: 0 Not Available Not Available Not Available Micardis 07/23 completed Medicati on Descript ion: telmisar mcfarlane; Route:or al; refills: 0 Not Available Not Available Not Available multivita min active Medicati on Descript ion: multivit darby; refills: 0 Not Available Not Available Not Available Advair Diskus 02/26 completed Medicati on Descript ion: fluticas one-salm eterol; Route:in halation ; refills: 0 Not Available Not Available Not Available Vaqta (PF) 50 unit/mL intramusc ular syringe 07/23 completed Not Available Not Available Not Available B12 active Not Available Not Availa ble Not Available Suprep Bowel Prep Kit 17.5 gram-3.13 gram-1.6 gram oral solution 07/23 completed Not Available Not Available Not Available ferrous gluconate 324 mg (37.5 mg iron) tablet TAKE 1 TABLET BY MOUTH ONCE DAILY 02/26 completed Not Available Not Available Not Available Tudorza Pressair 400 mcg/actua tion breath activated 07/23 completed Medicati on Descript ion: aclidini um; refills: 0 Not Available Not Available Not Available Farxiga 10 mg tablet TAKE 1 TABLET BY MOUTH ONCE DAILY active Not Available Not Available No t Available Incruse Ellipta 62.5 mcg/actua tion powder for inhalatio n INHALE 1 PUFF BY MOUTH ONCE DAILY active Not Available Not Available No t Available Tresiba FlexTouch U-100 insulin 100 unit/mL (3 mL) subcutane ous pen INJECT 45 UNITS SUBCUTAN EOUSLY ONCE DAILY active Not Available Not Available No t Available Accu-Chek Guide test strips USE 1 STRIP TWICE DAILY active Not Available Not Available No t Available Breo Ellipta 50 mcg-25 mcg/dose powder for inhalatio n INHALE 1 INHALATI ON ONCE DAILY BY MOUTH active Not Available Not Available No t Available Vitals Date Recorded Body height Body mass index (BMI) Body weight Provider Name and Address Organization Details Last Updated DateTime 07/01/2024 170.18 cm 34.5 kg/m2 20125.32 g Florina Theodore [facility] 07/01/2024 16:03:49 Date Recorded Body height Body mass index (BMI) Body weight Provider Name and Address Organization Details Last Updated DateTime 07/24/2019 170.18 cm 36.8 kg/m2 488788.21 g Maliha Weiss [facility] 07/24/2019 14:09:40 Date Recorded Body height Body mass index (BMI) Body weight Provider Name and Address Organization Details Last Updated DateTime 09/09/2024 170.18 cm 35.9 kg/m2 547212.65 g Elsa Raza [facility] 09/09/2024 15:21:29 Date Recorded Body weight Provider Name an d Address Organization Details Last Updated DateTime 02/26/2022 172551.51 g Dunia Cameron [facility] 02/26/2022 16:24:45 Social History Question Answer Notes LastModified by Organizat ion Details LastModified Time Tobacco Smoking Status Current Every Day Smoker Florina Yousif [facility] 06/06/2018 11:11:46 How Much Tobacco Do You Chew? None Information not available 07/24/2019 What Was The Date Of Your Most Recent Tobacco Screening? 09/09/2024 [email or web address] Information not available 09/09/2024 How Much Tobacco Do You Smoke? 1 PPD Information not available 06/06/2018 Has Tobacco Cessation Counseling Been Provided? No [email or web address] Information not available 02/26/2022 How Many Years Have You Smoked Tobacco? 55 Information not available 06/06/2018 Have You Recently Traveled Abroad? No [email or web address] Information not available 02/26/2022 Sex: Unknown Functional Status Question Answer Note LastModified by Organizat ion Details LastModified Time Do you use any illicit or recreational drugs? No [email or web address] Information not available 02/26/2022 Do you or have you ever used any other forms of tobacco or nicotine? No [email or web address] Information not available 02/26/2022 What is your level of alcohol consumption? None Information not available 07/24/2019 Mental Status None recorded. Family History Relationship Description Onset Age of this Age Resolved Age Notes LastModified by Organization Details LastModified Time Father No current problems or disability [email or web address] Not available 07/23 14:20:47 Mother No current problems or disability [email or web address] Not available 07/23 14:20:47 Medical History Condition Response COPD Y Stroke Y Diabetes Y Sleep Apnea Y Hypertension Y Past Encounters Encounter ID Performer Location Encounter Start Date Encounter Closed Date Diagnosis/Indication Diagnosis SNOMED-CT Code Diagnosis ICD10 Code Diagnosis IMO Codes Diagnosis Note [id number] MARICHUY DO JR, MD [facility] [address] [place] [address] 06/06/2018 10:23:53 06/09/2018 15:34:40 Lumbar mass 306296508 R22.2 [id number] MARICHUY DO JR, MD [facility] [address] [place] [address] 06/11/2018 15:13:56 06/13/2018 15:20:16 Lumbar mass 050183770 R22.2 [id number] [facility] [address] [place] [address] 08/20/2018 14:52:08 08/21/2018 14:49:45 Spinal meningioma 935612134 D32.1 [id number] YUSRA LEONE [facility]-C [facility] [address] [place] [address] 02/18/2019 14:27:16 02/20/2019 11:33:59 Spinal meningioma [id number] D32.1 73-year-ol d male with a known intradural lesion at L5. MRI today redemonstr ates this peripheral ly enhancing intradural lesion. Appears to be stable when compared to the previous MRI in August. Likely represents a meningioma . These images were reviewed with Dr. Do. We did not recommend surgery for this lesion. Recommend that the patient follow-up in another 6 months with another lumbar MRI. Should he be doing well at that point we may extend his follow-up appointmen t for a year. The patient is also interested in a referral for physical therapy for his right-side d low back pain. It is unlikely that the right-side d low back pain is related to his stable intradural lesion and is likely musculoske letal related. [id number] ANTHONY SUE MD [facility] [address] [place] [address] 07/24/2019 13:41:49 07/24/2019 14:37:36 Tobacco user 386217941 Z72.0 Benign pro static hyperplasia 488770655 N40.0 Prostate s pecific antigen above reference range 664848615 R97.20 follow-up 1 year with PSA. [id number] ANTHONY SUE MD [facility] [address] [place] [address] 02/26/2022 15:03:58 03/01/2022 10:16:28 Testicular hypofunction 901361437 E29.1 Benign pro static hyperplasia with outflow obstruction 601048088 N40.1 Julito hematuria 87853211 5 R31.0 We will arrange for cystoscopy with possible bladder biopsy. He is a smoker [id number] ANTHONY SUE MD SURGERY SCHEDULE [address] [place] [address] 03/21/2022 07:25:51 03/21/2022 07:26:13 [id number] MD [facility] [address] [place] [address] 07/01/2024 15:45:17 07/02/2024 05:23:14 Testicular hypofunction 641050833 E29.1 Benign pro static hyperplasia with outflow obstruction 602917857 N40.1 Primary er ectile dysfunction 746929727 N52.9 [id number] MD [facility] [address] [place] [address] 09/09/2024 14:06:57 09/09/2024 15:59:52 Tinea cruris 784502580 B35.6 [id number] Follow-up 6 weeks Erectile dysfunction 860 849313 N52.9 [id number] Health Concerns Section Related Observation LastModified by Organization Detai ls LastModified Time None Recorded Concern Status LastModified by Organization Details LastModified Time None Recorded Advance Directives Directive None Recorded Payers Insurance Date Sequence Insurance Name Policy Number Policy Castellano Covered Member ID Castellano Member ID Guarantor Name 10/16/2024 2 [place] [id number] Sonja Plascencia [id number] Sonja Plascencia 02/26/2022 2 [place] [id number] Sonja Plascencia [id number] Sonja Plascencia 10/16/2024 1 [place] Sonja Plascencia [id number] Sonja Plascencia Notes Date Note Type Note Provider Name and Address Organization Details Recorded Time 07/24/2019 text/html patient is here previously followed by me at [facility]. He had transurethral resection of the prostate in 2013. PSAs have been chronically elevated and fluctuating. 3 years ago his PSA was up to 7.8 but earlier this week 3.8. He typically has nocturia 0. He has no other urologic complaints other than occasional tinea cruris of the groin. He uses Lotrisone cream intermittently. ANTHONY SUE MD [facility] [place], [address], [facility] 07/24/2019 15:06:57 02/26/2022 text/html Patient last seen by me in 2019. He was previously followed for BPH and had transurethral resection prostatectomy in 2013. He also had some chronically elevated and fluctuating PSA his PSA last visit following a he's recently had several episodes of gross hematuria with passage of clots. He had a CT scan at [facility] which unremarkable other than prostate enlargement. It appeared that he might have a continuous nodule in the right anterior urinary bladder. He brought his previous for my review. [facility] [place], [address], [facility] 02/27/2022 09:52:42 07/01/2024 text/html Patient is here last seen in March 2022 for cystoscopy and biopsy of the prostatic urethra for hematuria. It was determined that he had hematuria secondary to BPH and I placed him on finasteride. He had no further bleeding. He was really having no issues with voiding at that time and remains on finasteride. His main visit today is for erectile dysfunction. He states had no significant erectile function for at least 3 years. That is frustrating but also he has had significant loss of length of penis making it difficult to void at times. He has also noticed some slowing of stream and interruption of stream but typically has nocturia x 0. He has not had a recent PSA. I suggest we arrange for a PSA and a testosterone level and we discussed starting him on daily dose tadalafil 5 mg and see if this improves his overall symptoms. [facility]UE [facility] [place], [address], [facility] 07/01/2024 17:14:11 09/09/2024 text/html Patient is here to follow-up regarding his voiding complaints and penile suspect from chronic erectile dysfunction. I placed him on tadalafil daily shows no significant improvement. He also mentioned that over the last 2 weeks has had a rash in his groin caused some small skin lesions. On exam he appears to have some yeast. I suggest we treat him with Lotrisone. His erectile function is no better. We discussed other options including a vacuum erection device and injection therapy. He will consider these options. ANTHONY SUE MD [address] [place], [address], [facility] 09/09/2024 15:58:46
--- OUTSIDE RECORDS SUMMARY | 2025-04-02 14:52 | XMS_ITS | Data Portability ---
Author Organization [facility] in [facility] Address [address] [place] [address] Assessment Encounter Date Assessment Date Assessment LastModified by Organization Details LastModified Time 11/14/2017 11/14/2017 The patient is status post ILESI L5/S1 on 11/08/17. The patient reports increased activity tolerance. He noted reduced symptoms while grocery shopping which usually causes increased pain. He notes decreased pain in left upper leg as well. He rates his pain reduced from 10/10 now down to 3-4/10. WE discussed repeating the epidural which he would like to do. WE will schedule this for him today. Patient reminded to hold Plavix 5 days prior to scheduled injection. He is diabetic and will need a morning appointment as well. 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 The patient reports previous RFA by (lumbar facet nerve block L2-L5) right. The patient reports having a tumor that causes painful motion; he states this pain was relieved 100% for 2 years following the RFA. This may need to be worked up in the future should it become more bothersome. We currently prescribe no medications for this patient. [email or web address] Not available 11/14/2017 14:03:58 02/20/2018 02/20/2018 Mr. Plascencia returns in follow up today of his chronic low back pain. He notices increased pain in the back and hips with walking upright. He is s/p #2ILESI and estimates 80% pain relief for two days. He has no pain at rest or with lying. At the present time he is taking gabapentin 100 mg at bedtime, we had a long discussion about increasing this today. We will trial increasing this to 100 mg BID. He reports he was told he had anemia and had a recent colonoscopy. He has an upcoming appointment with hematology. He reports decreased energy secondary to this. He is s/p lumbar RFA which he continues to be benefit from. He remains anticoagulated on Plavix. Follow up in 2 months. [email or web address] Not available 02/20/2018 15:15:43 04/21/2018 04/21/2018 Mr. Plascencia returns in follow up today of his chronic low back pain. He notices increased pain in the back and hips with walking upright. He remains anticoagulated on Plavix. The patient is status post #2 ILESI L5/S1 on 12/16/17. He reports this injection provided very little relief. He does admit the radicular pain has improved following the injection which would make the epidural successful. Today he complains of axial lumbar pain that occasionally refers to bilateral hips when ambulating. The patient has previously undergone RFA on 08/12/17. This provided good relief that lasted until recently. We will repeat the RFA. He is in agreement with this. He will not need to hold the plavix for the RFA. Today the patient complains of an old mass that has been bothering him lately. He reports previously seeing a surgeon (many years ago) who felt this is inoperable. Today the patient inquires into a second opinion about this. He is not comfortable with taking this to his PCP. Exam reveals a palpable firm nodule at approximately Right T12. The patient reports this is tender to palpation. He feels this has not really changed in size through the year. I recommend he really needs to see his PCP about this who may recommend diagnostic testing and/or excision biopsy. He agreed to notify his PCP. Medication fill for GAbapentin 100mg BID #60. RTO 90 days. [email or web address] Not available 04/23/2018 16:47:03 Plan of Treatment Reminders Order Date Submit Date Provider Last Modified By Organization Details Last Modified Time Details Appointments None recorded. Lab None recorded. Referral None recorded. Procedures epidural steroid injection, lumbar interlamin ar (PROC) - Morning apt due to +Diabetic 2017 018 Kumar Sarmiento MD, [address] [place], [address], 8 10:36:10 Surgeries radiofrequ ency ablation (SURG) 2017 019 [email or web address] Kumar Sarmiento MD, [address] [place], [address], 9 13:16:20 Imaging None recorded. Medication Orders gabapentin 100 mg capsule 2017 018 INTERFACE [facility], [address], [address], 8 13:46:36 gabapentin 100 mg capsule 2017 018 INTERFACE [facility], [address] [place], [address], 8 15:52:04 Patient TargetsNo targets recorded. Patient Instructions Encounter Date Encounter Id Patient Instructions Last Modified By Organization Details Last Modified Time 11/14/2017 [id number] [email or web address] Not available 22:44:11 02/20/2018 [id number] [email or web address] Not available 14:58:36 Reason for Referral None Reported. Problems Name Problem SNOMED Code Status Onset Date Resolution Date Notes Provider Name and Address Organization Details Recorded Time Chronic obstructiv e pulmonary disease 02339540 Completed 201702/20/2018 [place], [place] - [facility] 8 10:46:23 Pulmonary emphysema 77565916 Completed 201702/20/2018 [place], [place] - [facility] 8 10:47:05 Essential hypertensi on 72853369 Completed 201702/20/2018 [place], [place] - [facility] 8 10:46:17 Gastroesop hageal reflux disease 038357199 Completed 201702/20/2018 [place], [place] - [facility] 8 10:46:26 Type 1 diabetes mellitus 47056646 Completed 201702/20/2018 [place], [place] - [facility] 8 10:46:40 Arthritis 2900291 Completed 201702/20/2018 [facility] 8 10:46:50 Hyperlipid emia 23004141 Completed 201702/20/2018 [facility] 8 10:46:46 Lumbar spondylosi s 967772037 Active 2017 Kumar Sarmiento MD [address] [place] [address], [phone] , Formerly [facility] 8 10:39:21 Lumbar radiculopa thy 124378458 Active 2017 Kumar Sarmiento MD [address] [place] [address], [phone] , Formerly [facility] 8 15:37:36 Problem Notes None recorded. Procedures Surgical History Date Name Laterality Status Provider Name and Address Organization Details Recorded Time 12/17/19 18 Lumbar DEJUAN: Interlaminar completed Kumar Sarmiento MD [address] [place] [address], [phone], Formerly [facility] 12/17/2017 08:11:28 11/09/19 18 Lumbar DEJUAN: Interlaminar completed Kumar Sarmiento MD [address] [place] [address], [address], [facility]ly [facility] 11/08/2017 20:19:55 08/13/19 18 Lumbar RFA (3 Level Unilateral) completed Alisha Bella [facility] 08/12/2017 10:58:45 Imaging Results None recorded. Procedure Notes None recorded. Medical Equipment None Reported. Allergies Allergen ID Allergen Name Allergen Category Reaction Reaction Severity Criticality Documentation Date Start Date Code Code System Note Provider Name and Address Organization Details Recorded Time 64556 Brilinta medicatio n lighthead edness Not available Not available 07/28/2017 86565 36 RxNorm [facility]AD Boot[facility] 8 14:49:33 Medications Name Sig Start Date Stop Date Status Note LastModified by Organization Details LastModified Time Lantus U-100 Insulin 100 unit/mL subcutaneou s solution active Not Available Not Available N ot Available Advair Diskus 100 mcg-50 mcg/dose powder for inhalation Inhale 1 puff twice a day by inhalatio n route. 10/10 completed Not Available Not Available Not Available clopidogrel 75 mg tablet Take 1 tablet every day by oral route. active Not Available Not Available No t Available amlodipine 5 mg tablet active Not Available Not Available Not Available simvastatin 80 mg tablet active Not Available Not Available Not Available aspirin 81 mg tablet,socorro yed release Take 1 tablet every day by oral route. active Not Available Not Available No t Available Nitrostat 0.[address] 1 tablet by sublingua l route. active Not Available Not Available No t Available levothyroxi ne 50 mcg tablet active Not Available Not Available Not Available metformin 1,000 mg tablet active Not Available Not Available Not Available triamcinolo ne acetonide 0.1 % topical ointment active Not Available Not Available Not Available misoprostol 200 mcg tablet active Not Available Not Available Not Available ibuprofen 400 mg tablet active Not Available Not Available Not Available Advair Diskus 250 mcg-50 mcg/dose powder for inhalation active Not Available Not Available N ot Available Pepcid 40 mg tablet Take 1 tablet every day by oral route. active Not Available Not Available No t Available etodolac 400 mg tablet Take 1 tablet twice a day by oral route. active Not Available Not Available No t Available mupirocin 2 % topical ointment active Not Available Not Available Not Available furosemide 20 mg tablet active Not Available Not Available Not Available gabapentin 100 mg capsule Take 1 capsule twice a day by oral route as directed for 30 days. 2017 active Not Available Not Available Not Avai lable [place] 7.5 mg-325 mg tablet Take 1 tablet every 6 hours by oral route. 11/14 completed Not Available Not Available Not Available telmisartan 80 mg-hydrochl orothiazide 25 mg tablet Take 1 tablet every day by oral route. active Not Available Not Available No t Available Humulin 70/30 U-100 Insulin active Not Available Not Available Not Available Lantus Solostar U-100 Insulin active Not Available Not Available Not Available One Daily Energy tablet Take by oral route. active Not Available Not Available No t Available metoclopram essence 10 mg disintegrat ing tablet Take 1 tablet 4 times a day by oral route. active Not Available Not Available No t Available Suprep Bowel Prep Kit 17.5 gram-3.13 gram-1.6 gram oral solution active Not Available Not Available Not Available Tudorza Pressair 400 mcg/actuati on breath activated Inhale 1 puff every 12 hours by inhalatio n route. active Not Available Not Available No t Available vitamin B12 1,000 mcg-folic acid [address] by sublingua l route. active Not Available Not Available No t Available Incruse Ellipta 62.5 mcg/actuati on powder for inhalation Inhale 1 puff every day by inhalatio n route. active Not Available Not Available No t Available Tresiba FlexTouch U-100 insulin 100 unit/mL (3 mL) subcutaneou s pen active Not Available Not Available Not Available Vitals Date Recorded Body height Body mass index (BMI) Body weight Oxygen saturation Heart rate Systolic And Diastolic Provider Name and Address Organization Details Last Updated DateTime 8 170.18 cm 36.6 kg/m2 950346. 9 g 94 % 41 /min 160/59 mm[Hg] Robin Gibbs [facility] 8 13:34:30 Date Recorded Body height Body mass index (BMI) Body weight Heart rate Oxygen saturation Systolic And Diastolic Provider Name and Address Organization Details Last Updated DateTime 8 170.18 cm 37 kg/m2 714595. 8 g 87 /min 97 % 128/62 mm[Hg] Payton Romero [facility] 8 14:43:49 Date Recorded Body height Body mass index (BMI) Body weight Oxygen saturation Heart rate Systolic And Diastolic Provider Name and Address Organization Details Last Updated DateTime 8 170.18 cm 37 kg/m2 146584. 8 g 88 % 89 /min 109/56 mm[Hg] Yosvany Harding [facility] 8 12:53:38 Social History Question Answer Notes LastModified by Organizat ion Details LastModified Time Tobacco Smoking Status Current Every Day Smoker [place] [facility] 07/29/2017 14:23:12 Which Illicit Or Recreational Drugs Have You Used? None Information not available 07/29/2017 Education 12 Information no t available 02/20/2018 Prescription Drug Abuse No Information not available 07/29/2017 Disability No Information no t available 07/29/2017 History Of Sexual Abuse No Information not available 07/29/2017 Marital Status Informatio n not available 07/29/2017 What Was The Date Of Your Most Recent Tobacco Screening? 04/21/2018 Information not available 11/26/2018 How Much Tobacco Do You Smoke? 0.5 PPD Information not available 07/29/2017 Has Tobacco Cessation Counseling Been Provided? No Information not available 02/20/2018 How Many Years Have You Smoked Tobacco? 40 Information not available 07/29/2017 Sex: Unknown Functional Status Question Answer Note LastModified by Organization D etails LastModified Time What is your level of alcohol consumption? None Information not available 07/29/2017 What is your occupation? Retired Information not available 07/29/2017 What is your exercise level? None Information not available 07/29/2017 Mental Status None recorded. Family History Nothing Reported. Medical History Condition Response Bipolar Disease N Coronary Artery Disease Y Gout N Seizure Disorder N Atrial Fibrillation N Thyroid Disease N Head Trauma/Injury N Hernia N Depression N COPD Y Anxiety Disorder N Acid Reflux (GERD) Y Cancer N Stroke N Skin Disorder N High Cholesterol Y Liver Disease N Rheumatoid Arthritis N Headaches N Fibromyalgia N Kidney Disease N Autoimmune Disease N Osteoarthritis Y Neurosurgery N DVT N Peptic Ulcer Disease N Anemia N Heart Attack (NM) N Diabetes Y Cardiomyopathy N Bleeding Disorder N CHF N AIDS/HIV N Inflammatory Bowel Disease N Dementia N Asthma N Substance Abuse N Sleep Apnea Y Hepatitis N Heart Disease N Pulmonary Embolism N Chronic Low Back Pain Y Hypertension Y Osteoporosis N Past Encounters Encounter ID Performer Location Encounter Start Date Encounter Closed Date Diagnosis/Indication Diagnosis SNOMED-CT Code Diagnosis ICD10 Code Diagnosis IMO Codes Diagnosis Note [id number] Kumar Sarmiento MD [facility] [address] [facility] [address] [place] [address] 07/29/2017 13:49:01 07/29/2017 15:07:36 Degeneration of lumbar intervertebral disc 64924281 M51.36 Lumbar spondylosis 83880 0009 M47.26 [id number] MD Vladimir Khan [address] [place] [address] 08/12/2017 09:23:49 08/12/2017 11:00:38 Lumbar spondylosis 661354598 M47.816 [id number] MD Vladimir Khan [address] [place] [address] 10/10/2017 09:28:58 10/10/2017 10:29:27 Degeneration of lumbar intervertebral disc 34417492 M51.36 Lumbar spondylosis 77481 0009 M47.26 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 73399647 M48.062 [id number] MD Vladimir Khan [address] [place] [address] 11/08/2017 14:58:29 11/08/2017 15:44:40 Lumbar radiculopathy 615099071 M54.16 [id number] MD Vladimir Khan [address] [place] [address] 11/14/2017 13:14:25 11/14/2017 14:10:26 Degeneration of lumbar intervertebral disc 64185065 M51.36 Lumbar spondylosis 13791 0009 M47.816 #2 ILESI L5/S1; patient to followup after injection as directed Low back pain 785886701 M54.5 [id number] MD Vladimir Khan [address] [place] [address] 12/16/2017 07:56:37 12/16/2017 08:43:06 Lumbar radiculopathy 852282763 M54.16 [id number] MD Vladimir Khan [address] [place] [address] 02/20/2018 14:23:23 02/20/2018 15:21:27 Lumbar spondylosis 316094496 M47.26 A prescripti on for opioids was prescribed today given the failure of more conservati ve treatment options. The risks, benefits, and alternativ es were discussed in detail with the patient. Goals of improved activity and analgesia will continue to be monitored in subsequent encounters . There is no evidence of addiction or aberrancy to date. Degenerati on of lumbar intervertebral disc 66046562 M51.36 [id number] Kumar Sarmiento MD [facility] [address] [place] [address] 04/21/2018 12:46:06 04/21/2018 13:44:25 Degeneration of lumbar intervertebral disc 17061532 M51.36 Lumbar spondylosis 11662 0009 M47.816 RFA Right L2-L5 Low back pain 069063765 M54.5 Subcutaneous nodule 9532 5000 R22.9 Health Concerns Section Related Observation LastModified by Organization Detai ls LastModified Time None Recorded Concern Status LastModified by Organization Details LastModified Time None Recorded Advance Directives Directive None Recorded Payers Insurance Date Sequence Insurance Name Policy Number Policy Castellano Covered Member ID Castellano Member ID Guarantor Name 04/19/2018 1 [place] Farhan Plascencia [id number] Farhan Plascencia 04/18/2018 2 [place] [id number] Farhan Plascencia [id number] Farhan Plascencia Notes Date Note Type Note Provider Name and Address Organization Details Recorded Time 11/14/2017 text/html Follow-up (meds & injections)Reported by PatientHPIFor functional assessment/disability index, patient reportsunable to work.andunable to exercise.but reportsliving independently.,able to bathe/groom without assistance.,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 For improvement, patient reportspain is getting better.. For pain scores, patient reportsaverage pain- 2/10,current pain- 3/10, andworst pain- 2/10. For recent injections, patient reportspain relief from injections- __% lasting for __ __andepidural steroid injection-(11/08/2017 lumbar iesi 40% ongoing pain relief). For current analgesics, patient reportsother adjunct medications- __(patient is not on any medications from out office.). For adverse reactions, patient reportsno nausea.,no vomiting.,no constipation.,no itching.,no sedation.,no respiratory depression., andno sexual dysfunction.. For physical therapy, (denies). Low back painReported by PatientHPIFor associated symptoms, patient reportsnumbness (left thigh)andtingling (left thigh)but reportsno weakness,no numbness,no swelling,no popping/clicking,no bowel incontinence,no urinary retention,no urinary incontinence, andno perineal paresthesia/anesthesia . For location, patient reportsparaspinal: __andpain is not radiating. For duration, patient reportsworse in the morning. For context, patient reportsstarted without cause. For quality, patient reportsstabbing,sharp, dull, andworsening. For pain intensity, patient reportssevere,current pain level: 3/10, andworst pain level: 4/10. For alleviating factors, patient reportssitting,lying down, andrest. For aggravating factors, patient reportsgetting out of bedandstanding from a seated position. For prior imaging, patient reportsmri(01/27/2014 mri lumbar spine04/12/2009 myelogram of lumbar). For lumbar surgery, patient reportsnone. For medications history, patient reportsnsaids: (denies),muscle relaxants: (denies),neuropathics: (denies), andopioid pain medications: (norco-effective). For prior pain management, patient reportsyes:([facility] santiago). For onset, (2008). For interventional treatment history, (11/08/2017 lumbar iesi 40% ongoing pain gbclgu1608/12/2017: rfa right l2-l5, 80% pain relief that is on going (10/10/17)dr. santiago [facility] gekmnrenjn10/18/2016: right lumbar facet nerve rhizotomy -100% pain relief for two years.04/20/2015: bilateral lfnb l2-l507/05/2014 left lfnb l2-l5/: right lumbart facet nerve block l2-l5, 100% pain relief for 1.[address] santiago). Kumar Sarmiento MD [address] [place] [address], [phone], [facility]ly [facility] 11/18/2017 08:03:02 02/20/2018 text/html Low back painRep orted by PatientHPIFor associated symptoms, patient reportsnumbness (left thigh)andtingling (left thigh)but reportsno weakness,no numbness,no swelling,no popping/clicking,no bowel incontinence,no urinary retention,no urinary incontinence, andno perineal paresthesia/anesthesia . For location, patient reportsparaspinal: __andpain is not radiating(bilateral hips and buttocks r>l). For duration, patient reportsworse in the morning. For context, patient reportsstarted without cause. For quality, patient reportsstabbing,sharp, dull, andworsening. For pain intensity, patient reportssevere,current pain level: 3/10, andworst pain level: 4/10. For alleviating factors, patient reportssitting,lying down, andrest. For aggravating factors, patient reportsgetting out of bedandstanding from a seated position. For prior imaging, patient reportsmri(01/27/2014 mri lumbar spine04/12/2009 myelogram of lumbar). For lumbar surgery, patient reportsnone. For interventional treatment history, patient reportslumbar esis: __,lumbar medial branch nerve blocks: __, andlumbar rfa: __(12/16/2017: #2 interlaminar lesi l5/s1, 80% pain relief for 2 days11/08/2017 lumbar iesi 40% ongoing pain bayvbx5108/12/2017: rfa right l2-l5, 80% pain relief that is on going (10/10/17)dr. pamela cee pain rkkonepklq06/18/2016: right lumbar facet nerve rhizotomy -100% pain relief for two years.04/20/2015: bilateral lfnb l2-l507/05/2014 left lfnb l2-l511/23/2013: right lumbart facet nerve block l2-l5, 100% pain relief for 1.5 years.11/08/2017 lumbar iesi 40% ongoing pain qaebny3608/12/2017: rfa right l2-l5, 80% pain relief that is on going (10/10/17)dr. pamela cee pain wkruuzsvia60/18/2016: right lumbar facet nerve rhizotomy -100% pain relief for two years.04/20/2015: bilateral lfnb l2-l507/05/2014 left lfnb l2-l511/23/2013: right lumbart facet nerve block l2-l5, 100% pain relief for 1.[address] santiago). For medications history, patient reportsnsaids: (denies),muscle relaxants: (denies),neuropathics: (denies), andopioid pain medications: (norco-effective). For prior pain management, patient reportsyes:([facility] s[facility]). For onset, (2008). Follow-up (meds & injections)Reported by PatientHPIFor improvement, patient reportspain is getting worse.. 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 For pain scores, patient reportsaverage pain- 2/10,current pain- 3/10, andworst pain- 2/10. For recent injections, patient reportspain relief from injections- __% lasting for __ __,epidural steroid injection-,lmbb/facet injections-, andradiofrequency ablation-(12/16/2017: #2 interlaminar lesi l5/s1, 80% pain relief for 2 days11/08/2017 lumbar iesi 40% ongoing pain ddvorj1811/08/2017 lumbar iesi 40% ongoing pain relief). For current analgesics, patient reportsother adjunct medications- __andreported pain relief- 20% for 2 hours(pharmacy verified.patient is not on any medications from out office.). For adverse reactions, patient reportsno nausea.,no vomiting.,no constipation.,no itching.,no sedation.,no respiratory depression., andno sexual dysfunction.. For physical therapy, (denies). Patient here to followup on his last injection done on 12/16/2017: #2 Interlaminar LESI L5/S1, 80% pain relief for 2 days. 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 For improvement, patient reportspain is the same as compared to last visit.. For pain scores, patient reportsaverage pain- 2/10,current pain- 5/10, andworst pain- 6/10. For recent injections, patient reportspain relief from injections- __% lasting for __ __,epidural steroid injection-,lmbb/facet injections-, andradiofrequency ablation-(12/16/2017: #2 interlaminar lesi l5/s1, 80% pain relief for 2 days11/08/2017 lumbar iesi 40% ongoing pain tyyigw9011/08/2017 lumbar iesi 40% ongoing pain relief). For current analgesics, patient reportsother adjunct medications- __andreported pain relief- 20% for 2 hours(pharmacy verified.patient is not on any medications from out office.). For adverse reactions, patient reportsno nausea.,no vomiting.,no constipation.,no itching.,no sedation.,no respiratory depression., andno sexual dysfunction.. For physical therapy, (denies). Low back painReported by PatientHPIFor associated symptoms, patient reportsnumbness (left thigh)andtingling (left thigh)but reportsno weakness,no numbness,no swelling,no popping/clicking,no bowel incontinence,no urinary retention,no urinary incontinence, andno perineal paresthesia/anesthesia . For location, patient reportsparaspinal: __andpain is not radiating(bilateral hips and buttocks r>l). For duration, patient reportsworse in the morning. For context, patient reportsstarted without cause. For quality, patient reportsstabbing,sharp, dull, andworsening. For pain intensity, patient reportssevere,current pain level: 5/10, andworst pain level: 6/10. For alleviating factors, patient reportssitting,lying down, andrest. For aggravating factors, patient reportsgetting out of bedandstanding from a seated position. For prior imaging, patient reportsmri(01/27/2014 mri lumbar spine04/12/2009 myelogram of lumbar). For lumbar surgery, patient reportsnone. For interventional treatment history, patient reportslumbar esis: __,lumbar medial branch nerve blocks: __, andlumbar rfa: __(12/16/2017: #2 interlaminar lesi l5/s1, 80% pain relief for 2 days11/08/2017 lumbar iesi 40% ongoing pain rxrgxd3808/12/2017: rfa right l2-l5, 80% pain relief that is on going (10/10/17)dr. santiago [facility] hjrwtihmvi74/18/2016: right lumbar facet nerve rhizotomy -100% pain relief for two years.04/20/2015: bilateral lfnb l2-l507/05/2014 left lfnb l2-l511/23/2013: right lumbart facet nerve block l2-l5, 100% pain relief for 1.5 years.11/08/2017 lumbar iesi 40% ongoing pain mcahmd1008/12/2017: rfa right l2-l5, 80% pain relief that is on going (10/10/17)dr. santiago [facility] nxpozdzwyf51/18/2016: right lumbar facet nerve rhizotomy -100% pain relief for two years.04/20/2015: bilateral lfnb l2-l507/05/2014 left lfnb l2-l511/23/2013: right lumbart facet nerve block l2-l5, 100% pain relief for 1.[address] santiago). For medications history, patient reportsnsaids: (denies),muscle relaxants: (denies),neuropathics: (denies), andopioid pain medications: (norco-effective). For prior pain management, patient reportsyes:([facility] dr. santiago). For onset, (2008). Kumar Sarmiento MD [address] [place] [address], [phone], Formerly [facility], [facility] 04/24/2018 08:00:36
--- OUTSIDE RECORDS SUMMARY | 2025-04-02 14:52 | XMS_ITS | Encounter Summary ---
Author Organization Healthcare Address [address] [place] [address] Care Team Providers Care Front Line Leader Name Role Phone Akil Borges MD Primary Care Provider + [phone] Alex Adams MD Unavailable [phone] Phan Avitia MD Unavailable Encounter Details Date Type Department Care Team (Late st Contact Info) Description 01/10/2021 Orders Only External Location [address] [place] [address] Provider, External Social History Tobacco Use Types [...] Date/Time Associated Diagnosis Comments US OUTSIDE IMAGES 01/10/2021 10:13 AM EDT documented in this encounter Results * US OUTSIDE IMAGES (01/10/2021 10:13 AM EDT) Anatomical Region Laterality Modality Ultrasound 01/10/2021 10:1 3 AM EDT us External Provider IMG US PROCEDURES Final Result documented in this encounter Visit Diagnoses Not on filedocumented in this encounter Care Teams Front Line Leader Relationship Specialty Start Date End Date Akil Borges MD [address] [facility] [address] [facility] [address] [place] [address] PCP - General 09/16/20 Alex Adams MD [address] [place] [id number] Referring Physician 12/05/20 Phan Avitia MD [address] [facility] [address] [place] [address] Surgeon Otolaryngology 06/22/22 documented as of this encounter
--- OUTSIDE RECORDS SUMMARY | 2025-04-02 14:52 | XMS_ITS | Encounter Summary ---
Author Organization Healthcare Address [address] [place] [address] Care Team Providers Care Title Camera Operator Name Role Phone Akil Borges MD Primary Care Provider + [phone] Alex Adams MD Unavailable [phone] Phan Avtiia MD Unavailable Encounter Details Date Type Department Care Team (Late st Contact Info) Description 05/03/2022 Orders Only External Location [address] [place] [address] Provider, External Social History Tobacco Use Types [...] Associated Diagnosis Comments XR THORACIC OUTSIDE IMAGES 05/03/2022 5:07 PM EST documented in this encounter Results * XR THORACIC OUTSIDE IMAGES (05/03/2022 5:07 PM EST) Anatomical Region Laterality Modality Radiographic Joellen ging 05/03/2022 5:07 PM EST us External Provider IMG XR PROCEDURES Final Result documented in this encounter Visit Diagnoses Not on filedocumented in this encounter Additional Health Concerns Assessment Noted Time A fall risk assessment has been complete d for the patient 02/20/2021 4:43 PM EDT documented as of this encounter Care Teams Title Camera Operator Relationship Specialty Start Date End Date Akil Borges MD [address] [place] [address] PCP - General 09/16/20 Alex Adams MD [address] [place] [address] Referring Physician 12/05/20 Phan Avitia MD [address] [facility] [address] [place] [address] Surgeon Otolaryngology 06/22/22 documented as of this encounter
--- OUTSIDE RECORDS SUMMARY | 2025-04-02 14:52 | XMS_ITS | Encounter Summary ---
Author Organization Healthcare Address [address] [place] [address] Care Team Providers Care Inhalation Therapy Aides Teacher Name Role Phone Akil Borges MD Primary Care Provider + [phone] Alex Adams MD Unavailable [phone] Phan Avitia MD Unavailable Encounter Details Date Type Department Care Team (Late st Contact Info) Description 06/18/2022 Orders Only External Location [address] [place] [address] Akil Borges MD [address] [place] [address] Social History Tobacco Use Types [...] Name Priority Date/Time Associated Diagnosis Comments CT NEURO OUTSIDE IMAGES 06/18/2022 2:59 PM EST documented in this encounter Results * CT NEURO OUTSIDE IMAGES (06/18/2022 2:59 PM EST) Anatomical Region Laterality Modality Computed Tomogra phy 06/18/2022 2:59 PM EST Akil Borges MD IMG CT PROCEDURES Final Resu lt documented in this encounter Visit Diagnoses Not on filedocumented in this encounter Additional Health Concerns Assessment Noted Time A fall risk assessment has been complete d for the patient 02/20/2021 4:43 PM EDT documented as of this encounter Care Teams Inhalation Therapy Aides Teacher Relationship Specialty Start Date End Date Akil Borges MD [address] [facility] [address] [place] [address] PCP - General 09/16/20 Alex Adams MD [address] [place] [address] Referring Physician 12/05/20 Phan Avitia MD [address] [facility] [address] [place] [address] Surgeon Otolaryngology 06/22/22 documented as of this encounter
--- OUTSIDE RECORDS SUMMARY | 2025-04-02 14:53 | XMS_ITS | Encounter Summary ---
Author Organization Healthcare Address [address] [place] [address] Care Team Providers Care Vp Home Health Name Role Phone Akil Borges MD Primary Care Provider + [phone] Alex Adams MD Unavailable [phone] Phan Avitia MD Unavailable Encounter Details Date Type Department Care Team (Late st Contact Info) Description 12/12/2020 Orders Only External Location [address] [place] [address] Akil Borges MD [address] [place] [address] Social History Tobacco Use Types [...] on filedocumented in this encounter Care Teams Vp Home Health Relationship Specialty Start Date End Date Akil Borges MD [address] [place] [address] PCP - General 09/16/20 Alex Adams MD [address] [place] [address] Referring Physician 12/05/20 Phan Avitia MD [address] [facility] [address] [place] [address] Surgeon Otolaryngology 06/22/22 documented as of this encounter
--- OUTSIDE RECORDS SUMMARY | 2025-04-02 14:53 | XMS_ITS | Encounter Summary ---
Author Organization Healthcare Address [address] [place] [address] Care Team Providers Care Microfilm Camera Operator Name Role Phone Akil Borges MD Primary Care Provider + [phone] Alex Adams MD Unavailable [phone] Phan Avitia MD Unavailable Encounter Details Date Type Department Care Team (Late st Contact Info) Description 11/22/2020 Orders Only External Location [address] [place] [address] Provider, External Social History Tobacco Use Types [...] on filedocumented in this encounter Care Teams Microfilm Camera Operator Relationship Specialty Start Date End Date Akil Borges MD [address] [place] [address] PCP - General 09/16/20 Alex Adams MD [address] [place], [place] [id number] Referring Physician 12/05/20 Phan Avitia MD [address] [facility] [address] [place] [address] Surgeon Otolaryngology 06/22/22 documented as of this encounter
--- NOTE | 2025-04-02 15:00 | CA_ITS ---
FINAL REPORT TECHNIQUE: Akins scale, color and spectral doppler images of the bilateral carotid arteries were obtained. CLINICAL HISTORY: [place] FINDINGS: Peak systolic velocity in the right internal carotid artery is 257 cm/sec. The internal carotid to common carotid artery ratio is 3.53. There is greater than 70% carotid artery stenosis with moderate plaque formation. The right vertebral artery is normal in direction. Peak systolic velocity in the left internal carotid artery is 299 cm/sec. The internal carotid to common carotid artery ratio is 4.75. There is greater than 70% carotid artery stenosis with moderate plaque formation. The left vertebral artery is normal in direction. IMPRESSION: Greater than 70% bilateral carotid artery stenosis with moderate plaque formation. Consider CTA. Reviewed, Interpreted and Dictated by Candy Cabrera MD Transcribed by Jacinda Maravilla Authenticated and [facility]
== END 2025-04-02 23:59 | disposition home or self-care (01) ==
LOC: RT 14:50
PROVIDERS: PCP Internal Medicine Adolescent Medicine; Visit Provider Physician Assistant
DX: I65.23 Occlusion and stenosis of bilateral carotid arteries (principal); I25.10 Atherosclerotic heart disease of native coronary artery without angina pectoris; R42 Dizziness and giddiness; Z95.5 Presence of coronary angioplasty implant and graft
CPT/HCPCS: 93880

== ENCOUNTER 2025-04-16 08:37 | Outpatient (CLI) | payer MEDICARE, BC, SELFPAY ==
--- NOTE | 2025-04-16 | CA_ITS ---
APPROVED REPORT EXAM: Comprehensive 2D, Doppler, and color-flow Echocardiogram Family Centered Specialist: aKlpana Sanchez RT(R) Ht: 5 ft 7 in Wt: 232lbs BSA: 2.15 BP: 155/53 mmHg Indications: dizziness, CAD, RBBB, HTN 2D Dimensions LVEF (Parish's) 45.30 % M: 52 - 72 LV Volume 177.30 mL M: 62 - 150 LV Volume Index 82.1 mL/m2 M: 34 - 74 LA Volume 57.40 mL LA Volume Index 26.57 mL/m2 (M/F) 16-34 EF AP4 41.40 % EF AP2 46.6 % EF BP 45.3 % GL Strain -11.1 % M-Mode Dimensions RVDd 2.33 cm (0.9-2.6) LA Diam 4.00 cm (1.9-4.0) LVDd 5.31 cm (3.5-5.7) LVDs 3.50 cm (3.5-5.7) IVSd 0.84 cm (0.6-1.1) PWd 0.93 cm (0.6-1.1) EF (Teich) 62.50% FS 34.10% EDV (Teich) 135.90 mL ESV (Teich) 50.90 mL LV Diastology E Decel Time 173 (160-240 msec) E/A Ratio 0.9 Aortic Valve AO VTI 29.4 (18-25 cm) Mitral Valve MV E Max Leonard. 93.0 (40-130 cm/s) MV A Velocity 101.0 (40-130 cm/s) E/A Ratio 0.92 MV PHT 51.0 ms Left Ventricle The left ventricle is normal size. Left ventricular systolic function is normal. The left ventricular ejection fraction is within the normal range. There is increased left ventricular wall thickness. There is normal LV segmental wall motion. The left ventricular diastolic function is normal. LVEF is 55% Right Ventricle The right ventricle is normal size. The right ventricular systolic function is normal. Atria The left atrium is mildly dilated. The right atrium size is normal. There is no color Doppler evidence of interatrial shunt. Aortic Valve The aortic valve opens well. There is no hemodynamically significant aortic valvular stenosis. No aortic regurgitation is present. Mitral Valve The mitral valve is normal in structure. No evidence of mitral valve stenosis. Trace mitral regurgitation is present. Tricuspid Valve The tricuspid valve leaflets are thin and pliable. Trace tricuspid regurgitation. There is insufficient TR jet to estimate RVSP. Pulmonic Valve The pulmonary valve is grossly normal in structure. Trace pulmonic valve regurgitation is present. Great Vessels The aortic root is normal in size. IVC is normal in size and collapses >50% with inspiration. Pericardium There is no pericardial effusion. Other Information Study Quality: Fair Conclusion Normal biventricular systolic function. Mild LA dilation. No significant valvular stenosis or regurgitation. Electronically signed by : Gretchen Li MD 04/19/2025 13:23:43
[2025-04-16 09:31] LABS: Blood Urea Nitrogen 21 mg/dl (9-20); Creatinine,Serum 2.30 mg/dl (0.66-1.25); Estimated Glomerular Filt Rate 28 ml/min (>60); GFR (African American) 33 ML/MIN (>60)
== END 2025-04-16 23:59 | disposition home or self-care (01) ==
PROVIDERS: Physician Assistant; PCP Internal Medicine Adolescent Medicine; Visit Provider Internal Medicine Adolescent Medicine
DX: I65.23 Occlusion and stenosis of bilateral carotid arteries (principal); R06.09 Other forms of dyspnea; R60.0 Localized edema
CPT/HCPCS: 36415; 82565; 84520; 93306

== ENCOUNTER 2025-04-25 15:36 | Emergency (ER) | payer MEDICARE, BC, SELFPAY ==
--- OUTSIDE RECORDS SUMMARY | 2024-08-08 16:30 | XMS_ITS ---
Author Organization [facility] Address [address] [place] [address] Care Team Providers Care Crisis Nurse Name Role Phone JonyAkil Primary Care Provider Migration, Provider Unavailable Unavailable [facility] Conversion Encounter Medications Medication SIG (Take, Route, Frequency, Duration) Notes Start Date End Date Status Losartan Potassium 25 MG 1 tab(s) orally once a day; Duration: 90 days Active Breo Ellipta 50 MCG-25 MCG/INH. 1 INH INHALED ONCE A DAY; Duration: 30 DAYS *Please review and pick correct strength-formulat ion from [facility] options. If intended option is not shown, discontinue and re-order from Quick Search* 03/13/2024 Active Lyrica 100 MG 1 cap(s) orally 2 times a day; Duration: 90 days 06/26/2024 Active DULoxetine HCl 30 MG 1 cap(s) orally 2 times a day; Duration: 90 days Active Tresiba FlexTouch 100 UNIT/ML INJECT 45 UNITS SUBCUTANEOUSLY ONCE DAILY FOR 30 DAYS; Duration: 90 days Active metFORMIN HCl 1000 MG 1 tab(s) orally 2 times a day; Duration: 90 days Active Rosuvastatin Calcium 10 MG 1 tab(s) orally once a day; Duration: 90 days Active Allopurinol 100 MG one tablet orally once a day; Duration: 90 days Active Incruse Ellipta 62.5 MCG (0.0625 MG)/INH INHALE 1 PUFF BY MOUTH ONCE DAILY; Duration: 90 *Please review and pick correct strength-formulat ion from [employer] options. If intended option is not shown, discontinue and re-order from Quick Search* Active ONE TOUCH VEREO TEST STRIPS N/A 1 TEST STRIP FINGERSTICK TWICE A DAY DX: E11.9 *Please review for potential replacement for e-prescription and drug interaction check* 10/02/2023 Active Multivitamin - 1 tab(s) orally once a day Active NOVOFINE PLUS PEN NEEDLE 32G 4MM USE ONCE DAILY WITH TRESIBA; Duration: 90 DAYS *Please review for potential replacement for e-prescription and drug interaction check* 08/14/2017 Active Furosemide 20 MG 1 tab(s) orally once daily; Duration: 90 days Active OXYGEN 2.3 LITERS 2 L at night *Please review for potential replacement for e-prescription and drug interaction check* Active ACCU-CHECK GUIDE TEST STRIPS USE TO CHECK BLOOD SUGAR DX:E11.9 TWICE DAILY; Duration: 100 DAYS *Please review for potential replacement for e-prescription and drug interaction check* Active CPAP MACHINE WITH ADULT SETUP *Please review for potential replacement for e-prescription and drug interaction check* Active ASPIR-LOW 81 MG 1 TAB(S) ORALLY ONCE A DAY *Please review for potential replacement for e-prescription and drug interaction check* Active Clopidogrel Bisulfate 75 MG 1 tab(s) orally once a day; Duration: 90 days Active B-12 1000 MCG 1 tab(s) orally once a day Active Finasteride 5 MG 1 tab(s) orally once a day Active Levothyroxine Sodium 50 MCG 1 tab(s) orally once a day; Duration: 90 days Active Tadalafil 10 MG 1 tab(s) orally once a day Active HumuLIN 70/30 (70-30) 100 UNIT/ML 40 subcutaneously when needed. Active Encounters Encounter Location Date Provider Diagnosis [facility] [address] [place] [address] 08/08/2024 Provider Migration Plan Of Treatment Medication Medication Name Sig Start Date Stop Date Notes Tresiba FlexTouch 100 UNIT/ML INJECT 45 UNITS SUBCUTANEOUSLY ONCE DAILY FOR 30 DAYS; Duration: 90 days Clopidogrel Bisulfate 75 MG 1 tab(s) ora lly once a day; Duration: 90 days Next Appt Details Provider Name:Akil Borges, 05/03/2025 03:15:00 PM, [address], [address], [place], [address], Progress Notes * Farhan PLASCENCIADOB: [birth year] (80 yo M)Acc No.[id number]:08/08/2024 Patient: Farhan FONTAINE Provider: Rafat katz Migration :1945 A ge:79 Y S ex:Male Date:08/08/2024 Address:[address] [place], [place], [id number] Pcp:Akil Borges Subjective: * Chief Complaints: * 1 . [facility] Conversion Encounter. * Medical History: * Medications: T aking Tadalafil 10 MG Tablet 1 tab(s) orally once a day , Taking HumuLIN 70/30 (70-30) 100 UNIT/ML Suspension 40 subcutaneously when needed. , Taking Finasteride 5 MG Tablet 1 tab(s) orally once a day , Taking B-12 1000 MCG Tablet 1 tab(s) orally once a day , Taking ASPIR-LOW 81 MG ENTERIC COATED TABLET 1 TAB(S) ORALLY ONCE A DAY , Notes to Pharmacist: *Please review for potential replacement for e- prescription and drug interaction check*, Taking CPAP MACHINE WITH ADULT SETUP , Notes to Pharmacist: *Please review for potential replacement for e-prescription and drug interaction check*, Taking NOVOFINE PLUS PEN NEEDLE 32G 4MM USE ONCE DAILY WITH TRESIBA , Notes to Pharmacist: *Please review for potential replacement for e-prescription and drug interaction check*, Taking Multivitamin - Tablet 1 tab(s) orally once a day , Taking OXYGEN 2.3 LITERS , Notes to Pharmacist: 2 L at night *Please review for potential replacement for e-prescription and drug interaction check*, Taking Furosemide 20 MG Tablet 1 tab(s) orally once daily , Taking ACCU- CHECK GUIDE TEST STRIPS USE TO CHECK BLOOD SUGAR DX:E11.9 TWICE DAILY , Notes to Pharmacist: *Please review for potential replacement for e-prescription and drug interaction check*, Taking Allopurinol 100 MG Tablet one tablet orally once a day , Taking ONE TOUCH VEREO TEST STRIPS N/A N/A 1 TEST STRIP FINGERSTICK TWICE A DAY , Notes to Pharmacist: DX: E11.9 *Please review for potential replacement for e-prescription and drug interaction check*, Taking Incruse Ellipta 62.5 MCG (0.0625 MG)/INH POWDER INHALE 1 PUFF BY MOUTH ONCE DAILY , Notes to Pharmacist: *Please review and pick correct strength-formulation from [employer] options. If intended option is not shown, discontinue and re-order from Quick Search*, Taking Rosuvastatin Calcium 10 MG Tablet 1 tab(s) orally once a day , Taking metFORMIN HCl 1000 MG Tablet 1 tab(s) orally 2 times a day , Taking DULoxetine HCl 30 MG Capsule Delayed Release Particles 1 cap(s) orally 2 times a day , Taking Breo Ellipta 50 MCG-25 MCG/INH. POWDER 1 INH INHALED ONCE A DAY , Notes to Pharmacist: *Please review and pick correct strength-formulation from [employer] options. If intended option is not shown, discontinue and re-order from Quick Search*, Taking Losartan Potassium 25 MG Tablet 1 tab(s) orally once a day , Taking Lyrica 100 MG Capsule 1 cap(s) orally 2 times a day , Taking Levothyroxine Sodium 50 MCG Tablet 1 tab(s) orally once a day Objective: * Vitals: Assessment: Plan: * Treatment: * * Electronic signature of Antonette carlin Migration on 04/25/2025 at 03:43 PM EST Sign off status: Pending * Provider: Rafat katz Migration Date: 0 08/08/2024 Generated for Ovidio douglas/Jhon/Asha on: 1 06/26/2024 03:43 PM EST
--- OUTSIDE RECORDS SUMMARY | 2025-03-08 09:00 | XMS_ITS ---
Author Organization [facility] Address [address] [place] [address] Care Team Providers Care Axle Polisher Name Role Phone Akil Borges Primary Care [...] Acute exacerbation of chronic obstructive airways disease (285141310) COPD exacerbation (J44.1) Active confirmed Vital Signs Temperature 97.5 degrees Fahrenheit 03/08/20 25 Blood pressure systolic 178 mm Hg 03/08/20 25 Blood pressure diastolic 60 mm Hg 025 Heart Rate 96 /min 03/08/2025 Height 67.5 in 03/08/2025 Weight 231.4 lbs 03/08/2025 BMI 35.7 kg/m2 03/08/2025 Encounters Encounter Location Date Provider Diagnosis [facility] [address] [facility] [address] [place] [address] 03/08/2025 Akil Borges COPD exacerbation J44.1 ; [...] Up: 4 Weeks, Reason: Provider Name:Akilisabel Borges, 05/03/2025 03:15:00 PM, [address], [address], [place], [address], Progress Notes * Farhan PLASCENCIADOB: [birth year] (80 yo M)Acc No.[id number]:03/08/2025 Progress Notes Patient: Farhan FONTAINE Provider: Albino Borges MD :1945 A ge:80 Y S ex:Male Date:03/08/2025 Address:[id number] Subjective: * Chief Complaints: * 1 . [...] Date: 05/08/2024 Generated for Ovidio douglas/Jhon/eTransmitting on: 06/26/2024 03:44 PM EST History and Physical Notes * [...]
--- OUTSIDE RECORDS SUMMARY | 2025-04-05 09:30 | XMS_ITS ---
Author Organization [facility] Address [address] [place] [address] Care Team Providers Care Insole And Outsole Splitter Name Role Phone Akil Borges Primary Care Provider [phone] Allergies No Known Allergies REASON FOR VISIT 1 Month Follow up. Still has a cough and chest rattles. Shortness of breath Medications Medication SIG (Take, Route, Frequency, Duration) Notes Start Date End Date Status NOVOFINE PLUS PEN NEEDLE 32G 4MM USE ONCE DAILY WITH TRESIBA; Duration: 90 DAYS *Please review for potential replacement for e-prescription and drug interaction check* 08/14/2017 Active CPAP MACHINE WITH ADULT SETUP *Please review for potential replacement for e-prescription and drug interaction check* Active OXYGEN 2.3 LITERS 2 L at night *Please review for potential replacement for e-prescription and drug interaction check* Active Multivitamin - 1 tab(s) orally once a day Active ONE TOUCH VEREO TEST STRIPS N/A 1 TEST STRIP FINGERSTICK TWICE A DAY DX: E11.9 *Please review for potential replacement for e-prescription and drug interaction check* 10/02/2023 Active ASPIR-LOW 81 MG 1 TAB(S) ORALLY ONCE A DAY *Please review for potential replacement for e-prescription and drug interaction check* Active B-12 1000 MCG 1 tab(s) orally once a day Active Tadalafil 10 MG 1 tab(s) orally once a day Active Farxiga 10 MG 1 tablet Orally Once a day Active Finasteride 5 MG 1 tab(s) orally once a day Active Breztri Aerosphere 160-9-4.8 MCG/ACT 2 puffs Inhalation Twice a day 03/08/2025 Active Spironolactone 50 MG 1 tablet Orally twice a day; Duration: 30 days 04/05/2025 Active Tresiba 100 UNIT/ML as directed Subcutaneous Active Advair Diskus 250-50 MCG/ACT 1 puff Inhalation Twice a day Not-Taking ACCU-CHECK GUIDE TEST STRIPS USE TO CHECK BLOOD SUGAR DX:E11.9 TWICE DAILY; Duration: 100 days DX: E11.9 Active Levothyroxine Sodium 50 MCG 1 tab(s) orally once a day; Duration: 90 days Active Pregabalin 100 MG Take 1 capsule by mouth twice daily; Duration: 90 01/05/2025 Active Promethazine-DM 6.25-15 MG/5ML 5 mL orally every 6 hours; Duration: 10 days 03/08/2025 Active Allopurinol 100 MG Take 1 tablet by mouth once daily; Duration: 90 Active metFORMIN HCl 1000 MG 1 tab(s) orally 2 times a day; Duration: 90 days Active Rosuvastatin Calcium 10 MG Take 1 tablet by mouth once daily; Duration: 90 Active DULoxetine HCl 30 MG Take 1 capsule by mouth twice daily; Duration: 90 Active Incruse Ellipta 62.5 MCG/ACT INHALE 1 PUFF BY MOUTH ONCE DAILY; Duration: 90 days Active Furosemide 20 MG 1 tab(s) orally once daily as needed for swelling; Duration: 30 days Active Clopidogrel Bisulfate 75 MG 1 tab(s) orally once a day; Duration: 90 days Active Losartan Potassium 25 MG 1 tab(s) orally once a day; Duration: 90 days Active Social History Tobacco Use: Social History Observation Description Date Details (start date - stop date) Current Smoker NA - NA Smoking: Question Answer Notes Are you a: current smoker How often do you smoke cigarettes? every day How many cigarettes a day do you smoke? 03-25 Vital Signs Temperature 98 degrees Fahrenheit 04/05/2025 Blood pressure systolic 140 mm Hg 04/05/20 25 Blood pressure diastolic 60 mm Hg 025 Heart Rate 64 /min 04/05/2025 Height 67.5 in 04/05/2025 Weight 232.4 lbs 04/05/2025 BMI 35.86 kg/m2 04/05/2025 Encounters Encounter Location Date Provider Diagnosis 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 I think he is got a combination of problems with obesity, smoking, chronic bronchitis, but will recheck echo. 04/05/2025 Peripheral edema (ICD-10 - R60.0) Has a history of diastolic dysfunction, add spironolactone, follow-up 2 weeks to review echo. 04/05/2025 Chronic bronchitis with COPD (chronic obstructive pulmonary disease) (ICD-10 - J44.9) Improving, continue Breztri triple inhaler twice daily Plan Of Treatment Medication Medication Name Sig Start Date Stop Date Notes Spironolactone 50 MG 1 tablet Orally twi ce a day; Duration: 30 days 04/05/2025 Treatment Notes Assessment Notes Dyspnea on effort Chronic dyspnea slig ht really worse. I think he is got a combination of problems with obesity, smoking, chronic bronchitis, but will recheck echo. Peripheral edema Has a history of guille stolic dysfunction, add spironolactone, follow-up 2 weeks to review echo. Chronic bronchitis with COPD (chronic obstructive pulmonary disease) Improving, continue Breztri triple inhal er twice daily Pending Test Test Name Order Date Echocardiogram 04/05/2025 Next Appt Details Follow Up: prn, Reason: Provider Name:Akil Borges, 05/03/2025 03:15:00 PM, [address], [place], [address], Progress Notes * Farhan PLASCENCIADOB: (80 yo M)Acc No.[id number]:04/05/2025 Progress Notes Patient: Arnulfo LYNDONBALJEET Farhan Feng Provider: Albino Borges MD :1945 A ge:80 Y S ex:Male Date:04/05/2025 Address:[place], [id number] Subjective: * Chief Complaints: * 1 . 1 Month Follow up. Still has a cough and chest rattles. Shortness of breath. * HPI: g en: Farhan overall feels much better with his breathing. Inhalers have done well, he has less coughing. He has been complaint right now is dyspnea with exertion. He cannot go to the mailbox without becoming dyspneic. Of note he is seeing cardiology, they have bumped his furosemide to twice daily as needed and ordered a carotid Doppler. Apparently this showed some obstruction because they have schedule him for a CTA of his carotids. * Medical History: H ypertension, Diabetes, COPD, [...] uneventfully, Negative AAA screening June 2021. * Surgical History: h ernia repair x2 , heart stent x1 , skin cancers removed 2015, Cardiac stent x 1 02/2019, Lymph node biopsy 11/2020. * Hospitalization/Major Diagno stic Procedure: h eart 08/2014, Covid 05/2021. * Family History: F ather: , cancer, colon. M other: . P aternal Grand Father: .?Paternal Grand Mother: . M aternal Grand Father: . M aternal Grand Mother: . P aternal uncle: . P aternal aunt: . M aternal uncle: . M aternal aunt: alive. S iblings: alive, prostate cancer. C hildren: alive, AFib.?1 brother(s) , 1 sister(s) . 1 son(s) , 1 daughter(s) - healthy. . * Social History: S moking: yes A re you a: c urrent smoker, H ow often do you smoke cigarettes??every day, H ow many cigarettes a day do you smoke? 1 1-20. R ecreational drug use: no. Exercise: no. Home smoke detector use: no. Caffeine: yes, frequency:tea and diet pepsi daily. Living Will: No. Alcohol: no. Sexually active: no. Travel outside [place]: no. Occupation: retired. * Medications: T aking Tresiba 100 UNIT/ML Solution as directed Subcutaneous [...] tablet by mouth once daily , Taking Promethazine-DM 6.25-15 MG/5ML Syrup 5 mL orally every 6 hours , Taking Breztri Aerosphere 160-9-4.8 MCG/ACT Aerosol 2 puffs Inhalation Twice a day , Not-Taking Advair Diskus 250-50 MCG/ACT Aerosol Powder Breath Activated 1 puff Inhalation Twice a day , Discontinued Zithromax Z-Raj 250 MG Tablet 2 tablets on the first day, then 1 tablet daily for 4 days orally once a day , Medication List reviewed and reconciled with the patient * Allergies: N .K.D.A. Objective: * Vitals: N urse: KJ, Pain: 0, Temp: 98, RR: 18, HR: 64, BP: 140/60, Ht: 67.5, Wt: 232.4, BMI:35.86. * Examination: G eneral Examination: N o change in exam except his lungs are better. Better air entry, no wheezing. Trace ankle edema, obesity as previously noted. Oropharynx clear, heart rate regular. Assessment: * Assessment: 1. D yspnea on effort - R06.09 (Primary) 2 . P eripheral edema - R60.0 3 . C hronic bronchitis with COPD (chronic obstructive pulmonary disease) - J44.9? Plan: * Treatment: * Notes: Chronic dyspnea slight really worse. I think he is got a combination of problems with obesity, smoking, chronic bronchitis, but will recheck echo. ??2.?Peripheral edema? Start Spironolactone Tablet, 50 MG, 1 tablet, Orally, twice a day, 30 days, 60 Tablet, Refills 1. ?Imaging: Echocardiogram* Stefania Hill 04/05/2025 03: 19:05 PM EST > no auth needed * Notes: Has a history of diastolic dysfunction, add spironolactone, follow-up 2 weeks to review echo.??3.?Chronic bronchitis with COPD (chronic obstructive pulmonary disease)? Notes: Improving, continue Breztri triple inhaler twice daily?? * Procedure Codes: G 2211 Complex e/m visit add on * Follow Up: p rn * * Sign off status: Completed true * Provider: Albino Borges MD Date: 06/06/2024 Generated for Ovidio douglas/Jhon/eTransmitting on: 06/26/2024 03:44 PM EST History and Physical Notes * HPI (History of Present Illness) Category Sub-Category Detail Notes Category Not es gen Real overall feels much better with his breathing. Inhalers have done well, he has less coughing. He has been complaint right now is dyspnea with exertion. He cannot go to the mailbox without becoming dyspneic. Of note he is seeing cardiology, they have bumped his furosemide to twice daily as needed and ordered a carotid Doppler. Apparently this showed some obstruction because they have schedule him for a CTA of his carotids. Examination Category Sub-Category Detail Notes Category Not es General Examination No change in exam except his lungs are better. Better air entry, no wheezing. Trace ankle edema, obesity as previously noted. Oropharynx clear, heart rate regular
--- OUTSIDE RECORDS SUMMARY | 2025-04-21 09:00 | XMS_ITS ---
Author Organization [facility] Address [address] [place] [address] Care Team Providers Care Wire Coiler Name Role Phone Akil Borges Primary Care Provider Allergies No Known Allergies Results Component Value Reference Range Notes COMPREHENSIVE METABOLIC PANE Uri ([id number]) Reviewed date:04/24/2025 09:29:18 AM Interpretation: Performing Lab:[facility], [facility] [id number], [facility] Abimael Golden Notes/Report: NON-FASTING; NON-FASTING; NON-FASTING; NON-FASTING; NON-FAST GLUCOSE 128 65-99 mg/dL Fasting reference interval For someone without known diabetes, a glucose value >125 mg/dL indicates that they may have diabetes and this should be confirmed with a follow-up test. UREA NITROGEN (BUN) 20 7-25 mg/dL CREATININE 2.01 0.70-1.28 mg/dL EGFR 33 > OR = 60 mL/min/1.73m2 BUN/CREATININE RATIO 10 6-22 (calc) SODIUM 139 135-146 mmol/L POTASSIUM 5.6 3.5-5.3 mmol/L CHLORIDE 104 98-110 mmol/L CARBON DIOXIDE 24 20-32 mmol/L CALCIUM 8.9 8.6-10.3 mg/dL PROTEIN, TOTAL 6.2 6.1-8.1 g/dL ALBUMIN 3.3 3.6-5.1 g/dL GLOBULIN 2.9 1.9-3.7 g/dL (calc) ALBUMIN/GLOBULIN RATIO 1.1 1.0-2.5 (calc) BILIRUBIN, TOTAL 0.2 0.2-1.2 mg/dL ALKALINE PHOSPHATASE 60 35-144 U/L AST 20 10-35 U/L ALT 13 9-46 U/L MAGNESIUM (622) Reviewed date:04/24/2025 09:29:18 AM Interpretation: Performing Lab:[facility] [id number] [employer], [facility] Abimael Golden Notes/Report: NON-FASTING; NON-FASTING; NON-FASTING; NON-FASTING; NON-FAST MAGNESIUM 2.3 1.5-2.5 mg/dL URIC ACID (905) Reviewed date:04/24/2025 09:29:18 AM Interpretation: Performing Lab:[facility] [id number] [employer], [facility] Abimael Golden Notes/Report: NON-FASTING; NON-FASTING; NON-FASTING; NON-FASTING; NON-FAST URIC ACID 6.2 4.0-8.0 mg/dL Therapeutic ta rget for gout patients: <6.0 mg/dL CBC (INCLUDES DIFF/PLT) (639 9) Reviewed date:04/24/2025 09:29:18 AM Interpretation: Performing Lab:[facility] [id number] [employer], [facility] EyzbYD[address] Abimael Golden Notes/Report: NON-FASTING; NON-FASTING; NON-FASTING; NON-FASTING; NON-FAST WHITE BLOOD CELL COUNT 8.6 3.8-10.8 Thousand/ uL RED BLOOD CELL COUNT 3.81 4.20-5.80 Million/uL HEMOGLOBIN 8.1 13.2-17.1 g/dL HEMATOCRIT 28.6 39.4-51.1 % MCV 75.1 81.4-101.7 fL MCH 21.3 27.0-33.0 pg MCHC 28.3 31.6-35.4 g/dL RDW 18.9 11.0-15.0 % PLATELET COUNT 396 140-400 Thousand/uL MPV 10.9 7.5-12.5 fL ABSOLUTE NEUTROPHILS 5822 4506-6877 cells/uL ABSOLUTE LYMPHOCYTES 6726 458-6152 cells/uL ABSOLUTE MONOCYTES 619 200-950 cells/uL ABSOLUTE EOSINOPHILS 163 15-500 cells/uL ABSOLUTE BASOPHILS 120 0-200 cells/uL NEUTROPHILS 67.7 LYMPHOCYTES 21.8 MONOCYTES 7.2 EOSINOPHILS 1.9 BASOPHILS 1.4 HEMOGLOBIN A1c (496) Reviewed date:04/24/2025 09:29:18 AM Interpretation: Performing Lab:[facility], [facility] [id number] [facility], [place] Abimael Golden Notes/Report: NON-FASTING; NON-FASTING; NON-FASTING; NON-FASTING; NON-FAST HEMOGLOBIN A1c 7.6 <5.7 % For someone without known diabetes, a hemoglobin [...] A1c for diagnosis of diabetes for children. REASON FOR VISIT 2 week f/u Medications Medication SIG (Take, Route, Frequency, Duration) Notes Start Date End Date Status Tadalafil 10 MG 1 tab(s) orally once a day Active Farxiga 10 MG 1 tablet Orally Once a day Active Tresiba 100 UNIT/ML as directed Subcutaneous Active Finasteride 5 MG 1 tab(s) orally once a day Active Breztri Aerosphere 160-9-4.8 MCG/ACT 2 puffs Inhalation Twice a day 03/08/2025 Active Promethazine-DM 6.25-15 MG/5ML 5 mL orally every 6 hours; Duration: 10 days 03/08/2025 Active Clopidogrel Bisulfate 75 MG Take 1 tablet by mouth once daily; Duration: 90 Active Spironolactone 50 MG 1 tablet Orally twice a day; Duration: 30 days 04/05/2025 Active Allopurinol 100 MG Take 1 tablet by mouth once daily; Duration: 90 Active Levothyroxine Sodium 50 MCG 1 tab(s) orally once a day; Duration: 90 days Active Pregabalin 100 MG Take 1 capsule by mouth twice daily; Duration: 90 01/05/2025 Active metFORMIN HCl 1000 MG 1 tab(s) orally 2 times a day; Duration: 90 days Active ACCU-CHECK GUIDE TEST STRIPS USE TO CHECK BLOOD SUGAR DX:E11.9 TWICE DAILY; Duration: 100 days DX: E11.9 Active DULoxetine HCl 30 MG Take 1 capsule by mouth twice daily; Duration: 90 Active Losartan Potassium 25 MG 1 tab(s) orally once a day; Duration: 90 days Active Incruse Ellipta 62.5 MCG/ACT INHALE 1 PUFF BY MOUTH ONCE DAILY; Duration: 90 days Active Furosemide 20 MG 1 tab(s) orally once daily as needed for swelling; Duration: 30 days Active ONE TOUCH VEREO TEST STRIPS N/A 1 TEST STRIP FINGERSTICK TWICE A DAY DX: E11.9 *Please review for potential replacement for e-prescription and drug interaction check* 10/02/2023 Active Rosuvastatin Calcium 10 MG Take 1 tablet by mouth once daily; Duration: 90 Active Multivitamin - 1 tab(s) orally once a day Active NOVOFINE PLUS PEN NEEDLE 32G 4MM USE ONCE DAILY WITH TRESIBA; Duration: 90 DAYS *Please review for potential replacement for e-prescription and drug interaction check* 08/14/2017 Active OXYGEN 2.3 LITERS 2 L at [...] 1 tab(s) orally once a day Active Immunizations Vaccine Route Administration Date Status Comme nts Fluzone High Dose IM Intramuscular 04/21/2025 Administered Social History Tobacco Use: Social History Observation Description Date Details (start date - stop date) Current Smoker NA - NA Smoking: Question Answer Notes Are you a: current smoker How often do you smoke cigarettes? every day How many cigarettes a day do you smoke? 03-25 Vital Signs Temperature 97.1 degrees Fahrenheit 04/21/20 25 Blood pressure systolic 98 mm Hg 04/21/20 25 Blood pressure diastolic 40 mm Hg 025 Heart Rate 100 /min 04/21/2025 Height 67.5 in 04/21/2025 Weight 224 lbs 04/21/2025 BMI 34.56 kg/m2 04/21/2025 Encounters Encounter Location Date Provider Diagnosis [facility] [address] [place], [place] [address] 04/21/2025 Akil Borges Toe pain, right M79.674 ; Type 2 diabetes mellitus with peripheral neuropathy E11.42 ; Anemia, unspecified type D64.9 ; Hypertension, essential I10 and Immunization(s) administered Z23 Assessments Encounter Date Diagnosis (ICD Code) Assessment Notes Treatment Notes Treatment Clinical Notes Section Notes 04/21/2025 Toe pain, right (ICD-10 - M79.674) Allopurinol 100 takes for gout but complaining of current flare. Will obtain UA level and reassess. 04/21/2025 Type 2 diabetes mellitus with peripheral neuropathy (ICD-10 - E11.42) A1c last checked in and was . Will recheck today. Continue current regimen 04/21/2025 Anemia, unspecified type (ICD-10 - D64.9) Will obtain updated CBC level today and reassess. 04/21/2025 Hypertension, essential (ICD-10 - I10) BP soft in office at 98/40. Counselled patient to stop furosemide pill for the next few days as he has probably been overdiuresed. RTC on 04/24/2025 to recheck BP and reassess. COunselled pt to bring in all medications to obtain complete list. 04/21/2025 Immunization(s) administered (ICD-10 - Z23) Has not resceived annual flu vaccine Plan Of Treatment Treatment Notes Assessment Notes Toe pain, right Allopurinol 100 take s for gout but complaining of current flare. Will obtain UA level and reassess. Type 2 diabetes mellitus wit h peripheral neuropathy A1c last checked in and was . Will reche ck today. Continue current regimen Anemia, unspecified type Will obtain upd ated CBC level today and reassess. Hypertension, essential BP soft in offic e at 98/40. Counselled patient to stop furosemide pill for the next few days as he has probably been overdiuresed. RTC on 04/24/2025 to recheck BP and reassess. COunselled pt to bring in all medications to obtain complete list. Immunization(s) administered Has not res ceived annual flu vaccine Next Appt Details Follow Up: prn, Reason: Provider Name:Akil Borges, 05/03/2025 03:15:00 PM, [address], [address], [place], [address], Progress Notes * Farhan MEDEIROSDOB: [birth year] (80 yo M)Acc No.[id number]:04/21/2025 Progress Notes Patient: Farhan FONTAINE Provider: Albino Borges MD :[id number] A ge:80 Y S ex:Male Date:04/21/2025 Address:[place], [id number] Subjective: * Chief Complaints: * 1 . 2 week f/u. * HPI: g en: 80 yo male presents for 2 week f/u regarding multiple medical issues. BP in office today is 98/40 and patient reports feeling weak. He reports taking furosemide 40 at home and took spironolactone 50 for about 10 days and then stopped about 4 days ago nelly sanchez his unloading checker said to. He is complaining of a cramping feeling in bilateral calves. Has lost 8 lbs since 04/05/2025. His dyspnea of exertion has improved. Using incruse inhaler at home. Mentions having sharp pain and numbness in his right toes that he notices mostly at night. Is on maintenance therapy with allopurinol 100 for gout. * Medical History: H ypertension, Diabetes, COPD, [...] alive. S iblings: alive, prostate cancer. C hilen: alive, AFib.?1 brother(s) , 1 sister(s) . [...] 2 puffs Inhalation Twice a day , Taking Spironolactone 50 MG Tablet 1 tablet Orally twice a day , Taking Clopidogrel Bisulfate 75 MG Tablet Take 1 tablet by mouth once daily , Discontinued Advair Diskus 250-50 MCG/ACT Aerosol Powder Breath Activated 1 puff Inhalation Twice a day , Medication List reviewed and reconciled with the patient * Allergies: N .K.D.A. Objective: * Vitals: N urse: aw, Pain: 9-rt foot, Temp: 97.1, RR: 18, HR: 100, BP: 98/40, Ht: 67.5, Wt: 224, BMI:34.56. * Examination: G eneral Examination: General P leasant and Cooperative, NAD on RA,. Heart: R egular Rate and Rhythm, no murmur, rubs or gallops. Lungs: L CTAB, No wheezes, crackles or rhonchi, Good air movement,. Extremities: b ilateral pitting edema, TTP in bilateral calves. Assessment: * Assessment: 1. T oe pain, right - M79.674 (Primary) 2 . T ype 2 diabetes mellitus with peripheral neuropathy - E11.42 3 . A nemia, unspecified type - D64.9 ?4. H ypertension, essential - I10 5 . I mmunization(s) administered - Z23 Plan: * Treatment: Value Reference Range G LUCOSE 128 H 65-99 - mg/dL * U JOSH NITROGEN (BUN) 20 7-25 - mg/dL * C REATININE 2.01 H 0.70-1.28 - mg/dL * B UN/CREATININE RATIO 10 6-22 - (calc) * S ODIUM 139 135-146 - mmol/L * P OTASSIUM 5.6 H 3.5-5.3 - mmol/L * C HLORIDE 104 98-110 - mmol/L * C ARBON DIOXIDE 24 20-32 - mmol/L * C ALCIUM 8.9 8.6-10.3 - mg/dL * P ROTEIN, TOTAL 6.2 6.1-8.1 - g/dL * A LBUMIN 3.3 L 3.6-5.1 - g/dL * G LOBULIN 2.9 1.9-3.7 - g/dL (calc ) * A LBUMIN/GLOBULIN RATIO 1.1 1.0-2.5 - (calc) * B ILIRUBIN, TOTAL 0.2 0.2-1.2 - mg/dL * A LKALINE PHOSPHATASE 60 35-144 - U/L * A ST 20 10-35 - U/L * A LT 13 9-46 - U/L * E GFR 33 L > OR = 60 - mL/min/1 .73m2 * Marlene Swenson 04/24/2025 09:29:11 AM EST > Patient informedThis lab was reviewed by Marlene Swenson on 04/24/2025 at 09:29 AM EST ?LAB: MAGNESIUM (622)* Value Reference Range M AGNESIUM 2.3 1.5-2.5 - mg/dL * Marlene Swenson 04/24/2025 09:29:11 AM EST > Patient informedThis lab was reviewed by Marlene Swenson on 04/24/2025 at 09:29 AM EST ?LAB: URIC ACID (905)* Value Reference Range U STACY ACID 6.2 4.0-8.0 - mg/dL * Marlene Swenson 04/24/2025 09:29:11 AM EST > Patient informedThis lab was reviewed by Marlene Swenson on 04/24/2025 at 09:29 AM EST ?LAB: CBC (INCLUDES DIFF/PLT) (6399)* Value Reference Range W PHANI BLOOD CELL COUNT 8.6 3.8-10.8 - Thousan d/uL * R ED BLOOD CELL COUNT 3.81 L 4.20-5.80 - Million/ uL * H EMOGLOBIN 8.1 L 13.2-17.1 - g/dL * H EMATOCRIT 28.6 L 39.4-51.1 - % * M CV 75.1 L 81.4-101.7 - fL * M CH 21.3 L 27.0-33.0 - pg * M CHC 28.3 L 31.6-35.4 - g/dL * R DW 18.9 H 11.0-15.0 - % * P LATELET COUNT 396 140-400 - Thousand/u L * N EUTROPHILS 67.7 - % * A BSOLUTE NEUTROPHILS 5822 5602-7361 - cells/uL * L YMPHOCYTES 21.8 - % * A BSOLUTE LYMPHOCYTES 5667 813-4730 - cells/uL * M ONOCYTES 7.2 - % * A BSOLUTE MONOCYTES 619 200-950 - cells/uL * E OSINOPHILS 1.9 - % * A BSOLUTE EOSINOPHILS 163 15-500 - cells/uL * B ASOPHILS 1.4 - % * A BSOLUTE BASOPHILS 120 0-200 - cells/uL * M PV 10.9 7.5-12.5 - fL * Marlene Swenson 04/24/2025 09:29:11 AM EST > Patient informedThis lab was reviewed by Marlene Swenson on 04/24/2025 at 09:29 AM EST Notes: Allopurinol 100 takes for gout but complaining of current flare. Will obtain UA level and reassess. ??2.?Type 2 diabetes mellitus with peripheral neuropathy?LAB: COMPREHENSIVE METABOLIC PANEL (03704)* Value Reference Range G LUCOSE 128 H 65-99 - mg/dL * U JOSH NITROGEN (BUN) 20 7-25 - mg/dL * C REATININE 2.01 H 0.70-1.28 - mg/dL * B UN/CREATININE RATIO 10 6-22 - (calc) * S ODIUM 139 135-146 - mmol/L * P OTASSIUM 5.6 H 3.5-5.3 - mmol/L * C HLORIDE 104 98-110 - mmol/L * C ARBON DIOXIDE 24 20-32 - mmol/L * C ALCIUM 8.9 8.6-10.3 - mg/dL * P ROTEIN, TOTAL 6.2 6.1-8.1 - g/dL * A LBUMIN 3.3 L 3.6-5.1 - g/dL * G LOBULIN 2.9 1.9-3.7 - g/dL (calc ) * A LBUMIN/GLOBULIN RATIO 1.1 1.0-2.5 - (calc) * B ILIRUBIN, TOTAL 0.2 0.2-1.2 - mg/dL * A LKALINE PHOSPHATASE 60 35-144 - U/L * A ST 20 10-35 - U/L * A LT 13 9-46 - U/L * E GFR 33 L > OR = 60 - mL/min/1 .73m2 * Marlene Swenson 04/24/2025 09:29:11 AM EST > Patient informedThis lab was reviewed by Marlene Swenson on 04/24/2025 at 09:29 AM EST ?LAB: HEMOGLOBIN A1c (496)* Value Reference Range H EMOGLOBIN A1c 7.6 H <5.7 - % * Marlene Swenson 04/24/2025 09:29:11 AM EST > Patient informedThis lab was reviewed by Marlene Swenson on 04/24/2025 at 09:29 AM EST Notes: A1c last checked in and was . Will recheck today. Continue current regimen??3.?Anemia, unspecified type?LAB: HEMOGLOBIN A1c (496)* Value Reference Range H EMOGLOBIN A1c 7.6 H <5.7 - % * Marlene Swenson 04/24/2025 09:29:11 AM EST > Patient informedThis lab was reviewed by Marlene Swenson on 04/24/2025 at 09:29 AM EST Notes: Will obtain updated CBC level today and reassess. ??4.?Hypertension, essential? Notes: BP soft in office at 98/40. Counselled patient to stop furosemide pill for the next few daysas he has probably been overdiuresed. RTC on 04/24/2025 to recheck BP and reassess. COunselled pt to bring in all medications to obtain complete list. ??5.?Immunization(s) administered? Notes: Has not resceived annual flu vaccine?? * Immunizations: Fluzone High Dose : 0.5 mL (Dose No:1) (Route: Intramuscular) given by KATHERYN St on Left Deltoid (Immunization(s) administered) * Procedure Codes: 9 0662 Influenza High Dose Vaccine >65 Years Old, G0008 ADMINISTRATION-FLU VACCINE MEDICARE ONLY, G2211 Complex e/m visit add on * Follow Up: p rn * * Sign off status: Completed true * Provider: Albino Borges MD Date: 06/22/2024 Generated for Ovidio douglas/Jhon/eTransmitting on: 06/26/2024 03:43 PM EST History and Physical Notes * HPI (History of Present Illness) Category Sub-Category Detail Notes Category Not es gen 80 yo male presents for 2 week f/u regarding multiple medical issues. BP in office today is 98/40 and patient reports feeling weak. He reports taking furosemide 40 at home and took spironolactone 50 for about 10 days and then stopped about 4 days ago because his unloading checker said to. He is complaining of a cramping feeling in bilateral calves. Has lost 8 lbs since 04/05/2025. His dyspnea of exertion has improved. Using incruse inhaler at home. Mentions having sharp pain and numbness in his right toes that he notices mostly at night. Is on maintenance therapy with allopurinol 100 for gout. Examination Category Sub-Category Detail Notes Category Not es General Examination Heart: Regular Rate and Rhythm, no murmur, rubs or gallops Lungs: LCTAB, No wheezes, c rackles or rhonchi, Good air movement, Extremities: bilateral pitting ed brittany, TTP in bilateral calves General Pleasant and Coopera tive, NAD on RA,
--- OUTSIDE RECORDS SUMMARY | 2025-04-24 04:15 | XMS_ITS ---
Author Organization [facility] Address [address] [place] [address] Care Team Providers Care Head Bucker Name Role Phone Akil Borges Primary Care Provider Allergies No Known Allergies REASON FOR VISIT Follow up. Left arm numb when he woke up this morning. Feels better now Medications Medication SIG (Take, Route, Frequency, Duration) Notes Start Date End Date Status Promethazine-DM 6.25-15 MG/5ML 5 mL orally every 6 hours; Duration: 10 days 03/08/2025 Active Breztri Aerosphere 160-9-4.8 MCG/ACT 2 puffs Inhalation Twice a day 03/08/2025 Active Levothyroxine Sodium 50 MCG 1 tab(s) orally once a day; Duration: 90 days Active Allopurinol 100 MG Take 1 tablet by mouth once daily; Duration: 90 Active Clopidogrel Bisulfate 75 MG Take 1 tablet by mouth once daily; Duration: 90 Active ACCU-CHECK GUIDE TEST STRIPS USE TO CHECK BLOOD SUGAR DX:E11.9 TWICE DAILY; Duration: 100 days DX: E11.9 Active Pregabalin 100 MG Take 1 capsule by mouth twice daily; Duration: 90 01/05/2025 Active metFORMIN HCl 1000 MG 1 tab(s) orally 2 times a day; Duration: 90 days Active DULoxetine HCl 30 MG Take 1 capsule by mouth twice daily; Duration: 90 Active Rosuvastatin Calcium 10 MG Take 1 tablet by mouth once daily; Duration: 90 Active Incruse Ellipta 62.5 MCG/ACT INHALE 1 PUFF BY MOUTH ONCE DAILY; Duration: 90 days Active ONE TOUCH VEREO TEST STRIPS N/A 1 TEST STRIP FINGERSTICK TWICE A DAY DX: E11.9 *Please review for potential replacement for e-prescription and drug interaction check* 10/02/2023 Active Multivitamin - 1 tab(s) orally once a day Active OXYGEN 2.3 LITERS 2 L at night *Please review for potential replacement for e-prescription and drug interaction check* Active Finasteride 5 MG 1 tab(s) orally once a day Active CPAP MACHINE WITH ADULT SETUP *Please review for potential replacement for e-prescription and drug interaction check* Active NOVOFINE PLUS PEN NEEDLE 32G 4MM USE ONCE DAILY WITH TRESIBA; Duration: 90 DAYS *Please review for potential replacement for e-prescription and drug interaction check* 08/14/2017 Active B-12 1000 MCG 1 tab(s) orally once a day Active ASPIR-LOW 81 MG 1 TAB(S) ORALLY ONCE A DAY *Please review for potential replacement for e-prescription and drug interaction check* Active Farxiga 10 MG 1 tablet Orally Once a day Active Tadalafil 10 MG 1 tab(s) orally once a day Active Vitamin C-Bioflavonoids 1000-100 MG with supper Orally daily; Duration: 30 days 04/24/2025 Active hydrALAZINE HCl 50 MG 1 tablet with food Orally Twice a day; Duration: 30 days 04/24/2025 Active Ferrous Sulfate 324 MG 1 tablet Orally on Saturday, M/W/F with supper; Duration: 30 days 04/24/2025 Active Tresiba 100 UNIT/ML as directed Subcutaneous Active Social History Tobacco Use: Social History Observation Description Date Details (start date - stop date) Current Smoker NA - NA Smoking: Question Answer Notes Are you a: current smoker How often do you smoke cigarettes? every day How many cigarettes a day do you smoke? 03-25 Problems Problem Type SNOMED Code ICD Code Onset Dates Problem Status W/U Status Risk Notes Problem Microcytic anemia (049770027) Microcytic anemia (D50.9) Active confirmed Problem Hyperkalemia (40087358) Hyperkalemia (E87.5) Active confirmed Vital Signs Temperature 98.0 degrees Fahrenheit 04/24/20 25 Blood pressure systolic 160 mm Hg 04/24/20 25 Blood pressure diastolic 40 mm Hg 025 Heart Rate 100 /min 04/24/2025 Height 67.5 in 04/24/2025 Weight 227.4 lbs 04/24/2025 BMI 35.09 kg/m2 04/24/2025 Encounters Encounter Location Date Provider Diagnosis [facility] [address] [place] [address] 04/24/2025 Akil Borges GUI (acute kidney injury) N17.9 ; Hyperkalemia E87.5 ; Microcytic anemia D50.9 and Hypertension, essential I10 Assessments Encounter Date Diagnosis (ICD Code) Assessment Notes Treatment Notes Treatment Clinical Notes Section Notes 04/24/2025 GUI (acute kidney injury) (ICD-10 - N17.9) Patient reports good urine volume. His creatinine has gone up by almost 2 fold and his GFR is down to 33. Temporally this seems to be associated with Lasix administration and and we have stopped this. I have also stopped his losartan because of his GUI and his hyperkalemia. Hydralazine for blood pressure control. 04/24/2025 Hyperkalemia (ICD-10 - E87.5) Stop ARB and losartan and furosemide and spironolactone has already been stopped. Will follow on the for labs, discussed with patient criteria to return to ER if chest pain/arm pain resumes or if urine output changes 04/24/2025 Microcytic anemia (ICD-10 - D50.9) Anemia noted. No evidence of blood loss, patient has had scopes, may need this done again if he has any evidence of bleeding. Will start iron tablets, on Saturday, Saturday/Saturday/ rid with supper along with vitamin C. 04/24/2025 Hypertension, essential (ICD-10 - I10) Dralzine as noted above Plan Of Treatment Medication Medication Name Sig Start Date Stop Date Notes Vitamin C-Bioflavonoids 1000 -100 MG with supper Orally daily; Duration: 30 days 04/24/2025 hydrALAZINE HCl 50 MG 1 tablet with food Orally Twice a day; Duration: 30 days 04/24/2025 Ferrous Sulfate 324 MG 1 tablet Orally o n Saturday, // with supper; Duration: 30 days 04/24/2025 Losartan Potassium 25 MG 1 tab(s) orally once a day Spironolactone 50 MG 1 tablet Orally twi 04/05/2025 Treatment Notes Assessment Notes GUI (acute kidney injury) Patient reports good urine volume. His creatinine has gone up by almost 2 fold and his GFR is down to 33. Temporally this seems to be associated with Lasix administration and and we have stopped this. I have also stopped his losartan because of his GUI and his hyperkalemia. Hydralazine for blood pressure control. Hyperkalemia Stop ARB and losartan and furosemide and spironolactone has already been stopped. Will follow on the for labs, discussed with patient criteria to return to ER if chest pain/arm pain resumes or if urine output changes Microcytic anemia Anemia noted. No evidence of blood loss, patient has had scopes, may need this done again if he has any evidence of bleeding. Will start iron tablets, on Saturday, Saturday/Saturday/Saturday with supper along with vitamin C. Hypertension, essential Dralzine as note d above Next Appt Details Follow Up: prn, Reason: Provider Name:Akil Borges, 05/03/2025 03:15:00 PM, [address] [facility], [address], [place], [address], Progress Notes * Farhan PLASCENCIADOB: [birth year] (80 yo M)Acc No.[id number]:04/24/2025 Progress Notes Patient: Farhan FONTAINE Jung Provider: Albino Borges MD :1945 A ge:80 Y S ex:Male Date:04/24/2025 Address:[address] [place], [place] [address], [id number] Subjective: * Chief Complaints: * 1 . Follow up. Left arm numb when he woke up this morning. Feels better now. * HPI: g en: Patient presents to follow-up his medical problems. I had him come back in early because of his abnormal labs. See notes below about these labs and our discussion. His arm numbness he felt was from lying on his left side. It does not feel like his previous cardiovascular episodes. He has had no jaw pain, dyspnea or nausea. * Medical History: H ypertension, Diabetes, COPD, [...] cigarettes a day do you smoke? 1 -20. R ecreational drug use: no. Exercise: no. [...] tab(s) orally once a day , Taking Incruse Ellipta 62.5 MCG/ACT Aerosol [...] tablet by mouth once daily , Discontinued Furosemide 20 MG Tablet 1 tab(s) orally once daily as needed for swelling , Medication List reviewed and reconciled with the patient * Allergies: N .K.D.A. Objective: * Vitals: N urse: KJ, Pain: 0, Temp: 98.0, RR: 18, HR: 100, BP: 160/40, Ht: 67.5, Wt: 227.4, BMI:35.09. * Examination: G eneral Examination: P leasant and talkative, blood pressure noted, has gained a couple pounds and I told him to stop the furosemide. Lungs are clear. Trace ankle edema. Alert and oriented x 3. Assessment: * Assessment: 1. A KI (acute kidney injury) - N17.9 (Primary) 2 . H yperkalemia - E87.5? 3. M icrocytic anemia - D50.9 4 . H ypertension, essential - I10 Plan: * Treatment: 2. H yperkalemia Notes: Stop ARB and losartan and furosemide and spironolactone has already been stopped. Will follow on the for labs, discussed with patient criteria to return to ER if chest pain/arm pain resumes or if urine output changes 3. M icrocytic anemia Start Ferrous Sulfate Tablet Delayed Release, 324 MG, 1 tablet, Orally, on Saturday, // with supper, 30 days, 30, Refills 3; S tart Vitamin C-Bioflavonoids Tablet Extended Release, 1000-100 MG, with supper, Orally, daily, 30 days, 30, Refills 3. Notes: Anemia noted. No evidence of blood loss, patient has had scopes, may need this done again if he has any evidence of bleeding. Will start iron tablets, on Saturday, Saturday/Saturday/Saturday with supper along with vitamin C.? 4. H ypertension, essential Start hydrALAZINE HCl Tablet, 50 MG, 1 tablet with food, Orally, Twice a day, 30 days, 60, Refills 3. Notes: Dralzine as noted above * Procedure Codes: G 2211 Complex e/m visit add on * Follow Up: p rn * * Sign off status: Completed true * Provider: Albino Borges MD Date: 06/25/2024 Generated for Brandoni misael/Jhon/Clarksmitting on: 06/26/2024 03:44 PM EST History and Physical Notes * HPI (History of Present Illness) Category Sub-Category Detail Notes Category Not es gen Patient presents to follow-up his medical problems. I had him come back in early because of his abnormal labs. See notes below about these labs and our discussion. His arm numbness he felt was from lying on his left side. It does not feel like his previous cardiovascular episodes. He has had no jaw pain, dyspnea or nausea. Examination Category Sub-Category Detail Notes Category Not es General Examination Pleasant and talkative, blood pressure noted, has gained a couple pounds and I told him to stop the furosemide. Lungs are clear. Trace ankle edema. Alert and oriented x 3
[2025-04-25] VITALS (7 sets, daily range): BP systolic 109–181; BP diastolic 65–95; PULSE 80–95; RESP 14–24; TEMP 36.8–36.9; O2SAT 92–99; BMI 37.5
--- OUTSIDE RECORDS SUMMARY | 2025-04-25 15:44 | XMS_ITS | Encounter Summary ---
Author Organization [facility] Address [address] [place] [address] Care Team Providers Care Diamond Assorter Name Role Phone Akil Borges MD Primary Care Provider + [phone] Alex Adams MD Unavailable [phone] Phan Avitia MD Unavailable Encounter Details Date Type Department Care Team (Late st Contact Info) Description 12/12/2020 Orders Only External Location [address] [place] [address] Akil Borges MD [address] [place] [address] Social History Tobacco Use Types [...] on filedocumented in this encounter Care Teams Diamond Assorter Relationship Specialty Start Date End Date Akil Borges MD [address] [place] [address] PCP - General 09/16/20 Alex Adams MD [address] [place] [address] Referring Physician 12/05/20 Phan Avitia MD [address] [place] [address] Surgeon Otolaryngology 06/22/22 documented as of this encounter
--- OUTSIDE RECORDS SUMMARY | 2025-04-25 15:44 | XMS_ITS | Encounter Summary ---
Author Organization [facility] Address [address] [place] [address] Care Team Providers Care Frit Mixer Name Role Phone Akil Borges MD Primary Care Provider + [phone] Alex Adams MD Unavailable [phone] Phan Avitia MD Unavailable Encounter Details Date Type Department Care Team (Late st Contact Info) Description 01/10/2021 Orders Only External Location [address] [place] [address] Provider, External Social History Tobacco Use Types [...] on filedocumented in this encounter Care Teams Frit Mixer Relationship Specialty Start Date End Date Akil Borges MD [address] [facility] [address] [facility] [address] [place] [address] PCP - General 09/16/20 Alex Adams MD [address] [place] [id number] Referring Physician 12/05/20 Phan Avitia MD [address] [facility] [address] [place] [address] Surgeon Otolaryngology 06/22/22 documented as of this encounter
--- OUTSIDE RECORDS SUMMARY | 2025-04-25 15:44 | XMS_ITS | Encounter Summary ---
Author Organization [facility] Address [address] [place] [address] Care Team Providers Care Housekeeper Cleaning Cooking Name Role Phone Akil Borges MD Primary Care Provider + [phone] Alex Adams MD Unavailable [phone] Phan Avitia MD Unavailable Encounter Details Date Type Department Care Team (Late st Contact Info) Description 05/03/2022 Orders Only External Location [address] [place] [address] Provider, External Social History Tobacco Use Types [...] documented as of this encounter Care Teams Housekeeper Cleaning Cooking Relationship Specialty Start Date End Date Akil Borges MD [address] [place] [address] PCP - General 09/16/20 Alex Adams MD [address] [place] [address] Referring Physician 12/05/20 Phan Avitia MD [address] [facility] [address] [place] [address] Surgeon Otolaryngology 06/22/22 documented as of this encounter
--- OUTSIDE RECORDS SUMMARY | 2025-04-25 15:44 | XMS_ITS | Encounter Summary ---
Author Organization Healthcare Address [address] [place] [address] Care Team Providers Care Imaging Nurse Name Role Phone Akil Borges MD Primary Care Provider + [phone] Alex Adams MD Unavailable [phone] Phan Avitia MD Unavailable Encounter Details Date Type Department Care Team (Late st Contact Info) Description 06/18/2022 Orders Only External Location [address] [place] [address] Akil Borges MD [address] [place] [address] Social History Tobacco Use Types [...] documented as of this encounter Care Teams Imaging Nurse Relationship Specialty Start Date End Date Akil Borges MD [address] [facility] [address] [place] [address] PCP - General 09/16/20 Alex Adams MD [address] [place] [address] Referring Physician 12/05/20 Phan Avitia MD [address] [facility] [address] [place] [address] Surgeon Otolaryngology 06/22/22 documented as of this encounter
--- OUTSIDE RECORDS SUMMARY | 2025-04-25 15:44 | XMS_ITS | Encounter Summary ---
Author Organization [facility] Address [address] [place] [address] Care Team Providers Care Sanding Supervisor Name Role Phone Akil Borges MD Primary Care Provider + [phone] Alex Adams MD Unavailable [phone] Phan Avitia MD Unavailable Encounter Details Date Type Department Care Team (Late st Contact Info) Description 06/22/2021 Orders Only External Location [address] [place] [address] Akil Borges MD [address] [place] [address] Social History Tobacco Use Types [...] documented as of this encounter Care Teams Sanding Supervisor Relationship Specialty Start Date End Date Akil Borges MD [address] [facility] [address] [place] [address] PCP - General 09/16/20 Alex Adams MD [address] [place] [address] Referring Physician 12/05/20 Phan Avitia MD [address] [facility] [address] [place] [address] Surgeon Otolaryngology 06/22/22 documented as of this encounter
--- OUTSIDE RECORDS SUMMARY | 2025-04-25 15:44 | XMS_ITS | Encounter Summary ---
Author Organization Healthcare Address [address] [place] [address] Care Team Providers Care Presser And Shaper Knitted Goods Name Role Phone Akil Borges MD Primary Care Provider + [phone] Alex Adams MD Unavailable [phone] Phan Avitia MD Unavailable Encounter Details Date Type Department Care Team (Late st Contact Info) Description 05/08/2021 Orders Only External Location [address] [place] [address] Provider, External Social History Tobacco Use Types [...] documented as of this encounter Care Teams Presser And Shaper Knitted Goods Relationship Specialty Start Date End Date Akil Borges MD [address] [place] [address] PCP - General 09/16/20 Alex Adams MD [address] [place] [address] Referring Physician 12/05/20 Phan Avitia MD [address] [facility] [address] [place] [address] Surgeon Otolaryngology 06/22/22 documented as of this encounter
--- OUTSIDE RECORDS SUMMARY | 2025-04-25 15:44 | XMS_ITS | Encounter Summary ---
Author Organization Healthcare Address [address] [place] [address] Care Team Providers Care Candy Butcher Name Role Phone Akil Borges MD Primary Care Provider + [phone] Alex Adams MD Unavailable [phone] Phan Avitia MD Unavailable Encounter Details Date Type Department Care Team (Late st Contact Info) Description 12/12/2020 Orders Only External Location [address] [place] [address] Akil Borges MD [address] [place] [address] Social History Tobacco Use Types [...] on filedocumented in this encounter Care Teams Candy Butcher Relationship Specialty Start Date End Date Akil Borges MD [address] [place] [address] PCP - General 09/16/20 Alex Adams MD [address] [place] [address] Referring Physician 12/05/20 Phan Avitia MD [address] [place] [address] Surgeon Otolaryngology 06/22/22 documented as of this encounter
--- OUTSIDE RECORDS SUMMARY | 2025-04-25 15:44 | XMS_ITS | Encounter Summary ---
Author Organization Healthcare Address [address] [place] [address] Care Team Providers Care Manager Hair Name Role Phone Akil Borges MD Primary Care Provider + [phone] Alex Adams MD Unavailable [phone] Phan Avitia MD Unavailable Encounter Details Date Type Department Care Team (Late st Contact Info) Description 04/14/2022 Orders Only External Location [address] [place] [address] Neeraj Ross MD [address] [place] [address] Social History Tobacco Use Types Packs/Day Years [...] documented as of this encounter Care Teams Manager Hair Relationship Specialty Start Date End Date Akil Borges MD [address] [facility] [address] [facility] [address] [place] [address] PCP - General 09/16/20 Alex Adams MD [address] [facility] [address] [place] [address] Referring Physician 12/05/20 Phan Avitia MD [address] [facility] [address] [place] [address] Surgeon Otolaryngology 06/22/22 documented as of this encounter
--- OUTSIDE RECORDS SUMMARY | 2025-04-25 15:44 | XMS_ITS | Data Portability ---
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 A 20-Greek cystoscopy sheath was introduced under direct vision. [...] recorded. Lab urinalysis panel, auto [address] [facility], [address], [address], [place], [address], 5 15:57:41 urinalysis panel, auto 2024 025 [address] [facility], [address], [address], [place], [address], 5 09:28:38 PSA, total, serum or plasma [address] [facility], [address] [place] [address], [address], 5 09:28:38 testosteron e, total, serum [address] [facility], [address] [place] [address], [address], 5 09:28:38 urinalysis panel, auto 2021 022 [address] [facility], [address], [address], [place], [address], 09:52:01 BMP, serum or plasma [address] [facility], [address] [place] [address], [address], 10:02:53 CBC w/ auto diff 2021 022 [facility], [address] [place], [address], 10:02:53 PSA, serum or plasma 2021 022 [email or web address] [facility], [address] [place], [address], 10:02:53 urinalysis, dipstick, auto 2019 020 [facility], [address] [facility], [address], [place], [address], 0 16:21:41 Referral None recorded. Procedures None recorded. Surgeries None recorded. Imaging None recorded. Medication Orders clotrimazol e-betametha sone 1 %-0.05 % topical cream 2024 025 [facility] 591, [address], [address], 5 15:57:45 tadalafil 5 mg tablet 2024 025 [facility] 591, [address], [address], 5 17:13:42 Patient TargetsNo targets recorded. Patient Instructions Encounter Date Encounter Id Patient Instructions Last Modified By Organization Details Last Modified Time 07/24/2019 [id number] prostate biopsy: about this test [email or web address] Not available 07/24/2019 15:06:27 learning about healthy weight [email or web address] Not available 07/24/2019 15:06:27 [facility] [email or web address] Not available 07/24/2019 15:06:27 Quitting Tobacco : Care Instructions [email or web address] Not available 07/24/2019 15:06:27 benign prostatic hyperplasia: care instructions Not available 07/24/2019 15:06:27 Reason for Referral None Reported. Results Created Date Observation Date Name Description Value Unit Range Abnormal Flag Note LastModifiedBy Organization Detail LastModifiedTime 07/24/19 20 07/24/2019 urina lysis , dipst ick, auto Unknown Analyte Yellow Not Available [facility] [address], [place], [address], 07/24/2019 14:21:44 07/24/19 20 07/24/2019 urina lysis , dipst ick, auto Unknown Analyte Clear Not Available [facility] [address], [place], [address], 07/24/2019 14:21:44 07/24/19 20 07/24/2019 urina lysis , dipst ick, auto Unknown Analyte 1.010 Not Available [facility] [address], [place], [address], 07/24/2019 14:21:44 07/24/19 20 07/24/2019 urina lysis , dipst ick, auto Unknown Analyte 1.003 - 1.035 Not Available [facility] [address], [place], [address], 07/24/2019 14:21:44 07/24/19 20 07/24/2019 urina lysis , dipst ick, auto Unknown Analyte 5.0 Not Available [facility] [address], [place], [address], 07/24/2019 14:21:44 07/24/19 20 07/24/2019 urina lysis , dipst ick, auto Unknown Analyte 5.0 - 8.0 Not Available [facility] [address], [place], [address], 07/24/2019 14:21:44 07/24/19 20 07/24/2019 urina lysis , dipst ick, auto Unknown Analyte Negati ve Not Available [facility] [address], [place], [address], 07/24/2019 14:21:44 07/24/19 20 07/24/2019 urina lysis , dipst ick, auto Unknown Analyte Negati ve Not Available [facility] [address], [place], [address], 07/24/2019 14:21:44 07/24/19 20 07/24/2019 urina lysis , dipst ick, auto Unknown Analyte Negati ve Not Available [facility] [address], [place], [address], 07/24/2019 14:21:44 07/24/19 20 07/24/2019 urina lysis , dipst ick, auto Unknown Analyte Negati ve Not Available [facility] [address], [place], [address], 07/24/2019 14:21:44 07/24/19 20 07/24/2019 urina lysis , dipst ick, auto Unknown Analyte Negtiv e Not Available [facility] [address], [place], [address], 07/24/2019 14:21:44 07/24/19 20 07/24/2019 urina lysis , dipst ick, auto Unknown Analyte Negati ve - Trace Not Available [facility] [address], [place], [address], 07/24/2019 14:21:44 07/24/19 20 07/24/2019 urina lysis , dipst ick, auto Unknown Analyte Normal Not Available [facility] [address], [place], [address], 07/24/2019 14:21:44 07/24/19 20 07/24/2019 urina lysis , dipst ick, auto Unknown Analyte Normal Not Available [facility] [address], [place], [address], 07/24/2019 14:21:44 07/24/19 20 07/24/2019 urina lysis , dipst ick, auto Unknown Analyte Negati ve Not Available [facility] [address], [place], [address], 07/24/2019 14:21:44 07/24/19 20 07/24/2019 urina lysis , dipst ick, auto Unknown Analyte Negati ve Not Available [facility] [address], [place], [address], 07/24/2019 14:21:44 07/24/19 20 07/24/2019 urina lysis , dipst ick, auto Unknown Analyte Normal Not Available [facility] [address], [place], [address], 07/24/2019 14:21:44 07/24/19 20 07/24/2019 urina lysis , dipst ick, auto Unknown Analyte Normal - 1mg/dl Not Available [facility] [address], [place], [address], 07/24/2019 14:21:44 07/24/19 20 07/24/2019 urina lysis , dipst ick, auto Unknown Analyte Negati ve Not Available [facility] [address], [place], [address], 07/24/2019 14:21:44 07/24/19 20 07/24/2019 urina lysis , dipst ick, auto Unknown Analyte Negati ve Not Available [facility] [address], [place], [address], 07/24/2019 14:21:44 07/24/19 20 07/24/2019 urina lysis , dipst ick, auto Unknown Analyte Negati ve Not Available [facility] [address], [place], [address], 07/24/2019 14:21:44 07/24/19 20 07/24/2019 urina lysis , dipst ick, auto Unknown Analyte Negati ve Not Available [facility] [address], [place], [address], 07/24/2019 14:21:44 07/24/19 20 07/24/2019 urina lysis , dipst ick, auto Unknown Analyte Clean Catch Not Available [facility] [address], [place], [address], 07/24/2019 14:21:44 07/24/19 20 07/24/2019 urina lysis , dipst ick, auto Unknown Analyte Automa wagner Not Available [facility] [address], [place], [address], 07/24/2019 14:21:44 02/27/20 22 02/26/2022 COMPL ETE BLOOD COUNT white blood cells 8.5 K/uL 3.8-10 .8 normal Not Available [facility] [address] [place] [address], [address], 02/26/2022 19:46:17 02/27/20 22 02/26/2022 COMPL ETE BLOOD COUNT red blood cells 4.32 M/uL 4.20-5 .80 normal Not Available [facility] [address] [place] [address], [address], 02/26/2022 19:46:17 02/27/20 22 02/26/2022 COMPL ETE BLOOD COUNT hemoglobin 13.9 g/dL 14.0-1 8.0 low Not Available [facility] [address] [place] [address], [address], 02/26/2022 19:46:17 02/27/20 22 02/26/2022 COMPL ETE BLOOD COUNT hematocrit 39.9 % 40.0-5 2.0 low Not Available [facility] [address] [place] [address], [address], 02/26/2022 19:46:17 02/27/20 22 02/26/2022 COMPL ETE BLOOD COUNT MCV 92 fL 80-100 normal Not Available [facility] [address] [place] [address], [address], 02/26/2022 19:46:17 02/27/20 22 02/26/2022 COMPL ETE BLOOD COUNT MCH 32 pg 26-35 normal Not Available [facility] [address] [place] [address], [address], 02/26/2022 19:46:17 02/27/20 22 02/26/2022 COMPL ETE BLOOD COUNT MCHC 35 g/dL 32-36 normal Not Available [facility] [address] [place] [address], [address], 02/26/2022 19:46:17 02/27/20 22 02/26/2022 COMPL ETE BLOOD COUNT RDW 14.3 % 11.0-1 5.0 normal Not Available [facility] [address] [place] [address], [address], 02/26/2022 19:46:17 02/27/20 22 02/26/2022 COMPL ETE BLOOD COUNT MPV 9.7 fL 6.2-10 .5 normal Not Available [facility] [address] [place] [address], [address], 02/26/2022 19:46:17 02/27/20 22 02/26/2022 COMPL ETE BLOOD COUNT platelet count 242 K/uL 130-40 0 normal Not Available [facility] [address] [place] [address], [address], 02/26/2022 19:46:17 02/27/20 22 02/26/2022 COMPL ETE BLOOD COUNT neutrophil,a bsolute 5.1 K/uL 1.6-8. 4 normal Not Available [facility] [address] [place] [address], [address], 02/26/2022 19:46:17 02/27/20 22 02/26/2022 COMPL ETE BLOOD COUNT lymphocyte,a bsolute 2.4 K/uL 0.4-5. 1 normal Not Available [facility] [address] [place] [address], [address], 02/26/2022 19:46:17 02/27/20 22 02/26/2022 COMPL ETE BLOOD COUNT monocyte,abs olute 0.6 K/uL 0.0-1. 2 normal Not Available [facility] [address] [place] [address], [address], 02/26/2022 19:46:17 02/27/20 22 02/26/2022 COMPL ETE BLOOD COUNT eosinophil,a bsolute 0.3 K/uL 0.0-0. 8 normal Not Available [facility] [address] [place] [address], [address], 02/26/2022 19:46:17 02/27/20 22 02/26/2022 COMPL ETE BLOOD COUNT basophil,abs olute 0.1 K/uL 0.0-0. 3 normal Not Available [facility] [address] [place] [address], [address], 02/26/2022 19:46:17 02/27/20 22 02/26/2022 COMPL ETE BLOOD COUNT % neutrophils 60.1 % 42.0-7 8.0 normal Not Available [facility] [address] [place] [address], [address], 02/26/2022 19:46:17 02/27/20 22 02/26/2022 COMPL ETE BLOOD COUNT % lymphocytes 28.1 % 11.0-4 7.0 normal Not Available [facility] [address] [place] [address], [address], 02/26/2022 19:46:17 02/27/20 22 02/26/2022 COMPL ETE BLOOD COUNT % monocytes 6.8 % 0.0-11 .0 normal Not Available [facility] [address] [place] [address], [address], 02/26/2022 19:46:17 02/27/20 22 02/26/2022 COMPL ETE BLOOD COUNT % eosinophils 4.1 % 0.0-7. 0 normal Not Available [facility] [address] [place] [address], [address], 02/26/2022 19:46:17 02/27/20 22 02/26/2022 COMPL ETE BLOOD COUNT % basophils 0.9 % 0.0-3. 0 normal Not Available [facility] [address] [place] [address], [address], 02/26/2022 19:46:17 02/27/20 22 02/26/2022 COMPL ETE BLOOD COUNT nucleated red cells 0.1 % 0.0-0. 9 normal Not Available [facility] [address] [place] [address], [address], 02/26/2022 19:46:17 02/27/20 22 02/26/2022 COMPL ETE BLOOD COUNT nucleated RBCs, absolute 0.01 K/uL not estab. normal Not Available [facility] [address] [place] [address], [address], 02/26/2022 19:46:17 02/27/20 22 02/26/2022 BASIC METAB OLIC PANEL glucose 129 mg/dL 74-100 high Not Available [facility] [address] [place] [address], [address], 02/26/2022 19:49:58 02/27/20 22 02/26/2022 BASIC METAB OLIC PANEL blood urea nitrogen 17 mg/dL 6-20 normal Not Available [facility] [address] [place] [address], [address], 02/26/2022 19:49:58 02/27/20 22 02/26/2022 BASIC METAB OLIC PANEL creatinine 1.23 mg/dL 0.70-1 .28 normal Not Available [facility] [address] [place] [address], [address], 02/26/2022 19:49:58 02/27/20 22 02/26/2022 BASIC METAB OLIC PANEL BUN/creatini ne ratio 14 (calc ) 10-20 normal Not Available [facility] [address] [place] [address], [address], 02/26/2022 19:49:58 02/27/20 22 02/26/2022 BASIC METAB OLIC PANEL sodium 140 mmol/ L 136-14 5 normal Not Available [facility] [address] [place] [address], [address], 02/26/2022 19:49:58 02/27/20 22 02/26/2022 BASIC METAB OLIC PANEL potassium 3.3 mmol/ L 3.4-5. 0 low Not Available [facility] [address] [place] [address], [address], 02/26/2022 19:49:58 02/27/20 22 02/26/2022 BASIC METAB OLIC PANEL chloride 100 mmol/ L 98-107 normal Not Available [facility] [address] [place] [address], [address], 02/26/2022 19:49:58 02/27/20 22 02/26/2022 BASIC METAB OLIC PANEL carbon dioxide 29 mmol/ L 22-31 normal Not Available [facility] [address] [place] [address], [address], 02/26/2022 19:49:58 02/27/20 22 02/26/2022 BASIC METAB OLIC PANEL anion gap 11 (calc ) 7-25 normal Not Available [facility] [address] [place] [address], [address], 02/26/2022 19:49:58 02/27/20 22 02/26/2022 BASIC METAB OLIC PANEL calcium 9.5 mg/dL 8.6-10 .2 normal Not Available [facility] [address] [place] [address], [address], 02/26/2022 19:49:58 02/27/20 22 02/26/2022 BASIC METAB [...] s/KDO QI/gf r_cal culat orPed Not Available [facility] [address] [place], [address], 02/26/2022 19:49:58 02/27/20 22 02/26/2022 PROST ATE SPECI FIC AG prostate specific Ag 4.510 NG/mL 0.000- 4.400 high Test metho d is based on WHO-s tanda rdize d calib ratio n using the Hamida Mustapha E801 danilo zer. PSA resul ts by diffe rent test proce dures canno t be direc tly holli red with one anoth er. . Not Available [facility] [address] [place], [address], 02/26/2022 19:55:12 02/27/20 22 02/26/2022 urina lysis panel , auto Unknown Analyte Clean Catch Not Available [facility] [address] [place] [address], [address], 02/26/2022 16:59:19 02/27/20 22 02/26/2022 urina lysis panel , auto Unknown Analyte Yellow Not Available [facility] [address], [place], [address], 02/26/2022 16:59:19 02/27/20 22 02/26/2022 urina lysis panel , auto Unknown Analyte Clear Not Available Counts include 234 beds at the [facility] [address] [place] [address], [address], 02/26/2022 16:59:19 02/27/20 22 02/26/2022 urina lysis panel , auto Unknown Analyte 1.015 Not Available Counts include 234 beds at the [facility] [address] [place] [address], [address], 02/26/2022 16:59:19 02/27/20 22 02/26/2022 urina lysis panel , auto Unknown Analyte 1.003- 1.035 Not Available [facility] [address] [place] [address] Rd [address], [place], [address], 02/26/2022 16:59:19 02/27/20 22 02/26/2022 urina lysis panel , auto Unknown Analyte 5.0 Not Available [facility] [address] [place] [address] Rd [address], [place], [address], 02/26/2022 16:59:19 02/27/2002/26/2022 urina lysis panel , auto Unknown Analyte 5.0-8. 0 Not Available [facility] [address], [place], [address], 02/26/2022 16:59:19 02/27/20 22 02/26/2022 urina lysis panel , auto Unknown Analyte Negati ve Not Available [facility] [address], [place], [address], 02/26/2022 16:59:19 02/27/20 22 02/26/2022 urina lysis panel , auto Unknown Analyte Negati ve Not Available [facility] [address] [place] [address] Rd [address], [place], [address], 02/26/2022 16:59:19 02/27/20 22 02/26/2022 urina lysis panel , auto Unknown Analyte Negati ve Not Available [facility] [address], [place], [address], 02/26/2022 16:59:19 02/27/20 22 02/26/2022 urina lysis panel , auto Unknown Analyte Negati ve Not Available [facility] [address], [place], [address], 02/26/2022 16:59:19 02/27/20 22 02/26/2022 urina lysis panel , auto Unknown Analyte 30 mg/dl (+) Not Available [facility] [address], [place], [address], 02/26/2022 16:59:19 02/27/20 22 02/26/2022 urina lysis panel , auto Unknown Analyte Negati ve Not Available [facility] [address], [place], [address], 02/26/2022 16:59:19 02/27/20 22 02/26/2022 urina lysis panel , auto Unknown Analyte Normal Not Available [facility] [address], [place], [address], 02/26/2022 16:59:19 02/27/20 22 02/26/2022 urina lysis panel , auto Unknown Analyte Normal Not Available [facility] [address], [place], [address], 02/26/2022 16:59:19 02/27/20 22 02/26/2022 urina lysis panel , auto Unknown Analyte Negati ve Not Available [facility] [address], [place], [address], 02/26/2022 16:59:19 02/27/20 22 02/26/2022 urina lysis panel , auto Unknown Analyte Negati ve Not Available [facility] [address], [place], [address], 02/26/2022 16:59:19 02/27/20 22 02/26/2022 urina lysis panel , auto Unknown Analyte Normal Not Available Counts include 234 beds at the [facility] [address], [place], [address], 02/26/2022 16:59:19 02/27/20 22 02/26/2022 urina lysis panel , auto Unknown Analyte Normal 1 mg/dl Not Available [facility] [address], [place], [address], 02/26/2022 16:59:19 02/27/20 22 02/26/2022 urina lysis panel , auto Unknown Analyte Negati ve Not Available [facility] [address], [place], [address], 02/26/2022 16:59:19 02/27/20 22 02/26/2022 urina lysis panel , auto Unknown Analyte Negati ve Not Available [facility] [address], [place], [address], 02/26/2022 16:59:19 02/27/20 22 02/26/2022 urina lysis panel , auto Unknown Analyte 250 Naheed/ul Not Available [facility] [address], [place], [address], 02/26/2022 16:59:19 02/27/20 22 02/26/2022 urina lysis panel , auto Unknown Analyte Negati ve Not Available [facility] [address], [place], [address], 02/26/2022 16:59:19 03/21/20 22 03/21/2022 SURGI ANASTASIA [...] 14:46 Page 1 of 1 Not Available [facility] [address] [place] [address], [address], 03/22/2022 14:47:32 07/01/19 25 07/01/2024 TESTO STERO NE, TOTAL testosterone , total 307 NG/dL 193-74 0 normal Refer ence range is for age 50 years and over. Not Available [facility] [address] [place] [address], [address], 07/01/2024 19:12:19 07/01/19 25 07/01/2024 PROST ATE [...] not be holli rable . Not Available [facility] [address] [facility], [place], [address], 07/01/2024 19:12:21 07/01/19 25 07/01/2024 urina lysis panel , auto Unknown Analyte Clean Catch Not Available [facility] [address] [place] [address], [address], 07/01/2024 16:08:47 07/01/19 25 07/01/2024 urina lysis panel , auto Unknown Analyte Yellow Not Available [facility] [address], [place], [address], 07/01/2024 16:08:47 07/01/19 25 07/01/2024 urina lysis panel , auto Unknown Analyte Clear Not Available [facility] [address], [place], [address], 07/01/2024 16:08:47 07/01/19 25 07/01/2024 urina lysis panel , auto Unknown Analyte 1.015 Not Available [facility] [address], [place], [address], 07/01/2024 16:08:47 07/01/19 25 07/01/2024 urina lysis panel , auto Unknown Analyte 1.003 - 1.030 Not Available [facility] [address], [place], [address], 07/01/2024 16:08:47 07/01/19 25 07/01/2024 urina lysis panel , auto Unknown Analyte 5.0 Not Available [facility] [address], [place], [address], 07/01/2024 16:08:47 07/01/1907/01/2024 urina lysis panel , auto Unknown Analyte 5.0 - 8.0 Not Available [facility] With [address], [place], [address], 07/01/2024 16:08:47 07/01/19 25 07/01/2024 urina lysis panel , auto Unknown Analyte Negati ve Not Available [facility] With [address], [place], [address], 07/01/2024 16:08:47 07/01/19 25 07/01/2024 urina lysis panel , auto Unknown Analyte Negati ve Not Available [facility] With [address], [place], [address], 07/01/2024 16:08:47 07/01/19 25 07/01/2024 urina lysis panel , auto Unknown Analyte Negati ve Not Available [facility] With [address], [place], [address], 07/01/2024 16:08:47 07/01/19 25 07/01/2024 urina lysis panel , auto Unknown Analyte Negati ve Not Available [facility] [address], [place], [address], 07/01/2024 16:08:47 07/01/19 25 07/01/2024 urina lysis panel , auto Unknown Analyte 500 mg/dL Not Available [facility] [address], [place], [address], 07/01/2024 16:08:47 07/01/1907/01/2024 urina lysis panel , auto Unknown Analyte Negati ve Not Available [facility] [address], [place], [address], 07/01/2024 16:08:47 07/01/19 25 07/01/2024 urina lysis panel , auto Unknown Analyte Normal Not Available [facility] [address], [place], [address], 07/01/2024 16:08:47 07/01/19 25 07/01/2024 urina lysis panel , auto Unknown Analyte Normal Not Available [facility] [address], [place], [address], 07/01/2024 16:08:47 07/01/19 25 07/01/2024 urina lysis panel , auto Unknown Analyte Negati ve Not Available [facility] [address], [place], [address], 07/01/2024 16:08:47 07/01/19 25 07/01/2024 urina lysis panel , auto Unknown Analyte Negati ve Not Available [facility] [address], [place], [address], 07/01/2024 16:08:47 07/01/19 25 07/01/2024 urina lysis panel , auto Unknown Analyte Normal Not Available [facility] [address], [place], [address], 07/01/2024 16:08:47 07/01/19 25 07/01/2024 urina lysis panel , auto Unknown Analyte Normal Not Available [facility] [address], [place], [address], 07/01/2024 16:08:47 07/01/19 25 07/01/2024 urina lysis panel , auto Unknown Analyte Negati ve Not Available [facility] [address], [place], [address], 07/01/2024 16:08:47 07/01/19 25 07/01/2024 urina lysis panel , auto Unknown Analyte Negati ve Not Available [facility] [address], [place], [address], 07/01/2024 16:08:47 07/01/19 25 07/01/2024 urina lysis panel , auto Unknown Analyte Negati ve Not Available [facility] [address], [place], [address], 07/01/2024 16:08:47 07/01/19 25 07/01/2024 urina lysis panel , auto Unknown Analyte Negati ve Not Available [facility] [address], [place], [address], 07/01/2024 16:08:47 09/10/19 25 09/09/2024 urina lysis panel , auto Unknown Analyte Clean Catch Not Available [facility] [address], [place], [address], 09/09/2024 15:10:48 09/10/19 25 09/09/2024 urina lysis panel , auto Unknown Analyte Yellow Not Available [facility] [address], [place], [address], 09/09/2024 15:10:48 09/10/19 25 09/09/2024 urina lysis panel , auto Unknown Analyte Clear Not Available [facility] [address], [place], [address], 09/09/2024 15:10:48 09/10/19 25 09/09/2024 urina lysis panel , auto Unknown Analyte 1.015 Not Available [facility] [address], [place], [address], 09/09/2024 15:10:48 09/10/19 25 09/09/2024 urina lysis panel , auto Unknown Analyte 1.003 - 1.030 Not Available [facility] [address], [place], [address], 09/09/2024 15:10:48 09/10/19 25 09/09/2024 urina lysis panel , auto Unknown Analyte 6.0 Not Available [facility] [address], [place], [address], 09/09/2024 15:10:48 09/10/19 25 09/09/2024 urina lysis panel , auto Unknown Analyte 5.0 - 8.0 Not Available [facility] [address], [place], [address], 09/09/2024 15:10:48 09/10/19 25 09/09/2024 urina lysis panel , auto Unknown Analyte Negati ve Not Available [facility] [address], [place], [address], 09/09/2024 15:10:48 09/10/19 25 09/09/2024 urina lysis panel , auto Unknown Analyte Negati ve Not Available [facility] [address], [place], [address], 09/09/2024 15:10:48 09/10/19 25 09/09/2024 urina lysis panel , auto Unknown Analyte Negati ve Not Available [facility] [address], [place], [address], 09/09/2024 15:10:48 09/10/19 25 09/09/2024 urina lysis panel , auto Unknown Analyte Negati ve Not Available [facility] With [address], [place], [address], 09/09/2024 15:10:48 09/10/19 25 09/09/2024 urina lysis panel , auto Unknown Analyte 500 mg/dL Not Available [facility] [address], [place], [address], 09/09/2024 15:10:48 09/10/19 25 09/09/2024 urina lysis panel , auto Unknown Analyte Negati ve Not Available [facility] [address], [place], [address], 09/09/2024 15:10:48 09/10/19 25 09/09/2024 urina lysis panel , auto Unknown Analyte 100 mg/dL Not Available [facility] [address], [place], [address], 09/09/2024 15:10:48 09/10/19 25 09/09/2024 urina lysis panel , auto Unknown Analyte Normal Not Available [facility] [address], [place], [address], 09/09/2024 15:10:48 09/10/19 25 09/09/2024 urina lysis panel , auto Unknown Analyte Negati ve Not Available [facility] [address], [place], [address], 09/09/2024 15:10:48 09/10/19 25 09/09/2024 urina lysis panel , auto Unknown Analyte Negati ve Not Available [facility] [address], [place], [address], 09/09/2024 15:10:48 09/10/19 25 09/09/2024 urina lysis panel , auto Unknown Analyte Normal Not Available Counts include [facility] beds at the [facility] [address], [place], [address], 09/09/2024 15:10:48 09/10/19 25 09/09/2024 urina lysis panel , auto Unknown Analyte Normal Not Available [facility] [address] [place] [address] [address], [place], [address], 09/09/2024 15:10:48 09/10/19 25 09/09/2024 urina lysis panel , auto Unknown Analyte Negati ve Not Available [facility] [address] [place] [address], [address], 09/09/2024 15:10:48 09/10/19 25 09/09/2024 urina lysis panel , auto Unknown Analyte Negati ve Not Available [facility] [address] [place] [address], [address], 09/09/2024 15:10:48 09/10/19 25 09/09/2024 urina lysis panel , auto Unknown Analyte Negati ve Not Available [facility] [address], [address], 09/09/2024 15:10:48 09/10/19 25 09/09/2024 urina lysis panel , auto Unknown Analyte Negati ve Not Available [facility] [address] [place] [address], [address], 09/09/2024 15:10:48 Result Notes None recorded. Problems Name Problem SNOMED Code Status Onset Date Resolution Date Notes Provider Name and Address Organization Details Recorded Time Spinal meningioma 354558348 Active 019 MADELIN CROWLEY PA-C [address] [place], [address] 9 15:31:40 Problem Notes None recorded. Medical Equipment None Reported. Allergies Allergen ID Allergen Name Allergen Category Reaction Reaction Severity Criticality Documentation Date Start Date Code Code System Note Provider Name and Address Organization Details Recorded Time 166408 Brilinta medicatio n Not available Not available Not available 03/29/20162014 88829 36 RxNorm Comme nt: Creat ed By: Cece Carrillo any;C reate d Date: 2014 11:14 :09 AM; Not Available [facility] 11:42:15 Medications Name Sig Start Date [...] Updated DateTime 07/01/2024 170.18 cm 34.5 kg/m2 44649.32 g Flroina Theodore [facility] 07/01/2024 16:03:49 Date Recorded Body height Body mass index (BMI) Body weight Provider Name and Address Organization Details Last Updated DateTime 07/24/2019 170.18 cm 36.8 kg/m2 748993.21 g Maliha Weiss [facility] 07/24/2019 14:09:40 Date Recorded Body height Body mass index (BMI) Body weight Provider Name and Address Organization Details Last Updated DateTime 09/09/2024 170.18 cm 35.9 kg/m2 468596.65 g Elsa Raza [facility] 09/09/2024 15:21:29 Date Recorded Body weight Provider Name an d Address Organization Details Last Updated DateTime 02/26/2022 005468.51 g Dunia [facility] 02/26/2022 16:24:45 Social History Question Answer Notes LastModified by Organizat ion Details LastModified Time Tobacco Smoking Status Current Every Day Smoker Florina Yousif [facility] 06/06/2018 11:11:46 How Much Tobacco Do You Chew? None Information not available 07/24/2019 What Was The Date Of Your Most Recent Tobacco Screening? 09/09/2024 [email or web address] Information not available 09/09/2024 How Much Tobacco Do You Smoke? 1 PPD Information not available 06/06/2018 Has Tobacco Cessation Counseling Been Provided? No [email or web address] Information not available 02/26/2022 How Many Years Have You Smoked Tobacco? 55 Information not available 06/06/2018 Have You Recently Traveled Abroad? No [email or web address] Information not available 02/26/2022 Sex: Unknown Functional Status Question Answer Note LastModified by Organizat ion Details LastModified Time Do you use any illicit or recreational drugs? No [email or web address] Information not available 02/26/2022 Do you or have you ever used any other forms of tobacco or nicotine? No [email or web address] Information not available 02/26/2022 What is your [...] 14:20:47 Medical History Condition Response COPD Y Diabetes Y Stroke Y Sleep Apnea Y Hypertension Y Past Encounters Encounter ID Performer Location Encounter Start Date Encounter Closed Date Diagnosis/Indication Diagnosis SNOMED-CT Code Diagnosis ICD10 Code Diagnosis IMO Codes Diagnosis Note [id number] MARICHUY DO JR, MD [facility] [address] [place] [address] 06/06/2018 10:23:53 06/09/2018 15:34:40 Lumbar mass 626952150 R22.2 [id number] MARICHUY DO JR, MD [facility] [address] [place] [address] 06/11/2018 15:13:56 06/13/2018 15:20:16 Lumbar mass 146711696 R22.2 [id number] [facility] [address] [place] [address] 08/20/2018 14:52:08 08/21/2018 14:49:45 Spinal meningioma 569113324 D32.1 [id number] YUSRA LE[facility] [address] [place] [address] 02/18/2019 14:27:16 02/20/2019 11:33:59 Spinal meningioma 322570261 D32.1 73-year-ol d male with a known [...] lesion and is likely musculoske letal related. [id number] ANTHONY SUE MD [facility] [address] [place] [address] 07/24/2019 13:41:49 07/24/2019 14:37:36 Tobacco user 119073603 Z72.0 Benign pro static hyperplasia 465791300 N40.0 Prostate s pecific antigen above reference range 043230882 R97.20 follow-up 1 year with PSA. [id number] ANTHONY SUE MD [facility] [address] [place] [address] 02/26/2022 15:03:58 03/01/2022 10:16:28 Testicular hypofunction 886493826 E29.1 Benign pro static hyperplasia with outflow obstruction 414536215 N40.1 Julito hematuria 12300176 5 R31.0 We will arrange for cystoscopy with possible bladder biopsy. He is a smoker [id number] ANTHONY SUE MD SURGERY SCHEDULE [address] [place] [address] 03/21/2022 07:25:51 03/21/2022 07:26:13 [id number] MD [facility] [address] [place] [address] 07/01/2024 15:45:17 07/02/2024 05:23:14 Testicular hypofunction 036317676 E29.1 Benign pro static hyperplasia with outflow obstruction 422260858 N40.1 Primary er ectile dysfunction 200108867 N52.9 [id number] MD [facility] [address] [place] [address] 09/09/2024 14:06:57 09/09/2024 15:59:52 Tinea cruris 358644565 B35.6 [id number] Follow-up 6 weeks Erectile dysfunction 860 271796 N52.9 [id number] Health Concerns Section Related Observation LastModified by Organization Detai ls LastModified Time None Recorded Concern Status LastModified by Organization Details LastModified Time None Recorded Advance Directives Directive None Recorded Payers Insurance Date Sequence Insurance Name Policy Number Policy Castellano Covered Member ID Castellano Member ID Guarantor Name 10/16/2024 2 [place] [id number] Sonja Plascencia [id number] Sonja Plascencia 02/26/2022 2 [place] [id number] Sonja Plascencia [id number] Sonja Plascencia 10/16/2024 1 [place] Sonja Plascencia [id number] Sonja Plascencia Notes Date Note Type Note Provider Name and Address Organization Details Recorded Time 07/24/2019 text/html patient is here previously followed by me at [facility]. He had transurethral resection of the prostate in 2013. PSAs have been chronically elevated and fluctuating. 3 years ago his PSA was up to 7.8 but earlier this week 3.8. He typically has nocturia 0. He has no other urologic complaints other than occasional tinea cruris of the groin. He uses Lotrisone cream intermittently. ANTHONY SUE MD [facility] [place], [address], [facility] 07/24/2019 15:06:57 02/26/2022 text/html Patient last seen by me in 2019. He was previously followed for BPH and had transurethral resection prostatectomy in 2013. He also had some chronically elevated and fluctuating PSA his PSA last visit following a he's recently had several episodes of gross hematuria with passage of clots. He had a CT scan at [facility] which unremarkable other than prostate enlargement. It appeared that he might have a continuous nodule in the right anterior urinary bladder. He brought his previous for my review. [facility] [place], [address], [facility] 02/27/2022 09:52:42 07/01/2024 text/html Patient is [...] improves his overall symptoms. ANTH[facility] [place], [address], [facility] 07/01/2024 17:14:11 09/09/2024 text/html Patient is [...] consider these options. ANTHONY SUE MD [address] [place], [address], [facility] 09/09/2024 15:58:46
--- OUTSIDE RECORDS SUMMARY | 2025-04-25 15:44 | XMS_ITS | Encounter Summary ---
Author Organization Healthcare Address [address] [place] [address] Care Team Providers Care Police Crime Scene Technician Name Role Phone Akil Borges MD Primary Care Provider + [phone] Alex Adams MD Unavailable [phone] Phan Avitia MD Unavailable Encounter Details Date Type Department Care Team (Late st Contact Info) Description 02/15/2022 Orders Only External Location [address] [place] [address] Akil Borges MD [address] [place] [address] Social History Tobacco Use Types [...] documented as of this encounter Care Teams Police Crime Scene Technician Relationship Specialty Start Date End Date Akil Borges MD [address] [place] [address] PCP - General 09/16/20 Alex Adams MD [address] [place] [address] Referring Physician 12/05/20 Phan Avitia MD [address] [place] [address] Surgeon Otolaryngology 06/22/22 documented as of this encounter
--- OUTSIDE RECORDS SUMMARY | 2025-04-25 15:44 | XMS_ITS | Clinical Summary ---
Author Organization [facility] Address [address] [place] [address] Care Team Providers Care Change Management Lead Name Role Phone Akil Borges MD Primary Care Provider + [phone] Alex Adams MD Unavailable [phone] Phan Avitia MD Unavailable Allergies No known [...] Patient not taking.Reported on 07/12/2022 HYDROcodone-roxana taminophen ([place]) 5-325 MG tablet Take 1 tablet by [...] (12/06/2020): Added automatically from request for surgery [id number] Mass of left side of neck 12/01/2020 [...] Td Vaccines (1 - Tdap) 07/09/1996 07/08/1996 [id number] Vaccine (3 - Moderna risk series) 08/10/2020 [...] age to complete this topic HPV Vaccines (No Doses Required) Completed UKY-HIB Vaccines Aged Out No longer e [...] Recently Relevant to Health Maintenance Insurance MEDICARE [place] Care Teams Change Management Lead Relationship Specialty Start Date End Date Akil Borges MD [address] [facility] [address] [place] [address] PCP - General 09/16/20 Alex Adams MD [address] [place] [address] Referring Physician 12/05/20 Phan Avitia MD [address] [facility] [address] [place] [address] Surgeon Otolaryngology 06/22/22
--- OUTSIDE RECORDS SUMMARY | 2025-04-25 15:45 | XMS_ITS | Encounter Summary ---
Author Organization Healthcare Address [address] [place] [address] Care Team Providers Care Remediation Project Engineer Name Role Phone Akil Borges MD Primary Care Provider + [phone] Alex Adams MD Unavailable [phone] Phan Avitia MD Unavailable Encounter Details Date Type Department Care Team (Late st Contact Info) Description 11/08/2020 Orders Only External Location [address] [place] [address] Provider, External Social History Tobacco Use Types [...] on filedocumented in this encounter Care Teams Remediation Project Engineer Relationship Specialty Start Date End Date Akil Borges MD [address] [place] [address] PCP - General 09/16/20 Alex Adams MD [address] [place], [place] [address] Referring Physician 12/05/20 Phan Avitia MD [address] [facility] [address] [place] [address] Surgeon Otolaryngology 06/22/22 documented as of this encounter
--- OUTSIDE RECORDS SUMMARY | 2025-04-25 15:45 | XMS_ITS | Data Portability ---
Author Organization [facility] Address [address] [place] [address] Assessment Encounter Date Assessment Date Assessment LastModified [...] as well. He plans to bring a warehouse driver and receive sedation. The patient reports previous RFA by (lumbar facet nerve block L2-L5) right. The patient reports having a tumor that causes painful motion; he states this pain was relieved 100% for 2 years following the RFA. This may need to be worked up in the future should it become more bothersome. We currently prescribe no medications for this patient. [email or web address] Not available 11/14/2017 14:03:58 02/20/2018 02/20/2018 Mr. [...] on Plavix. Follow up in 2 months. [email or web address] Not available 02/20/2018 15:15:43 04/21/2018 04/21/2018 Mr. [...] Morning apt due to +Diabetic 2017 018 [email or web address] Kumar Sarmiento MD, [address] [place], [address], 8 10:36:10 Surgeries radiofrequ ency ablation (SURG) 2017 019 [email or web address] Kumar Sarmiento MD, [address] [place], [address], 9 13:16:20 Imaging None recorded. Medication Orders gabapentin 100 mg capsule 2017 018 INTERFACE [facility], [address], [address], 8 13:46:36 gabapentin 100 mg capsule 2017 018 INTERFACE [facility], [address] [place], [address], 8 15:52:04 Patient TargetsNo targets recorded. Patient Instructions Encounter Date Encounter Id Patient Instructions Last Modified By Organization Details Last Modified Time 11/14/2017 [id number] [email or web address] Not available 22:44:11 02/20/2018 [id number] [email or web address] Not available 14:58:36 Reason for Referral None Reported. Problems Name Problem SNOMED Code Status Onset Date Resolution Date Notes Provider Name and Address Organization Details Recorded Time Chronic obstructiv e pulmonary disease 38194223 Completed 201702/20/2018 [place], [place] - [facility] 8 10:46:23 Pulmonary emphysema 73396908 Completed 201702/20/2018 [place], [place] - [facility] 8 10:47:05 Essential hypertensi on 10136655 Completed 201702/20/2018 [place] - [facility] 8 10:46:17 Gastroesop hageal reflux disease 889562911 Completed 201702/20/2018 [place], [place] - [facility] 8 10:46:26 Type 1 diabetes mellitus 53072840 Completed 201702/20/2018 [place] - [facility] 8 10:46:40 Arthritis 7083516 Completed 201702/20/2018 CHAD Boothe [facility], [facility] 8 10:46:50 Hyperlipid emia 94717584 Completed 201702/20/2018 CHAD Boothe [facility], [facility] 8 10:46:46 Lumbar spondylosi s 032813863 Active 2017 Kumar Sarmiento MD [address] [place] [address], [phone] , [facility] 8 10:39:21 Lumbar radiculopa thy 989291124 Active 2017 Kumar Sarmiento MD [address] [place] [address], [phone] , [facility] 8 15:37:36 Problem Notes None recorded. Procedures Surgical History Date Name Laterality Status Provider Name and Address Organization Details Recorded Time 12/17/19 18 Lumbar DEJUAN: Interlaminar completed Kumar Sarimento MD [address] [place] [address], [phone], [facility] 12/17/2017 08:11:28 11/09/19 18 Lumbar DEJUAN: Interlaminar completed Kumar Sarmiento MD [address] [place] [address], [phone], [facility] 11/08/2017 20:19:55 08/13/19 18 Lumbar RFA (3 Level Unilateral) completed Alisha Bella [facility] 08/12/2017 10:58:45 Imaging Results None recorded. Procedure Notes None recorded. Medical Equipment None Reported. Allergies Allergen ID Allergen Name Allergen Category Reaction Reaction Severity Criticality Documentation Date Start Date Code Code System Note Provider Name and Address Organization Details Recorded Time 01784 Brilinta medicatio n lighthead edness Not available Not available 07/28/2017 87900 36 RxNorm CHAD Boothe [facility], [facility] 8 14:49:33 Medications Name Sig Start [...] Not Available Not Available Not Avai lable Jameson 7.5 mg-325 mg tablet Take 1 tablet [...] Updated DateTime 8 170.18 cm 36.6 kg/m2 814518. 9 g 94 % 41 /min 160/59 mm[Hg] Robin Gibbs [facility] 8 13:34:30 Date Recorded Body height Body mass index (BMI) Body weight Heart rate Oxygen saturation Systolic And Diastolic Provider Name and Address Organization Details Last Updated DateTime 8 170.18 cm 37 kg/m2 279580. 8 g 87 /min 97 % 128/62 mm[Hg] [place] Romero [facility] 8 14:43:49 Date Recorded Body height Body mass index (BMI) Body weight Oxygen saturation Heart rate Systolic And Diastolic Provider Name and Address Organization Details Last Updated DateTime 8 170.18 cm 37 kg/m2 906346. 8 g 88 % 89 /min 109/56 mm[Hg] Yosvany Harding [facility] 8 12:53:38 Social History Question Answer Notes LastModified by Organizat ion Details LastModified Time Tobacco Smoking Status Current Every Day Smoker [place] [facility] 07/29/2017 14:23:12 Which Illicit Or Recreational Drugs [...] N Atrial Fibrillation N Thyroid Disease N Hernia N Head Trauma/Injury N Depression N COPD Y Anxiety Disorder N Acid Reflux (GERD) Y Cancer N Stroke N Skin Disorder N High Cholesterol Y Liver Disease N Rheumatoid Arthritis N Headaches N Fibromyalgia N Kidney Disease N Autoimmune Disease N Osteoarthritis Y Neurosurgery N DVT N Peptic Ulcer Disease N Anemia N Heart Attack ([place]) N Diabetes Y Cardiomyopathy N Bleeding Disorder [...] ICD10 Code Diagnosis IMO Codes Diagnosis Note [id number] Kumar Sarmiento MD [place] [address] [facility] [address] [place] [address] 07/29/2017 13:49:01 07/29/2017 15:07:36 Degeneration of lumbar intervertebral disc 98067626 M51.36 Lumbar spondylosis 83107 0009 M47.26 [id number] MD Vladimir Khan [address] [place] [address] 08/12/2017 09:23:49 08/12/2017 11:00:38 Lumbar spondylosis 392833939 M47.816 [id number] MD Vladimir Khan [address] [place] [address] 10/10/2017 09:28:58 10/10/2017 10:29:27 Degeneration of lumbar intervertebral disc 41154657 M51.36 Lumbar spondylosis 22102 0009 M47.26 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 37376980 M48.062 [id number] MD Vladimir Khan [address] [place] [address] 11/08/2017 14:58:29 11/08/2017 15:44:40 Lumbar radiculopathy 144862940 M54.16 [id number] MD Vladimir Khan [address] [place] [address] 11/14/2017 13:14:25 11/14/2017 14:10:26 Degeneration of lumbar intervertebral disc 63312085 M51.36 Lumbar spondylosis 13100 0009 M47.816 #2 ILESI L5/S1; patient to followup after injection as directed Low back pain 826908125 M54.5 [id number] MD Vladimir Khan [address] [place] [address] 12/16/2017 07:56:37 12/16/2017 08:43:06 Lumbar radiculopathy 062421033 M54.16 [id number] MD Vladimir Khan [address] [place] [address] 02/20/2018 14:23:23 02/20/2018 15:21:27 Lumbar spondylosis 155013216 M47.26 A prescripti on for opioids was prescribed today given the failure of more conservati ve treatment options. The risks, benefits, and alternativ es were discussed in detail with the patient. Goals of improved activity and analgesia will continue to be monitored in subsequent encounters . There is no evidence of addiction or aberrancy to date. Degenerati on of lumbar intervertebral disc 76315164 M51.36 [id number] Kumar Sarmiento MD [place] [address] [place] [address] 04/21/2018 12:46:06 04/21/2018 13:44:25 Degeneration of lumbar intervertebral disc 16791515 M51.36 Lumbar spondylosis 72048 0009 M47.816 RFA Right L2-L5 Low back pain 908443644 M54.5 Subcutaneous nodule 9532 5000 R22.9 Health Concerns Section Related Observation LastModified by Organization Detai ls LastModified Time None Recorded Concern Status LastModified by Organization Details LastModified Time None Recorded Advance Directives Directive None Recorded Payers Insurance Date Sequence Insurance Name Policy Number Policy Castellano Covered Member ID Castellano Member ID Guarantor Name 04/19/2018 1 [place] Farhan Plascencia [id number] Farhan Plascencia 04/18/2018 2 [place] [id number] Farhan Plascencia [id number] Farhan Plascencia Notes Date Note Type Note Provider Name and Address Organization Details Recorded Time 11/14/2017 text/html Follow-up (meds & injections)Reported by PatientHPIFor functional assessment/disability index, patient reportsunable to work.andunable to exercise.but reportsliving independently.,able to bathe/groom without assistance.,able to complete doctor osteopathic., andwalking without assistance.. For improvement, patient reportspain [...] history, (11/08/2017 lumbar iesi 40% ongoing pain rvelwj1908/12/2017: rfa right l2-l5, 80% pain relief that is on going (10/10/17)dr. santiago [facility] tfsvbpmbal40/18/2016: right lumbar facet nerve rhizotomy -100% pain relief for two years.04/20/2015: bilateral lfnb l2-l507/05/2014 left lfnb l2-l5/: right lumbart facet nerve block l2-l5, 100% pain relief for 1.[address] santiago). Kumar Sarmiento MD [address] [place] [address], [phone], [facility] 11/18/2017 08:03:02 02/20/2018 text/html Low back [...] 2 days11/08/2017 lumbar iesi 40% ongoing pain tehtvn2208/12/2017: rfa right l2-l5, 80% pain relief that is on going (10/10/17)dr. pamela cee pain qgrececivp95/18/2016: right lumbar facet nerve rhizotomy -100% pain relief for two years.04/20/2015: bilateral lfnb l2-l507/05/2014 left lfnb l2-l511/23/2013: right lumbart facet nerve block l2-l5, 100% pain relief for 1.5 years.11/08/2017 lumbar iesi 40% ongoing pain eiaesk7008/12/2017: rfa right l2-l5, 80% pain relief that is on going (10/10/17)dr. pamela cee pain hpjfuicisz69/18/2016: right lumbar facet nerve rhizotomy -100% pain [...] independently.,able to bathe/groom without assistance.,able to complete doctor osteopathic., andwalking without assistance.. For pain scores, patient reportsaverage pain- 2/10,current pain- 3/10, andworst pain- 2/10. For recent injections, patient reportspain relief from injections- __% lasting for __ __,epidural steroid injection-,lmbb/facet injections-, andradiofrequency ablation-(12/16/2017: #2 interlaminar lesi l5/s1, 80% pain relief for 2 days11/08/2017 lumbar iesi 40% ongoing pain mhcwmq7011/08/2017 lumbar iesi 40% ongoing pain relief). For [...] relief for 2 days. Kumar Sarmiento MD [address] [place] [address], [phone], [facility] 02/20/2018 17:17:40 04/21/2018 text/html Follow-up (meds & injections)Reported by PatientHPIFor functional assessment/disability index, patient reportsunable to work.andunable to exercise.but reportsliving independently.,able to bathe/groom without assistance.,able to complete doctor osteopathic., andwalking without assistance.. For improvement, patient reportspain is the same as compared to last visit.. For pain scores, patient reportsaverage pain- 2/10,current pain- 5/10, andworst pain- 6/10. For recent injections, patient reportspain relief from injections- __% lasting for __ __,epidural steroid injection-,lmbb/facet injections-, andradiofrequency ablation-(12/16/2017: #2 interlaminar lesi l5/s1, 80% pain relief for 2 days11/08/2017 lumbar iesi 40% ongoing pain euctcs6111/08/2017 lumbar iesi 40% ongoing pain relief). For [...] 2 days11/08/2017 lumbar iesi 40% ongoing pain kmiykg8508/12/2017: rfa right l2-l5, 80% pain relief that is on going (10/10/17)dr. santiago [facility] ajlpqhnnny84/18/2016: right lumbar facet nerve rhizotomy -100% pain relief for two years.04/20/2015: bilateral lfnb l2-l507/05/2014 left lfnb l2-l511/23/2013: right lumbart facet nerve block l2-l5, 100% pain relief for 1.5 years.11/08/2017 lumbar iesi 40% ongoing pain revriu1808/12/2017: rfa right l2-l5, 80% pain relief that is on going (10/10/17)dr. santiago [facility] amfjqjgfyr31/18/2016: right lumbar facet nerve rhizotomy -100% pain relief for two years.04/20/2015: bilateral lfnb l2-l507/05/2014 left lfnb l2-l511/23/2013: right lumbart facet nerve block l2-l5, 100% pain relief for 1.[address] santiago). For medications history, patient reportsnsaids: (denies),muscle relaxants: (denies),neuropathics: (denies), andopioid pain medications: (norco-effective). For prior pain management, patient reportsyes:([facility] dr. santiago). For onset, (2008). Kumar Sarmiento MD [address] [place] [address], [phone], [facility] 04/24/2018 08:00:36
--- OUTSIDE RECORDS SUMMARY | 2025-04-25 15:45 | XMS_ITS | Encounter Summary ---
Author Organization Healthcare Address [address] [place] [address] Care Team Providers Care Navy Diver Name Role Phone Akil Borges MD Primary Care Provider + [phone] Alex Adams MD Unavailable [phone] Phan Avitia MD Unavailable Encounter Details Date Type Department Care Team (Late st Contact Info) Description 06/05/2020 Orders Only External Location [address] [place] [address] Neeraj Ross MD [address] [place] [address] Social History Tobacco Use Types Packs/Day Years [...] on filedocumented in this encounter Care Teams Navy Diver Relationship Specialty Start Date End Date Akil Borges MD [address] [facility] [address] [facility] [address] [place] [address] PCP - General 09/16/20 Alex Adams MD [address] [place] [address] Referring Physician 12/05/20 Phan Avitia MD [address] [facility] [address] [place] [address] Surgeon Otolaryngology 06/22/22 documented as of this encounter
--- OUTSIDE RECORDS SUMMARY | 2025-04-25 15:45 | XMS_ITS | Encounter Summary ---
Author Organization Healthcare Address [address] [place] [address] Care Team Providers Care Central Processing Technician Name Role Phone Akil Borges MD Primary Care Provider + [phone] Alex Adams MD Unavailable [phone] Phan Avitia MD Unavailable Encounter Details Date Type Department Care Team (Late st Contact Info) Description 11/22/2020 Orders Only External Location [address] [place] [address] Provider, External Social History Tobacco Use Types [...] on filedocumented in this encounter Care Teams Central Processing Technician Relationship Specialty Start Date End Date Akli Borges MD [address] [place] [address] PCP - General 09/16/20 Aelx Adams MD [address] [place], [place] [id number] Referring Physician 12/05/20 Phan Avitia MD [address] [facility] [address] [place] [address] Surgeon Otolaryngology 06/22/22 documented as of this encounter
--- OUTSIDE RECORDS SUMMARY | 2025-04-25 15:45 | XMS_ITS | Encounter Summary ---
Author Organization Healthcare Address [address] [place] [address] Care Team Providers Care Bookkeeper Assistant Name Role Phone Akil Borges MD Primary Care Provider + [phone] Alex Adams MD Unavailable [phone] Phan Avitia MD Unavailable Encounter Details Date Type Department Care Team (Late st Contact Info) Description 11/22/2020 Orders Only External Location [address] [place] [address] Provider, External Social History Tobacco Use Types [...] on filedocumented in this encounter Care Teams Bookkeeper Assistant Relationship Specialty Start Date End Date Akil Borges MD [address] [place] [address] PCP - General 09/16/20 Alex Adams MD [address] [place], [place] [id number] Referring Physician 12/05/20 Phan Avitia MD [address] [facility] [address] [place] [address] Surgeon Otolaryngology 06/22/22 documented as of this encounter
--- OUTSIDE RECORDS SUMMARY | 2025-04-25 15:45 | XMS_ITS | Encounter Summary ---
Author Organization Healthcare Address [address] [place] [address] Care Team Providers Care International Sourcing Manager Name Role Phone Akil Borges MD Primary Care Provider + [phone] Alex Adams MD Unavailable [phone] Phan Avitia MD Unavailable Encounter Details Date Type Department Care Team (Late st Contact Info) Description 12/12/2020 Orders Only External Location [address] [place] [address] Akil Borges MD [address] [place] [address] Social History Tobacco Use Types [...] on filedocumented in this encounter Care Teams International Sourcing Manager Relationship Specialty Start Date End Date Akil Borges MD [address] [place] [address] PCP - General 09/16/20 Alex Adams MD [address] [place] [address] Referring Physician 12/05/20 Phan Avitia MD [address] [place] [address] Surgeon Otolaryngology 06/22/22 documented as of this encounter
--- OUTSIDE RECORDS SUMMARY | 2025-04-25 15:45 | XMS_ITS | Encounter Summary ---
Author Organization [facility] Address [address] [place] [address] Care Team Providers Care Survey Data Technician Name Role Phone Akil Borges MD Primary Care Provider + [phone] Alex Adams MD Unavailable [phone] Phan Avitia MD Unavailable Encounter Details Date Type Department Care Team (Late st Contact Info) Description 05/07/2018 Orders Only External Location [address] [place] [address] Provider, External Social History Tobacco Use Types [...] on filedocumented in this encounter Care Teams Survey Data Technician Relationship Specialty Start Date End Date Akil Borges MD [address] [place] [address] PCP - General 09/16/20 Alex Adams MD [facility] [address] [id number] Referring Physician 12/05/20 Phan Avitia MD [id number] [place] [address] Surgeon Otolaryngology 06/22/22 documented as of this encounter
--- OUTSIDE RECORDS SUMMARY | 2025-04-25 15:45 | XMS_ITS | Encounter Summary ---
Author Organization Healthcare Address [address] [place] [address] Care Team Providers Care Media Relations Manager Name Role Phone Akil Borges MD Primary Care Provider + [phone] Alex Adams MD Unavailable [phone] Phan Avitia MD Unavailable Encounter Details Date Type Department Care Team (Late st Contact Info) Description 03/24/2018 Orders Only External Location [address] [place] [address] Huong Royal MD [address] [place] [address] Social History Tobacco Use Types Packs/Day Years [...] on filedocumented in this encounter Care Teams Media Relations Manager Relationship Specialty Start Date End Date Akil Borges MD [address] [place] [address] PCP - General 09/16/20 Alex Adams MD [address] [place] [address] Referring Physician 12/05/20 Phan Avitia MD [address] [facility] [address] [place] [address] Surgeon Otolaryngology 06/22/22 documented as of this encounter
--- NOTE | 2025-04-25 15:46 | CT_ITS ---
PROCEDURE INFORMATION: Exam: CTA Neck Without And With Contrast Exam date and time: 04/25/2025 4:01 PM Age: 80 years old Clinical indication: Stroke-like symptoms; Other: Possible stroke; Lt upper extremity weakness TECHNIQUE: Imaging protocol: Computed tomographic angiography of the neck without and with contrast. Exam focused on the cervical segments of the vasculature. 3D rendering (Not supervised by radiologist): MIP and/or 3D reconstructed images were created by the technologist. Radiation optimization: All CT scans at this facility use at least one of these dose optimization techniques: automated exposure control; mA and/or kV adjustment per patient size (includes targeted exams where dose is matched to clinical indication); or iterative reconstruction. Contrast material: ISOVUE; Contrast volume: 80 ml; Contrast route: INTRAVENOUS (IV); COMPARISON: CT ANGIO NECK 11/22/2020 11:03 AM FINDINGS: Right common carotid artery: No stenosis. No dissection or occlusion. Right internal carotid artery: Less than 50% stenosis with prominent atherosclerotic calcification. No dissection or occlusion. Right external carotid artery: No occlusion or stenosis of the origin. Left common carotid artery: No stenosis. No dissection or occlusion. Left internal carotid artery: Approximately 70% stenosis with prominent atherosclerotic calcification. No dissection or occlusion. Left external carotid artery: No occlusion or stenosis of the origin. Right vertebral artery: No stenosis. No dissection or occlusion. Left vertebral artery: No stenosis. No dissection or occlusion. Soft tissues: Normal. No significant soft tissue swelling. Bones/joints: No acute fracture. IMPRESSION: 1. 70% stenosis (severe) proximal left ICA. 2. Less than 50% stenosis proximal right ICA. REFERENCES: NASCET CRITERIA. The degree of stenosis in the cervical segment of the internal carotid artery is based on NASCET criteria. Normal is no stenosis. Mild is less than 50% stenosis. Moderate is 50-69% stenosis. Severe is 70% to 99% stenosis. Total occlusion is no detectable patent lumen.
--- NOTE | 2025-04-25 15:46 | CT_ITS ---
PROCEDURE INFORMATION: Exam: CTA Head Without And With Contrast, Arteriography Exam date and time: 04/25/2025 4:01 PM Age: 80 years old Clinical indication: Stroke-like symptoms; Other: Possible stroke; Lt upper extremity weakness TECHNIQUE: Imaging protocol: Computed tomographic angiography of the head without and with contrast. Exam focused on the arteries. 3D rendering (Not supervised by radiologist): MIP and/or 3D reconstructed images were created by the technologist. Radiation optimization: All CT scans at this facility use at least one of these dose optimization techniques: automated exposure control; mA and/or kV adjustment per patient size (includes targeted exams where dose is matched to clinical indication); or iterative reconstruction. Contrast material: ISOVUE; Contrast volume: 80 ml; Contrast route: INTRAVENOUS (IV); Other technique: STROKE PROTOCOL was implemented. COMPARISON: CT HEAD/BRAIN WO CON 04/25/2025 3:59 PM FINDINGS: ANTERIOR CIRCULATION: Right internal carotid artery: Intracranial segment is patent with no significant stenosis or occlusion. Atherosclerotic calcification within the cavernous segment. No aneurysm. Right middle cerebral artery: No occlusion or significant stenosis. No aneurysm. Right anterior cerebral artery: No occlusion or significant stenosis. No aneurysm. Left internal carotid artery: Intracranial segment is patent with no significant stenosis. Atherosclerotic calcification within the cavernous segment. No aneurysm. Left middle cerebral artery: No occlusion or significant stenosis. No aneurysm. Left anterior cerebral artery: No occlusion or significant stenosis. No aneurysm. POSTERIOR CIRCULATION: Right vertebral artery: No occlusion or significant stenosis. No aneurysm. Left vertebral artery: No occlusion or significant stenosis. No aneurysm. Basilar artery: No occlusion or significant stenosis. No aneurysm. Right posterior cerebral artery: No occlusion or significant stenosis. No aneurysm. Left posterior cerebral artery: No occlusion or significant stenosis. No aneurysm. HEAD: Brain: Normal. No hemorrhage. Unremarkable white matter. No mass effect. Cerebral ventricles: Normal. No ventriculomegaly. Bones: Unremarkable. No acute fracture. Paranasal sinuses: Visualized sinuses are normal. No fluid levels. Mastoid air cells: Visualized mastoids are normal. No mastoid effusion. Soft tissues: Unremarkable. IMPRESSION: 1. No large vessel occlusion. 2. Unremarkable CT head. ASSESSMENT: ASPECTS ([place] Stroke Program Early CT Score) is 10.
--- NOTE | 2025-04-25 15:46 | CT_ITS ---
PROCEDURE INFORMATION: Exam: CT Head Without Contrast Exam date and time: 04/25/2025 3:59 PM Age: 80 years old Clinical indication: Stroke-like symptoms; Other: Possible stroke; Lt upper extremity weakness TECHNIQUE: Imaging protocol: Computed tomography of the head without contrast. Radiation optimization: All CT scans at this facility use at least one of these dose optimization techniques: automated exposure control; mA and/or kV adjustment per patient size (includes targeted exams where dose is matched to clinical indication); or iterative reconstruction. Other technique: STROKE PROTOCOL was implemented. COMPARISON: MR HEAD/BRAIN WO CON 10/08/2022 2:09 PM FINDINGS: Brain: Central and cortical brain atrophy evident, appropriate for patient age. 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 No acute intracranial hemorrhage. Cerebral ventricles: No ventriculomegaly. Paranasal sinuses: Visualized sinuses are unremarkable. No fluid levels. Mastoid air cells: Visualized mastoid air cells are well aerated. Bones: Unremarkable. No acute fracture. Soft tissues: Unremarkable. IMPRESSION: No acute intracranial abnormality. ASSESSMENT: ASPECTS ([place] Stroke Program Early CT Score) is 10.
--- NOTE | 2025-04-25 15:52 | HMH.ITSTN ---
do not wait on labs per GRIS Orozco
[2025-04-25] MEDS: SODIUM CHLORIDE 0.9% 10ML SYR (RAD ONLY) 10 ML IV (15:55)
[2025-04-25] MEDS: IOPAMIDOL-370 (76%);100ML BOTTLE 80 ML IV (15:55)
[2025-04-25] MEDS: 0.9 % SODIUM CHLORIDE 50 ML VIAL IV (15:55)
[2025-04-25 16:04] LABS: Hematocrit 29.5 % (42.0-52.0); Hemoglobin 8.4 g/dL (14.1-18.0); Immature Granulocytes % 0.3 %; Mean Corpuscular HGB Conc 28.5 g/dL (31.8-35.4); Mean Corpuscular Hemoglobin 21.4 pg (27.0-31.2); Mean Corpuscular Volume 75.1 fl (80-94); Nucleated Red Blood Cells % 0 %; Platelet Count 402 K/mm3 (142-424); Red Blood Count 3.93 M/mm3 (4.60-6.20); Red Cell Distribution Width-SD 54.4 fL; White Blood Count 9.5 K/mm3 (4.8-10.8)
[2025-04-25] MEDS: SODIUM CHLORIDE 0.9% 500ML BAG 500 ML IV (16:05)
--- NOTE | 2025-04-25 16:08 | ECG_ITS ---
APPROVED REPORT Exam: Resting ECG HR:93 bpm ECG Measurements Heart Rate 93 AXES NJ 166 P 77 QRSd 91 QRS 14 QT 360 T -86 QTc 410 Conclusion NSR, no PORFIRIO, STD or t wave inversions concerning for ischemia Electronically signed by : Renee Lester, 04/25/2025 18:06:12
--- NOTE | 2025-04-25 16:11 | PC.NURSE ---
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 pts left eye is partially closed. can not feel me touching on the left side of his face as much as the right. notified provider
[2025-04-25 16:13] LABS: Albumin Level 3.7 g/dl (3.5-5.0); Chloride 104 mmol/L (98-107); Sodium 135 mmol/L (136-145)
[2025-04-25 16:14] LABS: Potassium 5.0 mmoL/L (3.5-5.1)
--- NOTE | 2025-04-25 16:14 | HMH.EDGENADL ---
Discharge Plan Disposition Patient Disposition: Xfer Short-Term Hosp Condition: Good Prescriptions Prescriptions: No Action duloxetine 30 mg capsule,delayed release(DR/EC) 30 mg PO BID Patient Comments: TAKE 1 CAPSULE BY MOUTH TWICE DAILY losartan 25 mg tablet 25 mg PO DAILY Miketri Aerosphere 160-9-4.8 mcg/actuation HFA aerosol inhaler 2 inh inhalation BID cyanocobalamin (vitamin B-12) 1,000 mcg tablet 1,000 mcg PO DAILY insulin asp prt-insulin aspart 100 unit/mL (70-30) solution 1 sliding scale dose SQ USEASDIRECTD dapagliflozin propanediol [Farxiga] 10 mg tablet 10 mg PO DAILY furosemide [Lasix] 40 mg tablet 40 mg PO DAILY Qty: 30 11RF clopidogrel 75 mg tablet 75 mg PO DAILY Patient Comments: TAKE 1 TABLET BY MOUTH ONCE DAILY allopurinol 100 mg tablet 100 mg PO DAILY Patient Comments: TAKE DIRECTED ONCE DAILY levothyroxine 50 mcg tablet 50 mcg PO AM Patient Comments: TAKE 1 TABLET BY MOUTH ONCE DAILY metformin 1,000 mg tablet 1,000 mg PO BID Patient Comments: TAKE 1 TABLET BY MOUTH TWICE DAILY aspirin 81 mg Tablet 81 mg PO DAILY finasteride 5 mg tablet 5 mg PO DAILY Patient Comments: TAKE 1 TABLET BY MOUTH ONCE DAILY rosuvastatin 10 mg tablet 10 mg PO DAILY Patient Comments: TAKE 1 TABLET BY MOUTH ONCE DAILY pregabalin 100 mg capsule 100 mg PO BID Patient Comments: TAKE 1 CAPSULE BY MOUTH TWICE DAILY insulin degludec [Tresiba FlexTouch U-100] 100 unit/mL (3 mL) insulin pen 40 unit SQ DAILY Patient Comments: INJECT 40 UNITS SUBCUTANEOUSLY ONCE DAILY Referrals Follow up/Referrals: Akil Borges MD [Primary Care Provider, Internal Medicine] - See instructions Clinical Impressions Clinical Impression: Abnormal gait, Decreased sensation, Anemia Stand Alone Forms Stand Alone Forms: Transfer Record - ED Print Language Print Language: Slovak Discharge ED Provider: Renee Lester General Adult HPI <YULISA Patrick - Last Filed: 04/25/25 16:56> General Chief complaint: Weakness Stated complaint: Numbness left hand and arm Time Seen by Provider: 04/25/25 15:38 Mode of Arrival: Wheelchair Source of Information: Patient and Relative Description of Symptoms (Recalled from ER Triage Doc. by RN): pt started experiencing dizziness,left arm numbness and weakness @ approx 0700. states it happened yesterday for a few minutes but quickly went away. left eye is partially closed as well which is not normal per family. called provider to bedside History of Present Illness HPI narrative: Patient presents complaining of left arm numbness and tingling. He reports that he had symptoms yesterday which resolved. He noted symptoms again this morning around 7:00. He reports lightheadedness and dizziness. He reports generalized weakness. His gait is abnormal per his son. He has a history of diabetes, coronary artery disease, hypertension, hyperlipidemia. MD complaint: Numbness, tingling Onset (ago): hour(s) (9) Location: left and upper extremity Radiation: non-radiation Severity: moderate Quality: other (tingling) Consistency: constant Relieving factors: none Exacerbating factors: none Treatments prior to arrival: none Related Data Home Medications ?Medication ?Instructions ?Recorded ?Confirmed allopurinol 100 mg tablet 100 mg PO DAILY Gout 09/17/22 03/22/25 aspirin 81 mg tablet 81 mg PO DAILY Heart health 09/17/22 03/22/25 clopidogrel 75 mg tablet 75 mg PO DAILY Blood thinner 09/17/22 03/22/25 finasteride 5 mg tablet 5 mg PO DAILY High blood pressure 09/17/22 03/22/25 insulin degludec 100 unit/mL (3 40 unit SQ DAILY Diabetes 09/17/22 03/22/25 mL) subcutaneous pen (Tresiba FlexTouch U-100 insulin) levothyroxine 50 mcg tablet 50 mcg PO AM Thyroid 09/17/22 03/22/25 metformin 1,000 mg tablet 1,000 mg PO BID Diabetes 09/17/22 03/22/25 Held on 11/19/22. Instructions: Resume on 11/22/22. pregabalin 100 mg capsule 100 mg PO BID Pain 09/17/22 03/22/25 rosuvastatin 10 mg tablet 10 mg PO DAILY Cholesterol 09/17/22 03/22/25 cyanocobalamin (vitamin B-12) 1,000 mcg PO DAILY Supplement 10/15/22 03/22/25 1,000 mcg tablet insulin aspar prt-insulin aspart 1 sliding scale dose SQ 10/15/22 03/22/25 100 unit/mL (70-30) subcutaneous USEASDIRECTD dm soln dapagliflozin propanediol 10 mg 10 mg PO DAILY 11/13/23 03/22/25 tablet (Farxiga) losartan 25 mg tablet 25 mg PO DAILY 01/22/24 03/22/25 duloxetine 30 mg capsule,delayed 30 mg PO BID 11/11/24 03/22/25 release budesonide 160 mcg-glycopyr 9 2 inh inhalation BID 03/22/25 03/22/25 mcg-formot 4.8 mcg/actuation HFA inhaler (Breztri Aerosphere) Previous Rx's ?Medication ?Instructions ?Recorded furosemide 40 mg tablet (Lasix) 40 mg PO DAILY #30 tabs 05/18/24 Allergies Allergy/AdvReac Type Severity Reaction Status Date / Time No Known Allergies Allergy Verified 03/22/25 13:10 [facility] <YULISA Patrick - Last Filed: 04/25/25 16:56> [facility] Disclaimer: The information contained in this section may have been updated after the patient was seen, as this information can be updated by other users. Medical History History of 2019 novel coronavirus disease (COVID-19) Fibrosis of lung Encounter for screening for malignant neoplasm of lung Smoking greater than 30 pack years Pulmonary emphysema Abnormal result of cardiovascular function study Diabetes mellitus, type 2 COPD (chronic obstructive pulmonary disease) Dizziness Abnormal cardiovascular stress test SOB (shortness of breath) Chest pain Surgical History History of hernia surgery History of heart artery stent Family History Other Asthma Cancer Diabetes Social History Smoking Status: Never smoker second hand exposure: No alcohol intake: never substance use type: denies use current occupational status: retired Travel in the last 8 weeks?: None household members: spouse housing: house current occupational exposures/hazards: No caffeine: No Have you lived/traveled outside [place] in past 30 days?: No Contact w/someone who lives/traveled outside US past 30 days?: No Exposure to someone with infectious disease in past 14 days?: No Do you have a fever (greater than 100.4 F or 38 C)?: No Have you tested positive for COVID-19?: No Exposed to someone with COVID-19 in past 14 days?: No Do you have a sore throat?: No Do you have a cough?: No Do you have any weakness?: No Do you have any diarrhea?: No Are you experiencing any unusual bleeding?: No Do you have any muscle aches/pain?: No Do you have any abdominal pain?: No Are you experiencing loss of taste or smell?: No Other Medical History Have you received the Flu Vaccine for this season: No Have you received the Pneumonia Vaccine: Yes <YULISA Patrick - Last Filed: 04/25/25 16:56> ROS Obtained: Yes Systems reviewed as appropriate & no additional complaints except as documented Physical Exam <YULISA Patrick Last Filed: 04/25/25 16:56> General General appearance: alert and in no apparent distress Head Head exam: atraumatic and normocephalic Eye Eye exam: Present normal appearance and EOMI Chest Chest inspection: Present symmetric chest wall rise Respiratory Respiratory exam: Present normal lung sounds bilaterally; Absent wheezes or stridor Cardiovascular Cardiovascular exam: Present regular rate and normal rhythm; Absent systolic murmur Extremities Exam Extremities exam: Present full ROM Neurological Exam Neurological exam: Present alert, oriented X3 and other (Left upper eyelid drooping, slight leaning to left with gait. Patient has decreased sensation to the left side of his face. NIHSS 2) Psychiatric Psychiatric exam: Present normal affect and normal mood Skin Skin exam: Present warm, dry and intact Medical Decision Making <YULISA Patrick - Last Filed: 04/25/25 16:56> Medical Records Screening: Per USPSTF and CDC recommendations, given the prevalence of disease in our region, it is our hospital?s policy to screen for HIV and viral Hepatitis for all patients aged 18 and over and those with ongoing risk factors. [facility] Inquiry Pt receiving controlled substance: No Vital Signs: 04/25/25 15:43 04/25/25 15:56 04/25/25 16:15 Temperature 98.3 F Temperature Source Oral Pulse Rate 91 H 92 H Pulse Rate [Right] 90 Respiratory Rate 18 14 Blood Pressure 178/65 H Blood Pressure [Right Arm] 178/95 H Blood Pressure Mean [Right Arm] 122 02 Sat by Pulse Oximetry 92 L 96 98 Oxygen Delivery Method Room Air 04/25/25 16:30 04/25/25 17:00 Temperature Temperature Source Pulse Rate 90 95 H Pulse Rate [Right] Respiratory Rate 22 23 Blood Pressure Blood Pressure [Right Arm] Blood Pressure Mean [Right Arm] 02 Sat by Pulse Oximetry 94 L 94 L Oxygen Delivery Method Lab Data Lab Results 04/25/25 15:55: WBC 9.5, RBC 3.93 L, Hgb 8.4 L, Hct 29.5 L, MCV 75.1 L, MCH 21.4 L, MCHC 28.5 L, RDW 20.5 H, Plt Count 402, MPV 11.0 H, Neut % (Auto) 67.0, Lymph % (Auto) 24.6, [place] % (Auto) 5.5, Eos % (Auto) 1.6, Baso % (Auto) 1.0, Neut # (Auto) 6.4, Lymph # (Auto) 2.4, [place] # (Auto) 0.5, Eos # (Auto) 0.2, Baso # (Auto) 0.1, PT 10.3, INR 0.92, APTT 22.3 L, Sodium 135 L, Potassium 5.0, Chloride 104, Carbon Dioxide 27, Anion Gap 9.0, BUN 21 H, Creatinine 1.90 H, Estimated Creat Clear 49, Estimated GFR 34 L, Est GFR ( Amer) 42 L, Glucose 253 H, Calcium 9.3, Total Bilirubin 0.3, AST 41, ALT 20, Alkaline Phosphatase 53, Troponin I < 0.01, Total Protein 6.9, Albumin 3.7, Globulin 3.2, Albumin/Globulin Ratio 1.2, Triglycerides 472 H, Cholesterol 188, LDL Cholesterol Direct 77.06 L, HDL Cholesterol 54, Cholesterol/HDL Ratio 3.5, Plasma/Serum Alcohol < 10, HCV Ab LILLY w/Rflx PCR Qn Negative, HIV Ag/Ab Combo Qual Negative 04/25/25 15:55 04/25/25 15:55 Orders (Tests/Meds): ED MEDICATIONS Generic Name Dose Route Start Last Admin Trade Name Freq PRN Reason Stop Dose Admin Sodium Chloride 10 ml 04/25/25 15:45 Sodium Chloride 0.9% 10ml Flush Syringe IV 05/25/25 15:44 NEEDED PRN Maintain IV Site Sodium Chloride 10 ml 04/25/25 15:54 04/25/25 15:55 Sodium Chloride 0.9% 10ml Syr (Rad Only) IV 05/25/25 15:53 10 ml NEEDED PRN Administration Maintain IV Site Discontinued Medications Generic Name Dose Route Start Last Admin Trade Name Eusebio PRN Reason Stop Dose Admin Iopamidol 80 ml 04/25/25 15:54 04/25/25 15:55 Iopamidol-370 (76%);100ml Bottle IV 04/25/25 15:55 80 ml ONCE ONE Administration Sodium Chloride 500 ml 04/25/25 15:48 04/25/25 16:05 Sodium Chloride 0.9% 500ml Bag IV 04/25/25 15:49 500 ml ONCE ONE Administration Sodium Chloride 50 ml 04/25/25 15:54 04/25/25 15:55 0.9 % Sodium Chloride 50 Ml Vial IV 04/25/25 15:55 50 ml ONCE ONE Administration ORDERS Category Date Time Status CT angio head Stat Cat Scan 04/25/25 15:[address] angio neck Stat Cat Scan 04/25/25 15:[address] head/brain wo con Stat Cat Scan 04/25/25 15:46 Completed Activated Partial Thrombo Time Stat Lab 04/25/25 15:55 Completed Complete Blood Count Auto Diff Stat Lab 04/25/25 15:55 Completed Comprehensive Metabolic Panel Stat Lab 04/25/25 15:55 Completed Ethyl Alcohol Stat Lab 04/25/25 15:55 Completed HIV Combo Stat Lab 04/25/25 15:55 Completed Hepatitis C Ab Qual. W/ RFX Stat Lab 04/25/25 15:55 Completed Lipid Panel Stat Lab 04/25/25 15:55 Completed Prothrombin Time INR Stat Lab 04/25/25 15:55 Completed Troponin I Q3H Lab 04/25/25 19:00 Ordered Troponin I Q3H Lab 04/25/25 22:00 Ordered Troponin I Stat Lab 04/25/25 15:55 Completed Urinalysis and Microscopic Stat Lab 04/25/25 15:46 Ordered Medical Decision Narrative: In summary patient is a 80-year-old who presents the emergency department for evaluation of left upper extremity numbness, tingling. Patient is hypertensive upon arrival, afebrile. Left upper eyelid drooping, decree sensation to the left side of the face, abnormal gait on exam. Differential diagnosis includes CVA, ICH, ACS, electrolyte abnormality, dehydration, anemia. Initial workup will be conducted with hematologic labs, CT brain, CTA head neck, EKG. 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 Upon repeat evaluation patient remained stable. Given this patient will be transferred to [facility], accepted [facility] for Dr. Wallace for further workup of his neurologic symptoms. He denies any blood in the stool and reports that his PCP told him that his hemoglobin was 8 on Saturday. <Renee Lester MD - Last Filed: 04/25/25 17:30> Vital Signs: 04/25/25 15:43 04/25/25 15:56 04/25/25 16:15 Temperature 98.3 F Temperature Source Oral Pulse Rate 91 H 92 H Pulse Rate [Right] 90 Respiratory Rate 18 14 Blood Pressure 178/65 H Blood Pressure [Right Arm] 178/95 H Blood Pressure Mean [Right Arm] 122 02 Sat by Pulse Oximetry 92 L 96 98 Oxygen Delivery Method Room Air 04/25/25 16:30 04/25/25 17:00 Temperature Temperature Source Pulse Rate 90 95 H Pulse Rate [Right] Respiratory Rate 22 23 Blood Pressure Blood Pressure [Right Arm] Blood Pressure Mean [Right Arm] 02 Sat by Pulse Oximetry 94 L 94 L Oxygen Delivery Method Lab Data Lab Results 04/25/25 15:55: WBC 9.5, RBC 3.93 L, Hgb 8.4 L, Hct 29.5 L, MCV 75.1 L, MCH 21.4 L, MCHC 28.5 L, RDW 20.5 H, Plt Count 402, MPV 11.0 H, Neut % (Auto) 67.0, Lymph % (Auto) 24.6, [place] % (Auto) 5.5, Eos % (Auto) 1.6, Baso % (Auto) 1.0, Neut # (Auto) 6.4, Lymph # (Auto) 2.4, [place] # (Auto) 0.5, Eos # (Auto) 0.2, Baso # (Auto) 0.1, PT 10.3, INR 0.92, APTT 22.3 L, Sodium 135 L, Potassium 5.0, Chloride 104, Carbon Dioxide 27, Anion Gap 9.0, BUN 21 H, Creatinine 1.90 H, Estimated Creat Clear 49, Estimated GFR 34 L, Est GFR ( Amer) 42 L, Glucose 253 H, Calcium 9.3, Total Bilirubin 0.3, AST 41, ALT 20, Alkaline Phosphatase 53, Troponin I < 0.01, Total Protein 6.9, Albumin 3.7, Globulin 3.2, Albumin/Globulin Ratio 1.2, Triglycerides 472 H, Cholesterol 188, LDL Cholesterol Direct 77.06 L, HDL Cholesterol 54, Cholesterol/HDL Ratio 3.5, Plasma/Serum Alcohol < 10, HCV Ab LILLY w/Rflx PCR Qn Negative, HIV Ag/Ab Combo Qual Negative Orders (Tests/Meds): ED MEDICATIONS Generic Name Dose Route Start Last Admin Trade Name Freq PRN Reason Stop Dose Admin Sodium Chloride 10 ml 04/25/25 15:45 Sodium Chloride 0.9% 10ml Flush Syringe IV 05/25/25 15:44 NEEDED PRN Maintain IV Site Sodium Chloride 10 ml 04/25/25 15:54 04/25/25 15:55 Sodium Chloride 0.9% 10ml Syr (Rad Only) IV 05/25/25 15:53 10 ml NEEDED PRN Administration Maintain IV Site Discontinued Medications Generic Name Dose Route Start Last Admin Trade Name Freq PRN Reason Stop Dose Admin Iopamidol 80 ml 04/25/25 15:54 04/25/25 15:55 Iopamidol-370 (76%);100ml Bottle IV 04/25/25 15:55 80 ml ONCE ONE Administration Sodium Chloride 500 ml 04/25/25 15:48 04/25/25 16:05 Sodium Chloride 0.9% 500ml Bag IV 04/25/25 15:49 500 ml ONCE ONE Administration Sodium Chloride 50 ml 04/25/25 15:54 04/25/25 15:55 0.9 % Sodium Chloride 50 Ml Vial IV 04/25/25 15:55 50 ml ONCE ONE Administration ORDERS Category Date Time Status CT angio head Stat Cat Scan 04/25/25 15:[address] angio neck Stat Cat Scan 04/25/25 15:[address] head/brain wo con Stat Cat Scan 04/25/25 15:46 Completed Activated Partial Thrombo Time Stat Lab 04/25/25 15:55 Completed Complete Blood Count Auto Diff Stat Lab 04/25/25 15:55 Completed Comprehensive Metabolic Panel Stat Lab 04/25/25 15:55 Completed Ethyl Alcohol Stat Lab 04/25/25 15:55 Completed HIV Combo Stat Lab 04/25/25 15:55 Completed Hepatitis C Ab Qual. W/ RFX Stat Lab 04/25/25 15:55 Completed Lipid Panel Stat Lab 04/25/25 15:55 Completed Prothrombin Time INR Stat Lab 04/25/25 15:55 Completed Troponin I Q3H Lab 04/25/25 19:00 Ordered Troponin I Q3H Lab 04/25/25 22:00 Ordered Troponin I Stat Lab 04/25/25 15:55 Completed Urinalysis and Microscopic Stat Lab 04/25/25 15:46 Ordered Medical Decision Narrative: In summary patient is a 80-year-old who presents the emergency department for evaluation of left upper extremity numbness, tingling. Patient is hypertensive upon arrival, afebrile. Left upper eyelid drooping, decree sensation to the left side of the face, abnormal gait on exam. Differential diagnosis includes CVA, ICH, ACS, electrolyte abnormality, dehydration, anemia. Initial workup will be conducted with hematologic labs, CT brain, CTA head neck, EKG. 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 Upon repeat evaluation patient remained stable. Given this patient will be transferred to [facility], [facility] for Dr. Wallace for further workup of his neurologic symptoms. He denies any blood in the stool and reports that his PCP told him that his hemoglobin was 8 on Saturday. I was consulted by the KENDRA, and we discussed the complexity of problems being addressed. I approved the treatment and management plan for this patient's care in the emergency department, thus performing a substantial portion of the medical decision making. Renee Lester MD Critical Care <YULISA Patrick - Last Filed: 04/25/25 16:56> Critical Care Time Critical Care Time: No
[2025-04-25 16:16] LABS: Alanine Aminotransferase 20 U/L (12-78); Albumin/Globulin Ratio 1.2 (1.1-1.8); Alkaline Phosphatase 53 U/L (38-126); Anion Gap 9.0 mEq/L (5-15); Aspartate Amino Transferase 41 U/L (17-59); Bilirubin,Total 0.3 mg/dl (0.2-1.3); Blood Urea Nitrogen 21 mg/dl (9-20); Carbon Dioxide 27 mmol/L (22.0-30.0); Cholesterol 188 mg/dl (140-200); Creatinine Clearance Estimated 49 mL/min (50-200); Creatinine,Serum 1.90 mg/dl (0.66-1.25); Estimated Glomerular Filt Rate 34 ml/min (>60); GFR (African American) 42 ML/MIN (>60); Globulin 3.2 g/dL (1.3-3.2); Total Protein,Serum 6.9 g/dl (6.3-8.2)
[2025-04-25 16:17] LABS: Calcium 9.3 mg/dl (8.4-10.2); Glucose 253 mg/dl (74-100); HDL Cholesterol 54 mg/dl (40-60)
[2025-04-25 16:25] LABS: Triglycerides 472 mg/dl (30-150)
[2025-04-25 16:34] LABS: Troponin I < 0.01 ng/ml (0.00-0.034)
[2025-04-25 16:38] LABS: Activated Partial Thrombo Time 22.3 seconds (22.8-30.6); INR 0.92 (0.9-1.1); Prothrombin Time 10.3 seconds (10.1-12.5)
--- NOTE | 2025-04-25 16:45 | PC.NURSE ---
Called [facility] for a patient nancy, they are speaking now.
[2025-04-25 17:08] LABS: Hepatitis C Ab Qual. W/ RFX NEGATIVE (Negative)
--- NOTE | 2025-04-25 17:08 | PC.NURSE ---
Spoke with [facility] about the number to call report
--- NOTE | 2025-04-25 17:16 | PC.NURSE ---
attempted to call report to [facility]. awaiting a call back
--- NOTE | 2025-04-25 17:35 | PC.NURSE ---
EMS was called about patient transfer.
[2025-04-25 17:46] LABS: Microscopic, Urine URINE MICROSCOPIC (MICROSCOPIC)
[2025-04-25 17:47] LABS: Bilirubin,Urine Negative (Negative); Color,Urine YELLOW (Yellow); Glucose,Urine (UA) 1+ (Negative); Ketones,Urine Negative (Negative); Leukocyte Esterase,Urine Negative (Negative); PH,Urine 6.0 (5.0-8.5); Protein,Urine 3+ (Negative); Specific Gravity, Urine 1.015 (1.005-1.030); Urobilinogen,Urine 0.2 EU/dl (0.2)
[2025-04-25 17:55] LABS: Bacteria,Urine Trace /lpf; Renal Epithelial Cells,Urine Occasional #/lpf (0)
== END 2025-04-25 18:36 | disposition short-term general hospital (02) ==
PROVIDERS: Physician Assistant; Emergency Provider Student in an Organized Health Care Education/Training Program; PCP Internal Medicine Adolescent Medicine
DX: I65.22 Occlusion and stenosis of left carotid artery (principal); R29.810 Facial weakness; R26.9 Unspecified abnormalities of gait and mobility; D64.9 Anemia, unspecified; R53.1 Weakness; R42 Dizziness and giddiness; R20.8 Other disturbances of skin sensation; R29.702 NIHSS score 2; E11.65 Type 2 diabetes mellitus with hyperglycemia; Z79.4 Long term (current) use of insulin; Z87.891 Personal history of nicotine dependence
CPT/HCPCS: 70450; 70496; 70498; 80053; 80061; 80320; 81001; 84484; 85025; 85610; 85730; 86803; 87389; 93005; 99285; J7040; Q9967